=== PATIENT | male | born 1970 | race Caucasian/White ===

== ENCOUNTER 2017-05-10 09:13 | Emergency (ER) | payer OTHER ==
[2017-05-10 09:22] VITALS: BP 151/88; PULSE 113; RESP 20; TEMP 98.7
[2017-05-10] MEDS ORDERED: KETOROLAC 60 MG/2 ML VIAL IM STA (09:32)
--- NOTE | 2017-05-10 09:38 | ED ---
Upper Extremity HPI - General Chief Complaint: Extremity Injury, Upper Stated Complaint: left arm pain Time Seen by Provider: 05/10/17 09:27 Source: patient, RN notes reviewed Mode of arrival: ambulatory Limitations: no limitations - History of Present Illness Initial Comments: 47-year-old male presents emergency Department chief complaint of left shoulder injury. Patient states he was lifting something heavy he went to pick it up and he felt a pop in his left shoulder. Patient states this sharp pain. Patient states now he is unable to lift the left shoulder. Patient states he has no other symptoms with this. Patient states there is no falls or traumas. Patient states he's never had anything like this before. Patient denies any recent fever, chills, shortness of breath, chest pain, back pain, abdominal pain , nausea vomiting, numbness or tingling, dysuria or hematuria, constipation or diarrhea, headaches or visual changes, or any other current symptoms. - Related Data Home Medications Medication Instructions Recorded Confirmed No Known Home Medications [No 05/10/17 05/10/17 Known Home Medications] Allergies Allergy/AdvReac Type Severity Reaction Status Date / Time No Known Allergies Allergy Verified 05/10/17 09:22 Review of Systems ROS Statement: Those systems with pertinent positive or pertinent negative responses have been documented in the HPI. ROS Other: All systems not noted in ROS Statement are negative. Past Medical History Past Medical History: No Reported History History of Any Multi-Drug Resistant Organisms: None Reported Past Surgical History: No Surgical Hx Reported Past Psychological History: No Psychological Hx Reported Smoking Status: Never smoker Past Alcohol Use History: None Reported Past Drug Use History: None Reported General Exam - General Exam Comments Initial Comments: General: The patient is awake and alert, in no distress, and does not appear acutely ill. Neck: The neck is supple, there is no tenderness. Cardiovascular: There is a regular rate and rhythm. No murmur, rub or gallop is appreciated. Respiratory: Lungs are clear to auscultation, respirations are non-labored, breath sounds are equal. No wheezes, stridor, rales, or rhonchi. Musculoskeletal: Sensation intact with 2+ pulses throughout the left upper extremity. Full range of motion of left wrist and elbow. Patient has limited strength to left shoulder. Patient has passive range of motion with external. Patient has only about 45% abduction then with passive range of motion due to pain. Patient has no external rotation without discomfort. Patient has a positive empty can test on the left Neurological: CN II-XII intact, There are no obvious motor or sensory deficits. Coordination appears grossly intact. Speech is normal. Skin: Skin is warm and dry and no rashes or lesions are noted. Psychiatric: Normal mood and affect. Limitations: no limitations Course Vital Signs 05/10/17 09:19 Temperature 98.7 F Pulse Rate 113 H Respiratory 20 Rate Blood Pressure 151/88 O2 Sat by Pulse 97 Oximetry Procedures - Orthopedic Splinting/Casting Injury #1 Side: left Upper Extremity Injury Location: shoulder Upper Extremity Immobilizer: sling/shoulder immobilizer Medical Decision Making - Medical Decision Making 39-year-old male presents emergency Department chief complaint of left shoulder injury. This time x-rays reviewed and negative. We did discuss there is concern for rotator cuff injury. We did discuss that we would like him follow- up with orthopedics given their information. We did place patient in a sling to help with comfort. We discussed return parameters all patient's questions. He stated he understood. Plan. He will be discharged. Disposition Clinical Impression: Left shoulder strain Disposition: HOME SELF-CARE Condition: Stable Instructions: Rotator Cuff Injury (ED) Additional Instructions: Please use medication as discussed. Please follow up with family doctor if symptoms have not improved over the next two days. Please return to the emergency room if your symptoms increase or worsen or for any other concerns. Referrals: Nils Barrow MD [STAFF PHYSICIAN] - 1-2 days Time of Disposition: 09:59
--- NOTE | 2017-05-10 09:45 | XR ---
EXAMINATION TYPE: XR shoulder complete LT DATE OF EXAM: 05/10/2017 COMPARISON: NONE HISTORY: Pain TECHNIQUE: Shoulder examined in 3 views FINDINGS: The humeral head articulates with the glenoid. The acromio-clavicular junction is normal. No acute fractures or dislocations are evident. A follow up study can be performed 7-10 days from acute trauma for continued pain. IMPRESSION: 1. Normal Shoulder
== END 2017-05-10 10:09 | disposition home or self-care (01) ==
LOC: EC 09:13
DX: S46.912A Strain of unspecified muscle, fascia and tendon at shoulder and upper arm level, left arm, initial encounter (principal); X50.0XXA Overexertion from strenuous movement or load, initial encounter
CPT/HCPCS: 99283; 96372; 73030; J1885

== ENCOUNTER 2018-03-06 21:33 | Inpatient (IN) | payer OTHER ==
[2018-03-06] MEDS ORDERED: SODIUM CHLORIDE 0.9% 1,000 ML IV STA (22:07)
[2018-03-06] MEDS ORDERED: cefTRIAXone IN SWFI 2,000 MG/20 ML SYRINGE IVP STA (22:07)
[2018-03-06] MEDS ORDERED: methylPREDNISolone SOD SUCCI 125 MG/2 ML VIAL IV STA (22:07)
[2018-03-06 22:42] LABS: Basophils % (A) 0 %; Eosinophils # (A) 0.1 k/uL (0-0.7); Eosinophils % (A) 1 %; HCT 41.6 % (39.0-53.0); HGB 13.7 gm/dL (13.0-17.5); Lymphocytes # (A) 0.9 k/uL (1.0-4.8); Lymphocytes % (A) 7 %; MCH 26.9 pg (25.0-35.0); MCV 81.4 fL (80.0-100.0); Mean Platelet Volume 7.5; Monocytes # (A) 1.2 k/uL (0-1.0); Monocytes % (A) 8 %; Neutrophils # (A) 11.8 k/uL (1.3-7.7); Neutrophils % (A) 83 %; Platelet Count 276 k/uL (150-450); RBC 5.12 m/uL (4.30-5.90); WBC 14.3 k/uL (3.8-10.6)
--- NOTE | 2018-03-06 22:53 | XR ---
EXAMINATION TYPE: XR chest 2V DATE OF EXAM: 03/06/2018 COMPARISON: 06/26/2015 HISTORY: Short of breath TECHNIQUE: Frontal and lateral views of the chest are obtained. FINDINGS: Heart and mediastinum are normal. Lungs are clear. Diaphragm is normal. There are chest le ads. Bony thorax is intact. IMPRESSION: Normal chest. No change.
[2018-03-06 22:54] LABS: Creatine Kinase 845 U/L (55-170)
[2018-03-06 22:55] LABS: ALT 36 U/L (21-72); AST 56 U/L (17-59); Albumin 4.6 g/dL (3.5-5.0); Alkaline Phosphatase 71 U/L (38-126); Anion Gap 16 mmol/L; Blood Urea Nitrogen 18 mg/dL (9-20); C Reactive Protein 70.3 mg/L (<10.0); Calcium 9.6 mg/dL (8.4-10.2); Carbon Dioxide 23 mmol/L (22-30); Chloride 101 mmol/L (98-107); Glucose 106 mg/dL (74-99); Sodium 140 mmol/L (137-145); Total Bilirubin 1.4 mg/dL (0.2-1.3)
[2018-03-06 22:58] LABS: D-Dimer 0.39 mg/L FEU (<0.60); INR 1.1 (<1.2); Partial Thromboplastin Time 25.9 sec (22.0-30.0); Prothrombin Time 10.7 sec (9.0-12.0)
[2018-03-06 23:07] LABS: Troponin I <0.012 ng/mL (0.000-0.034)
[2018-03-06 23:12] LABS: Creatine Kinase MB 3.9 ng/mL (0.0-2.4)
[2018-03-06 23:34] LABS: Erythrocyte Sedimentation Rate 25 mm/hr (0-15)
--- NOTE | 2018-03-07 00:18 | ED ---
General Adult HPI - General Chief complaint: Shortness of Breath Stated complaint: Extremity pain Time Seen by Provider: 03/06/18 21:55 Source: patient Mode of arrival: wheelchair Limitations: no limitations - History of Present Illness Initial comments: 48 years old male with a history of rheumatoid arthritis comes in with complaints of sore arms and sore legs and sore feet he was off work he recently went back to work and he did a double shift and he was also supposed to take prednisone along with his methotrexate for his rheumatoid arthritis which he stopped taking few days ago now is complaining about the palpitation and the chest pain for the last 2 days he's short-winded it hurts him worse when he takes a deep breath denies any fever no chills he is not coughing up any phlegm. Denies any headaches no neck stiffness no blurred vision no slurred speech no symptoms of TIA or CVA, number pain no frequency urgency dysuria - Related Data Home Medications Medication Instructions Recorded Confirmed Methotrexate Sodium [Methotrexate] 12.5 mg PO SA 03/06/18 03/06/18 Allergies Allergy/AdvReac Type Severity Reaction Status Date / Time No Known Allergies Allergy Verified 03/06/18 21:46 Review of Systems ROS Statement: Those systems with pertinent positive or pertinent negative responses have been documented in the HPI. ROS Other: All systems not noted in ROS Statement are negative. Past Medical History Past Medical History: No Reported History History of Any Multi-Drug Resistant Organisms: None Reported Past Surgical History: No Surgical Hx Reported Past Psychological History: No Psychological Hx Reported Smoking Status: Never smoker Past Alcohol Use History: None Reported Past Drug Use History: None Reported General Exam - General Exam Comments Initial Comments: General: The patient is awake and alert, in no distress, and does not appear acutely ill. Skin: Skin is warm and dry and no rashes or lesions are noted. Eye: Pupils are equal, round and reactive to light, extra-ocular movements are intact; there is normal conjunctiva bilaterally. Ears, nose, mouth and throat: There are moist mucous membranes and no oral lesions. Neck: The neck is supple, there is no tenderness no signs of meningitis Cardiovascular: There is a regular rate and rhythm. No murmur, rub or gallop is appreciated. His significant tachycardia heart rate is 129 at the moment seemed sinus Respiratory: To auscultation bilateral, no wheezing no rhonchi no distress respiratory palomares noticed Gastrointestinal: Soft, non-distended, non-tender abdomen without masses or organomegaly noted. There is no rebound or guarding present. Bowel sounds are unremarkable. Back: There is no tenderness to palpation in the midline. There is no obvious deformity. Musculoskeletal: Rheumatoid the shoulder joints is restricted quite a bit he is not able to extend his arms at the shoulder joints internal and external rotations are quite painful and range of motion over the both ankle joints is also compromised dorsiflexion and plantar flexions or compromised and painful pulses are good no neurovascular compromise noticed her both feet his posterior came and dorsalis pedis or palpable and healthy Neurological: CN II-XII intact, Cranial nerves III through XII are intact. There are no obvious motor or sensory deficits. Coordination appears grossly intact. Speech is normal. Psychiatric: Cooperative, appropriate mood & affect, normal judgment. Limitations: no limitations Course Vital Signs 03/06/18 03/06/18 03/06/18 21:37 22:00 23:16 Temperature 97 F L Pulse Rate 130 H 125 H Respiratory 20 18 18 Rate Blood Pressure 148/73 136/82 O2 Sat by Pulse 96 97 Oximetry Amylase his labs are reviewed white count is 14.3 sed rate is 25 C-reactive protein is 70 chest x-rays unremarkable CBC compressive metabolic panel and d- dimer are unremarkable, considering is a C-reactive protein and sed rate and a symptomatic decreased range of motion at his shoulder and painful ankles put him in the hospital for some IV steroids and will continue the methotrexate he be admitted to Dr. Summers service and is quite dehydrated as a heart rate is in 120s, we did the cultures will put him on empiric antibiotics which could be discontinued once cultures are negative there was no signs of any septic joint on examination, he has not been able to give us urine sample EKG Findings - EKG Comments: EKG Findings:: EKG is sinus tachycardia ventricular rate is 126 CO interval is 126 QRS duration is 78 QT/QTc is 310/448 review of this EKG reveals sinus tach sinus tachycardia no ST elevation or ST depression noticed Medical Decision Making - Lab Data Result diagrams: 03/06/18 22:20 03/06/18 22:20 Lab Results 03/06/18 03/06/18 03/06/18 Range/Units 22:20 22:20 22:20 WBC 14.3 H (3.8-10.6) k/uL RBC 5.12 (4.30-5.90) m/uL Hgb 13.7 (13.0-17.5) gm/dL Hct 41.6 (39.0-53.0) % MCV 81.4 (80.0-100.0) fL MCH 26.9 (25.0-35.0) pg MCHC 33.0 (31.0-37.0) g/dL RDW 15.0 (11.5-15.5) % Plt Count 276 (150-450) k/uL Neutrophils % 83 % Lymphocytes % 7 % Monocytes % 8 % Eosinophils % 1 % Basophils % 0 % Neutrophils # 11.8 H (1.3-7.7) k/uL Lymphocytes # 0.9 L (1.0-4.8) k/uL Monocytes # 1.2 H (0-1.0) k/uL Eosinophils # 0.1 (0-0.7) k/uL Basophils # 0.0 (0-0.2) k/uL ESR 25 H (0-15) mm/hr PT (9.0-12.0) sec INR (<1.2) APTT (22.0-30.0) sec D-Dimer (<0.60) mg/L FEU Sodium 140 (137-145) mmol/L Potassium 4.0 (3.5-5.1) mmol/L Chloride 101 (98-107) mmol/L Carbon Dioxide 23 (22-30) mmol/L Anion Gap 16 mmol/L BUN 18 (9-20) mg/dL Creatinine 0.90 (0.66-1.25) mg/dL Est GFR (CKD-EPI)AfAm >90 (>60 ml/min/1.73 sqM) Est GFR (CKD-EPI)NonAf >90 (>60 ml/min/1.73 sqM) Glucose 106 H (74-99) mg/dL Calcium 9.6 (8.4-10.2) mg/dL Magnesium 2.0 (1.6-2.3) mg/dL Total Bilirubin 1.4 H (0.2-1.3) mg/dL AST 56 (17-59) U/L ALT 36 (21-72) U/L Alkaline Phosphatase 71 (38-126) U/L Total Creatine Kinase 845 H (55-170) U/L CK-MB (CK-2) 3.9 H* (0.0-2.4) ng/mL CK-MB (CK-2) Rel Index 0.5 Troponin I <0.012 (0.000-0.034) ng/mL C-Reactive Protein 70.3 H (<10.0) mg/L Total Protein 8.0 (6.3-8.2) g/dL Albumin 4.6 (3.5-5.0) g/dL 03/06/18 Range/Units 22:20 WBC (3.8-10.6) k/uL RBC (4.30-5.90) m/uL Hgb (13.0-17.5) gm/dL Hct (39.0-53.0) % MCV (80.0-100.0) fL MCH (25.0-35.0) pg MCHC (31.0-37.0) g/dL RDW (11.5-15.5) % Plt Count (150-450) k/uL Neutrophils % % Lymphocytes % % Monocytes % % Eosinophils % % Basophils % % Neutrophils # (1.3-7.7) k/uL Lymphocytes # (1.0-4.8) k/uL Monocytes # (0-1.0) k/uL Eosinophils # (0-0.7) k/uL Basophils # (0-0.2) k/uL ESR (0-15) mm/hr PT 10.7 (9.0-12.0) sec INR 1.1 (<1.2) APTT 25.9 (22.0-30.0) sec D-Dimer 0.39 (<0.60) mg/L FEU Sodium (137-145) mmol/L Potassium (3.5-5.1) mmol/L Chloride (98-107) mmol/L Carbon Dioxide (22-30) mmol/L Anion Gap mmol/L BUN (9-20) mg/dL Creatinine (0.66-1.25) mg/dL Est GFR (CKD-EPI)AfAm (>60 ml/min/1.73 sqM) Est GFR (CKD-EPI)NonAf (>60 ml/min/1.73 sqM) Glucose (74-99) mg/dL Calcium (8.4-10.2) mg/dL Magnesium (1.6-2.3) mg/dL Total Bilirubin (0.2-1.3) mg/dL AST (17-59) U/L ALT (21-72) U/L Alkaline Phosphatase (38-126) U/L Total Creatine Kinase (55-170) U/L CK-MB (CK-2) (0.0-2.4) ng/mL CK-MB (CK-2) Rel Index Troponin I (0.000-0.034) ng/mL C-Reactive Protein (<10.0) mg/L Total Protein (6.3-8.2) g/dL Albumin (3.5-5.0) g/dL Disposition Clinical Impression: Sinus tachycardia, Rheumatoid arthritis flare, Sepsis Disposition: ADMITTED IP TO THIS HOSP Condition: Good Referrals: Prince Chin DO [Primary Care Provider] - 1-2 days
[2018-03-07] MEDS ORDERED: IBUPROFEN 400 MG TAB PO PRN (00:19)
[2018-03-07] MEDS ORDERED: NALOXONE 0.4 MG/ML 1 ML VIAL IV PRN (00:19)
[2018-03-07] MEDS ORDERED: MORPHINE SULFATE 4 MG/0.8 ML SYRINGE (INJ) IV PRN (00:19)
[2018-03-07] MEDS ORDERED: ONDANSETRON 4 MG/2 ML VIAL IVP PRN (00:19)
[2018-03-07] MEDS ORDERED: ACETAMINOPHEN TAB 325 MG TAB PO PRN (00:19)
[2018-03-07 02:04] VITALS: BMI 27.1
[2018-03-07] MEDS: methylPREDNISolone SOD SUCCI 125 MG/2 ML VIAL IV SCH ×3 (06:05→17:21)
[2018-03-07] MEDS ORDERED: METHOTREXATE SODIUM 2.5 MG TAB PO SCH (09:00)
[2018-03-07] MEDS: SODIUM CHLORIDE 0.9% 1,000 ML IV SCH ×3 (09:05→14:50)
[2018-03-07] MEDS: FAMOTIDINE 20 MG TAB PO SCH ×2 (09:07→21:03)
--- NOTE | 2018-03-07 13:13 | P.HPIM ---
History of Present Illness This is a pleasant 48 years old male with past medical history of rheumatoid arthritis, GERD who presents last night complaining from pain and stiffness in both hands joints and both knee joints to the degree when he came to the emergency room yesterday he has to use the wheelchair which is unusual for him. 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 on a prednisone and we stopped taking that a few days ago, for a flareup in his hand and knee joints He is his methotrexate at home Patient denies history of hypertension, diabetes, on smoker, his cardiac disease history and was only in these grandfather who developed heart disease at 80s of age Review of Systems 14 point systemic review were negative except as mentioned in HPI Past Medical History Past Medical History: GERD/Reflux, Rheumatoid Arthritis (RA) History of Any Multi-Drug Resistant Organisms: None Reported Past Surgical History: No Surgical Hx Reported Past Anesthesia/Blood Transfusion Reactions: No Reported Reaction Past Psychological History: No Psychological Hx Reported Smoking Status: Never smoker Past Alcohol Use History: None Reported Past Drug Use History: None Reported - Past Family History Father Family Medical History: Hypertension Medications and Allergies Home Medications Medication Instructions Recorded Confirmed Type Methotrexate Sodium [Methotrexate] 12.5 mg PO SA 03/06/18 03/06/18 History Allergies Allergy/AdvReac Type Severity Reaction Status Date / Time No Known Allergies Allergy Verified 03/06/18 21:46 Physical Exam Vitals: Vital Signs Temp Pulse Pulse Resp BP BP Pulse Ox 03/07/18 08:00 98.1 F 88 16 134/82 96 03/07/18 04:00 98.5 F 89 16 113/57 97 03/07/18 02:00 99.9 F H 112 H 16 140/80 95 03/07/18 01:18 110 H 16 146/80 97 03/07/18 01:00 124 H 17 149/88 97 03/06/18 23:16 125 H 18 136/82 97 03/06/18 22:00 18 03/06/18 21:37 97 F L 130 H 20 148/73 96 Intake and Output 03/06/18 03/07/18 03/07/18 22:59 06:59 14:59 Other: Voiding Method Toilet Toilet Weight 85.729 kg 85.729 kg Constitutional: No acute distress, conversant, pleasant Eyes: Anicteric sclerae, moist conjunctiva, no lid-lag PERRLA ENMT: NC/AT Oropharynx clear, no erythema, exudates Neck: Supple, FROM, no masses, or JVD No carotid bruits No thyromegaly Lungs: Clear to auscultation Clear to percussion Normal respiratory effort, no accessory muscle use Cardiovascular: Heart regular in rate and rhythm, No murmurs, gallops, or rubs No peripheral edema Abdominal: Soft Nontender, no guarding, rebound or rigidity Abdomen moving with respiration Normoactive bowel sounds No hepatomegaly, No splenomegaly No palpable mass No abdominal wall hernia noted Skin: Normal temperature, tone, texture, turgor No induration No subcutaneous nodules No rash, lesions No ulcers Extremities: No digital cyanosis No clubbing Pedal pulses intact and symmetrical Radial pulses intact and symmetrical Normal gait and station No calf tenderness Psychiatric: Alert and oriented to person, place and time Appropriate affect Intact judgement Neuro: Muscles Strength 5/5 in all 4 extremities Sensation to light touch grossly present throughout Cranial nerves II-XII grossly intact No focal sensory deficits Results CBC & Chem 7: 03/06/18 22:20 03/06/18 22:20 Labs: Abnormal Lab Results - Last 24 Hours (Table) 03/06/18 03/06/18 03/06/18 Range/Units 22:20 22:20 22:20 WBC 14.3 H (3.8-10.6) k/uL Neutrophils # 11.8 H (1.3-7.7) k/uL Lymphocytes # 0.9 L (1.0-4.8) k/uL Monocytes # 1.2 H (0-1.0) k/uL ESR 25 H (0-15) mm/hr Glucose 106 H (74-99) mg/dL Total Bilirubin 1.4 H (0.2-1.3) mg/dL Total Creatine Kinase 845 H (55-170) U/L CK-MB (CK-2) 3.9 H* (0.0-2.4) ng/mL C-Reactive Protein 70.3 H (<10.0) mg/L Thrombosis Risk Factor Assmnt - Choose All That Apply Each Factor Represents 1 point: Age 41-60 years Thrombosis Risk Factor Assessment Total Risk Factor Score: 1 Thrombosis Risk Factor Assessment Level: Low Risk Assessment and Plan Assessment: Rheumatoid arthritis, acute flareup Plan: Patient had low-grade fever of 99.9 on 03/07, blood cultures are sent, patients with leukocytosis at 14 K Continue with prednisone, methotrexate, check labs CK-MB is a slightly elevated at 3.9, first troponin is negative as less than 0.012, check cardiac enzymes, echo Chest x-ray is normal, check UA, patient is on ceftriaxone already
[2018-03-07 13:48] LABS: Basophils % (A) 0 %; Eosinophils # (A) 0.2 k/uL (0-0.7); Eosinophils % (A) 1 %; HCT 40.2 % (39.0-53.0); HGB 13.2 gm/dL (13.0-17.5); Lymphocytes # (A) 0.6 k/uL (1.0-4.8); Lymphocytes % (A) 3 %; MCHC 32.9 g/dL (31.0-37.0); Mean Platelet Volume 7.4; Monocytes # (A) 0.6 k/uL (0-1.0); Monocytes % (A) 3 %; Neutrophils # (A) 16.5 k/uL (1.3-7.7); Neutrophils % (A) 92 %; Platelet Count 275 k/uL (150-450); WBC 17.9 k/uL (3.8-10.6)
[2018-03-07 13:57] LABS: ALT 28 U/L (21-72); AST 36 U/L (17-59); Alkaline Phosphatase 59 U/L (38-126); Anion Gap 13 mmol/L; Bilirubin, Delta 0.4 mg/dL (0.0-0.2); Bilirubin,Unconjugated 0.4 mg/dL (0.0-1.1); Blood Urea Nitrogen 17 mg/dL (9-20); Calcium 9.1 mg/dL (8.4-10.2); Carbon Dioxide 22 mmol/L (22-30); Chloride 106 mmol/L (98-107); Glucose 180 mg/dL (74-99); Magnesium 2.3 mg/dL (1.6-2.3); Sodium 141 mmol/L (137-145); Total Bilirubin 0.8 mg/dL (0.2-1.3); Total Protein 7.1 g/dL (6.3-8.2)
[2018-03-07 14:21] LABS: Creatine Kinase MB 2.1 ng/mL (0.0-2.4); Troponin I <0.012 ng/mL (0.000-0.034)
[2018-03-07 17:28] LABS: Appearance,Urine Clear (Clear); Bilirubin,Urine Negative (Negative); Blood,Urine Negative (Negative); Color,Urine Yellow; Glucose,Urine (UA) Trace (Negative); Ketones,Urine Negative (Negative); Leukocyte Esterase,Urine Negative (Negative); Nitrite,Urine Negative (Negative); PH, Urine 5.5 (5.0-8.0); Protein,Urine Trace (Negative); Specific Gravity,Urine 1.031 (1.001-1.035); Urobilinogen,Urine <2.0 mg/dL (<2.0)
[2018-03-07] MEDS: cefTRIAXone IN SWFI 2,000 MG/20 ML SYRINGE IVP SCH (21:03)
[2018-03-08] MEDS: methylPREDNISolone SOD SUCCI 125 MG/2 ML VIAL IV SCH ×4 (00:49→17:59)
[2018-03-08] MEDS: FAMOTIDINE 20 MG TAB PO SCH ×2 (08:54→21:48)
[2018-03-08] MEDS: SODIUM CHLORIDE 0.9% 1,000 ML IV SCH ×2 (12:58→13:00)
--- NOTE | 2018-03-08 15:54 | ECHOF ---
Referral Reason:chest pain MEASUREMENTS -------- HEIGHT: 177.8 cm WEIGHT: 85.7 kg BP: 132/76 RVIDd: 2.8 cm (< 3.3) IVSd: 1.1 cm (0.6 - 1.1) LVIDd: 4.4 cm (3.9 - 5.3) LVPWd: 1.3 cm (0.6 - 1.1) IVSs: 1.2 cm LVIDs: 3.3 cm LVPWs: 1.3 cm LAESV Index (A-L): 24.88 ml/m Ao Diam: 3.3 cm (2.0 - 3.7) AV Cusp: 2.2 cm (1.5 - 2.6) LA Diam: 3.1 cm (2.7 - 3.8) EPSS: 0.3 cm MV E Aaron: 1.02 m/s MV DecT: 226 ms MV A Aaron: 0.98 m/s MV E/A Ratio: 1.04 RAP: 5.00 mmHg RVSP: 23.18 mmHg MV EF SLOPE: 90.31 mm/s (70 - 150) MV EXCURSION: 1.59 cm (> 18.000) FINDINGS -------- Sinus rhythm. This was a technically adequate study. The left ventricular size is normal. There is mild concentric left ventricular hypertrophy. Overa ll left ventricular systolic function is normal with, an EF between 55 - 60 %. The right ventricle is normal in size and function. Normal LA size by volume 22+/-6 ml/m2. The right atrium is normal in size. The aortic valve is trileaflet, and appears structurally normal. No aortic stenosis or regurgitation. The mitral valve leaflets are mildly thickened. There is trace to mild mitral regurgitation. Mild tricuspid regurgitation present. Right ventricular systolic pressure is normal at < 35 mmHg. There is no evidence of pulmonary hypertension. The pulmonic valve is normal. The aortic root size is normal. Normal inferior vena cava with normal inspiratory collapse consistent with estimated right atrial pre ssure of 5 mmHg. The pericardium is normal. There is no pericardial effusion. CONCLUSIONS -------- 1. Sinus rhythm. 2. This was a technically adequate study. 3. The left ventricular size is normal. 4. There is mild concentric left ventricular hypertrophy. 5. Overall left ventricular systolic function is normal with, an EF between 55 - 60 %. 6. Normal LA size by volume 22+/-6 ml/m2. 7. The aortic valve is trileaflet, and appears structurally normal. No aortic stenosis or regurgitati on. 8. The mitral valve leaflets are mildly thickened. 9. There is trace to mild mitral regurgitation. 10. Mild tricuspid regurgitation present. 11. Right ventricular systolic pressure is normal at < 35 mmHg. 12. There is no evidence of pulmonary hypertension. 13. The aortic root size is normal. 14. There is no pericardial effusion. FILE CLERK: Steve Morales RDCS
--- NOTE | 2018-03-08 17:35 | P.PN ---
Subjective History of Present Illness This is a pleasant 48 years old male with past medical history of rheumatoid arthritis, GERD who presents last night complaining from pain and stiffness in both hands joints and both knee joints to the degree when he came to the emergency room yesterday he has to use the wheelchair which is unusual for him. 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 He was recently on a prednisone and we stopped taking that a few days ago, for a flareup in his hand and knee joints He is his methotrexate at home Patient denies history of hypertension, diabetes, on smoker, his cardiac disease history and was only in these grandfather who developed heart disease at 80s of age Subjective Patient is seen and examined by me at bedside no new complaints no CP/SOB, change in urine or bowel habits, no fever pt states he feels better today still stiff at the right hand, and somewhat on the knees iv site is infiltrated a little bit Objective - Vital Signs Vital signs: Vital Signs Temp 97.8 F 03/08/18 16:00 Pulse 95 03/08/18 16:00 Resp 18 03/08/18 16:00 BP 148/75 03/08/18 16:00 Pulse Ox 96 03/08/18 16:00 Intake & Output 03/07/18 03/08/18 03/08/18 18:59 06:59 18:59 Weight 85.729 kg Other: Voiding Method Toilet Toilet Toilet # Voids 1 3 - Exam Constitutional: No acute distress, conversant, pleasant Eyes: Anicteric sclerae, moist conjunctiva, no lid-lag PERRLA ENMT: NC/AT Oropharynx clear, no erythema, exudates Neck: Supple, FROM, no masses, or JVD No carotid bruits No thyromegaly Lungs: Clear to auscultation Clear to percussion Normal respiratory effort, no accessory muscle use Cardiovascular: Heart regular in rate and rhythm, No murmurs, gallops, or rubs No peripheral edema Abdominal: Soft Nontender, no guarding, rebound or rigidity Abdomen moving with respiration Normoactive bowel sounds No hepatomegaly, No splenomegaly No palpable mass No abdominal wall hernia noted Skin: Normal temperature, tone, texture, turgor No induration No subcutaneous nodules No rash, lesions No ulcers Extremities: No digital cyanosis No clubbing Pedal pulses intact and symmetrical Radial pulses intact and symmetrical Normal gait and station No calf tenderness Psychiatric: Alert and oriented to person, place and time Appropriate affect Intact judgement Neuro: Muscles Strength 5/5 in all 4 extremities Sensation to light touch grossly present throughout Cranial nerves II-XII grossly intact No focal sensory deficits - Labs CBC & Chem 7: 03/07/18 13:35 03/07/18 13:35 Labs: Abnormal Lab Results - Last 24 Hours (Table) 03/07/18 Range/Units 17:19 Urine Protein Trace H (Negative) Urine Glucose (UA) Trace H (Negative) Microbiology - Last 24 Hours (Table) 03/06/18 22:20 Blood Culture - Preliminary Blood No Growth after 24 hours Assessment and Plan Assessment: Rheumatoid arthritis, acute flareup Plan: Patient had low-grade fever of 99.9 on 03/07, blood cultures are sent, patients with leukocytosis at 14 K Continue with prednisone, methotrexate, check labs CK-MB is a slightly elevated at 3.9, first troponin is negative as less than 0.012, check cardiac enzymes, echo Chest x-ray is normal, check UA, patient is on ceftriaxone already Patients with no more fever, UA is not suggestive of infection, CXR:is normal, has high white cell count patient on steroids to, continue with ceftriaxone and call ID consult
[2018-03-08] MEDS: cefTRIAXone IN SWFI 2,000 MG/20 ML SYRINGE IVP SCH (21:48)
[2018-03-09] MEDS: methylPREDNISolone SOD SUCCI 125 MG/2 ML VIAL IV SCH ×4 (00:11→17:55)
[2018-03-09] MEDS: SODIUM CHLORIDE 0.9% 1,000 ML IV SCH ×3 (00:11→22:34)
[2018-03-09] MEDS: FAMOTIDINE 20 MG TAB PO SCH ×2 (08:18→22:34)
[2018-03-09] MEDS ORDERED: MORPHINE ORAL SOLN 10 MG/5 ML CUP PO PRN (09:15)
[2018-03-09 09:19] LABS: Basophils % (A) 0 %; Eosinophils % (A) 0 %; HGB 12.3 gm/dL (13.0-17.5); Lymphocytes # (A) 0.5 k/uL (1.0-4.8); Lymphocytes % (A) 3 %; MCHC 31.7 g/dL (31.0-37.0); MCV 85.1 fL (80.0-100.0); Mean Platelet Volume 7.3; Monocytes # (A) 0.5 k/uL (0-1.0); Monocytes % (A) 3 %; Neutrophils # (A) 13.8 k/uL (1.3-7.7); Neutrophils % (A) 93 %; Platelet Count 299 k/uL (150-450); RBC 4.58 m/uL (4.30-5.90); WBC 14.8 k/uL (3.8-10.6)
[2018-03-09 09:47] LABS: Anion Gap 12 mmol/L; Blood Urea Nitrogen 17 mg/dL (9-20); Calcium 8.7 mg/dL (8.4-10.2); Carbon Dioxide 24 mmol/L (22-30); Chloride 107 mmol/L (98-107); Glucose 201 mg/dL (74-99); Sodium 143 mmol/L (137-145)
--- NOTE | 2018-03-09 12:32 | CONS ---
CONSULTATION DATE OF SERVICE: 03/09/2018. REASON FOR CONSULTATION: Fever and leukocytosis . HISTORY OF PRESENT ILLNESS: The patient is a 48-year-old male with a past medical history significant for rheumatoid arthritis, gastroesophageal reflux disease. The patient is at home on methotrexate and recently finished a tapering course of prednisone. Coming to the ER at [facility] on 03/06/2018 with chief complaint of pain and stiffness in both hand joints and both knee joints as well as in bilateral feet. 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 The patient denies any high-grade fever, rigors and chills. The patient has to be brought into the hospital in a wheelchair, which is unusual for him. The patient on arrival to the ER did have no fever. However, subsequently noted to have a low-grade fever of 99.9 and has been afebrile since then. The patient did have elevated white count 14.3 with a repeat 17.9 on the that prompted this infectious disease consultation. However, the patient has been started on Solu-Medrol 60 q.6h as of 03/07. The patient currently denies having any headache. No URI symptoms. Denies any chest pain or shortness of breath or cough. No abdominal pain. No diarrhea. No burning or frequency of urine. The pain is mostly to the joint area, both in the hand and feet and small joints and describing it to be more of a dull aching pain 5 to 6/10, and no radiation, with no swelling and no redness. The patient denies any diarrhea and no urinary symptoms. REVIEW OF SYSTEMS: CONSTITUTIONAL: Positive for weakness and no high-grade fever. Eyes: No complaint. ENT no complaint. Respiratory no complaint. Cardiovascular no complaint. Genitourinary: No complaint. Gastrointestinal: No complaint. Musculoskeletal as per HPI. INTEGUMENTARY: no complaint. Psychological no complaint. Endocrine no complaint. Neurologic no complaint. PAST MEDICAL HISTORY: Rheumatoid arthritis, gastroesophageal reflux disease. PAST SURGICAL HISTORY: No major surgeries. SOCIAL HISTORY: Denies smoking, drinking or drug use. FAMILY HISTORY: Father history of hypertension. ALLERGIES: No known drug allergies. MEDICATION: Medications include the patient is currently on: Tylenol, Pepcid, Motrin, methotrexate, Solu-Medrol, morphine sulfate, Narcan, Zofran, Rocephin 2 g daily. EXAMINATION: Blood pressure is 146/77, the pulse is 80, temperature 97.4. He is 93% on room air. General description is a middle aged male up in the bed in no distress. No tachypnea or accessory muscles of respiration use. HEENT: Examination no pallor or scleral icterus. Oral mucosa membranes are moist. No pharyngeal erythema or thrush. Neck trachea central. No thyromegaly. Lungs unlabored breathing. Clear to auscultation anteriorly. No wheeze or crackles. Heart S1, S2. Regular rate and rhythm. ABDOMEN: Soft, no tenderness. No guarding or rigidity. Extremities are no edema of the feet. Examination of bilateral feet area. No significant swelling or redness was noticed. The same for the bilateral hands, joints with no significant swelling or redness. Neurological: Patient is awake, alert, oriented times three. Mood and affect normal. LABS: Hemoglobin 12.8, white count 14.8 with a BUN of 17, creatinine 0.82. Urine has been negative. Chest report negative for any pneumonia. DIAGNOSTIC IMPRESSION AND PLAN: Patient admitted to the hospital with pain in the feet and hands in a patient who does have a history of rheumatoid arthritis and likely representing an increase in his underlying inflammatory arthritis. Clinically doubt any infectious etiology. The elevated white count on presentation could have been related to the prednisone he has been on in outpatient setting. The patient will have a further worsening of the white count more likely because the swelling the patient was started on. The patient currently with no active source of infection with lungs remains to be clear. Chest reported to be negative. Abdomen was soft on clinical examination. UA has been negative and no evidence of any cellulitis. PLAN: 1. Recommend discontinuation of Rocephin as no clinical evidence of any bacterial infection. 2. We will continue with steroids and with Methotrexate per the admitting team. Thank you for this consultation. We will follow this patient along with you. MMODL / IJN: [id number] /
[2018-03-09] MEDS ORDERED: diphenhydrAMINE 2% CREAM 28.4 GM TUBE TOPICAL PRN (12:34)
--- NOTE | 2018-03-09 12:53 | P.PN ---
Subjective History of Present Illness This is a pleasant 48 years old male with past medical history of rheumatoid arthritis, GERD who presents last night complaining from pain and stiffness in both hands joints and both knee joints to the degree when he came to the emergency room yesterday he has to use the wheelchair which is unusual for him. 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 He was recently on a prednisone and we stopped taking that a few days ago, for a flareup in his hand and knee joints He is his methotrexate at home Patient denies history of hypertension, diabetes, on smoker, his cardiac disease history and was only in these grandfather who developed heart disease at 80s of age Subjective Patient is seen and examined by me at bedside no new complaints no CP/SOB, change in urine or bowel habits, no fever pt states he feels better today still stiff at the right hand, and somewhat on the knees iv site is infiltrated a little bit Objective - Vital Signs Vital signs: Vital Signs Temp 97.4 F L 03/09/18 07:34 Pulse 80 03/09/18 07:34 Resp 16 03/09/18 07:34 BP 140/67 03/09/18 07:34 Pulse Ox 93 L 03/09/18 07:34 Intake & Output 03/08/18 03/09/18 03/09/18 18:59 06:59 18:59 Weight 85.5 kg Other: Voiding Method Toilet Toilet Toilet # Voids 3 3 - Exam Constitutional: No acute distress, conversant, pleasant Eyes: Anicteric sclerae, moist conjunctiva, no lid-lag PERRLA ENMT: NC/AT Oropharynx clear, no erythema, exudates Neck: Supple, FROM, no masses, or JVD No carotid bruits No thyromegaly Lungs: Clear to auscultation Clear to percussion Normal respiratory effort, no accessory muscle use Cardiovascular: Heart regular in rate and rhythm, No murmurs, gallops, or rubs No peripheral edema Abdominal: Soft Nontender, no guarding, rebound or rigidity Abdomen moving with respiration Normoactive bowel sounds No hepatomegaly, No splenomegaly No palpable mass No abdominal wall hernia noted Skin: Normal temperature, tone, texture, turgor No induration No subcutaneous nodules No rash, lesions No ulcers Extremities: No digital cyanosis No clubbing Pedal pulses intact and symmetrical Radial pulses intact and symmetrical Normal gait and station No calf tenderness Psychiatric: Alert and oriented to person, place and time Appropriate affect Intact judgement Neuro: Muscles Strength 5/5 in all 4 extremities Sensation to light touch grossly present throughout Cranial nerves II-XII grossly intact No focal sensory deficits - Labs CBC & Chem 7: 03/09/18 08:54 03/09/18 08:54 Labs: Abnormal Lab Results - Last 24 Hours (Table) 03/09/18 03/09/18 Range/Units 08:54 08:54 WBC 14.8 H (3.8-10.6) k/uL Hgb 12.3 L (13.0-17.5) gm/dL Neutrophils # 13.8 H (1.3-7.7) k/uL Lymphocytes # 0.5 L (1.0-4.8) k/uL Glucose 201 H (74-99) mg/dL Microbiology - Last 24 Hours (Table) 03/06/18 22:20 Blood Culture - Preliminary Blood No Growth after 48 hours Assessment and Plan Assessment: Rheumatoid arthritis, acute flareup Plan: Patient had low-grade fever of 99.9 on 03/07, blood cultures are sent, patients with leukocytosis at 14 K Continue with prednisone, methotrexate, check labs CK-MB is a slightly elevated at 3.9, serial troponin are negative as less than 0.012, echo: Sinus rhythm, EF 55-56%, no aortic stenosis, no pericardial effusion Patients with no more fever, UA negative, CXR:is normal, has improving high white cell count patient on steroids to, continue with ceftriaxone and ID consult on the case
--- NOTE | 2018-03-09 17:34 | P.CONS ---
History of Present Illness - Reason for Consult Consult date: 03/09/18 Rheumatoid arthritis flare Requesting physician: Get E Sheet - Chief Complaint pain in knees/legs - History of Present Illness Patient is seen today as an inpatient consult. Patient is a 48-year-old male who has rheumatoid arthritis. Previously been seen in our office. Patient is methotrexate 5 tabs per week and folic acid 1 mg daily. Patient was prescribed a 20 mg two-week taper prednisone on tapering and completed a taper a few days ago according to the prednisone taper calendar that he was given on December 26. 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 Patient states that he came to the emergency room on Friday evening and felt the could barely walk-in was brought in a wheelchair. Patient received his methotrexate on Friday which is his usual day for methotrexate. According to the ER note, anneliese also felt short winded and had chest pain, cardiac workup has so far been negative. Patient also had a low-grade fever and tachycardia and has been workup for sepsis and has has seen infectious disease who recommended discontinuation of ceftriaxone. Patient was started on Solu-Medrol 60 mg IV every 6 h Echocardiogram was normal. Review of Systems Musculoskeletal: Reports as per HPI, Reports morning stiffness, Reports redness of joints Musculoskeletal: bilateral: foot pain, hand pain, hand stiffness, hand swelling , knee pain Past Medical History Past Medical History: GERD/Reflux, Rheumatoid Arthritis (RA) History of Any Multi-Drug Resistant Organisms: None Reported Past Surgical History: No Surgical Hx Reported Past Anesthesia/Blood Transfusion Reactions: No Reported Reaction Past Psychological History: No Psychological Hx Reported Smoking Status: Never smoker Past Alcohol Use History: None Reported Past Drug Use History: None Reported - Past Family History Father Family Medical History: Hypertension Medications and Allergies Home Medications Medication Instructions Recorded Confirmed Type Methotrexate Sodium [Methotrexate] 12.5 mg PO SA 03/06/18 03/06/18 History Allergies Allergy/AdvReac Type Severity Reaction Status Date / Time No Known Allergies Allergy Verified 03/06/18 21:46 Physical Exam Vitals: Vital Signs Temp Pulse Pulse Resp BP Pulse Ox 03/09/18 15:22 98.1 F 88 18 123/76 94 L 03/09/18 07:34 97.4 F L 80 16 140/67 93 L 03/08/18 20:00 97.5 F L 93 18 128/73 95 Intake and Output 03/09/18 03/09/18 03/09/18 06:59 14:59 22:59 Other: Voiding Method Toilet Toilet # Voids 3 Weight 85.5 kg On physical exam patient does have swelling and stiffness consistent with a rheumatoid arthritis flare. Patient has no apparent swelling or effusion of the knee. Patient is able to ambulate comfortably. - Cardiovascular Rhythm: regular Heart sounds: normal: S1, S2 Results CBC & Chem 7: 03/09/18 08:54 03/09/18 08:54 Labs: Abnormal Lab Results - Last 24 Hours (Table) 03/09/18 03/09/18 Range/Units 08:54 08:54 WBC 14.8 H (3.8-10.6) k/uL Hgb 12.3 L (13.0-17.5) gm/dL Neutrophils # 13.8 H (1.3-7.7) k/uL Lymphocytes # 0.5 L (1.0-4.8) k/uL Glucose 201 H (74-99) mg/dL Microbiology - Last 24 Hours (Table) 03/06/18 22:20 Blood Culture - Preliminary Blood No Growth after 48 hours Assessment and Plan (1) Leukocytosis Current Visit: Yes Status: Acute Code(s): D72.829 - ELEVATED WHITE BLOOD CELL COUNT, UNSPECIFIED SNOMED Code(s): 651372891 (2) On prednisone therapy Current Visit: Yes Status: Acute Code(s): Z79.52 - LOFT WORKER PILE DRIVING (CURRENT) USE OF SYSTEMIC STEROIDS SNOMED Code(s): 434893046 (3) Rheumatoid arthritis flare Current Visit: Yes Status: Acute Code(s): M06.9 - RHEUMATOID ARTHRITIS, UNSPECIFIED SNOMED Code(s): 763162273 Plan: Patient is seen today as an inpatient consult. Patient is a 48-year-old male who has rheumatoid arthritis. Previously been seen in our office. Patient is methotrexate 5 tabs per week and folic acid 1 mg daily. Patient was prescribed a 20 mg two-week taper prednisone on tapering and completed a taper a few days ago according to the prednisone taper calendar that he was given on December 26. 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 Patient states that he came to the emergency room on Friday evening and felt the could barely walk-in was brought in a wheelchair. Patient received his methotrexate on Friday which is his usual day for methotrexate. According to the ER note, tieshun also felt short winded and had chest pain, cardiac workup has so far been negative. Patient also had a low-grade fever and tachycardia and has been workup for sepsis and has has seen infectious disease who recommended discontinuation of ceftriaxone. Patient was started on Solu-Medrol 60 mg IV every 6 h. Echocardiogram was normal. On physical exam patient does have swelling and stiffness consistent with a rheumatoid arthritis flare. Patient has no apparent swelling or effusion of the knee. Patient is able to ambulate comfortably. Patient's most recent lab results reveal white blood cell count elevated at 14.8 , hemoglobin 12.3, hematocrit 39.0. Patient's glucose was also high of 201. Patient's leukocytosis and elevated glucoses most likely due to the prednisone and Solu-Medrol. Patient is on IV Solumedrol and should be discharged on prednisone 20 mg daily for 2 weeks until he is seen as outpatient visit for his previously scheduled follow up on March 25. Patient's presenting symptoms most likely are not related to the methotrexate as he was due for methotrexate the following day and had completed his prescribed prednisone taper. Patient did work a long 13 hour shift on his feet as a razor grinder so this could have caused swelling in the lower extremity as well as a flare of the rheumatoid arthritis. Episode similar to this happened to patient once before 9 years ago before he was on treatment for RA. Patient is also due for bloodwork at our office around March 15. Time with Patient: Greater than 30
[2018-03-10] MEDS: methylPREDNISolone SOD SUCCI 125 MG/2 ML VIAL IV SCH ×3 (00:24→11:35)
[2018-03-10] MEDS: SODIUM CHLORIDE 0.9% 1,000 ML IV SCH (06:27)
[2018-03-10 08:39] LABS: Basophils % (A) 0 %; Eosinophils % (A) 0 %; HCT 38.8 % (39.0-53.0); HGB 12.5 gm/dL (13.0-17.5); Lymphocytes # (A) 0.8 k/uL (1.0-4.8); Lymphocytes % (A) 6 %; MCH 26.8 pg (25.0-35.0); MCHC 32.3 g/dL (31.0-37.0); Mean Platelet Volume 7.6; Monocytes # (A) 0.4 k/uL (0-1.0); Monocytes % (A) 4 %; Neutrophils # (A) 11.1 k/uL (1.3-7.7); Neutrophils % (A) 90 %; Platelet Count 305 k/uL (150-450); RBC 4.68 m/uL (4.30-5.90); WBC 12.3 k/uL (3.8-10.6)
[2018-03-10 08:44] LABS: Anion Gap 12 mmol/L; Blood Urea Nitrogen 16 mg/dL (9-20); Calcium 8.5 mg/dL (8.4-10.2); Carbon Dioxide 24 mmol/L (22-30); Chloride 105 mmol/L (98-107); Glucose 164 mg/dL (74-99); Potassium 3.9 mmol/L (3.5-5.1); Sodium 141 mmol/L (137-145)
[2018-03-10] MEDS: FAMOTIDINE 20 MG TAB PO SCH (09:29)
[2018-03-10] MEDS ORDERED: predniSONE 20 MG TAB PO SCH (12:00)
--- NOTE | 2018-03-10 14:06 | PN ---
PROGRESS NOTE DATE OF SERVICE: 03/10/2018 REASON FOR FOLLOWUP: Leukocytosis. INTERVAL HISTORY: The patient is afebrile. He is currently feeling better. Breathing comfortably. Denies having any chest pain or shortness of breath, no cough. Pain to the joints is slightly improved. No diarrhea. PHYSICAL EXAMINATION: Blood pressure 124/58, pulse of 74, temperature 97.4. He is 93% on room air. General description is a middle-aged male, lying in bed in no distress. RESPIRATORY SYSTEM: Unlabored breathing, clear to auscultation anteriorly. HEART: S1, S2. Regular rate and rhythm. ABDOMEN: Soft, no tenderness. LABS: White count of 12.3 with a BUN of 16, creatinine 0.76. DIAGNOSTIC IMPRESSION AND PLAN: Patient with leukocytosis, more likely steroid effect. Clinically doubt any infectious etiology. Culture has been negative. Off antibiotic for 24 hours without any change, hence I recommend no antibiotic on discharge. Will follow as needed. MMODL / IJN: [id number] /
--- NOTE | 2018-03-10 14:44 | P.DS ---
Providers Date of admission: 03/08/18 15:32 Attending physician: Maricel Summers Consults: 03/08/18 17:43 Consult Physician Routine Consulting Provider: Yoly Mead Consult Reason/Comments: elevated white count, fever of unknown origin Do you want consulting provider notified?: Yes 03/09/18 13:09 Consult Physician Routine Consulting Provider: Tracey Newberry Consult Reason/Comments: rheumatoid arthritis flare up, pt known to her Do you want consulting provider notified?: Yes Primary care physician: [facility] Course: This is a pleasant 48 years old male with past medical history of rheumatoid arthritis, GERD who presents last night complaining from pain and stiffness in both hands joints and both knee joints to the degree when he came to the emergency room yesterday he has to use the wheelchair which is unusual for him. 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 Randle from rheumatology team evaluation is greatly appreciated, he recommends to continue with methotrexate at his usual home dose, and to continue with steroids prednisone 20 mg daily for 2 weeks, patient has a follow-up appointment with Dr. Mitchell on March 25, patient is aware of this On the day of discharge patient denies any chest pain, no dyspnea, no palpitation or dizziness Patient is found stable and can be discharged home however he needs follow up as an outpatient, recommended to the patient to follow up with PCP in one week and with Dr. Lara as a scheduled Constitutional: No acute distress, conversant, pleasant Eyes: Anicteric sclerae, moist conjunctiva, no lid-lag PERRLA ENMT: NC/AT Oropharynx clear, no erythema, exudates Neck: Supple, FROM, no masses, or JVD No carotid bruits No thyromegaly Lungs: Clear to auscultation Clear to percussion Normal respiratory effort, no accessory muscle use Cardiovascular: Heart regular in rate and rhythm, No murmurs, gallops, or rubs No peripheral edema Abdominal: Soft Nontender, no guarding, rebound or rigidity Abdomen moving with respiration Normoactive bowel sounds No hepatomegaly, No splenomegaly No palpable mass No abdominal wall hernia noted Skin: Normal temperature, tone, texture, turgor No induration No subcutaneous nodules No rash, lesions No ulcers Extremities: No digital cyanosis No clubbing Pedal pulses intact and symmetrical Radial pulses intact and symmetrical Normal gait and station No calf tenderness Psychiatric: Alert and oriented to person, place and time Appropriate affect Intact judgement Neuro: Muscles Strength 5/5 in all 4 extremities Sensation to light touch grossly present throughout Cranial nerves II-XII grossly intact No focal sensory deficits Patient Condition at Discharge: Good Plan - Discharge Summary New Discharge Prescriptions: New Acetaminophen Tab [Tylenol] 650 mg PO Q6HR PRN tab PRN Reason: Mild Pain Or Fever > 100.5 Famotidine [Pepcid] 20 mg PO BID #60 tab predniSONE 20 mg PO DAILY #20 tab Continue Methotrexate Sodium [Methotrexate] 12.5 mg PO SA Discharge Medication List Methotrexate Sodium [Methotrexate] 12.5 mg PO SA 03/06/18 [History] Acetaminophen Tab [Tylenol] 650 mg PO Q6HR PRN tab 03/10/18 [Rx] Famotidine [Pepcid] 20 mg PO BID #60 tab 03/10/18 [Rx] predniSONE 20 mg PO DAILY #20 tab 03/10/18 [Rx] Follow up Appointment(s)/Referral(s): Prince Chin DO [Primary Care Provider] - 1-2 days Activity/Diet/Wound Care/Special Instructions: Resume previous diet Activity as tolerated Discharge Disposition: HOME SELF-CARE
[2018-03-10 14:46] VITALS: BP 149/72; PULSE 84; RESP 20; TEMP 98.1
== END 2018-03-10 16:20 | disposition home or self-care (01) | DRG 547 ==
LOC: EC 21:33 → 3OBS 03-07 00:27 → OBSVTOIN 03-08 15:32 → 5MS5E 03-08 17:14
PROVIDERS: ADMIT Hospitalist; ATTEND Hospitalist
DX: M06.9 Rheumatoid arthritis, unspecified (principal); K21.9 Gastro-esophageal reflux disease without esophagitis; D72.829 Elevated white blood cell count, unspecified; Z79.899 Other long term (current) drug therapy; Z82.49 Family history of ischemic heart disease and other diseases of the circulatory system
CPT/HCPCS: 36415; 71046; 80048; 80053; 80076; 81003; 82550; 82553; 83605; 83735; 84484; 85025; 85379; 85610; 85652; 85730; 86140; 87040; 93005; 93306; 96361; 96374; 96375; 99285

== ENCOUNTER 2018-04-06 03:53 | Emergency (ER) | payer OTHER ==
--- NOTE | 2018-04-06 04:14 | ED ---
Chest Pain HPI - General Chief Complaint: Chest Pain Stated Complaint: Chest Pain Time Seen by Provider: 04/06/18 04:01 Source: patient Mode of arrival: ambulatory Limitations: no limitations - History of Present Illness Initial Comments: This patient is a 48-year-old man who presents to be evaluated for left-sided chest pain. The patient states that he had been sleeping on the couch tonight and then woke at approximately 2 AM the symptoms. He was feeling well prior to going to sleep. He indicates the left side of the chest area patient states that the pain is constant. He calls it a mild sharp pain. He states that there is one spot that if he presses on it seems to get a little worse. Otherwise he has not noted worsening or relieving factors. There were no associated symptoms. MD Complaint: chest pain Onset/Timin -: hour(s) Onset: awoke with symptoms Pain Location: left chest Pain Radiation: none Severity: mild Quality: sharp Consistency: constant Improves With: nothing Worsens With: palpation Treatments Prior to Arrival: none - Related Data Home Medications Medication Instructions Recorded Confirmed Methotrexate Sodium [Methotrexate] 12.5 mg PO SA 03/06/18 03/06/18 Previous Rx's Medication Instructions Recorded Acetaminophen Tab [Tylenol] 650 mg PO Q6HR PRN tab 03/10/18 Famotidine [Pepcid] 20 mg PO BID #60 tab 03/10/18 predniSONE 20 mg PO DAILY #20 tab 03/10/18 Famotidine [Pepcid] 20 mg PO BID #14 tablet 04/06/18 Ibuprofen [Motrin] 600 mg PO Q8HR PRN #20 tab 04/06/18 Allergies Allergy/AdvReac Type Severity Reaction Status Date / Time No Known Allergies Allergy Verified 04/06/18 03:58 Review of Systems ROS Statement: Those systems with pertinent positive or pertinent negative responses have been documented in the HPI. ROS Other: All systems not noted in ROS Statement are negative. Constitutional: Denies: fever, chills Respiratory: Denies: cough, dyspnea, wheezes Cardiovascular: Reports: chest pain. Denies: palpitations, orthopnea, edema, syncope Gastrointestinal: Denies: abdominal pain, nausea, vomiting Genitourinary: Denies: dysuria, hematuria Musculoskeletal: Denies: back pain Skin: Denies: rash Neurological: Denies: headache, weakness, numbness EKG Findings - EKG Results: EKG: interpreted by ERMD, sinus rhythm, normal axis, normal QRS, normal ST/T, no acute changes EKG shows: tachycardia (Rate approximately 110 bpm) Past Medical History Past Medical History: GERD/Reflux, Rheumatoid Arthritis (RA) History of Any Multi-Drug Resistant Organisms: None Reported Past Surgical History: No Surgical Hx Reported Past Anesthesia/Blood Transfusion Reactions: No Reported Reaction Past Psychological History: No Psychological Hx Reported Smoking Status: Never smoker Past Alcohol Use History: None Reported Past Drug Use History: None Reported - Past Family History Father Family Medical History: Hypertension General Exam Limitations: no limitations General appearance: alert, in no apparent distress Head exam: Present: atraumatic, normocephalic Eye exam: Present: normal appearance. Absent: scleral icterus, conjunctival injection Neck exam: Present: normal inspection Respiratory exam: Present: normal lung sounds bilaterally, chest wall tenderness. Absent: respiratory distress, wheezes, rales, rhonchi, stridor, accessory muscle use, decreased breath sounds, prolonged expiratory Cardiovascular Exam: Present: regular rate, normal rhythm, normal heart sounds. Absent: systolic murmur, diastolic murmur, rubs, gallop GI/Abdominal exam: Present: soft. Absent: distended, tenderness, guarding, rebound Extremities exam: Present: normal inspection, normal capillary refill. Absent: pedal edema, calf tenderness Back exam: Absent: CVA tenderness (R), CVA tenderness (L) Neurological exam: Present: alert Skin exam: Present: warm, dry, intact, normal color. Absent: rash Course Vital Signs 04/06/18 04/06/18 04/06/18 03:55 04:00 04:15 Temperature 99.4 F Pulse Rate 130 H Respiratory 18 20 Rate Blood Pressure 179/100 O2 Sat by Pulse 97 Oximetry Disposition Clinical Impression: Chest wall syndrome Disposition: HOME SELF-CARE Condition: Good Instructions: Costochondritis (ED) Prescriptions: Famotidine [Pepcid] 20 mg PO BID #14 tablet Ibuprofen [Motrin] 600 mg PO Q8HR PRN #20 tab PRN Reason: Pain Is patient prescribed a controlled substance at d/c from ED?: No Referrals: Asad Jung MD [Primary Care Provider] - 1-2 days
[2018-04-06 04:28] LABS: Anisocytosis Slight; Basophils % (A) 0 %; Eosinophils # (A) 0.1 k/uL (0-0.7); Eosinophils % (A) 1 %; HCT 46.7 % (39.0-53.0); Lymphocytes # (A) 1.1 k/uL (1.0-4.8); Lymphocytes % (A) 11 %; MCH 28.2 pg (25.0-35.0); MCHC 33.1 g/dL (31.0-37.0); MCV 85.1 fL (80.0-100.0); Mean Platelet Volume 6.4; Monocytes # (A) 0.5 k/uL (0-1.0); Monocytes % (A) 5 %; Neutrophils # (A) 8.1 k/uL (1.3-7.7); Neutrophils % (A) 83 %; Platelet Count 306 k/uL (150-450); RBC 5.49 m/uL (4.30-5.90); RDW 16.3 % (11.5-15.5); WBC 9.7 k/uL (3.8-10.6)
[2018-04-06 04:33] LABS: HGB 15.5 gm/dL (13.0-17.5)
--- NOTE | 2018-04-06 04:34 | XR ---
EXAM: XR Chest, 2 Views CLINICAL HISTORY: Chest Pain TECHNIQUE: Frontal and lateral views of the chest. COMPARISON: 03/06/18 FINDINGS: Lungs: Unremarkable. No consolidation. Pleural space: Unremarkable. No pneumothorax. Heart: Unremarkable. No cardiomegaly. Mediastinum: Unremarkable. No change from prior study IMPRESSION: Unremarkable 2 views of the chest
[2018-04-06 04:40] LABS: ALT 38 U/L (21-72); AST 29 U/L (17-59); Albumin 4.4 g/dL (3.5-5.0); Alkaline Phosphatase 66 U/L (38-126); Anion Gap 15 mmol/L; Blood Urea Nitrogen 15 mg/dL (9-20); Calcium 9.3 mg/dL (8.4-10.2); Carbon Dioxide 23 mmol/L (22-30); Chloride 104 mmol/L (98-107); Glucose 157 mg/dL (74-99); Magnesium 2.3 mg/dL (1.6-2.3); Potassium 4.3 mmol/L (3.5-5.1); Sodium 142 mmol/L (137-145); Total Bilirubin 0.5 mg/dL (0.2-1.3); Total Protein 7.1 g/dL (6.3-8.2)
[2018-04-06 04:44] LABS: Partial Thromboplastin Time 22.5 sec (22.0-30.0); Prothrombin Time 9.6 sec (9.0-12.0)
[2018-04-06 04:54] LABS: Creatine Kinase 64 U/L (55-170)
[2018-04-06 05:06] LABS: Creatine Kinase MB 0.9 ng/mL (0.0-2.4); Troponin I <0.012 ng/mL (0.000-0.034)
[2018-04-06 05:49] VITALS: BP 132/68; PULSE 76; RESP 18; TEMP 98
== END 2018-04-06 05:49 | disposition home or self-care (01) ==
LOC: EC 03:53
DX: R07.1 Chest pain on breathing (principal); R00.0 Tachycardia, unspecified; Z79.899 Other long term (current) drug therapy
CPT/HCPCS: 36415; 71046; 80053; 82550; 82553; 83735; 84484; 85025; 85610; 85730; 93005; 99285

== ENCOUNTER 2018-04-11 20:06 | Emergency (ER) | payer OTHER ==
[2018-04-11 20:17] VITALS: RESP 20; TEMP 98.2
--- NOTE | 2018-04-11 21:23 | ED ---
General Adult HPI - General Chief complaint: Extremity Problem,Nontraumatic Stated complaint: left arm/shoulder pain Time Seen by Provider: 04/11/18 20:21 Source: patient, RN notes reviewed Mode of arrival: ambulatory Limitations: no limitations - History of Present Illness Initial comments: 48-year-old male presents to the emergency department for a chief complaint of left shoulder pain 30 minutes. 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 Patient states it is painful to move his left shoulder. Patient denies any chest pain or shortness of breath. Patient has a history of rheumatoid arthritis for which she is treated with prednisone and methotrexate. Patient has also had these similar symptoms multiple times in the past and has been told he has a rotator cuff problem. Patient denies any acute injuries. Patient has no other complaints at this time including shortness of breath, chest pain, abdominal pain, nausea or vomiting, headache, or visual changes. - Related Data Home Medications Medication Instructions Recorded Confirmed Methotrexate Sodium [Methotrexate] 12.5 mg PO SA 03/06/18 03/06/18 Previous Rx's Medication Instructions Recorded Acetaminophen Tab [Tylenol] 650 mg PO Q6HR PRN tab 03/10/18 Famotidine [Pepcid] 20 mg PO BID #60 tab 03/10/18 predniSONE 20 mg PO DAILY #20 tab 03/10/18 Famotidine [Pepcid] 20 mg PO BID #14 tablet 04/06/18 Ibuprofen [Motrin] 600 mg PO Q8HR PRN #20 tab 04/06/18 Acetaminophen [Tylenol] 500 mg PO Q4-6H PRN #20 tab 04/11/18 Ibuprofen [Motrin] 600 mg PO Q8HR PRN #20 tab 04/11/18 Allergies Allergy/AdvReac Type Severity Reaction Status Date / Time No Known Allergies Allergy Verified 04/11/18 20:17 Review of Systems ROS Statement: Those systems with pertinent positive or pertinent negative responses have been documented in the HPI. ROS Other: All systems not noted in ROS Statement are negative. Past Medical History Past Medical History: GERD/Reflux, Rheumatoid Arthritis (RA) History of Any Multi-Drug Resistant Organisms: None Reported Past Surgical History: No Surgical Hx Reported Past Anesthesia/Blood Transfusion Reactions: No Reported Reaction Past Psychological History: No Psychological Hx Reported Smoking Status: Never smoker Past Alcohol Use History: None Reported Past Drug Use History: None Reported - Past Family History Father Family Medical History: Hypertension General Exam Limitations: no limitations General appearance: alert, in no apparent distress ENT exam: Present: normal exam, normal oropharynx, mucous membranes moist, TM's normal bilaterally Neck exam: Present: normal inspection. Absent: tenderness, meningismus, lymphadenopathy Respiratory exam: Present: normal lung sounds bilaterally. Absent: respiratory distress, wheezes, rales, rhonchi, stridor, chest wall tenderness, accessory muscle use, decreased breath sounds, prolonged expiratory Cardiovascular Exam: Present: regular rate, normal rhythm, normal heart sounds. Absent: systolic murmur, diastolic murmur, rubs, gallop, clicks Extremities exam: Present: tenderness (Tenderness to the left shoulder.), normal capillary refill (Refill less than 2 seconds in the left upper ext. Radial pulse 2+. Normal Peña test), other (Sensation intact in the left upper extremity.). Absent: full ROM (Patient has about 45 of flexion and abduction of the left shoulder. Patient has full range of motion in the left elbow and wrist. Patient has full range of motion in the right shoulder.), pedal edema, joint swelling (No swelling or redness noted in the left shoulder.) Skin exam: Present: warm, dry, intact, normal color. Absent: rash, cyanosis, diaphoretic Course Vital Signs 04/11/18 04/11/18 20:11 22:23 Temperature 98.2 F Pulse Rate 120 H Pulse Rate [ 115 H Sitting] Pulse Rate [ 117 H Standing] Pulse Rate [ 109 H Supine] Respiratory 20 Rate Blood Pressure 176/97 Blood Pressure 158/97 [Sitting] Blood Pressure 141/74 [Standing] Blood Pressure 151/89 [Supine] O2 Sat by Pulse 98 Oximetry EKG Findings - EKG Comments: EKG Findings:: Sinus tachycardia, ventricular rate 112, AZ interval 128, QT 326 Medical Decision Making - Medical Decision Making 48-year-old male presents to the emergency determine for chief complaint of left shoulder pain 30 minutes. 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 Patient denies any chest pain or shortness of breath. Patient states it is painful to move his shoulder. Patient has a history of rheumatoid arthritis. No pain in the right shoulder. Patient denies numbness or tingling in the left upper extremity. Patient states he has had multiple similar episodes in the left shoulder and has been told he has a rotator cuff problem. On exam patient has limited flexion and abduction of the left shoulder. He has pain with passive range of motion as well Neurovascular intact. Patient has some tenderness to the left shoulder. No redness or swelling in the left shoulder. Patient has not taken anything for pain. X-ray of the left shoulder demonstrates no acute fractures or dislocations. Because heart rate is 120 EKG was done which is sinus tachycardia. Heart rate is likely high due to pain. Heart rate did decrease to 110. Patient will be discharged home with a sling. He was educated to do range of motion exercises. He will follow up with orthopedics. He will take Motrin and Tylenol for pain. He will return to the emergency department if he has any worsening symptoms. Disposition Clinical Impression: Shoulder pain, left Disposition: HOME SELF-CARE Condition: Good Instructions: Shoulder Pain (ED) Additional Instructions: Please take Motrin and Tylenol as directed. Please return to the emergency department if you have any worsening symptoms. Otherwise follow-up with orthopedics in 1-2 days. Prescriptions: Acetaminophen [Tylenol] 500 mg PO Q4-6H PRN #20 tab PRN Reason: Pain Ibuprofen [Motrin] 600 mg PO Q8HR PRN #20 tab PRN Reason: Pain Is patient prescribed a controlled substance at d/c from ED?: No Referrals: Asad Jung MD [Primary Care Provider] - 1-2 days Adriana Garcia DO [Doctor of Osteopathic Medicine] - 1-2 days Time of Disposition: 22:35
[2018-04-11] MEDS ORDERED: IBUPROFEN 600 MG TAB PO STA (21:35)
--- NOTE | 2018-04-11 21:36 | XR ---
PROCEDURE: XR shoulder complete LT 3 views DATE AND TIME: 04/11/2018 8:48 PM REFERRING PHYSICIAN: Alfie Keller CLINICAL INDICATION: PHH, Pain TECHNIQUE: 2 AP views and a scapular Y view, with 2 of the 3 views obliqued. COMPARISON: None FINDINGS: There is no evidence of fracture or definite malalignment. The soft tissues are unremarkabl e. IMPRESSION: Negative examination.
[2018-04-11 22:24] VITALS: BP 151/89; PULSE 109
== END 2018-04-11 22:45 | disposition home or self-care (01) ==
LOC: EC 20:06
DX: M25.512 Pain in left shoulder (principal); R00.0 Tachycardia, unspecified; M06.9 Rheumatoid arthritis, unspecified; Z79.52 Long term (current) use of systemic steroids; Z79.899 Other long term (current) drug therapy; Z82.49 Family history of ischemic heart disease and other diseases of the circulatory system; Y93.G3 Activity, cooking and baking; Y92.69 Other specified industrial and construction area as the place of occurrence of the external cause; Y92.511 Restaurant or cafe as the place of occurrence of the external cause
CPT/HCPCS: 93005; 99283

== ENCOUNTER 2018-07-08 14:11 | Emergency (ER) | payer OTHER ==
[2018-07-08 14:37] VITALS: BP 148/89; PULSE 104; RESP 18; TEMP 98.8
--- NOTE | 2018-07-08 16:19 | ED ---
Extremity Problem HPI - General Chief complaint: Extremity Problem,Nontraumatic Stated complaint: Hand Pain Time Seen by Provider: 07/08/18 14:59 Source: patient Mode of arrival: ambulatory Limitations: no limitations - History of Present Illness Initial comments: Thisis a 48yo male with PMH of rheumatoid arthritis presenting today for cc of "I am having a rheumatoid arthritis flare". Pt states that two days ago he began experiencing pain and swelling in the joints of his hands b/l and decreased ROM at these joints. Pt stated that it feels like when he has had RA flare in the past. Pt get methotrexate injections weekly for which he states usually helps however he presents today for treatement of flare because he cannot work "with his hands like this". Pt follows , manager combination. Pt denies fever, chills, erythema at the joints, trauma to the fingers, or any other symptoms. - Related Data Home Medications Medication Instructions Recorded Confirmed Methotrexate Sodium [Methotrexate] 12.5 mg PO SA 03/06/18 03/06/18 Previous Rx's Medication Instructions Recorded Acetaminophen Tab [Tylenol] 650 mg PO Q6HR PRN tab 03/10/18 Famotidine [Pepcid] 20 mg PO BID #60 tab 03/10/18 predniSONE 20 mg PO DAILY #20 tab 03/10/18 Famotidine [Pepcid] 20 mg PO BID #14 tablet 04/06/18 Ibuprofen [Motrin] 600 mg PO Q8HR PRN #20 tab 04/06/18 Acetaminophen [Tylenol] 500 mg PO Q4-6H PRN #20 tab 04/11/18 Ibuprofen [Motrin] 600 mg PO Q8HR PRN #20 tab 04/11/18 predniSONE 30 mg PO DIRECTED 21 Days #63 07/08/18 tab Allergies Allergy/AdvReac Type Severity Reaction Status Date / Time No Known Allergies Allergy Verified 07/08/18 14:37 Review of Systems ROS Statement: Those systems with pertinent positive or pertinent negative responses have been documented in the HPI. ROS Other: All systems not noted in ROS Statement are negative. Constitutional: Denies: fever, chills, night sweats Eyes: Denies: eye pain ENT: Denies: ear pain, throat pain Respiratory: Denies: as per HPI, cough, dyspnea Cardiovascular: Denies: chest pain, palpitations Endocrine: Denies: fatigue Gastrointestinal: Denies: abdominal pain, nausea, vomiting Genitourinary: Denies: urgency, dysuria, frequency, hematuria Musculoskeletal: Reports: joint swelling, arthralgia. Denies: back pain Skin: Denies: rash, lesions Past Medical History Past Medical History: GERD/Reflux, Rheumatoid Arthritis (RA) History of Any Multi-Drug Resistant Organisms: None Reported Past Surgical History: No Surgical Hx Reported Past Anesthesia/Blood Transfusion Reactions: No Reported Reaction Past Psychological History: No Psychological Hx Reported Smoking Status: Never smoker Past Alcohol Use History: None Reported Past Drug Use History: None Reported - Past Family History Father Family Medical History: Hypertension General Exam - General Exam Comments Initial Comments: General: The patient is awake and alert, in no distress, and does not appear acutely ill. Eye: Pupils are equal, round and reactive to light, extra-ocular movements are intact. No nystagmus. There is normal conjunctiva bilaterally. No signs of icterus. Ears, nose, mouth and throat: There are moist mucous membranes and no oral lesions. Neck: The neck is supple, there is no tenderness or JVD. Cardiovascular: There is a regular rate and rhythm. No murmur, rub or gallop is appreciated. Respiratory: Lungs are clear to auscultation, respirations are non-labored, breath sounds are equal. No wheezes, stridor, rales, or rhonchi. Musculoskeletal: Decreased ROM at the PIP and DIP of all 5 digits of the hands b/l,pt admit to tenderness with these movements. No warmth to palpation or overlying erythema. There is swelling at the PIP and DIP joints of the digits of the hands b/l. No fusiform swelling. Strength 5/5. Sensation intact of the digits and UE equally b/l. P+radial pulses equal bilaterally 2+. Neurological: A&O x 3. CN II-XII intact, There are no obvious motor or sensory deficits. Coordination appears grossly intact. Speech is normal. Skin: Skin is warm and dry and no rashes or lesions are noted. Psychiatric: Cooperative, appropriate mood & affect, normal judgment. Limitations: no limitations Course Vital Signs 07/08/18 07/08/18 14:33 16:34 Temperature 98.8 F 98.8 F Pulse Rate 104 H 104 H Respiratory 18 18 Rate Blood Pressure 148/89 148/89 O2 Sat by Pulse 99 99 Oximetry Medical Decision Making - Medical Decision Making 48yo with RA with b/l hand RA flare. Pt manager combination was called I spoke to Dr. Newberry personally after calling her office. She stated that he should be presenting to her office for flares. I conveyed this to the patient who understood and stated that he didnt think of that. She recommended prescribing 30mg prednisone PO daily x 21 days until he gets to his next appointment on the 14 of July, she stated I do no need to include taper and that they will taper in office. She stated that pt is stable for d/c with f/u in office. I stated the importance of compliance with steroids and that there is a risk of with abrupt withdrawal. Pt verbalized understanding and repeated back the instruction. At this time I feel pt is stable for d/c with rheumatology f/u. pt d/c in stable condition after discussing case with Dr. Florence. Disposition Clinical Impression: Rheumatoid arthritis flare Disposition: HOME SELF-CARE Condition: Good Instructions: Rheumatoid Arthritis (ED) Additional Instructions: Please use medication as discussed. Please follow-up with Dr. Newberry as scheduled. Please call Dr Newberry office for any additional flares, per Dr. Newberry. Please return to emergency room if the symptoms increase or worsen or for any other concerns. Prescriptions: predniSONE 30 mg PO DIRECTED 21 Days #63 tab Is patient prescribed a controlled substance at d/c from ED?: No Referrals: Asad Jung MD [Primary Care Provider] - 1-2 days Tracey Newberry MD [STAFF PHYSICIAN] - 07/14/18 Time of Disposition: 16:18
== END 2018-07-08 16:34 | disposition home or self-care (01) ==
LOC: EC 14:11
DX: M06.9 Rheumatoid arthritis, unspecified (principal); Z79.899 Other long term (current) drug therapy
CPT/HCPCS: 99283

== ENCOUNTER 2018-09-10 15:36 | Emergency (ER) | payer OTHER ==
[2018-09-10 16:21] LABS: Anisocytosis Slight; Basophils % (A) 0 %; Eosinophils # (A) 0.3 k/uL (0-0.7); Eosinophils % (A) 3 %; HCT 46.8 % (39.0-53.0); Lymphocytes # (A) 1.9 k/uL (1.0-4.8); Lymphocytes % (A) 22 %; MCH 26.8 pg (25.0-35.0); MCV 83.9 fL (80.0-100.0); Mean Platelet Volume 6.9; Monocytes # (A) 0.5 k/uL (0-1.0); Monocytes % (A) 6 %; Neutrophils # (A) 5.6 k/uL (1.3-7.7); Neutrophils % (A) 66 %; Platelet Count 274 k/uL (150-450); RBC 5.58 m/uL (4.30-5.90); RDW 16.4 % (11.5-15.5); WBC 8.4 k/uL (3.8-10.6)
[2018-09-10 16:38] LABS: Creatine Kinase 63 U/L (55-170)
[2018-09-10 16:40] LABS: D-Dimer <0.17 mg/L FEU (<0.60); Partial Thromboplastin Time 25.1 sec (22.0-30.0); Prothrombin Time 10.2 sec (9.0-12.0)
[2018-09-10 16:42] LABS: ALT 28 U/L (21-72); AST 25 U/L (17-59); Albumin 3.9 g/dL (3.5-5.0); Alkaline Phosphatase 57 U/L (38-126); Anion Gap 10 mmol/L; Blood Urea Nitrogen 9 mg/dL (9-20); Carbon Dioxide 27 mmol/L (22-30); Chloride 103 mmol/L (98-107); Glucose 138 mg/dL (74-99); Magnesium 2.2 mg/dL (1.6-2.3); Potassium 3.6 mmol/L (3.5-5.1); Sodium 140 mmol/L (137-145); Total Bilirubin 0.4 mg/dL (0.2-1.3); Total Protein 6.9 g/dL (6.3-8.2)
[2018-09-10 16:50] LABS: Creatine Kinase MB 0.9 ng/mL (0.0-2.4); Troponin I <0.012 ng/mL (0.000-0.034)
--- NOTE | 2018-09-10 17:40 | XR ---
EXAMINATION TYPE: XR chest 2V DATE OF EXAM: 09/10/2018 COMPARISON: 04/06/2018 HISTORY: Chest pain TECHNIQUE: Frontal and lateral views of the chest are obtained. FINDINGS: Heart and mediastinum are normal. Lungs are clear. Diaphragm is normal. Bony thorax appear s intact. IMPRESSION: Normal chest. No change.
--- NOTE | 2018-09-10 18:21 | ED ---
Chest Pain HPI - General Chief Complaint: Chest Pain Stated Complaint: Chest pain Source: patient Mode of arrival: ambulatory Limitations: no limitations - History of Present Illness Initial Comments: 48-year-old male past medical history of rheumatoid arthritis presents today for chief complaint of left-sided chest pain that increases with movement of left arm. Patient states that this started this morning he states he is not sure if he slept on it wrong or not. Patient states that the pain is reproduced also with deep inspiration at the same spot where is tender to palpation of the left lateral aspect of the chest. Patient states "when my muscles is". Patient denies history of smoking and is unsure of his family history of coronary artery disease. Patient denies any dyspnea, dyspnea on exertion, fever, chills, jaw pain, upper extremity paresthesias, abdominal or epigastric pain, nausea, or, edema, hemoptysis, calf pain, recent travel, history of DVT or cancer, fever, chills. Upon arrival patient is tachycardic however repeat heart rate within normal limits blood pressure mildly elevated. - Related Data Home Medications Medication Instructions Recorded Confirmed Etanercept [Enbrel] 50 mg SQ WE 09/10/18 09/10/18 predniSONE 20 mg PO HS 09/10/18 09/10/18 Previous Rx's Medication Instructions Recorded Ibuprofen [Motrin] 600 mg PO Q8HR PRN 7 Days #21 tab 09/10/18 Allergies Allergy/AdvReac Type Severity Reaction Status Date / Time No Known Allergies Allergy Verified 09/10/18 16:55 Review of Systems ROS Statement: Those systems with pertinent positive or pertinent negative responses have been documented in the HPI. ROS Other: All systems not noted in ROS Statement are negative. Constitutional: Denies: fever, chills, night sweats Eyes: Denies: eye pain ENT: Denies: ear pain, throat pain Respiratory: Denies: cough, dyspnea, wheezes, hemoptysis, stridor Cardiovascular: Denies: chest pain, palpitations, dyspnea on exertion, edema Endocrine: Denies: fatigue Gastrointestinal: Denies: abdominal pain, nausea, vomiting, diarrhea, constipation, hematemesis, melena Genitourinary: Denies: urgency, dysuria Musculoskeletal: Reports: as per HPI (pain to palpation of the left side of chset) Skin: Denies: rash, lesions Neurological: Denies: headache, weakness, numbness, paresthesias, confusion, abnormal gait EKG Findings - EKG Comments: EKG Findings:: A 12-lead EKG was performed and shows the following: Rate is 95, and rhythm is normal sinus. There are normal QRS complexes and normal R-wave progression. ST segments have no elevation or depression, and HI segments appear normal. HI interveal 126 ms, QRS duration 74 ms, QT/QTC 340/427 Past Medical History Past Medical History: GERD/Reflux, Rheumatoid Arthritis (RA) History of Any Multi-Drug Resistant Organisms: None Reported Past Surgical History: No Surgical Hx Reported Past Anesthesia/Blood Transfusion Reactions: No Reported Reaction Past Psychological History: No Psychological Hx Reported Smoking Status: Never smoker Past Alcohol Use History: None Reported Past Drug Use History: None Reported - Past Family History Father Family Medical History: Hypertension General Exam - General Exam Comments Initial Comments: General: The patient is awake and alert, in no distress, and does not appear acutely ill. Eye: Pupils are equal, round and reactive to light, extra-ocular movements are intact. No nystagmus. There is normal conjunctiva bilaterally. No signs of icterus. Ears, nose, mouth and throat: There are moist mucous membranes and no oral lesions. Neck: The neck is supple, there is no tenderness or JVD. Cardiovascular: There is a regular rate and rhythm. No murmur, rub or gallop is appreciated. Respiratory: Lungs are clear to auscultation, respirations are non-labored, breath sounds are equal. No wheezes, stridor, rales, or rhonchi. Gastrointestinal: Soft, non-distended, non-tender abdomen without masses or organomegaly noted. There is no rebound or guarding present. No CVA tenderness. Bowel sounds are unremarkable. Musculoskeletal: Patient admits to pain on the lateral aspect of the left pectoralis muscle, the pain is increased when raising his left arm there are no palpable masses, no ecchymosis, rashes or lesions. Normal ROM, no tenderness of the left upper extremity. Strength 5/5. Sensation intact. Radial pulses equal bilaterally 2+. Neurological: A&O x 3. CN II-XII intact, There are no obvious motor or sensory deficits. Coordination appears grossly intact. Speech is normal. Skin: Skin is warm and dry and no rashes or lesions are noted. No lower extremity edema. Negative Heriberto. No pain along the deep venous systems of the lower extremities. Psychiatric: Cooperative, appropriate mood & affect, normal judgment. Limitations: no limitations Course Vital Signs 09/10/18 09/10/18 09/10/18 15:43 16:16 16:18 Temperature 98.5 F Pulse Rate 102 H 83 Respiratory 18 18 17 Rate Blood Pressure 152/91 O2 Sat by Pulse 99 Oximetry 09/10/18 09/10/18 09/10/18 16:20 16:30 16:40 Temperature Pulse Rate 93 89 80 Respiratory 16 17 18 Rate Blood Pressure 137/90 137/90 137/90 O2 Sat by Pulse 96 94 L 95 Oximetry 09/10/18 09/10/18 09/10/18 16:50 17:00 17:10 Temperature Pulse Rate 85 91 87 Respiratory 18 17 16 Rate Blood Pressure 137/90 137/90 137/90 O2 Sat by Pulse 95 95 94 L Oximetry 09/10/18 09/10/18 09/10/18 17:20 17:30 17:40 Temperature Pulse Rate 87 89 98 Respiratory 10 L 16 17 Rate Blood Pressure 137/90 143/96 139/83 O2 Sat by Pulse 96 97 95 Oximetry 09/10/18 09/10/18 09/10/18 17:42 17:50 18:00 Temperature Pulse Rate 82 90 82 Respiratory 18 20 13 Rate Blood Pressure 143/76 133/91 133/91 O2 Sat by Pulse 98 97 96 Oximetry 09/10/18 09/10/18 09/10/18 18:10 18:20 18:30 Temperature Pulse Rate 84 86 104 H Respiratory 13 16 17 Rate Blood Pressure 138/87 126/92 126/92 O2 Sat by Pulse 96 96 96 Oximetry 09/10/18 09/10/18 18:40 19:10 Temperature 98 F Pulse Rate 92 97 Respiratory 8 L 16 Rate Blood Pressure 139/110 139/91 O2 Sat by Pulse 95 98 Oximetry Chest Pain MDM - MDM Laboratory values as noted above. Chest x-ray negative. D-dimer negative, no history concerning for pulmonary embolism or deep venous thrombosis. Cardiac work up negative. EKG within normal limits. Heart Score is 1-2. Pt pain is reproducible. At this time I feel the patient's chest pain is muscular skeletal given that is reproducible and increases with elevation of the left arm. Patient will be discharged with a prescription for anti-inflammatories as well as follow up with his primary care provider for elevated blood pressure readings. Case is discussed in detail with Dr. Ferrera who agrees with impression and plan. She discharged in stable condition return parameters discussed in detail, patient verbalized understanding. Patient is agreeable discharge. - Wells Criteria Clinical Symptoms of DVT: (0) No No Alternative Diagnosis: (0) No Immobilization of Surgery in Previous 4 Weeks: (0) No Previous DVT/PE: (0) No Hemoptysis: (0) No Malignancy: (0) No - BAYRON Score Age > 65: (0) No 3 or more CAD Risk Factors: (0) No Known CAD with more than 50% Stenosis: (0) No Aspirin use within the Past 7 Days: (0) No Elevated Cardiac Markers: (0) No ST Deviation Greater than 0.5mm: (0) No Disposition Clinical Impression: Musculoskeletal chest pain Disposition: HOME SELF-CARE Condition: Good Instructions: Costochondritis (ED) Additional Instructions: Please use medication as discussed. Please follow-up with family doctor in the next 2 days.. Please return to emergency room if the symptoms increase or worsen or for any other concerns. Prescriptions: Ibuprofen [Motrin] 600 mg PO Q8HR PRN 7 Days #21 tab PRN Reason: Pain Is patient prescribed a controlled substance at d/c from ED?: No Referrals: Asad Jung MD [Primary Care Provider] - 1-2 days Time of Disposition: 18:19
[2018-09-10 19:11] VITALS: BP 139/91; PULSE 97; RESP 16; TEMP 98
== END 2018-09-10 19:11 | disposition home or self-care (01) ==
LOC: EC 15:36
DX: R07.89 Other chest pain (principal); R03.0 Elevated blood-pressure reading, without diagnosis of hypertension; M06.9 Rheumatoid arthritis, unspecified; Z79.52 Long term (current) use of systemic steroids; Z79.899 Other long term (current) drug therapy
CPT/HCPCS: 36415; 71046; 80053; 82550; 82553; 83735; 84484; 85025; 85379; 85610; 85730; 93005; 99285

== ENCOUNTER 2018-10-29 14:51 | Emergency (ER) | payer OTHER ==
[2018-10-29 15:13] VITALS: RESP 18
[2018-10-29] MEDS ORDERED: guaiFENesin-DM 600/30MG 1 EACH TAB.ER.12H PO STA (15:30)
--- NOTE | 2018-10-29 15:33 | ED ---
URI HPI - General Chief Complaint: Upper Respiratory Infection Stated Complaint: Cough blood, Fever Time Seen by Provider: 10/29/18 15:20 Source: patient Mode of arrival: ambulatory Limitations: physical limitation - History of Present Illness Initial Comments: 48-year-old male patient presents to the emergency department today for evaluation of cough. Patient states that the cough started last evening. States that he is coughing up clear sputum with streaks of blood. Patient states that he's had one coughing episode with blood present. He denies any shortness of breath or chest pain. States that he feels chilled and feverish. States he is having nasal congestion and sore throat as well. Patient was immunized for influenza. He reports a benign medical history, does not take any medications. Patient denies any recent rash, abdominal pain, nausea, vomiting, diarrhea, constipation, back pain, numbness, tingling, dizziness, weakness, hematuria, dysuria, urinary urgency, urinary frequency, headache, visual changes, or any other complaints. - Related Data Home Medications Medication Instructions Recorded Confirmed Etanercept [Enbrel] 50 mg SQ WE 09/10/18 09/10/18 predniSONE 20 mg PO HS 09/10/18 09/10/18 Previous Rx's Medication Instructions Recorded Ibuprofen [Motrin] 600 mg PO Q8HR PRN 7 Days #21 tab 09/10/18 guaiFENesin-DM 600/30MG [Mucinex 1 each PO Q12HR #10 tab.er.12h 10/29/18 Dm] Allergies Allergy/AdvReac Type Severity Reaction Status Date / Time No Known Allergies Allergy Verified 10/29/18 18:38 Review of Systems ROS Statement: Those systems with pertinent positive or pertinent negative responses have been documented in the HPI. ROS Other: All systems not noted in ROS Statement are negative. Past Medical History Past Medical History: GERD/Reflux, Rheumatoid Arthritis (RA) History of Any Multi-Drug Resistant Organisms: None Reported Past Surgical History: No Surgical Hx Reported Past Anesthesia/Blood Transfusion Reactions: No Reported Reaction Past Psychological History: No Psychological Hx Reported Smoking Status: Never smoker Past Alcohol Use History: None Reported Past Drug Use History: None Reported - Past Family History Father Family Medical History: Hypertension General Exam Limitations: physical limitation General appearance: alert, in no apparent distress, other (This is a well- developed, well-nourished male patient in no acute distress. Vital signs upon presentation are temperature 98.5F, pulse 100, respirations 18, blood pressure 153/96, pulse ox 77% on room air.) Eye exam: Present: normal appearance, PERRL, EOMI. Absent: scleral icterus, conjunctival injection, periorbital swelling ENT exam: Present: normal exam, normal oropharynx, mucous membranes moist Respiratory exam: Present: normal lung sounds bilaterally. Absent: respiratory distress, wheezes, rales, rhonchi, stridor Cardiovascular Exam: Present: regular rate, normal rhythm, normal heart sounds. Absent: systolic murmur, diastolic murmur, rubs, gallop, clicks GI/Abdominal exam: Present: soft, normal bowel sounds. Absent: distended, tenderness, guarding, rebound, rigid Neurological exam: Present: alert, oriented X3, CN II-XII intact Psychiatric exam: Present: normal affect, normal mood Skin exam: Present: warm, dry, intact, normal color. Absent: rash Course Vital Signs 10/29/18 10/29/18 15:09 18:23 Temperature 98.5 F 97.5 F L Pulse Rate 100 98 Respiratory 18 18 Rate Blood Pressure 153/96 152/93 O2 Sat by Pulse 97 98 Oximetry Medical Decision Making - Medical Decision Making 48-year-old male patient presents to the emergency department today with chief complaint of productive cough with hemoptysis earlier today. Patient states he had one episode where there is blood present. States it was streaking. Physical examination is unremarkable. Lungs are clear to auscultation with good air movement. He denied any shortness of breath. Vital signs are stable with 100% oxygen saturation. Heart rate was mildly elevated at 100 beats per minutes we did perform an d-dimer level which was negative at 0.18. Given this finding and patient's symptoms concern for pulmonary embolism is very low. He' ll be discharged home with treatment for acute viral upper respiratory infection. He is instructed to follow-up with his primary care physician for recheck in 1-2 days. Return parameters discussed in detail. He verbalizes understanding and agrees with this plan. - Lab Data Lab Results 10/29/18 10/29/18 Range/Units 15:34 16:54 D-Dimer 0.18 (<0.60) mg/L FEU Influenza Type A RNA Not Detected (Not Detectd) Influenza Type B (PCR) Not Detected (Not Detectd) - Radiology Data Radiology results: report reviewed, image reviewed Two-view x-ray of the chest is obtained. Report was reviewed in its entirety. Impression by Dr. Clayton shows no acute cardio pulmonary process. No significant change from prior chest x-ray per Disposition Clinical Impression: Acute upper respiratory infection Disposition: HOME SELF-CARE Condition: Good Instructions: Upper Respiratory Infection (ED) Additional Instructions: Increase fluids. Rest. Take medications as directed. Follow-up through primary care physician for recheck in 1-2 days. Return immediately for any new , worsening, or concerning symptoms. Over the counter medications to help with your symptoms: Cough drops (Soothe the throat and decrease cough frequency) Tylenol and Motrin (Aches, pains, and fever) Nyquil or similar store brand medication (decreases cough at night, helps with congestion) Dayquil or similar store brand medication (Decreases cough and congestion during the day) Nasal saline spray or Netipot for sinus flush (Decreases nasal congestion) Read ingredients on all medications to make sure you are not getting too much tylenol, motrin, or salicylate (aspirin). Consult a pharmacist if possible. Prescriptions: guaiFENesin-DM 600/30MG [Mucinex Dm] 1 each PO Q12HR #10 tab.er.12h Is patient prescribed a controlled substance at d/c from ED?: No Referrals: Asad Jung MD [Primary Care Provider] - 1-2 days Time of Disposition: 18:17
--- NOTE | 2018-10-29 15:51 | XR ---
EXAMINATION TYPE: XR chest 2V DATE OF EXAM: 10/29/2018 COMPARISON: Chest x-ray September 10, 2018. HISTORY: Hemoptysis and fever. TECHNIQUE: Frontal and lateral views of the chest are obtained. FINDINGS: There is no focal air space opacity, pleural effusion, or pneumothorax seen. The cardiac silhouette size is within normal limits. The osseous structures are intact. IMPRESSION: No acute cardiopulmonary process. No significant change from prior chest x-ray.
[2018-10-29 18:24] VITALS: BP 152/93; PULSE 98; TEMP 97.5
== END 2018-10-29 18:24 | disposition home or self-care (01) ==
LOC: EC 14:51
DX: J06.9 Acute upper respiratory infection, unspecified (principal); R00.0 Tachycardia, unspecified; M06.9 Rheumatoid arthritis, unspecified; Z79.52 Long term (current) use of systemic steroids; Z79.899 Other long term (current) drug therapy; Z82.49 Family history of ischemic heart disease and other diseases of the circulatory system
CPT/HCPCS: 36415; 71046; 85379; 87502; 99283

== ENCOUNTER 2018-10-29 18:28 | Emergency (ER) | payer OTHER ==
[2018-10-29 18:38] VITALS: BP 152/92; PULSE 98; RESP 18; TEMP 97.5
[2018-10-29] MEDS ORDERED: IBUPROFEN 600 MG TAB PO STA (19:05)
--- NOTE | 2018-10-29 19:05 | ED ---
General Adult HPI - General Chief complaint: Extremity Injury, Lower Stated complaint: lt leg pain Time Seen by Provider: 10/29/18 18:39 Source: patient Mode of arrival: ambulatory Limitations: no limitations - Related Data Home Medications Medication Instructions Recorded Confirmed Etanercept [Enbrel] 50 mg SQ WE 09/10/18 09/10/18 predniSONE 20 mg PO HS 09/10/18 09/10/18 Previous Rx's Medication Instructions Recorded Ibuprofen [Motrin] 600 mg PO Q8HR PRN 7 Days #21 tab 09/10/18 guaiFENesin-DM 600/30MG [Mucinex 1 each PO Q12HR #10 tab.er.12h 10/29/18 Dm] Allergies Allergy/AdvReac Type Severity Reaction Status Date / Time No Known Allergies Allergy Verified 10/29/18 18:38 Review of Systems ROS Statement: Those systems with pertinent positive or pertinent negative responses have been documented in the HPI. ROS Other: All systems not noted in ROS Statement are negative. Past Medical History Past Medical History: GERD/Reflux, Rheumatoid Arthritis (RA) History of Any Multi-Drug Resistant Organisms: None Reported Past Surgical History: No Surgical Hx Reported Past Anesthesia/Blood Transfusion Reactions: No Reported Reaction Past Psychological History: No Psychological Hx Reported Smoking Status: Never smoker Past Alcohol Use History: None Reported Past Drug Use History: None Reported - Past Family History Father Family Medical History: Hypertension General Exam Limitations: no limitations Course Vital Signs 10/29/18 18:35 Temperature 97.5 F L Pulse Rate 98 Respiratory 18 Rate Blood Pressure 152/92 O2 Sat by Pulse 98 Oximetry Disposition Clinical Impression: Muscle ache Disposition: HOME SELF-CARE Condition: Good Instructions: Muscle Strain (ED) Additional Instructions: Take medications as directed. Follow-up with your primary care physician, call your professor of languages for further evaluation. Return immediately for any new, worsening, or concerning symptoms. Is patient prescribed a controlled substance at d/c from ED?: No Referrals: Asad Jung MD [Primary Care Provider] - 1-2 days Time of Disposition: 19:05
--- NOTE | 2018-10-29 19:14 | ED ---
General Adult HPI - General Chief complaint: Extremity Injury, Lower Stated complaint: lt leg pain Time Seen by Provider: 10/29/18 18:39 Source: patient Mode of arrival: ambulatory Limitations: no limitations - History of Present Illness Initial comments: 48-year-old male patient presents the emergency department today for evaluation of bilateral posterior thigh pain. Patient states he has a history of rheumatoid arthritis and occasionally has muscle aches. Patient states he is walking out to his car he felt like his legs for many give out so he came in for evaluation. Patient was just discharged after being seen and evaluated for cough and hemoptysis diagnosed with acute bronchitis and upper respiratory infection. Patient denies any fevers or chills. Denies any injury to the legs. 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 Patient does take Enbrel for his rheumatoid arthritis, states he doesn't thinks helping him. Patient denies any recent rash, shortness breath, chest pain, abdominal pain, nausea, vomiting, diarrhea, constipation, back pain , numbness, tingling, dizziness, weakness, hematuria, dysuria, urinary urgency, urinary frequency, headache, visual changes, or any other complaints. - Related Data Home Medications Medication Instructions Recorded Confirmed Etanercept [Enbrel] 50 mg SQ WE 09/10/18 09/10/18 predniSONE 20 mg PO HS 09/10/18 09/10/18 Previous Rx's Medication Instructions Recorded Ibuprofen [Motrin] 600 mg PO Q8HR PRN 7 Days #21 tab 09/10/18 guaiFENesin-DM 600/30MG [Mucinex 1 each PO Q12HR #10 tab.er.12h 10/29/18 Dm] Allergies Allergy/AdvReac Type Severity Reaction Status Date / Time No Known Allergies Allergy Verified 10/29/18 18:38 Review of Systems ROS Statement: Those systems with pertinent positive or pertinent negative responses have been documented in the HPI. ROS Other: All systems not noted in ROS Statement are negative. Past Medical History Past Medical History: GERD/Reflux, Rheumatoid Arthritis (RA) History of Any Multi-Drug Resistant Organisms: None Reported Past Surgical History: No Surgical Hx Reported Past Anesthesia/Blood Transfusion Reactions: No Reported Reaction Past Psychological History: No Psychological Hx Reported Smoking Status: Never smoker Past Alcohol Use History: None Reported Past Drug Use History: None Reported - Past Family History Father Family Medical History: Hypertension General Exam Limitations: no limitations General appearance: alert, in no apparent distress, other (This is a well- developed, well-nourished adult male patient in no acute distress. Vital signs upon presentation DrBradley 97.5F, pulse 98, respirations 18, blood pressure 152/92, pulse ox 80% on room air.) Eye exam: Present: normal appearance, PERRL, EOMI. Absent: scleral icterus, conjunctival injection, periorbital swelling ENT exam: Present: normal exam, normal oropharynx, mucous membranes moist Respiratory exam: Present: normal lung sounds bilaterally. Absent: respiratory distress, wheezes, rales, rhonchi, stridor Cardiovascular Exam: Present: regular rate, normal rhythm, normal heart sounds. Absent: systolic murmur, diastolic murmur, rubs, gallop, clicks GI/Abdominal exam: Present: soft, normal bowel sounds. Absent: distended, tenderness, guarding, rebound, rigid Extremities exam: Present: normal inspection, full ROM, normal capillary refill , other (Skin to the lower extremities is pink, warm, and dry. Cap refills less than 3 seconds. Pedal and posttibial pulses are 2+ and equal bilaterally. No evidence of rash or lesion.). Absent: tenderness, pedal edema, joint swelling, calf tenderness Back exam: Present: normal inspection. Absent: vertebral tenderness Neurological exam: Present: alert, oriented X3, CN II-XII intact, other ( Strength of lower extremities is 5/5.) Psychiatric exam: Present: normal affect, normal mood Skin exam: Present: warm, dry, intact, normal color. Absent: rash Course Vital Signs 10/29/18 18:35 Temperature 97.5 F L Pulse Rate 98 Respiratory 18 Rate Blood Pressure 152/92 O2 Sat by Pulse 98 Oximetry Medical Decision Making - Medical Decision Making 48-year-old male patient percents to the emergency department today for evaluation of bilateral lower extremity pain. Physical examination was unremarkable. Patient was neurovascularly and neurologically intact. There is no evidence of rash or lesion. Patient is able to ambulate without difficulty. He denies any injury so x-rays were not necessary at this time. 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 Return parameters were discussed in detail. He verbalizes understanding and agrees with this plan. Disposition Clinical Impression: Muscle ache Disposition: HOME SELF-CARE Condition: Good Instructions: Muscle Strain (ED) Additional Instructions: Take medications as directed. Follow-up with your primary care physician, call your head soft sugar operator for further evaluation. Return immediately for any new, worsening, or concerning symptoms. Is patient prescribed a controlled substance at d/c from ED?: No Referrals: Asad Jung MD [Primary Care Provider] - 1-2 days Time of Disposition: 19:13
== END 2018-10-29 19:14 | disposition home or self-care (01) ==
LOC: EC 18:28
DX: M79.652 Pain in left thigh (principal); M79.651 Pain in right thigh; M06.9 Rheumatoid arthritis, unspecified; Z79.52 Long term (current) use of systemic steroids; Z79.899 Other long term (current) drug therapy
CPT/HCPCS: 99283

== ENCOUNTER 2019-01-30 09:11 | Observation (INO) | payer OTHER ==
[2019-01-30] MEDS ORDERED: ASPIRIN 81 MG PO STA (09:49)
--- NOTE | 2019-01-30 09:51 | ED ---
General Adult HPI - General Chief complaint: Chest Pain Stated complaint: Chest pain/heel pain Time Seen by Provider: 01/30/19 09:17 Source: patient Mode of arrival: wheelchair Limitations: no limitations - History of Present Illness Initial comments: Dictation was produced using [employer] dictation software. please excuse any grammatical, word or spelling errors. Chief Complaint: 49-year-old male past medical history of rheumatoid arthritis presents with heel pain and chest pain. History of Present Illness: Patient's 49-year-old male. Patient states he works long hours at the local [employer]. Patient states that after work yesterday began having some left foot pain. Patient states that he gets this pain once in a while after exertional shifts. Denies any trauma to the foot or setting injury. Patient states he went to bed. He woke up this morning and began having some dull chest pain. Patient states that the pain does radiate down the left upper extremity. Denies any associated shortness of breath. Patient states the pain is sometimes worse with deep inspiration. Denies any trauma to the chest. No history of cardiac disease. Patient takes methotrexate for his rheumatoid arthritis. Denies any radiation of pain to the back. No associated diaphoresis. The ROS documented in this emergency department record has been reviewed and confirmed by me. Those systems with pertinent positive or negative responses have been documented in the HPI. All other systems are other negative and/or noncontributory. PHYSICAL EXAM: General Impression: Alert and oriented x3, not in acute distress HEENT: Normocephalic atraumatic, extra-ocular movements intact, pupils equal and reactive to light bilaterally, mucous membranes moist. Cardiovascular: Heart regular rate and rhythm, S1&S2 audible, no murmurs, rubs or gallops Chest: Lungs clear to auscultation bilaterally, no rhonchi, no wheeze, no rales Abdomen: Bowel sounds present, abdomen soft, non-tender, non-distended, no organomegaly Musculoskeletal: Pulses present and equal in all extremities, no peripheral edema Motor: no focal deficits noted Neurological: CN II-XII grossly intact, no focal motor or sensory deficits noted Skin: Intact with no visualized rashes Psych: Normal affect and mood ED course: 49 yo male presents with atypical chest pain with typical features and left foot pain. Vital signs upon arrival shows heart rate of 102, worse vital signs within acceptable limits. Initial EKG did not show any signs of ST segment elevation IA or myocardial ischemia. However, there was findings of hyperacute T waves in the anterior precordial leads. Repeat EKG was performed several minutes later this patient in complaining of symptoms. Precordial lead hyperacute T waves were unchanged. Laboratory evaluation obtained. CBC, coag panel, metabolic panel is unremarkable. Cardiac enzymes negative. Foot x-ray is unremarkable. Patient's foot is likely secondary to strain. Chest x-ray is unremarkable. Given patient's degree of symptoms and comorbidities will place patient in observation for suture troponins. She is understandable and agreeable to plan. Patient given aspirin. EKG interpretation: Ventricular rate 95, normal sinus rhythm, MS interval 134, QS 80, QTc 447. No MS prolongation, no QTC prolongation, no ST or T-wave changes noted. Overall, this EKG is unremarkable - Related Data Home Medications Medication Instructions Recorded Confirmed Etanercept [Enbrel] 50 mg SQ WE 09/10/18 01/30/19 Methotrexate Sodium [Methotrexate] 2.5 mg PO WE 01/30/19 01/30/19 Allergies Allergy/AdvReac Type Severity Reaction Status Date / Time No Known Allergies Allergy Verified 01/30/19 11:13 Review of Systems ROS Statement: Those systems with pertinent positive or pertinent negative responses have been documented in the HPI. ROS Other: All systems not noted in ROS Statement are negative. Past Medical History Past Medical History: GERD/Reflux, Rheumatoid Arthritis (RA) History of Any Multi-Drug Resistant Organisms: None Reported Past Surgical History: No Surgical Hx Reported Past Anesthesia/Blood Transfusion Reactions: No Reported Reaction Past Psychological History: No Psychological Hx Reported Smoking Status: Never smoker Past Alcohol Use History: None Reported Past Drug Use History: None Reported - Past Family History Father Family Medical History: Hypertension General Exam Limitations: no limitations Course Vital Signs 01/30/19 01/30/19 09:14 09:29 Temperature 98.1 F Pulse Rate 102 H 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 ] Respiratory 18 Rate Blood Pressure 155/92 O2 Sat by Pulse 99 Oximetry Medical Decision Making - Lab Data Result diagrams: 01/30/19 10:00 01/30/19 10:00 Lab Results 01/30/19 01/30/19 01/30/19 Range/Units 10:00 10:00 10:00 WBC 6.7 (3.8-10.6) k/uL RBC 5.58 (4.30-5.90) m/uL Hgb 15.2 (13.0-17.5) gm/dL Hct 47.4 (39.0-53.0) % MCV 85.0 (80.0-100.0) fL MCH 27.3 (25.0-35.0) pg MCHC 32.1 (31.0-37.0) g/dL RDW 13.7 (11.5-15.5) % Plt Count 216 (150-450) k/uL Neutrophils % 63 % Lymphocytes % 20 % Monocytes % 11 % Eosinophils % 3 % Basophils % 1 % Neutrophils # 4.2 (1.3-7.7) k/uL Lymphocytes # 1.3 (1.0-4.8) k/uL Monocytes # 0.7 (0-1.0) k/uL Eosinophils # 0.2 (0-0.7) k/uL Basophils # 0.0 (0-0.2) k/uL PT 10.3 (9.0-12.0) sec INR 1.0 (<1.2) APTT 25.9 (22.0-30.0) sec Sodium 138 (137-145) mmol/L Potassium 4.0 (3.5-5.1) mmol/L Chloride 105 (98-107) mmol/L Carbon Dioxide 24 (22-30) mmol/L Anion Gap 9 mmol/L BUN 12 (9-20) mg/dL Creatinine 0.82 (0.66-1.25) mg/dL Est GFR (CKD-EPI)AfAm >90 (>60 ml/min/1.73 sqM) Est GFR (CKD-EPI)NonAf >90 (>60 ml/min/1.73 sqM) Glucose 112 H (74-99) mg/dL Calcium 9.0 (8.4-10.2) mg/dL Magnesium 2.0 (1.6-2.3) mg/dL Total Bilirubin 1.1 (0.2-1.3) mg/dL AST 32 (17-59) U/L ALT 34 (21-72) U/L Alkaline Phosphatase 72 (38-126) U/L Troponin I (0.000-0.034) ng/mL Total Protein 7.1 (6.3-8.2) g/dL Albumin 4.1 (3.5-5.0) g/dL 01/30/19 Range/Units 10:00 WBC (3.8-10.6) k/uL RBC (4.30-5.90) m/uL Hgb (13.0-17.5) gm/dL Hct (39.0-53.0) % MCV (80.0-100.0) fL MCH (25.0-35.0) pg MCHC (31.0-37.0) g/dL RDW (11.5-15.5) % Plt Count (150-450) k/uL Neutrophils % % Lymphocytes % % Monocytes % % Eosinophils % % Basophils % % Neutrophils # (1.3-7.7) k/uL Lymphocytes # (1.0-4.8) k/uL Monocytes # (0-1.0) k/uL Eosinophils # (0-0.7) k/uL Basophils # (0-0.2) k/uL PT (9.0-12.0) sec INR (<1.2) APTT (22.0-30.0) sec Sodium (137-145) mmol/L Potassium (3.5-5.1) mmol/L Chloride (98-107) mmol/L Carbon Dioxide (22-30) mmol/L Anion Gap mmol/L BUN (9-20) mg/dL Creatinine (0.66-1.25) mg/dL Est GFR (CKD-EPI)AfAm (>60 ml/min/1.73 sqM) Est GFR (CKD-EPI)NonAf (>60 ml/min/1.73 sqM) Glucose (74-99) mg/dL Calcium (8.4-10.2) mg/dL Magnesium (1.6-2.3) mg/dL Total Bilirubin (0.2-1.3) mg/dL AST (17-59) U/L ALT (21-72) U/L Alkaline Phosphatase (38-126) U/L Troponin I <0.012 (0.000-0.034) ng/mL Total Protein (6.3-8.2) g/dL Albumin (3.5-5.0) g/dL Disposition Clinical Impression: Chest pain Disposition: ADMITTED IP TO THIS HOSP Condition: Fair Referrals: Asad Jung MD [Primary Care Provider] - 1-2 days Decision Time: 12:21
[2019-01-30 10:22] LABS: Partial Thromboplastin Time 25.9 sec (22.0-30.0); Prothrombin Time 10.3 sec (9.0-12.0)
[2019-01-30 10:27] LABS: ALT 34 U/L (21-72); AST 32 U/L (17-59); Albumin 4.1 g/dL (3.5-5.0); Alkaline Phosphatase 72 U/L (38-126); Anion Gap 9 mmol/L; Blood Urea Nitrogen 12 mg/dL (9-20); Carbon Dioxide 24 mmol/L (22-30); Chloride 105 mmol/L (98-107); Glucose 112 mg/dL (74-99); Sodium 138 mmol/L (137-145); Total Bilirubin 1.1 mg/dL (0.2-1.3); Total Protein 7.1 g/dL (6.3-8.2)
[2019-01-30 10:36] LABS: Basophils % (A) 1 %; Eosinophils # (A) 0.2 k/uL (0-0.7); Eosinophils % (A) 3 %; HCT 47.4 % (39.0-53.0); HGB 15.2 gm/dL (13.0-17.5); Lymphocytes # (A) 1.3 k/uL (1.0-4.8); Lymphocytes % (A) 20 %; MCH 27.3 pg (25.0-35.0); MCHC 32.1 g/dL (31.0-37.0); Mean Platelet Volume 7.3; Monocytes # (A) 0.7 k/uL (0-1.0); Monocytes % (A) 11 %; Neutrophils # (A) 4.2 k/uL (1.3-7.7); Neutrophils % (A) 63 %; Platelet Count 216 k/uL (150-450); RBC 5.58 m/uL (4.30-5.90); RDW 13.7 % (11.5-15.5); WBC 6.7 k/uL (3.8-10.6)
--- NOTE | 2019-01-30 10:58 | XR ---
EXAMINATION TYPE: XR chest 2V DATE OF EXAM: 01/30/2019 HISTORY: Chest Pain. REFERENCE: Previous study dated 10/29/2018. FINDINGS: The lungs are clear. Pleural spaces are clear. The heart is not enlarged. IMPRESSION: NO ACTIVE INTRATHORACIC DISEASE.
--- NOTE | 2019-01-30 10:59 | XR ---
EXAMINATION TYPE: XR foot complete LT , 3 VIEWS DATE OF EXAM ORDERED: 01/30/2019 HISTORY: Pain. COMPARISON: None. FINDINGS: No fracture, dislocation or other acute osseous lesion is seen. The calcaneus appears norm al. IMPRESSION: NO ACUTE OSSEOUS LESION.
[2019-01-30] MEDS ORDERED: NITROGLYCERIN SL TABS 0.4 MG TAB SUBLINGUAL PRN (12:19)
[2019-01-30] MEDS ORDERED: NALOXONE 0.4 MG/ML 1 ML VIAL IV PRN (13:18)
[2019-01-30] MEDS ORDERED: ACETAMINOPHEN TAB 325 MG TAB PO PRN (13:18)
--- NOTE | 2019-01-30 13:24 | P.HPIM ---
History of Present Illness H&P Date: 01/30/19 Chief Complaint: Chest pain 49-year-old male with PMH of rheumatoid arthritis presents the ED for chest pain. Patient reports that he was working, nonexertional when he experience a sudden onset of left-sided chest pain. Chest pain was intermittent, lasting for a couple minutes at a time. Patient reports the pain was 6-7 out of 10 in severity. Patient described the pain as dull and squeezing in nature. The pain occasionally radiated to the left shoulder. Patient reports the pain was aggravated with deep inspiration. No changes of chest pain with movement. He denied any alleviating factors are prior incidents. He denies any headaches, lower extremity edema, nausea, vomiting, fever, chills, shortness of breath, palpitations, changes in urination or bowel habits. No changes in appetite or weight. Of note, patient does report a dry cough for an unspecified period of time. He denies any smoking cigarettes, alcohol or illicit drug use. In the ED, CBC and CMP was unremarkable. Correlation panel was negative. Initial troponin was less than 0.012, EKG showing normal sinus rhythm. Chest x-ray was negative. Patient is admitted for chest pain, rule out acute coronary syndrome, cardiology on consult. Review of Systems All systems: negative Past Medical History Past Medical History: GERD/Reflux, Rheumatoid Arthritis (RA) History of Any Multi-Drug Resistant Organisms: None Reported Past Surgical History: No Surgical Hx Reported Past Anesthesia/Blood Transfusion Reactions: No Reported Reaction Past Psychological History: No Psychological Hx Reported Smoking Status: Never smoker Past Alcohol Use History: None Reported Past Drug Use History: None Reported - Past Family History Father Family Medical History: Hypertension Medications and Allergies Home Medications Medication Instructions Recorded Confirmed Type Etanercept [Enbrel] 50 mg SQ WE 09/10/18 01/30/19 History Methotrexate Sodium [Methotrexate] 2.5 mg PO WE 01/30/19 01/30/19 History Allergies Allergy/AdvReac Type Severity Reaction Status Date / Time No Known Allergies Allergy Verified 01/30/19 11:13 Physical Exam Vitals: Vital Signs Temp Pulse Pulse Resp BP Pulse Ox 01/30/19 12:47 97.9 F 102 H 18 140/91 97 01/30/19 10:30 95 18 97 01/30/19 09:29 101 H 01/30/19 09:14 98.1 F 102 H 18 155/92 99 Intake and Output 01/29/19 01/30/19 01/30/19 22:59 06:59 14:59 Other: Weight 79.379 kg General: [non toxic], [no distress], [appears at stated age] Derm: [warm], [dry] Head: [atraumatic], [normocephalic], [symmetric] Eyes: [EOMI], [no lid lag], [anicteric sclera] Mouth: [no lip lesion], [mucus membranes moist] Cardiovascular: [S1S2 reg], [no murmur], [positive posterior tibial pulse bilateral], Lungs: [CTA bilateral], [no rhonchi, no rales] , [no accessory muscle use] Abdominal: [soft], [ nontender to palpation], [no guarding], [no appreciable organomegaly] Ext: [no gross muscle atrophy], [no edema], [no contractures] Neuro: [ CN II-XI grossly intact], [no focal neuro deficits] Psych: [Alert], [oriented], [appropriate affect] Results CBC & Chem 7: 01/30/19 10:00 01/30/19 10:00 Labs: Abnormal Lab Results - Last 24 Hours (Table) 01/30/19 Range/Units 10:00 Glucose 112 H (74-99) mg/dL Thrombosis Risk Factor Assmnt - Choose All That Apply Any of the Below Risk Factors Present?: Yes Each Factor Represents 1 point: Age 41-60 years, Obesity (BMI >25) Other Risk Factors: No Other congenital or acquired thrombophilia - If yes, enter type in comment: No Thrombosis Risk Factor Assessment Total Risk Factor Score: 2 Thrombosis Risk Factor Assessment Level: Low Risk Assessment and Plan Assessment: Assessment and Plan 1. Chest pain 2. Rheumatoid arthritis 1. Chest pain pleuritic in nature less likely to be cardiac in nature but given risk factors of RA will need to rule out ACS. Initial troponin less than 0.012, EKG showing normal sinus rhythm. Chest x-ray is negative for anything acute. Trend 2 troponin/EKG to rule out ACS. Pain management with Tylenol, Nitrostat or [place] as needed. Telemetry monitoring. Follow cardiology recommendations. 2. On a Etanercept and methotrexate at home. Will hold. Follow outpatient. Patient made for chest pain, rule out acute coronary syndrome, cardiology on consult. Likely DC 1-2 days.
[2019-01-30 13:26] VITALS: BMI 25.9
[2019-01-30] MEDS: HYDROcodone/APAP 5-325MG 1 EACH TAB PO PRN ×2 (17:06→21:35)
[2019-01-30 23:32] LABS: Cholesterol 183 mg/dL (<200); HDL Cholesterol 37 mg/dL (40-60); LDL Cholesterol,Calculated 138 mg/dL (0-99); Triglycerides 38 mg/dL (<150)
[2019-01-31 04:52] VITALS: RESP 16
[2019-01-31] MEDS ORDERED: INFLUENZA VACCINE (6 MOS+) 60 MCG/0.5 ML SYRINGE IM ONE (06:00)
[2019-01-31] MEDS ORDERED: ASPIRIN 325 MG TAB PO SCH (09:00)
--- NOTE | 2019-01-31 10:35 | P.CRDCN ---
History of Present Illness History of present illness: This is a pleasant 49 male past medical history significant for rheumatoid arthritis. He denies history of coronary artery disease, hypertension, dyslipidemia or diabetes mellitus. He is to follow-up with a track inspector for any reason. We have been asked to see him in consultation secondary to chest pain. He presented to the emergency department yesterday with pain in the left foot in the arch of his foot. He states he has this pain free frequently off-and-on he takes a number LAD home and it usually keeps his pain under control however its remorse over the previous few days. He also describes having a pain in his chest yesterday while he was driving to work when he was coughing. He states he is coughing is dry cough is not bringing up any sputum every time he would cough he gets pain in the chest. He denies exertional chest discomfort. There is no associated shortness of breath, dizziness, nausea, vomiting or diaphoresis. He also denies palpitations, PND, orthopnea or fever/chills. Pain does not radiate through to the back, down the arm, into the jaw or neck. EKG reveals sinus mechanism with no acute ST or T-wave abnormalities noted. Chest x-ray is negative for an acute cardiopulmonary process. Laboratory data reviewed, cardiac enzymes negative 3, LDL 138. He takes no daily cardiac medications. He underwent an echocardiogram in February 2018 revealed preserved left ventricular systolic function with ejection fraction 55-60%. At the time of my exam: CONSTITUTIONAL: Denies fever. Denies chills. EYES: Denies blurred vision. Denies vision changes. Denies eye pain. EARS, NOSE, MOUTH & THROAT: Denies headache. Denies sore throat. Denies ear pain. CARDIOVASCULAR: Denies chest pain. Denies shortness of breath. Denies orthopnea. Denies PND. Denies palpitations. RESPIRATORY: Denies cough. GASTROINTESTINAL: Denies abdominal pain. Denies diarrhea. Denies constipation. Denies nausea. Denies vomiting. MUSCULOSKELETAL: Complains of pleuritic pain across. INTEGUMENTARY: Denies pruitis. Denies rash. NEUROLOGIC: Denies numbness. Denies tingling. Denies weakness. PSYCHIATRIC: Denies anxiety. Denies depression. ENDOCRINE: Denies fatigue. Denies weight change. Denies polydipsia. Denies polyurina. GENITOURINARY: Denies burning, hematuria or urgency with micturation. HEMATOLOGIC: Denies history of anemia. Denies bleeding. Blood pressure 96/60 6/71 afebrile maintaining oxygen saturation on room air GENERAL: This is a 49-year-old male in no apparent distress at the time of my examination. HEENT: Head is atraumatic, normocephalic. Pupils are equal, round. Sclerae anicteric. Conjunctivae are clear. Mucous membranes of the mouth are moist. Neck is supple. There is no jugular venous distention. No carotid bruit is heard. LUNGS: Clear to auscultation no wheezes, rales or rhonchi. No chest wall tenderness is noted on palpation or with deep breathing. HEART: Regular rate and rhythm without murmurs, rubs or gallops. S1 and S2 heard. ABDOMEN: Soft, nontender. Bowel sounds are heard. No organomegaly noted. EXTREMITIES: No evidence of peripheral edema and no calf tenderness noted. VASCULAR: Radial and dorsalis pedis pulses palpated, no evidence of clubbing. NEUROLOGIC: Patient is awake, alert and oriented x3. ASSESSMENT Pleuritic chest pain with cough Rheumatoid arthritis Dyslipidemia PLAN An acute coronary event has been ruled out with no EKG evidence of ischemia negative cardiac enzymes. Initiate on atorvastatin 20 mg daily as well as recommendation for lifestyle modifications with diet and exercise. Hemodynamically stable and appropriate for discharge from a cardiac perspective. We recommend he follow-up in the office with Dr. Cruz next week for an outpatient stress test. Thank you kindly for this consultation. Nurse Practitioner note has been reviewed, I agree with a documented findings and plan of care. Patient was seen and examined. Past Medical History Past Medical History: GERD/Reflux, Rheumatoid Arthritis (RA) History of Any Multi-Drug Resistant Organisms: None Reported Past Surgical History: No Surgical Hx Reported Past Anesthesia/Blood Transfusion Reactions: No Reported Reaction Past Psychological History: No Psychological Hx Reported Smoking Status: Never smoker Past Alcohol Use History: None Reported Past Drug Use History: None Reported - Past Family History Father Family Medical History: Hypertension Mother History Unknown: Yes Medications and Allergies Home Medications Medication Instructions Recorded Confirmed Type Etanercept [Enbrel] 50 mg SQ WE 09/10/18 01/30/19 History Methotrexate Sodium [Methotrexate] 2.5 mg PO WE 01/30/19 01/30/19 History Allergies Allergy/AdvReac Type Severity Reaction Status Date / Time No Known Allergies Allergy Verified 01/30/19 11:13 Physical Exam Vitals: Vital Signs Temp Pulse Pulse Resp BP BP Pulse Ox 01/31/19 08:00 91 16 01/31/19 07:30 98.2 F 91 16 136/79 97 01/31/19 04:00 98.7 F 71 16 96/66 98 01/30/19 23:18 98.1 F 77 18 112/69 97 01/30/19 20:00 97.1 F L 79 18 119/62 96 01/30/19 15:37 80 18 01/30/19 15:35 98.2 F 80 18 126/72 98 01/30/19 13:10 98.1 F 80 16 135/86 95 01/30/19 12:47 97.9 F 102 H 18 140/91 97 01/30/19 12:19 95 01/30/19 10:30 95 18 97 01/30/19 09:29 101 H 01/30/19 09:14 98.1 F 102 H 18 155/92 99 Intake and Output 01/30/19 01/31/19 01/31/19 22:59 06:59 14:59 Intake Total 270 10 10 Balance 270 10 10 Intake: IV 10 10 10 0.9% NS FLUSH 10 10 Invasive Line 1 10 Oral 260 Other: Weight 80.5 kg Results 01/30/19 10:00 01/30/19 10:00 Cardiac Enzymes 01/30/19 01/30/19 01/30/19 Range/Units 10:00 10:00 16:07 AST 32 (17-59) U/L Troponin I <0.012 <0.012 (0.000-0.034) ng/mL 01/30/19 Range/Units 21:39 AST (17-59) U/L Troponin I <0.012 (0.000-0.034) ng/mL Coagulation 01/30/19 Range/Units 10:00 PT 10.3 (9.0-12.0) sec APTT 25.9 (22.0-30.0) sec Lipids 01/30/19 Range/Units 10:00 Triglycerides 38 (<150) mg/dL Cholesterol 183 (<200) mg/dL HDL Cholesterol 37 L (40-60) mg/dL CBC 01/30/19 Range/Units 10:00 WBC 6.7 (3.8-10.6) k/uL RBC 5.58 (4.30-5.90) m/uL Hgb 15.2 (13.0-17.5) gm/dL Hct 47.4 (39.0-53.0) % Plt Count 216 (150-450) k/uL Comprehensive Metabolic Panel 01/30/19 Range/Units 10:00 Sodium 138 (137-145) mmol/L Potassium 4.0 (3.5-5.1) mmol/L Chloride 105 (98-107) mmol/L Carbon Dioxide 24 (22-30) mmol/L BUN 12 (9-20) mg/dL Creatinine 0.82 (0.66-1.25) mg/dL Glucose 112 H (74-99) mg/dL Calcium 9.0 (8.4-10.2) mg/dL AST 32 (17-59) U/L ALT 34 (21-72) U/L Alkaline Phosphatase 72 (38-126) U/L Total Protein 7.1 (6.3-8.2) g/dL Albumin 4.1 (3.5-5.0) g/dL Current Medications Generic Name Dose Route Start Last Admin Trade Name Freq PRN Reason Stop Dose Admin Acetaminophen 650 mg 01/30/19 13:18 Tylenol Tab PO Q6HR PRN Mild Pain or Fever > 100.5 Hydrocodone Bitart/Acetaminophen 1 each 01/30/19 13:18 01/30/19 21:35 [place] 5-325 PO 1 each Q4HR PRN Administration Moderate Pain Aspirin 325 mg 01/31/19 09:00 01/31/19 07:40 Aspirin PO 325 mg DAILY SHARAN Administration Naloxone HCl 0.2 mg 01/30/19 13:18 Narcan IV Q2M PRN Opioid Reversal Nitroglycerin 0.4 mg 01/30/19 12:19 Nitrostat SUBLINGUAL Q5M PRN Chest Pain Intake and Output 01/30/19 01/31/19 01/31/19 22:59 06:59 14:59 Intake Total 270 10 10 Balance 270 10 10 Intake: IV 10 10 10 0.9% NS FLUSH 10 10 Invasive Line 1 10 Oral 260 Other: Weight 80.5 kg 01/30/19 10:00 03/23/19 10:00
[2019-01-31] MEDS ORDERED: ATORVASTATIN 20 MG TAB PO SCH (10:45)
--- NOTE | 2019-01-31 11:43 | P.DS ---
Providers Date of admission: 01/30/19 12:19 Expected date of discharge: 01/31/19 Attending physician: Millie Briscoe MD Consults: 01/30/19 12:19 Consult Physician Urgent Consulting Provider: Kendall Cruz Consult Reason/Comments: chest pain Do you want consulting provider notified?: Yes Primary care physician: Asad [facility] Course: Discharge Diagnosis: Atypical chest pain, acute coronary syndrome ruled out Hyperlipidemia Costochondritis Upper respiratory tract infection, likely viral Rheumatoid arthritis on biologic therapy Hospital Course: Patient is a 49-year-old male past medical history of acid reflux and rheumatoid arthritis who presented to the ER for chest pain. On arrival to the ER he underwent extensive evaluation. His initial vital signs showed be slightly tachycardic with a pulse of 102. Initial EKG was nonischemic. Initial troponin was negative. He was subsequently admitted for chest pain rule out. Troponin remained negative. He was seen by cardiology who felt he was appropriate for outpatient stress testing next week. His cholesterol level did show slightly elevated LDL at 138 and slightly low HDL at 37. He was prescribed Lipitor 20 mg once daily. He will see Dr. Cruz in the office next week as well as follow with Dr. noe for his upper respiratory tract infection. He did not feel as though he needed any supportive medications at this point in time and he thinks his cough is getting better. He was subsequently determined stable for discharge. Patient seen and examined at bedside. Chest pain improved, slightly reproducible still. Having a cough that is nonproductive, slight runny nose and stuffy nose. Slight sore throat. No other complaints currently. He feels overall his illness is improving. Vital signs reviewed and stable. General: non toxic, no distress, appears at stated age Derm: warm, dry Head: atraumatic, normocephalic, symmetric Eyes: EOMI, no lid lag, anicteric sclera Mouth: no lip lesion, mucus membranes moist Cardiovascular: S1S2 reg, no murmur, positive posterior tibial pulse bilateral, Lungs: CTA bilateral, no rhonchi, no rales , no accessory muscle use Abdominal: soft, nontender to palpation, no guarding, no appreciable organomegaly Ext: no gross muscle atrophy, no edema, no contractures Neuro: CN II-XI grossly intact, no focal neuro deficits Psych: Alert, oriented, appropriate affect A total of 25 minutes of time were spent preparing this complex discharge summary . Pertinent Studies: Chest x-ray-no acute process Foot x-ray-no acute process Patient Condition at Discharge: Stable Plan - Discharge Summary Discharge Rx Participant: No New Discharge Prescriptions: New Atorvastatin [Lipitor] 20 mg PO DAILY #90 tab No Action Etanercept [Enbrel] 50 mg SQ WE Methotrexate Sodium [Methotrexate] 2.5 mg PO WE Discharge Medication List Etanercept [Enbrel] 50 mg SQ WE 09/10/18 [History] Methotrexate Sodium [Methotrexate] 2.5 mg PO WE 01/30/19 [History] Atorvastatin [Lipitor] 20 mg PO DAILY #90 tab 01/31/19 [Rx] Follow up Appointment(s)/Referral(s): Kendall Cruz MD [STAFF PHYSICIAN] - 2 Weeks Asad Jung MD [Primary Care Provider] - 1-2 days
[2019-01-31 12:05] VITALS: BP 107/69; PULSE 73; TEMP 98.3
== END 2019-01-31 12:42 | disposition home or self-care (01) ==
LOC: EC 09:11 → 3SCARD 12:19 → 1SOBS 01-31 08:59
PROVIDERS: ADMIT Family Medicine; ATTEND Family Medicine
DX: R07.89 Other chest pain (principal); M94.0 Chondrocostal junction syndrome [Tietze]; J06.9 Acute upper respiratory infection, unspecified; E78.5 Hyperlipidemia, unspecified; E78.00 Pure hypercholesterolemia, unspecified; M06.9 Rheumatoid arthritis, unspecified; R00.0 Tachycardia, unspecified; K21.9 Gastro-esophageal reflux disease without esophagitis; E66.9 Obesity, unspecified; Z68.25 Body mass index [BMI] 25.0-25.9, adult; Z79.899 Other long term (current) drug therapy; Z82.49 Family history of ischemic heart disease and other diseases of the circulatory system; Z23 Encounter for immunization
CPT/HCPCS: 99285; 36415; 93005; 80061; 80053; 83735; 84484; 85025; 85610; 85730; 73630; 71046; 90686; G0378 ×2; G0008

== ENCOUNTER 2019-02-20 09:32 | Emergency (ER) | payer OTHER ==
[2019-02-20 09:38] VITALS: RESP 18
[2019-02-20] MEDS ORDERED: KETOROLAC 60 MG/2 ML VIAL IM STA (09:56)
--- NOTE | 2019-02-20 10:16 | ED ---
General Adult HPI - General Chief complaint: Chest Pain Stated complaint: Chest pain Time Seen by Provider: 02/20/19 09:35 Source: patient, RN notes reviewed Mode of arrival: wheelchair Limitations: no limitations - History of Present Illness Initial comments: This is a 49-year-old male who presents emergency Department with sharp chest pain to the left pectoralis muscle. Patient states it hurts when he stretches the muscle and it hurts for about 5 seconds at a time. Patient states his been ongoing for a few hours. Patient states pressing on the muscle also hurts. Patient states he was recently in the hospital worked up for chest pain relative to cardiac conditions. Patient states she's to follow-up with cardiology. Patient states she's had no difficulty breathing or shortness of breath per patient denies any diaphoretic episodes patient denies any nausea vomiting. Patient denies any palpitations. Patient denies any recent fever chills or cough per patient denies any calf pain or leg swelling. - Related Data Home Medications Medication Instructions Recorded Confirmed Etanercept [Enbrel Sure[place]] 50 mg SQ WE 02/20/19 02/20/19 Methotrexate 25mg/1ml 25 mg IM FR 02/20/19 02/20/19 Previous Rx's Medication Instructions Recorded Ibuprofen [Motrin] 600 mg PO Q6HR PRN #20 tab 02/20/19 Allergies Allergy/AdvReac Type Severity Reaction Status Date / Time No Known Allergies Allergy Verified 02/20/19 09:56 Review of Systems ROS Statement: Those systems with pertinent positive or pertinent negative responses have been documented in the HPI. ROS Other: All systems not noted in ROS Statement are negative. Past Medical History Past Medical History: GERD/Reflux, Rheumatoid Arthritis (RA) History of Any Multi-Drug Resistant Organisms: None Reported Past Surgical History: No Surgical Hx Reported Past Anesthesia/Blood Transfusion Reactions: No Reported Reaction Past Psychological History: No Psychological Hx Reported Smoking Status: Never smoker Past Alcohol Use History: None Reported Past Drug Use History: None Reported - Past Family History Father Family Medical History: Hypertension Mother History Unknown: Yes General Exam - General Exam Comments Initial Comments: GENERAL: Patient is well-developed and well-nourished. Patient is nontoxic and well- hydrated Patient no acute distress. ENT: Neck is soft and supple. No significant lymphadenopathy is noted. Oropharynx is clear. Moist mucous membranes. Neck has full range of motion without eliciting any pain. EYES: The sclera were anicteric and conjunctiva were pink and moist. Extraocular movements were intact and pupils were equal round and reactive to light. Eyelids were unremarkable. PULMONARY: Unlabored respirations. Good breath sounds bilaterally. No audible rales rhonchi or wheezing was noted. CARDIOVASCULAR: There is a regular rate and rhythm without any murmurs gallops or rubs. Patient has reproducible pectoralis pain on palpation. Patient has no pain if you are not palpated. ABDOMEN: Soft and nontender with normal bowel sounds. No palpable organomegaly was noted. There is no palpable pulsatile mass. SKIN: Skin is clear with no lesions or rashes and otherwise unremarkable. NEUROLOGIC: Patient is alert and oriented x3. Cranial nerves II through XII are grossly intact. Motor and sensory are also intact. Normal speech, volume and content. Symmetrical smile. MUSCULOSKELETAL: Normal extremities with adequate strength and full range of motion. No lower extremity swelling or edema. No calf tenderness. LYMPHATICS: No significant lymphadenopathy is noted PSYCHIATRIC: Normal psychiatric evaluation. Limitations: no limitations Course Vital Signs 02/20/19 02/20/19 02/20/19 09:33 10:00 11:00 Temperature 97.7 F Pulse Rate 94 87 86 Respiratory 18 17 18 Rate Blood Pressure 147/98 142/92 143/96 O2 Sat by Pulse 100 96 97 Oximetry Medical Decision Making - Medical Decision Making EKG shows normal sinus rhythm at 90 bpm MN interval is 128 QRSs 80 QT interval 348 QTC is 444. Patient's EKG shows no ST segment elevation or depression or T wave abnormalities are noted. Chest x-ray shows no acute abnormality Disposition Clinical Impression: Pectoralis muscle strain Disposition: HOME SELF-CARE Condition: Good Instructions (If sedation given, give patient instructions): Muscle Strain (ED) Prescriptions: Ibuprofen [Motrin] 600 mg PO Q6HR PRN #20 tab PRN Reason: For pain Is patient prescribed a controlled substance at d/c from ED?: No Referrals: Asad Jung MD [Primary Care Provider] - 1-2 days Time of Disposition: 11:40
--- NOTE | 2019-02-20 10:16 | XR ---
EXAMINATION TYPE: XR chest 2V DATE OF EXAM: 02/20/2019 HISTORY: Difficulty breathing . REFERENCE: Previous study dated 01/30/2019. FINDINGS: The lungs remain clear. Pleural space are clear. The heart is not enlarged. IMPRESSION: NO ACTIVE INTRATHORACIC DISEASE.
[2019-02-20 11:19] VITALS: BP 143/96; PULSE 86
[2019-02-20 12:00] VITALS: TEMP 97.9
== END 2019-02-20 11:54 | disposition home or self-care (01) ==
LOC: EC 09:32
DX: S29.011A Strain of muscle and tendon of front wall of thorax, initial encounter (principal); M06.9 Rheumatoid arthritis, unspecified; Z87.19 Personal history of other diseases of the digestive system; Z79.899 Other long term (current) drug therapy; X58.XXXA Exposure to other specified factors, initial encounter
CPT/HCPCS: 93005; 71046; 99285; 96372; J1885

== ENCOUNTER 2019-02-20 13:50 | Emergency (ER) | payer OTHER ==
[2019-02-20 13:56] VITALS: RESP 18; TEMP 98
--- NOTE | 2019-02-20 14:37 | ED ---
General Adult HPI - General Chief complaint: Recheck/Abnormal Lab/Rx Stated complaint: Coughing up blood Time Seen by Provider: 02/20/19 14:01 Source: patient Mode of arrival: ambulatory Limitations: no limitations - History of Present Illness Initial comments: Patient is a 49-year-old male presenting for hemoptysis. The patient states that he was seen here earlier in the day and after he was discharged, he went to store where he started having bright red hemoptysis. At that time, he was admitted to shortness of breath as well as chest pain which she is unable to describe. He states that he has had nausea but no vomiting or diarrhea. He denies any other infectious symptoms such as prior fevers or chills or coughing before this event. - Related Data Home Medications Medication Instructions Recorded Confirmed Etanercept [Enbrel Sureclick] 50 mg SQ WE 02/20/19 02/20/19 Methotrexate 25mg/1ml 25 mg IM FR 02/20/19 02/20/19 Previous Rx's Medication Instructions Recorded Ibuprofen [Motrin] 600 mg PO Q6HR PRN #20 tab 02/20/19 Allergies Allergy/AdvReac Type Severity Reaction Status Date / Time No Known Allergies Allergy Verified 02/20/19 18:46 Review of Systems ROS Statement: Those systems with pertinent positive or pertinent negative responses have been documented in the HPI. Constitutional: Negative for chills, fatigue and fever. HENT: Negative for congestion. Respiratory: Negative for chest tightness, shortness of breath and wheezing. Positive for cough and hemoptysis Cardiovascular: Positive for chest pain and negative for palpitations. Gastrointestinal: Negative for abdominal pain. Negative for abdominal distention, diarrhea, nausea and vomiting. Genitourinary: Negative for dysuria. Musculoskeletal: Negative for back pain, neck pain and neck stiffness. Skin: Negative for color change. Neurological: Negative for dizziness, speech difficulty, weakness and light- headedness. Psychiatric/Behavioral: Negative for agitation and confusion. Negative for anxiety ROS Other: All systems not noted in ROS Statement are negative. Past Medical History Past Medical History: GERD/Reflux, Rheumatoid Arthritis (RA) History of Any Multi-Drug Resistant Organisms: None Reported Past Surgical History: No Surgical Hx Reported Past Anesthesia/Blood Transfusion Reactions: No Reported Reaction Past Psychological History: No Psychological Hx Reported Smoking Status: Never smoker Past Alcohol Use History: None Reported Past Drug Use History: None Reported - Past Family History Father Family Medical History: Hypertension Mother History Unknown: Yes General Exam - General Exam Comments Initial Comments: Constitutional: Pt appears well-developed and well-nourished. No distress. Head: Normocephalic and atraumatic. Eyes: EOM are normal. Neck: Normal range of motion. Neck supple. Cardiovascular: Tachycardia present, regular rhythm, S1 normal, S2 normal and normal heart sounds. Exam reveals no gallop and no friction rub. No murmur heard. Pulmonary/Chest: Effort normal and breath sounds normal. No tachypnea and no bradypnea. No respiratory distress. No wheezes or rales noted. Abdominal: Soft. Bowel sounds are normal. Pt exhibits no shifting dullness, no distension, no pulsatile liver, no fluid wave, no abdominal bruit and no ascites. There is no rigidity, no rebound, no guarding, no tenderness at McBurney's point and negative Arreguin's sign. There is no tenderness. Musculoskeletal: Normal range of motion. Neurological: Pt is alert and oriented to person, place, and time. No cranial nerve deficit. Skin: Skin is warm and dry. No rash noted. Pt is not diaphoretic. No erythema. No pallor. Psychiatric: Pt has a normal mood and affect. Pt behavior is normal. Thought content normal. Limitations: no limitations Course Vital Signs 02/20/19 02/20/19 02/20/19 13:53 14:42 15:51 Temperature 98 F Pulse Rate 104 H 90 84 Respiratory 18 18 18 Rate Blood Pressure 138/72 146/94 129/91 O2 Sat by Pulse 97 95 97 Oximetry 02/20/19 02/20/19 17:00 18:24 Temperature 98 F Pulse Rate 85 75 Respiratory 18 18 Rate Blood Pressure 133/90 142/80 O2 Sat by Pulse 98 98 Oximetry EKG Findings - EKG Comments: EKG Findings:: EKG shows normal sinus rhythm with a rate of 80 bpm, VA interval 134, QRS 78, QTC 435. There are no significant ST depressions or elevations. 1 5:26 - repeat chest x-ray shows 96 bpm, VA interval 134, QRS 80, QTC 447. There are no changes in the ST segments. Medical Decision Making - Medical Decision Making Because the patient had been previously seen, CT PE study was performed and showed no evidence of pulmonary embolism. From a cardiac standpoint, EKG had no significant findings and serial troponins were negative. Because the patient had a low heart score, it was determined that he could be discharged and close follow-up. At the time of disposition, the patient had no chest pain and was comfortable with plan.Explained all labs and diagnostic test results and that we will discharge the patient home and patient is to follow up with PCP in 1-2 days and return to the ED if symptoms worsen. Pt is agreeable to plan. - Lab Data Result diagrams: 02/20/19 14:22 02/20/19 14:22 Lab Results 02/20/19 02/20/19 02/20/19 Range/Units 14:22 14:22 14:22 WBC 5.1 (3.8-10.6) k/uL RBC 5.47 (4.30-5.90) m/uL Hgb 15.3 (13.0-17.5) gm/dL Hct 47.2 (39.0-53.0) % MCV 86.2 (80.0-100.0) fL MCH 27.9 (25.0-35.0) pg MCHC 32.4 (31.0-37.0) g/dL RDW 13.6 (11.5-15.5) % Plt Count 211 (150-450) k/uL Neutrophils % 64 % Lymphocytes % 23 % Monocytes % 5 % Eosinophils % 4 % Basophils % 1 % Neutrophils # 3.3 (1.3-7.7) k/uL Lymphocytes # 1.2 (1.0-4.8) k/uL Monocytes # 0.3 (0-1.0) k/uL Eosinophils # 0.2 (0-0.7) k/uL Basophils # 0.0 (0-0.2) k/uL PT 10.4 (9.0-12.0) sec INR 1.0 (<1.2) APTT 25.6 (22.0-30.0) sec Sodium 139 (137-145) mmol/L Potassium 3.5 (3.5-5.1) mmol/L Chloride 106 (98-107) mmol/L Carbon Dioxide 25 (22-30) mmol/L Anion Gap 8 mmol/L BUN 12 (9-20) mg/dL Creatinine 0.67 (0.66-1.25) mg/dL Est GFR (CKD-EPI)AfAm >90 (>60 ml/min/1.73 sqM) Est GFR (CKD-EPI)NonAf >90 (>60 ml/min/1.73 sqM) Glucose 168 H (74-99) mg/dL Calcium 9.5 (8.4-10.2) mg/dL Magnesium 2.1 (1.6-2.3) mg/dL Total Bilirubin 0.6 (0.2-1.3) mg/dL AST 30 (17-59) U/L ALT 29 (21-72) U/L Alkaline Phosphatase 63 (38-126) U/L Troponin I (0.000-0.034) ng/mL Total Protein 7.0 (6.3-8.2) g/dL Albumin 4.1 (3.5-5.0) g/dL 02/20/19 02/20/19 Range/Units 14:22 17:15 WBC (3.8-10.6) k/uL RBC (4.30-5.90) m/uL Hgb (13.0-17.5) gm/dL Hct (39.0-53.0) % MCV (80.0-100.0) fL MCH (25.0-35.0) pg MCHC (31.0-37.0) g/dL RDW (11.5-15.5) % Plt Count (150-450) k/uL Neutrophils % % Lymphocytes % % Monocytes % % Eosinophils % % Basophils % % Neutrophils # (1.3-7.7) k/uL Lymphocytes # (1.0-4.8) k/uL Monocytes # (0-1.0) k/uL Eosinophils # (0-0.7) k/uL Basophils # (0-0.2) k/uL PT (9.0-12.0) sec INR (<1.2) APTT (22.0-30.0) sec Sodium (137-145) mmol/L Potassium (3.5-5.1) mmol/L Chloride (98-107) mmol/L Carbon Dioxide (22-30) mmol/L Anion Gap mmol/L BUN (9-20) mg/dL Creatinine (0.66-1.25) mg/dL Est GFR (CKD-EPI)AfAm (>60 ml/min/1.73 sqM) Est GFR (CKD-EPI)NonAf (>60 ml/min/1.73 sqM) Glucose (74-99) mg/dL Calcium (8.4-10.2) mg/dL Magnesium (1.6-2.3) mg/dL Total Bilirubin (0.2-1.3) mg/dL AST (17-59) U/L ALT (21-72) U/L Alkaline Phosphatase (38-126) U/L Troponin I <0.012 <0.012 (0.000-0.034) ng/mL Total Protein (6.3-8.2) g/dL Albumin (3.5-5.0) g/dL Disposition Clinical Impression: Chest pain Disposition: HOME SELF-CARE Condition: Good Instructions (If sedation given, give patient instructions): Chest Pain (ED) Is patient prescribed a controlled substance at d/c from ED?: No Referrals: Asad Jung MD [Primary Care Provider] - 1-2 days Time of Disposition: 18:09
[2019-02-20 14:38] LABS: Basophils % (A) 1 %; Eosinophils # (A) 0.2 k/uL (0-0.7); Eosinophils % (A) 4 %; HCT 47.2 % (39.0-53.0); HGB 15.3 gm/dL (13.0-17.5); Lymphocytes # (A) 1.2 k/uL (1.0-4.8); Lymphocytes % (A) 23 %; MCH 27.9 pg (25.0-35.0); MCHC 32.4 g/dL (31.0-37.0); MCV 86.2 fL (80.0-100.0); Mean Platelet Volume 6.9; Monocytes # (A) 0.3 k/uL (0-1.0); Monocytes % (A) 5 %; Neutrophils # (A) 3.3 k/uL (1.3-7.7); Neutrophils % (A) 64 %; Platelet Count 211 k/uL (150-450); RBC 5.47 m/uL (4.30-5.90); RDW 13.6 % (11.5-15.5); WBC 5.1 k/uL (3.8-10.6)
[2019-02-20 14:47] LABS: Partial Thromboplastin Time 25.6 sec (22.0-30.0); Prothrombin Time 10.4 sec (9.0-12.0)
[2019-02-20 14:49] LABS: ALT 29 U/L (21-72); AST 30 U/L (17-59); Albumin 4.1 g/dL (3.5-5.0); Alkaline Phosphatase 63 U/L (38-126); Anion Gap 8 mmol/L; Blood Urea Nitrogen 12 mg/dL (9-20); Calcium 9.5 mg/dL (8.4-10.2); Carbon Dioxide 25 mmol/L (22-30); Chloride 106 mmol/L (98-107); Glucose 168 mg/dL (74-99); Magnesium 2.1 mg/dL (1.6-2.3); Potassium 3.5 mmol/L (3.5-5.1); Sodium 139 mmol/L (137-145); Total Bilirubin 0.6 mg/dL (0.2-1.3)
--- NOTE | 2019-02-20 15:11 | CT ---
EXAMINATION TYPE: CT angio chest DATE OF EXAM: 02/20/2019 3:04 PM COMPARISON: None HISTORY: coughing up blood, sob, dizzy CT DLP: 321.3 mGycm Automated exposure control for dose reduction was used. CONTRAST: CTA scan of the thorax is performed with IV Contrast, patient injected with 100 mL of Isovue 370, pul monary embolism protocol. There are 3-D post processed images.. FINDINGS: Heart and mediastinum appear normal. There is no mediastinal adenopathy. There are no hilar masses. T here is no pericardial effusion. There is normal contrast opacification of the pulmonary arteries. There are no filling defects. There is no evidence of aortic aneurysm or dissection. The lungs are clear of infiltrate. There is no evidence of a pulmonary mass. There is no pleural effu kayleen. Upper abdominal soft tissues are unremarkable. I see no bony destructive process. Thoracic spine is intact. IMPRESSION: NEGATIVE EXAM. NO EVIDENCE OF PULMONARY EMBOLISM.
[2019-02-20] MEDS ORDERED: KETOROLAC 30 MG/ML 1 ML VIAL IVP STA (15:37)
[2019-02-20 18:25] VITALS: BP 142/80; PULSE 75
== END 2019-02-20 18:24 | disposition home or self-care (01) ==
LOC: EC 13:50
DX: R07.9 Chest pain, unspecified (principal); R00.0 Tachycardia, unspecified; R04.2 Hemoptysis; R06.02 Shortness of breath; R11.0 Nausea; M06.9 Rheumatoid arthritis, unspecified; Z79.899 Other long term (current) drug therapy; Z82.49 Family history of ischemic heart disease and other diseases of the circulatory system
CPT/HCPCS: 36415; 93005; 80053; 83735; 84484; 85025; 85610; 85730; 71275; 99284; 96374; J1885; Q9967

== ENCOUNTER 2019-02-20 18:32 | Observation (INO) | payer OTHER ==
[2019-02-20] MEDS ORDERED: NITROGLYCERIN SL TABS 0.4 MG TAB SUBLINGUAL PRN (18:58)
--- NOTE | 2019-02-20 18:58 | ED ---
Chest Pain HPI - General Chief Complaint: Chest Pain Stated Complaint: chest pain rt side Time Seen by Provider: 02/20/19 18:47 Source: patient Mode of arrival: ambulatory Limitations: no limitations - History of Present Illness Initial Comments: Patient is a 49-year-old male that has been seen here 2 times today. Patient states that he was just discharged and as he was walking out the door, he started having right-sided chest pain again. He denies any shortness breath any nausea/vomiting/diarrhea or any changes since the last visit. - Related Data Home Medications Medication Instructions Recorded Confirmed Etanercept [Enbrel Sureclick] 50 mg SQ WE 02/20/19 02/20/19 Methotrexate 25mg/1ml 25 mg IM FR 02/20/19 02/20/19 Previous Rx's Medication Instructions Recorded Ibuprofen [Motrin] 600 mg PO Q6HR PRN #20 tab 02/20/19 Allergies Allergy/AdvReac Type Severity Reaction Status Date / Time No Known Allergies Allergy Verified 02/20/19 18:46 Review of Systems ROS Statement: Those systems with pertinent positive or pertinent negative responses have been documented in the HPI. Constitutional: Negative for chills, fatigue and fever. HENT: Negative for congestion. Respiratory: Negative for chest tightness, shortness of breath and wheezing. Negative for cough Cardiovascular: Positive for chest pain and negative for palpitations. Gastrointestinal: Negative for abdominal pain. Negative for abdominal distention, diarrhea, nausea and vomiting. Genitourinary: Negative for dysuria. Musculoskeletal: Negative for back pain, neck pain and neck stiffness. Skin: Negative for color change. Neurological: Negative for dizziness, speech difficulty, weakness and light- headedness. Psychiatric/Behavioral: Negative for agitation and confusion. Negative for anxiety ROS Other: All systems not noted in ROS Statement are negative. Past Medical History Past Medical History: GERD/Reflux, Rheumatoid Arthritis (RA) History of Any Multi-Drug Resistant Organisms: None Reported Past Surgical History: No Surgical Hx Reported Past Anesthesia/Blood Transfusion Reactions: No Reported Reaction Past Psychological History: No Psychological Hx Reported Smoking Status: Never smoker Past Alcohol Use History: None Reported Past Drug Use History: None Reported - Past Family History Father Family Medical History: Hypertension Mother History Unknown: Yes General Exam - General Exam Comments Initial Comments: Constitutional: Pt appears well-developed and well-nourished. No distress. Head: Normocephalic and atraumatic. Eyes: EOM are normal. Neck: Normal range of motion. Neck supple. Cardiovascular: Normal rate, regular rhythm, S1 normal, S2 normal and normal heart sounds. Exam reveals no gallop and no friction rub. No murmur heard. Pulmonary/Chest: Effort normal and breath sounds normal. No tachypnea and no bradypnea. No respiratory distress. No wheezes or rales noted. Abdominal: Soft. Bowel sounds are normal. Pt exhibits no shifting dullness, no distension, no pulsatile liver, no fluid wave, no abdominal bruit and no ascites. There is no rigidity, no rebound, no guarding, no tenderness at McBurney's point and negative Arreguin's sign. There is no tenderness. Musculoskeletal: Normal range of motion. Neurological: Pt is alert and oriented to person, place, and time. No cranial nerve deficit. Skin: Skin is warm and dry. No rash noted. Pt is not diaphoretic. No erythema. No pallor. Psychiatric: Pt has a normal mood and affect. Pt behavior is normal. Thought content normal. Limitations: no limitations Course Vital Signs 02/20/19 18:43 Temperature 97.7 F Pulse Rate 90 Respiratory 18 Rate Blood Pressure 143/92 O2 Sat by Pulse 97 Oximetry Chest Pain MDM - MDM I was the physician seeing the patient for the last visit. 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 However, upon discharge, he walked out of the ER and started having pain in then decided come back. Because of this, repeat laboratory studies were not completed. Patient will be placed in observation for ACS rule out.Explained all labs and diagnostic test results and that we will admit patient to hospital. Pt is agreeable to plan and case has been discussed with Dr. Cruz and they agree to accept the pt. Disposition Clinical Impression: Chest pain Disposition: ADMITTED IP TO THIS HOSP Condition: Good Referrals: Asad Jung MD [Primary Care Provider] - 1-2 days Decision to Admit Reason: Admit from EC Decision Date: 02/20/19 Decision Time: 18:57
[2019-02-20] MEDS ORDERED: MELATONIN 3 MG TABLET PO PRN (20:04)
[2019-02-20] MEDS ORDERED: NALOXONE 0.4 MG/ML 1 ML VIAL IV PRN (20:04)
[2019-02-20] MEDS ORDERED: ACETAMINOPHEN TAB 325 MG TAB PO PRN (20:04)
[2019-02-20] MEDS ORDERED: KETOROLAC 30 MG/ML 1 ML VIAL IVP PRN (20:04)
[2019-02-20] MEDS ORDERED: ALBUTEROL NEBULIZED 2.5 MG/3 ML INHALATION PRN (20:06)
--- NOTE | 2019-02-20 20:07 | P.HPIM ---
History of Present Illness H&P Date: 02/20/19 Chief Complaint: Chest pain Patient is a 49-year-old male past medical history of rheumatoid arthritis, GERD, and dyslipidemia who presented to the ER with chest pain. Patient initially presented to the ER with chest pain at 10 AM which was felt to be musculoskeletal and he was discharged home. He re-presented to the ER at and was seen at approximately 2:30 PM again with chest pain. It responded to Toradol he was again sent home. On his way to the car he again started having chest pain and reports presented to the emergency room. Of note he was also hospitalized here from 01/27 for chest pain. At that point in time he had 3 negative troponins and no sign of acute coronary syndrome. He was seen by cardiology and felt that he was appropriate for outpatient stress test. He was started on Lipitor due to LDL of 138 discharged home. In the ER today he has had 2 negative sets of troponin. His EKG is nonischemic. Laboratory analysis is unremarkable. CTA of the chest revealed no acute process and no pulmonary embolism. He is being placed in observation for chest pain rule out. Patient seen and examined at bedside in the emergency department. He reports that he follow-up with Dr. Cruz after discharge from the hospital and is to have an outpatient stress test on February 28. He has been taking his Lipitor as prescribed. He reports that he has been having chest pain for the last several days. It is mostly right sided with some radiation to the left side of his chest and is sharp in nature. It occurs with walking and is better at rest. He states when it occurs it lasts approximately half an hour. One of the times he became lightheaded. It is associated with shortness of breath, no nausea, no numbness or tingling, no pain in the arms or into the jaw. He did have one episode where he felt that his heart may have been beating fast. He has not been taking anything specifically for the pain. He has been suffering from a dry cough since he was seen here at the end of January. He states it is nonproductive. He denies any runny nose, stuffy nose, headache, or changes in vision. 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 Chest pain is reproducible. He follows with Dr. Jung in the outpatient setting. Review of Systems Pertinent positives and negatives as discussed in HPI, a complete review of systems was performed and all other systems are negative. Past Medical History Past Medical History: GERD/Reflux, Rheumatoid Arthritis (RA) Last Myocardial Infarction Date:: Dyslipidemia, appears to have some mild developmental delay History of Any Multi-Drug Resistant Organisms: None Reported Past Surgical History: No Surgical Hx Reported Past Anesthesia/Blood Transfusion Reactions: No Reported Reaction Past Psychological History: No Psychological Hx Reported Smoking Status: Never smoker Past Alcohol Use History: None Reported Past Drug Use History: None Reported Additional History: Pulses his mother, no assistive devices, works at [employer] as a [employer] - Past Family History Father Family Medical History: Hypertension Mother Family Medical History: No Reported History Grandfather Additional Family Medical History / Comment(s): Heart disease Medications and Allergies Home Medications Medication Instructions Recorded Confirmed Type Etanercept [Enbrel Sureclick] 50 mg SQ WE 02/20/19 02/20/19 History Ibuprofen [Motrin] 600 mg PO Q6HR PRN #20 tab 02/20/19 02/20/19 Rx Methotrexate 25mg/1ml 25 mg IM FR 02/20/19 02/20/19 History Allergies Allergy/AdvReac Type Severity Reaction Status Date / Time No Known Allergies Allergy Verified 02/20/19 18:46 Physical Exam Osteopathic Statement: *. No significant issues noted on an osteopathic structural exam other than those noted in the History and Physical/Consult. Vitals: Vital Signs Temp Pulse Resp BP Pulse Ox 02/20/19 19:35 97.9 F 86 18 144/93 98 02/20/19 18:43 97.7 F 90 18 143/92 97 Intake and Output 02/20/19 02/20/19 02/20/19 06:59 14:59 22:59 Other: Weight 81.647 kg General: non toxic, no distress, appears at stated age, normal weight Derm: no unusual rashes/lesions no unusual ecchymoses, warm, dry Head: atraumatic, normocephalic, symmetric Eyes: EOMI, no lid lag, anicteric sclera, pupils equal round reactive to light ENT: Nose and ears atraumatic, no thrush, no pharyngeal erythema Neck: No thyromegaly, no cervical lymphadenopathy, trachea midline, supple Mouth: no lip lesion, mucus membranes moist Cardiovascular: + Tenderness to palpation of chest wall, S1S2 reg, no murmur, positive posterior tibial pulse bilateral, no edema, capillary refill less than 2 seconds Lungs: CTA bilateral, no rhonchi, no rales , no accessory muscle use Abdominal: soft, nontender to palpation, no guarding, no appreciable organomegaly, normal bowel sounds Ext: no gross muscle atrophy, muscle strength 5 out of 5 in all 4 extremities grossly, no contractures, Neuro: CN II-XI grossly intact, light touch intact all 4 extremities, finger to nose within normal limits, Psych: Alert, oriented, appropriate affect Results Comments: EKG is reviewed by myself reveals normal sinus rhythm at a rate of 88, CT 134, QRS 78, QTC 435. No significant ST-T wave changes, normal axis Thrombosis Risk Factor Assmnt - DVT/VTE Prophylaxis DVT/VTE Prophylaxis: Low risk, early ambulation encouraged Assessment and Plan Assessment: Atypical chest pain -Suspect likely musculoskeletal in origin given reproducibility. However with 3 visits to the ER in less than 12 hours was cardiology for opinion. -Needs 1 more set of troponin to have 3 negative and this will be ordered -Telemetry -Aspirin -Continue with Lipitor -Start on prednisone for possible costochondritis, continue with Toradol Suspect bronchitis -Albuterol as needed for shortness of breath -Prednisone -Likely viral in origin or reactive -CT without any signs of infiltration GERD -PPI Dyslipidemia -Statin Rheumatoid arthritis -Continue with methotrexate and Enbrel patient takes these on Friday The patient is placed in observation with an anticipated less than 2 per night stay for evaluation of chest pain. Surrogate decision-maker: mother DVT prophylaxis: early ambulation Discussed with: Patient, ED physicians Anticipated discharge date: in AM Anticipated discharge place: home A total of 45 minutes was spent on the care of this complex patient more than 50% of the time was spent in counseling and care coordination.
[2019-02-20] MEDS ORDERED: ATORVASTATIN 40 MG TAB PO SCH (21:00)
[2019-02-20] MEDS: PANTOPRAZOLE 40 MG TABLET PO SCH (21:58)
[2019-02-20] MEDS: predniSONE 20 MG TAB PO SCH (21:59)
[2019-02-21 07:29] LABS: Cholesterol 146 mg/dL (<200); HDL Cholesterol 37 mg/dL (40-60); LDL Cholesterol,Calculated 101 mg/dL (0-99); Triglycerides 42 mg/dL (<150)
--- NOTE | 2019-02-21 07:45 | CONS ---
CONSULTATION CHIEF COMPLAINT: Chest pain. HISTORY OF PRESENT ILLNESS: Guillermo is a 49-year-old gentleman with history of dyslipidemia who presented to [facility] Emergency Room complaining of right-sided chest discomfort and right inguinal hernia. Cardiology has been consulted for chest pain. His chest discomfort is sharp, atypical, and related to exertion and associated diaphoresis. It seems musculoskeletal. He had a CT of the chest that was negative for pulmonary embolism. EKG that is within normal limits. Had multiple sets of troponins that are negative. The patient apparently has already been seen by Cardiology in the past and advised to undergo an outpatient stress test on February 28. PAST MEDICAL HISTORY: Negative for hypertension and diabetes. CURRENT MEDICATIONS: Include Aricept, Lipitor, methotrexate, and ibuprofen. Past medical history is also significant for arthritis. ALLERGIES: No known drug allergies. FAMILY HISTORY: Negative for premature coronary artery disease. SOCIAL HISTORY: Negative for smoking, EtOH abuse, or drug abuse. REVIEW OF SYSTEMS: HEENT is unremarkable. Cardiac as described above. Respiratory negative. GI negative. Genitourinary negative. Allergy is negative. SKIN: Negative. MUSCULOSKELETAL: Significant for chest pain. Psychosocial negative. Endocrine: Negative. Derm: Negative. CONSTITUTIONAL: Negative. Oncological negative. Rest of the system review is not relevant. PHYSICAL EXAM: The patient is comfortable at rest. Vital signs are stable. There is no jugular venous distention. Carotid upstroke is normal. There is no bruit. Chest exam reveals good air entry bilaterally. Heart exam reveals first and second heart sounds. No gallops. No murmur. No rub. Abdomen is soft, nontender. The patient has right inguinal hernia. Exam of extremities did not reveal any edema. Peripheral pulses are palpable. Urine is negative. ASSESSMENT: 1. Chest pain atypical probably musculoskeletal. The patient is ruled out for myocardial infarction and is stable for discharge. The patient was seen by Cardiology 3 weeks ago and is to undergo an outpatient stress test and I advised him to keep that appointment. 2. Right inguinal hernia. Management per primary. 3. History of rheumatoid arthritis. 4. History of dyslipidemia. PLAN: Patient is stable for discharge. MMODL / IJN: [id number] /
[2019-02-21 08:03] VITALS: BP 133/89; PULSE 78; RESP 16; TEMP 97.7
[2019-02-21] MEDS: PANTOPRAZOLE 40 MG TABLET PO SCH (08:20)
[2019-02-21] MEDS: predniSONE 20 MG TAB PO SCH (08:20)
[2019-02-21] MEDS ORDERED: ASPIRIN 325 MG TAB PO SCH (09:00)
--- NOTE | 2019-02-21 09:24 | P.DS ---
Providers Date of admission: 02/20/19 19:01 Expected date of discharge: 02/21/19 Attending physician: Victor Manuel Cruz MD Consults: 02/20/19 18:59 Consult Physician Urgent Consulting Provider: Ihsan Dodd Consult Reason/Comments: chest pain Do you want consulting provider notified?: Yes Primary care physician: [facility] Course: Final diagnosis at discharge Atypical chest pain musculoskeletal Secondary diagnosis GERD Dyslipidemia Rheumatoid arthritis right inguinal hernia, reducible Hospital course Patient is a 49-year-old male past medical history of rheumatoid arthritis, GERD, and dyslipidemia who presented to the ER with chest pain. Patient initially presented to the ER with chest pain at 10 AM which was felt to be musculoskeletal and he was discharged home. He re-presented to the ER at and was seen at approximately 2:30 PM again with chest pain. It responded to Toradol he was again sent home. On his way to the car he again started having chest pain and reports presented to the emergency room. Of note he was also hospitalized here from 01/27 01/31 for chest pain and cleared by cardiology for discharge and plan was for outpatient stress test. During this hospital course, EKG was unremarkable , 3 negative troponins and no sign of acute coronary syndrome. He was seen by cardiology and felt that he was appropriate for outpatient stress test. CTA of the chest revealed no acute process and no pulmonary embolism. Patient seen and examined today prior to discharge, doing well, denies any chest pain or trouble breathing General: non toxic, no distress, appears at stated age, normal weight Cardiovascular: normal s1 s2 , regular rate and rhythm, no murmurs, no peripheral edema, capillary refill is immediate Lungs: CTA bilateral, no rhonchi, no rales , no accessory muscle use Abdominal: soft, nontender to palpation, no guarding, no appreciable organomegaly, normal bowel sounds, right inguinal hernia , reducible , no tenderness, no swelling, no redness no warmth to the touch, no signs of obstruction Neuro: CN II-XI grossly intact, light touch intact all 4 extremities, finger to nose within normal limits, Psych: Alert, oriented, appropriate affect follow up with PCP and with cardiology as outpatient stress test scheduled on February 28. ask PCP for referral to general surgery if interested in repairing hernia discharged in stable condition continue home meds, no new prescriptions Patient Condition at Discharge: Good Plan - Discharge Summary Discharge Rx Participant: No New Discharge Prescriptions: Continue Methotrexate 25mg/1ml 25 mg IM FR Etanercept [Enbrel Sureclick] 50 mg SQ WE Ibuprofen [Motrin] 600 mg PO Q6HR PRN #20 tab PRN Reason: For pain Atorvastatin [Lipitor] 20 mg PO DAILY Discharge Medication List Atorvastatin [Lipitor] 20 mg PO DAILY 02/20/19 [History] Etanercept [Enbrel Sureclick] 50 mg SQ WE 02/20/19 [History] Ibuprofen [Motrin] 600 mg PO Q6HR PRN #20 tab 02/20/19 [Rx] Methotrexate 25mg/1ml 25 mg IM FR 02/20/19 [History] Follow up Appointment(s)/Referral(s): Asad Jung MD [Primary Care Provider] - 1-2 days Bill Barger MD [STAFF PHYSICIAN] - 3 Weeks Patient Instructions/Handouts: Chest Pain (ED), Inguinal Hernia (ED) Discharge Disposition: HOME SELF-CARE
== END 2019-02-21 10:08 | disposition home or self-care (01) ==
LOC: EC 18:32 → 1SOBS 19:01
PROVIDERS: ADMIT Internal Medicine; ATTEND Internal Medicine
DX: R07.89 Other chest pain (principal); K21.9 Gastro-esophageal reflux disease without esophagitis; R06.02 Shortness of breath; R61 Generalized hyperhidrosis; R42 Dizziness and giddiness; R05 Cough; E78.5 Hyperlipidemia, unspecified; K40.90 Unilateral inguinal hernia, without obstruction or gangrene, not specified as recurrent; M06.9 Rheumatoid arthritis, unspecified; Z79.899 Other long term (current) drug therapy; Z82.49 Family history of ischemic heart disease and other diseases of the circulatory system
CPT/HCPCS: 99285; 94640; 94760; 80061; 84484 ×2; G0378 ×2; J7512 ×2

== ENCOUNTER 2019-03-20 13:43 | Emergency (ER) | payer OTHER ==
[2019-03-20 13:50] VITALS: RESP 18; TEMP 97.9
[2019-03-20 14:28] LABS: Basophils % (A) 1 %; Eosinophils # (A) 0.3 k/uL (0-0.7); Eosinophils % (A) 5 %; HCT 45.9 % (39.0-53.0); HGB 14.9 gm/dL (13.0-17.5); Lymphocytes # (A) 1.3 k/uL (1.0-4.8); Lymphocytes % (A) 24 %; MCH 27.8 pg (25.0-35.0); MCHC 32.4 g/dL (31.0-37.0); MCV 85.6 fL (80.0-100.0); Mean Platelet Volume 6.9; Monocytes # (A) 0.4 k/uL (0-1.0); Monocytes % (A) 9 %; Neutrophils % (A) 58 %; Platelet Count 265 k/uL (150-450); RBC 5.36 m/uL (4.30-5.90); RDW 14.2 % (11.5-15.5); WBC 5.2 k/uL (3.8-10.6)
[2019-03-20 14:40] LABS: ALT 25 U/L (21-72); AST 27 U/L (17-59); Albumin 4.1 g/dL (3.5-5.0); Alkaline Phosphatase 58 U/L (38-126); Anion Gap 7 mmol/L; Blood Urea Nitrogen 10 mg/dL (9-20); Calcium 9.1 mg/dL (8.4-10.2); Carbon Dioxide 27 mmol/L (22-30); Chloride 106 mmol/L (98-107); Glucose 105 mg/dL (74-99); Magnesium 2.1 mg/dL (1.6-2.3); Potassium 3.9 mmol/L (3.5-5.1); Sodium 140 mmol/L (137-145); Total Bilirubin 0.6 mg/dL (0.2-1.3); Total Protein 7.1 g/dL (6.3-8.2)
--- NOTE | 2019-03-20 14:41 | XR ---
EXAMINATION TYPE: XR chest 2V DATE OF EXAM: 03/20/2019 COMPARISON: 02/20/2019 HISTORY: 49-year-old male with chest pain TECHNIQUE: AP and lateral views FINDINGS: The cardiomediastinal silhouette, aorta, and pulmonary vasculature are within normal limits. Lungs an d pleural spaces are clear. IMPRESSION: No acute cardiopulmonary process.
[2019-03-20 14:45] LABS: INR 0.9 (<1.2); Partial Thromboplastin Time 26.1 sec (22.0-30.0); Prothrombin Time 10.2 sec (9.0-12.0)
[2019-03-20 15:00] LABS: D-Dimer <0.17 mg/L FEU (<0.60)
--- NOTE | 2019-03-20 16:08 | CT ---
EXAMINATION TYPE: CT abdomen pelvis w con DATE OF EXAM: 03/20/2019 COMPARISON: NONE HISTORY: 49-year-old male with hernia, Epigastric pain. TECHNIQUE: Contiguous axial scanning of the abdomen and pelvis following administration of 100 ml Iso moriah 300 IV contrast. Delayed images through the kidneys and coronal/sagittal reconstructions perform ed. CT DLP: 877.2 mGycm Automated exposure control for dose reduction was used. FINDINGS: Heart normal size without pericardial effusion. Lung bases clear without pleural effusion. A tiny hiatal hernia versus circumferential wall thickening of the distal esophagus. No focal liver lesion or biliary ductal dilatation. Portal venous system is patent. Gallbladder, adrenal glands, kidneys, spleen, hilar splenule, and pancreas appear within normal limit s. No dilated small bowel, free fluid, or free air. Mildly enlarged gastrohepatic ligament lymph node measuring 1.0 cm on axial image 21 is nonspecific. Adjacent borderline sized lower paraesophageal lymph nodes measure 7 mm. Otherwise, no mesenteric or retroperitoneal lymphadenopathy. Normal appendix. Mild to moderate scattered stool. No pericolonic inflammatory change. Bilateral fat-containing indirect inguinal hernias, moderate-sized on the right and small on the left . Bladder partially distended. Prostate gland measures 4.6 cm wide. No abnormal fluid collection in the pelvis or pelvic lymphadenopathy. Bones: Degenerative disc disease L4-L5 and L5-S1 with facet arthropathy. IMPRESSION: 1. MILD CIRCUMFERENTIAL THICKENING AT THE GE JUNCTION COULD REPRESENT A TINY HIATAL HERNIA OR MILD ES OPHAGITIS. 2. GIVEN SOME PROMINENT ADJACENT LYMPH NODES IN THE LOWER PARAESOPHAGEAL AND GASTROHEPATIC LIGAMENT R EGION MEASURING UP TO 1 CM, CONSIDER DIRECT VISUALIZATION INDICATED. 3. FAT-CONTAINING MODERATE-SIZED RIGHT INDIRECT INGUINAL HERNIA AND SMALL ON THE LEFT.
--- NOTE | 2019-03-20 16:39 | ED ---
Abdominal Pain HPI - General Chief Complaint: Abdominal Pain Stated Complaint: Abd pain Time Seen by Provider: 03/20/19 14:03 Source: patient Mode of arrival: wheelchair - History of Present Illness Initial Comments: 49-year-old male presenting today for chief complaint of "pain in my hernias". Patient states he has had chest pain in the left side of his chest for months that increases with cough or when he attempts to go from a laying to a seated position. He states he was told he had a hiatal hernia and would need surgical repair. Patient denies a change in characteristic of the pain he denies any chest pressure denies numbness tingling or loss sensation of the upper extremities he denies jaw pain denies diaphoresis or shortness of breath. He states that increases with movement. Denies dyspnea on exertion, recent hospitalization or travel, immobility or fracture, denies recent surgeries, history of DVT or pulmonary embolism, he denies premature CAD in family, DM or hypertension. Pt states he does have elevated cholesterol. Pt states he also has pain with coughing and certain movements of the right groin, he states he also has a hernia here. Pt states he has been evaluated for repair by outside provider. Pt denies constipation, melena, hematochezia, severe abdominal pain or any other symptoms. Upon arrival pt appears well. There are no signs of acute distress. - Related Data Home Medications Medication Instructions Recorded Confirmed Atorvastatin [Lipitor] 20 mg PO DAILY 02/20/19 03/20/19 Etanercept [Enbrel Sureclick] 50 mg SQ WE 02/20/19 03/20/19 Methotrexate 25mg/1ml 25 mg IM FR 02/20/19 03/20/19 Previous Rx's Medication Instructions Recorded Ibuprofen [Motrin] 600 mg PO Q6HR PRN #20 tab 02/20/19 predniSONE [Deltasone] 40 mg PO DAILY 5 Days #10 tablet 03/20/19 Allergies Allergy/AdvReac Type Severity Reaction Status Date / Time No Known Allergies Allergy Verified 03/20/19 21:34 Review of Systems ROS Statement: Those systems with pertinent positive or pertinent negative responses have been documented in the HPI. ROS Other: All systems not noted in ROS Statement are negative. Past Medical History Past Medical History: GERD/Reflux, Hyperlipidemia, Rheumatoid Arthritis (RA) Last Myocardial Infarction Date:: Dyslipidemia, appears to have some mild developmental delay History of Any Multi-Drug Resistant Organisms: None Reported Past Surgical History: No Surgical Hx Reported Past Anesthesia/Blood Transfusion Reactions: No Reported Reaction Past Psychological History: No Psychological Hx Reported Smoking Status: Never smoker Past Alcohol Use History: None Reported Past Drug Use History: None Reported - Past Family History Father Family Medical History: Hypertension Mother History Unknown: Yes Family Medical History: No Reported History Grandfather Additional Family Medical History / Comment(s): Heart disease General Exam - General Exam Comments Initial Comments: General: The patient is awake and alert, in no distress, and does not appear acutely ill. Eye: +3 mm pupils are equal, round and reactive to light, extra-ocular movements are intact. No nystagmus. There is normal conjunctiva bilaterally. No signs of icterus. Ears, nose, mouth and throat: There are moist mucous membranes and no oral lesions. Neck: The neck is supple, there is no tenderness or JVD. Cardiovascular: There is a regular rate and rhythm. No murmur, rub or gallop is appreciated. Respiratory: Lungs are clear to auscultation, respirations are non-labored, breath sounds are equal. No wheezes, stridor, rales, or rhonchi. Gastrointestinal: Soft, non-distended, non-tender abdomen without masses or organomegaly noted. There is no rebound or guarding present. No CVA tenderness. Bowel sounds are unremarkable. Musculoskeletal: Normal ROM, no tenderness. Strength 5/5. Sensation intact. Radial and DP pulses equal bilaterally 2+. Neurological: A&O x 3. CN II-XII intact, There are no obvious motor or sensory deficits. Coordination appears grossly intact. Speech is normal. Skin: Skin is warm and dry and no rashes or lesions are noted. No LE edema. 2 spell right-sided inguinal hernia. Soft, skin color. Psychiatric: Cooperative, appropriate mood & affect, normal judgment. Course Vital Signs 03/20/19 03/20/19 13:47 17:36 Temperature 97.9 F Pulse Rate 98 94 Respiratory 18 18 Rate Blood Pressure 149/83 130/80 O2 Sat by Pulse 98 97 Oximetry Medical Decision Making - Medical Decision Making 49 yo male presenting for evaluation of multiple hernias. Patient states he has pain in the left lower chest/abdomen with big coughs/or when he does a "sit up" position. Pt symptoms do no appears consistent with ACS and patient states he has had this ongoing for months. Denies exertional pain, he states it is positional. Pt has large right inguinal hernia, pt states is tender with cough, or increased abdominal pressure. It is reducible. His skin color. No evidence concerning for incarceration or circulation. CT revealed fat within hernia no bowel. Pt having normal BMs. No pain to abdomen palpation. Pt CXR, EKG, WNL. Laboratory studies reveal mildly elevated glucose. Troponin negative. At this time I feel patient pain is due to a inguinal hernia. She is to follow up primary care provider for outpatient stress testing as well as general surgery, return parameters as well as findings consistent circulation and incarceration were discussed the patient-he verbalized understanding. Patient was discharged appearing well. I discussed case with Dr Mcgrath prior to patient discharge, he reviewd laboratory studies. We recommended outpatient f/u with primary care to have CT records obtained to go over incidental findings of lymphadenopathy. - Lab Data Result diagrams: 03/20/19 14:17 03/20/19 14:17 Lab Results 03/20/19 03/20/19 03/20/19 Range/Units 14:17 14:17 14:17 WBC 5.2 (3.8-10.6) k/uL RBC 5.36 (4.30-5.90) m/uL Hgb 14.9 (13.0-17.5) gm/dL Hct 45.9 (39.0-53.0) % MCV 85.6 (80.0-100.0) fL MCH 27.8 (25.0-35.0) pg MCHC 32.4 (31.0-37.0) g/dL RDW 14.2 (11.5-15.5) % Plt Count 265 (150-450) k/uL Neutrophils % 58 % Lymphocytes % 24 % Monocytes % 9 % Eosinophils % 5 % Basophils % 1 % Neutrophils # 3.0 (1.3-7.7) k/uL Lymphocytes # 1.3 (1.0-4.8) k/uL Monocytes # 0.4 (0-1.0) k/uL Eosinophils # 0.3 (0-0.7) k/uL Basophils # 0.0 (0-0.2) k/uL PT 10.2 (9.0-12.0) sec INR 0.9 (<1.2) APTT 26.1 (22.0-30.0) sec D-Dimer <0.17 (<0.60) mg/L FEU Sodium 140 (137-145) mmol/L Potassium 3.9 (3.5-5.1) mmol/L Chloride 106 (98-107) mmol/L Carbon Dioxide 27 (22-30) mmol/L Anion Gap 7 mmol/L BUN 10 (9-20) mg/dL Creatinine 0.72 (0.66-1.25) mg/dL Est GFR (CKD-EPI)AfAm >90 (>60 ml/min/1.73 sqM) Est GFR (CKD-EPI)NonAf >90 (>60 ml/min/1.73 sqM) Glucose 105 H (74-99) mg/dL Calcium 9.1 (8.4-10.2) mg/dL Magnesium 2.1 (1.6-2.3) mg/dL Total Bilirubin 0.6 (0.2-1.3) mg/dL AST 27 (17-59) U/L ALT 25 (21-72) U/L Alkaline Phosphatase 58 (38-126) U/L Troponin I (0.000-0.034) ng/mL Total Protein 7.1 (6.3-8.2) g/dL Albumin 4.1 (3.5-5.0) g/dL 03/20/19 Range/Units 14:17 WBC (3.8-10.6) k/uL RBC (4.30-5.90) m/uL Hgb (13.0-17.5) gm/dL Hct (39.0-53.0) % MCV (80.0-100.0) fL MCH (25.0-35.0) pg MCHC (31.0-37.0) g/dL RDW (11.5-15.5) % Plt Count (150-450) k/uL Neutrophils % % Lymphocytes % % Monocytes % % Eosinophils % % Basophils % % Neutrophils # (1.3-7.7) k/uL Lymphocytes # (1.0-4.8) k/uL Monocytes # (0-1.0) k/uL Eosinophils # (0-0.7) k/uL Basophils # (0-0.2) k/uL PT (9.0-12.0) sec INR (<1.2) APTT (22.0-30.0) sec D-Dimer (<0.60) mg/L FEU Sodium (137-145) mmol/L Potassium (3.5-5.1) mmol/L Chloride (98-107) mmol/L Carbon Dioxide (22-30) mmol/L Anion Gap mmol/L BUN (9-20) mg/dL Creatinine (0.66-1.25) mg/dL Est GFR (CKD-EPI)AfAm (>60 ml/min/1.73 sqM) Est GFR (CKD-EPI)NonAf (>60 ml/min/1.73 sqM) Glucose (74-99) mg/dL Calcium (8.4-10.2) mg/dL Magnesium (1.6-2.3) mg/dL Total Bilirubin (0.2-1.3) mg/dL AST (17-59) U/L ALT (21-72) U/L Alkaline Phosphatase (38-126) U/L Troponin I <0.012 (0.000-0.034) ng/mL Total Protein (6.3-8.2) g/dL Albumin (3.5-5.0) g/dL - EKG Data EKG Comments: A 12-lead EKG was performed and shows the following: Rate is 83bpm, and rhythm is normal sinus. There are normal QRS complexes and normal R-wave progression. ST segments have no elevation or depression, and DC segments appear normal. DC interval 132 ms, QR worship 78 ms, QT/QTC 354/415 milliseconds Disposition Clinical Impression: Hiatal hernia, Inguinal hernia, Lymphadenopathy Disposition: HOME SELF-CARE Condition: Good Instructions (If sedation given, give patient instructions): Hiatal Hernia (ED), Inguinal Hernia (ED) Additional Instructions: Please use medication as discussed. Please follow-up with general surgery and primary care as discussed. Please obtain CT results to review with primary care provider, there are incidental findings of lymphadenopathy. Please return to emergency room if the symptoms increase or worsen or for any other concerns. Is patient prescribed a controlled substance at d/c from ED?: No Referrals: Asad Jung MD [Primary Care Provider] - 1-2 days Brian Weinstein MD [STAFF PHYSICIAN] - 1-2 days Time of Disposition: 16:37
[2019-03-20 17:38] VITALS: BP 130/80; PULSE 94
== END 2019-03-20 17:36 | disposition home or self-care (01) ==
LOC: EC 13:43
DX: K44.9 Diaphragmatic hernia without obstruction or gangrene (principal); K40.20 Bilateral inguinal hernia, without obstruction or gangrene, not specified as recurrent; R59.1 Generalized enlarged lymph nodes; E78.5 Hyperlipidemia, unspecified; M06.9 Rheumatoid arthritis, unspecified; Z79.899 Other long term (current) drug therapy
CPT/HCPCS: 99284 ×2; 96374; 99285; 36415; 93005; 85379; 83880; 80053; 83735; 84484; 85025; 85610; 85730; 71046; 74177; J1885; Q9967

== ENCOUNTER 2019-03-20 21:11 | Emergency (ER) | payer OTHER ==
[2019-03-20 21:20] VITALS: RESP 18; TEMP 98.3
[2019-03-20] MEDS ORDERED: KETOROLAC 30 MG/ML 1 ML VIAL IVP STA (21:21)
[2019-03-20] MEDS ORDERED: ASPIRIN 81 MG PO STA (21:21)
--- NOTE | 2019-03-20 21:38 | ED ---
Chest Pain HPI - General Chief Complaint: Chest Pain Stated Complaint: Chest pain Time Seen by Provider: 03/20/19 21:21 Source: patient Mode of arrival: ambulatory Limitations: no limitations - History of Present Illness Initial Comments: Guillermo is a 49-year-old male with past medical history of rheumatoid arthritis which causes her to costochondritis. Patient presents the emergency department this evening with exacerbation of his chronic costochondritis. Patient states he was seen and evaluated in the emergency department this morning he was expe riencing these pains at that time his troponin was negative his EKG was unremarkable. Patient states that since being discharged from hospital he's taken one Motrin with no improvement in his discomfort. Patient states whenever he presses on his chest or turns he has discomfort in his ribs. Patient denies any exertional symptoms he denies any shortness breath palpitations diaphoresis or lightheadedness. - Related Data Home Medications Medication Instructions Recorded Confirmed Atorvastatin [Lipitor] 20 mg PO DAILY 02/20/19 03/20/19 Etanercept [Enbrel Sureclick] 50 mg SQ WE 02/20/19 03/20/19 Methotrexate 25mg/1ml 25 mg IM FR 02/20/19 03/20/19 Previous Rx's Medication Instructions Recorded Ibuprofen [Motrin] 600 mg PO Q6HR PRN #20 tab 02/20/19 predniSONE [Deltasone] 40 mg PO DAILY 5 Days #10 tablet 03/20/19 Allergies Allergy/AdvReac Type Severity Reaction Status Date / Time No Known Allergies Allergy Verified 03/20/19 21:34 Review of Systems ROS Statement: Those systems with pertinent positive or pertinent negative responses have been documented in the HPI. ROS Other: All systems not noted in ROS Statement are negative. EKG Findings - EKG Comments: EKG Findings:: EKG obtained for evaluation of complaint of chest pain. EKG was obtained at 2130 rate is 81 rhythm is sinus there is normal axis there are normal intervals, ND 1:30, QRS 88, QTC is 425 there is no evidence of acute ischemia or infarction. When EKG was compared to EKG obtained earlier today there is no significant change in morphology. Past Medical History Past Medical History: GERD/Reflux, Hyperlipidemia, Rheumatoid Arthritis (RA) Last Myocardial Infarction Date:: Dyslipidemia, appears to have some mild developmental delay History of Any Multi-Drug Resistant Organisms: None Reported Past Surgical History: No Surgical Hx Reported Past Anesthesia/Blood Transfusion Reactions: No Reported Reaction Past Psychological History: No Psychological Hx Reported Smoking Status: Never smoker Past Alcohol Use History: None Reported Past Drug Use History: None Reported - Past Family History Father Family Medical History: Hypertension Mother History Unknown: Yes Family Medical History: No Reported History Grandfather Additional Family Medical History / Comment(s): Heart disease General Exam - General Exam Comments Initial Comments: Physical Exam GENERAL: Patient is well-developed and well-nourished. Patient is nontoxic and well-hydrated and is in no distress. HENT: Normocephalic, Atraumatic. EYES: PERRL, EOMI PULMONARY: Unlabored respirations. No audible rales rhonchi or wheezing was noted. CARDIOVASCULAR: There is a regular rate and rhythm without any murmurs gallops or rubs. ABDOMEN: Soft and nontender with normal bowel sounds. SKIN: Skin is clear with no lesions or rashes and otherwise unremarkable. : Deferred NEUROLOGIC: Patient is alert and oriented x3. Moving all extremities spontaneously MUSCULOSKELETAL: Normal extremities with adequate strength and full range of motion. No lower extremity swelling or edema. No calf tenderness. PSYCHIATRIC: Normal psychiatric evaluation. Limitations: no limitations Limitations: no limitations Course Vital Signs 03/20/19 03/20/19 21:18 23:20 Temperature 98.3 F Pulse Rate 87 76 Respiratory 18 18 Rate Blood Pressure 147/83 126/85 O2 Sat by Pulse 98 96 Oximetry Chest Pain MDM - MDM The patient has been seen and evaluated, history was obtained from patient and review of medical record This is a 49-year-old gentleman presenting with exacerbation of his chronic chest pain which has been worked up extensively with inpatient and outpatient valuations. Patient has been admitted twice with multiple negative troponins in addition he's had an outpatient stress test. His been determined that his chest pain is secondary to costochondritis. Patient reports he usually responds to steroids he is currently not on any steroids. Patient's EKG was unremarkable We will repeat labs treat with Toradol and steroids Repeat labs were again unremarkable, troponin remains negative Based on this evaluation there is no evidence of ACS, pericarditis, myocarditis, pulmonary embolism, pneumothorax, pneumonia, Zoster, or esophageal perforation. Historically not abrupt in onset, tearing or ripping, pulses symmetric, no evidence of aortic dissection. The patient will be discharged home with steroids Disposition Clinical Impression: Atypical chest pain Disposition: HOME SELF-CARE Condition: Stable Instructions (If sedation given, give patient instructions): Chest Pain (ED), Costochondritis (ED) Prescriptions: predniSONE [Deltasone] 40 mg PO DAILY 5 Days #10 tablet Is patient prescribed a controlled substance at d/c from ED?: No Referrals: Asad Jung MD [Primary Care Provider] - 1-2 days
[2019-03-20 21:42] LABS: Basophils # (A) 0.1 k/uL (0-0.2); Basophils % (A) 1 %; Eosinophils # (A) 0.3 k/uL (0-0.7); Eosinophils % (A) 4 %; HCT 47.9 % (39.0-53.0); HGB 15.7 gm/dL (13.0-17.5); Lymphocytes # (A) 1.9 k/uL (1.0-4.8); Lymphocytes % (A) 26 %; MCH 27.9 pg (25.0-35.0); MCHC 32.8 g/dL (31.0-37.0); MCV 85.1 fL (80.0-100.0); Mean Platelet Volume 6.7; Monocytes # (A) 0.6 k/uL (0-1.0); Monocytes % (A) 7 %; Neutrophils # (A) 4.4 k/uL (1.3-7.7); Neutrophils % (A) 59 %; Platelet Count 277 k/uL (150-450); RBC 5.63 m/uL (4.30-5.90); RDW 14.3 % (11.5-15.5); WBC 7.5 k/uL (3.8-10.6)
[2019-03-20 21:56] LABS: ALT 34 U/L (21-72); AST 27 U/L (17-59); Albumin 4.5 g/dL (3.5-5.0); Alkaline Phosphatase 75 U/L (38-126); Anion Gap 10 mmol/L; Blood Urea Nitrogen 9 mg/dL (9-20); Calcium 9.4 mg/dL (8.4-10.2); Carbon Dioxide 26 mmol/L (22-30); Chloride 104 mmol/L (98-107); Glucose 95 mg/dL (74-99); Magnesium 2.1 mg/dL (1.6-2.3); Sodium 140 mmol/L (137-145); Total Bilirubin 0.8 mg/dL (0.2-1.3); Total Protein 7.6 g/dL (6.3-8.2)
[2019-03-20 21:59] LABS: INR 0.9 (<1.2); Partial Thromboplastin Time 25.2 sec (22.0-30.0); Prothrombin Time 10.1 sec (9.0-12.0)
--- NOTE | 2019-03-20 22:39 | XR ---
EXAM: XR Chest, 2 Views CLINICAL HISTORY: : Chest Pain TECHNIQUE: Frontal and lateral views of the chest. COMPARISON: 03/20/19 FINDINGS: Lungs: Unremarkable. No consolidation. Pleural space: Unremarkable. No pneumothorax. Heart: Unremarkable. No cardiomegaly. Mediastinum: Unremarkable. Bones/joints: Unremarkable. IMPRESSION: Unremarkable 2 views of the chest
[2019-03-20 23:23] VITALS: BP 126/85; PULSE 76
== END 2019-03-20 23:23 | disposition home or self-care (01) ==
LOC: EC 21:11
DX: R07.89 Other chest pain (principal); E78.5 Hyperlipidemia, unspecified; M06.9 Rheumatoid arthritis, unspecified; Z79.899 Other long term (current) drug therapy
CPT/HCPCS: 36415; 93005; 83880; 80053; 83735; 84484; 85025; 85610; 85730; 71046; 99285; 96374; J1885

== ENCOUNTER 2019-03-21 12:54 | Emergency (ER) | payer OTHER ==
[2019-03-21 13:03] VITALS: BP 121/79; PULSE 98; RESP 16; TEMP 96.9
--- NOTE | 2019-03-21 13:18 | ED ---
General Adult HPI - General Chief complaint: Fall Stated complaint: leg pain Time Seen by Provider: 03/21/19 13:04 Source: patient, RN notes reviewed, old records reviewed Mode of arrival: ambulatory Limitations: no limitations - History of Present Illness Initial comments: 49-year-old male presenting with right posterior leg pain status post fall. Gisela bone fell while getting out of bed. Injury to the right leg. Denies head neck or back pain. Denies loss consciousness. He has been ambulating on this extremity status post injury. Pain is predominantly in the right hamstring. Worse with bending. Worse with movement. No numbness or tingling in the feet. No knee pain. No ankle pain. No hip pain. - Related Data Home Medications Medication Instructions Recorded Confirmed Atorvastatin [Lipitor] 20 mg PO DAILY 02/20/19 03/20/19 Etanercept [Enbrel Sureclick] 50 mg SQ WE 02/20/19 03/20/19 Methotrexate 25mg/1ml 25 mg IM FR 02/20/19 03/20/19 Previous Rx's Medication Instructions Recorded Ibuprofen [Motrin] 600 mg PO Q6HR PRN #20 tab 02/20/19 predniSONE [Deltasone] 40 mg PO DAILY 5 Days #10 tablet 03/20/19 Ibuprofen [Motrin] 600 mg PO Q8HR PRN #24 tab 03/21/19 Allergies Allergy/AdvReac Type Severity Reaction Status Date / Time No Known Allergies Allergy Verified 03/21/19 13:03 Review of Systems ROS Statement: Those systems with pertinent positive or pertinent negative responses have been documented in the HPI. ROS Other: All systems not noted in ROS Statement are negative. Past Medical History Past Medical History: GERD/Reflux, Hyperlipidemia, Rheumatoid Arthritis (RA) Last Myocardial Infarction Date:: Dyslipidemia, appears to have some mild developmental delay History of Any Multi-Drug Resistant Organisms: None Reported Past Surgical History: No Surgical Hx Reported Past Anesthesia/Blood Transfusion Reactions: No Reported Reaction Past Psychological History: No Psychological Hx Reported Smoking Status: Never smoker Past Alcohol Use History: None Reported Past Drug Use History: None Reported - Past Family History Father Family Medical History: Hypertension Mother History Unknown: Yes Family Medical History: No Reported History Grandfather Additional Family Medical History / Comment(s): Heart disease General Exam Limitations: no limitations General appearance: alert, in no apparent distress Head exam: Present: atraumatic, normocephalic Eye exam: Present: normal appearance, PERRL ENT exam: Present: normal exam Neck exam: Present: normal inspection. Absent: tenderness Respiratory exam: Present: normal lung sounds bilaterally. Absent: respiratory distress, wheezes Cardiovascular Exam: Present: regular rate, normal rhythm GI/Abdominal exam: Present: soft. Absent: distended, tenderness Extremities exam: Present: normal inspection, tenderness (Tenderness in the right hamstring, worse with extension at the knee, worse with flexion at the waist. Distal pulses intact, normal sensation, no external signs of trauma, no effusion at the knee or ankle, normal range of motion at the hip), normal capillary refill. Absent: full ROM Course Vital Signs 03/21/19 13:01 Temperature 96.9 F L Pulse Rate 98 Respiratory 16 Rate Blood Pressure 121/79 O2 Sat by Pulse 97 Oximetry Medical Decision Making - Medical Decision Making 49-year-old male presenting with history and physical exam consistent with right hamstring strain. Patient is ambulatory. He has worsening pain with extension at the knee and flexion at the waist. There is no alarming features on physical exam. No back pain. No other injuries reported. Patient will be prescribed anti-inflammatories, will follow-up with primary care physician. Disposition Clinical Impression: Hamstring sprain Disposition: HOME SELF-CARE Condition: Good Instructions (If sedation given, give patient instructions): Hamstring Injury (ED), Hamstring Exercises (ED) Prescriptions: Ibuprofen [Motrin] 600 mg PO Q8HR PRN #24 tab PRN Reason: Pain Is patient prescribed a controlled substance at d/c from ED?: No Referrals: Asad Jung MD [Primary Care Provider] - 1-2 days Time of Disposition: 13:18
== END 2019-03-21 14:02 | disposition home or self-care (01) ==
LOC: EC 12:54
DX: S76.311A Strain of muscle, fascia and tendon of the posterior muscle group at thigh level, right thigh, initial encounter (principal); E78.5 Hyperlipidemia, unspecified; M06.9 Rheumatoid arthritis, unspecified; Z79.899 Other long term (current) drug therapy; W06.XXXA Fall from bed, initial encounter
CPT/HCPCS: 99283

== ENCOUNTER 2019-04-18 12:21 | Emergency (ER) | payer OTHER ==
[2019-04-18 12:57] VITALS: BP 121/76; PULSE 84; RESP 18; TEMP 98.5
--- NOTE | 2019-04-18 13:11 | XR ---
EXAMINATION TYPE: XR foot complete RT , 3 VIEWS DATE OF EXAM ORDERED: 04/18/2019 HISTORY: Pain. COMPARISON: Previous study dated 09/07/2017. FINDINGS: No fracture or dislocation is seen. There are hammertoe deformities of the fourth and fift h digits. No ankle joint effusion is seen. IMPRESSION: NO ACUTE OSSEOUS LESION.
--- NOTE | 2019-04-18 13:26 | ED ---
Lower Extremity Injury HPI - General Chief Complaint: Extremity Injury, Lower Stated Complaint: rt foot pain Source: patient Mode of arrival: ambulatory Limitations: no limitations - History of Present Illness Initial Comments: 49yo male presented for right small toe pain. Patient states for 2 through weeks she has had pain when he wears his shoes. Patient states increases with walking. Denies any redness fever chills night sweats or flulike symptoms. Patient denies any swelling of the toe. Patient denies any direct trauma or injury. Remaining review of systems negative - Related Data Home Medications Medication Instructions Recorded Confirmed Atorvastatin [Lipitor] 20 mg PO DAILY 02/20/19 03/20/19 Etanercept [Enbrel Sureclick] 50 mg SQ WE 02/20/19 03/20/19 Methotrexate 25mg/1ml 25 mg IM FR 02/20/19 03/20/19 Previous Rx's Medication Instructions Recorded Ibuprofen [Motrin] 600 mg PO Q6HR PRN #20 tab 02/20/19 predniSONE [Deltasone] 40 mg PO DAILY 5 Days #10 tablet 03/20/19 Ibuprofen [Motrin] 600 mg PO Q8HR PRN #24 tab 03/21/19 Allergies Allergy/AdvReac Type Severity Reaction Status Date / Time No Known Allergies Allergy Verified 04/18/19 12:57 Review of Systems ROS Statement: Those systems with pertinent positive or pertinent negative responses have been documented in the HPI. ROS Other: All systems not noted in ROS Statement are negative. Past Medical History Past Medical History: GERD/Reflux, Hyperlipidemia, Rheumatoid Arthritis (RA) Last Myocardial Infarction Date:: Dyslipidemia, appears to have some mild developmental delay History of Any Multi-Drug Resistant Organisms: None Reported Past Surgical History: No Surgical Hx Reported Past Anesthesia/Blood Transfusion Reactions: No Reported Reaction Past Psychological History: No Psychological Hx Reported Smoking Status: Never smoker Past Alcohol Use History: None Reported Past Drug Use History: None Reported - Past Family History Father Family Medical History: Hypertension Mother History Unknown: Yes Family Medical History: No Reported History Grandfather Additional Family Medical History / Comment(s): Heart disease General Exam - General Exam Comments Initial Comments: General: The patient is awake and alert, in no distress, and does not appear acutely ill. Eye: Pupils are equal, round and reactive to light, extra-ocular movements are intact. No nystagmus. There is normal conjunctiva bilaterally. No signs of icterus. Ears, nose, mouth and throat: There are moist mucous membranes and no oral lesions. Neck: The neck is supple, there is no tenderness or JVD. Cardiovascular: There is a regular rate and rhythm. No murmur, rub or gallop is appreciated. Respiratory: Lungs are clear to auscultation, respirations are non-labored, breath sounds are equal. No wheezes, stridor, rales, or rhonchi. Musculoskeletal: Normal ROM, no tenderness. Strength 5/5. Sensation intact. Pulses equal bilaterally 2+. Neurological: A&O x 3. CN II-XII intact, There are no obvious motor or sensory deficits. Coordination appears grossly intact. Speech is normal. Skin: Skin is warm and dry and no rashes. He was noted to the right small toe, thick. There is no erythema swelling of the right small toe. Psychiatric: Cooperative, appropriate mood & affect, normal judgment. Limitations: no limitations Course Vital Signs 04/18/19 04/18/19 12:55 14:06 Temperature 98.5 F 98.5 F Pulse Rate 84 84 Respiratory 18 18 Rate Blood Pressure 121/76 121/76 O2 Sat by Pulse 99 99 Oximetry Medical Decision Making - Medical Decision Making 49yo male presenting for discomfort of the right small toe. Callus on examination. No erythema no swelling. Patient neurovascularly vastly intact Imaging studies reveal no acute osseous injury. This time feel the pain is most likely due to non-well fitting shoes and the cast as developed in the right small toe. Patient denies any constitutional symptoms at this time feel patient is stable for discharge with change of shoes and podiatry follow-up. Patient is agreeable care plan discharge. Disposition Clinical Impression: Pain in toe of right foot Disposition: HOME SELF-CARE Condition: Good Instructions (If sedation given, give patient instructions): R.I.C.E. Treatment (ED) Additional Instructions: Please change shoes as discussed. Please follow-up with family doctor in the next 2 days. Please follow-up with podiatry as discussed Please return to emergency room if the symptoms increase or worsen or for any other concerns. Is patient prescribed a controlled substance at d/c from ED?: No Referrals: Asad Jung MD [Primary Care Provider] - 1-2 days Robert Wray DPM [STAFF PHYSICIAN] - 1-2 days Time of Disposition: 13:41
== END 2019-04-18 14:06 | disposition home or self-care (01) ==
LOC: EC 12:21
DX: M79.674 Pain in right toe(s) (principal); E78.5 Hyperlipidemia, unspecified; M06.9 Rheumatoid arthritis, unspecified; Z79.899 Other long term (current) drug therapy
CPT/HCPCS: 99283

== ENCOUNTER 2019-05-29 11:01 | Emergency (ER) | payer OTHER ==
[2019-05-29 11:12] VITALS: TEMP 97.8
--- NOTE | 2019-05-29 12:23 | XR ---
EXAMINATION TYPE: XR chest 2V DATE OF EXAM: 05/29/2019 HISTORY: Pain. REFERENCE: Previous study dated 03/20/2019. FINDINGS: Clear. Pleural space are clear. The heart is not enlarged. IMPRESSION: NORMAL CHEST.
[2019-05-29] MEDS ORDERED: IPRATROPIUM-ALBUTEROL 3 ML NEB INHALATION STA (12:27)
[2019-05-29] MEDS ORDERED: predniSONE 50 MG TAB PO STA (12:27)
--- NOTE | 2019-05-29 13:23 | ED ---
General Adult HPI - General Chief complaint: Upper Respiratory Infection Stated complaint: Cough, diff breathing Time Seen by Provider: 05/29/19 11:36 Source: patient, RN notes reviewed, old records reviewed Mode of arrival: ambulatory Limitations: no limitations - History of Present Illness Initial comments: 49-year-old male patient, no pertinent past medical history presents ED chief complaint of 2 months of waxing and waning nonproductive cough. Patient denies any other complaints. Denies any chest pain, shortness of breath. Patient denies any fevers chills, nausea vomiting or diarrhea. Patient was affect cough has waxed and waned over this time period. Patient denies any other complaints at this time. Patient denies any long travel, leg pain, exogenous hormone use, hx of blood clot. Systemic: Pt denies fatigue, fever/chills, rash. Pt denies weakness, night sweats, weight loss. Neuro: Pt denies headache, visual disturbances, syncope or pre-syncope. HEENT: Pt denies ocular discharge or irritation, otalgia, rhinorrhea, pharyngitis or notable lymphadenopathy. Cardiopulmonary: Pt denies chest pain, SOB, heart palpitations, dyspnea on exertion. Abdominal/GI: Pt denies abdominal pain, n/v/d. : Pt denies dysuria, burning w/ urination, frequency/urgency. Denies new onset urinary or bowel incontinence. MSK: Pt denies myalgia, loss of strength or function in extremities. Neuro: Pt denies new onset weakness, paresthesias. - Related Data Home Medications Medication Instructions Recorded Confirmed Atorvastatin [Lipitor] 20 mg PO DAILY 02/20/19 03/20/19 Etanercept [Enbrel Sureclick] 50 mg SQ WE 02/20/19 03/20/19 Methotrexate 25mg/1ml 25 mg IM FR 02/20/19 03/20/19 Previous Rx's Medication Instructions Recorded Ibuprofen [Motrin] 600 mg PO Q6HR PRN #20 tab 02/20/19 predniSONE [Deltasone] 40 mg PO DAILY 5 Days #10 tablet 03/20/19 Ibuprofen [Motrin] 600 mg PO Q8HR PRN #24 tab 03/21/19 Albuterol Inhaler [Ventolin Hfa 1 - 2 puff INHALATION Q4-6H PRN #1 05/29/19 Inhaler] inhaler predniSONE 50 mg PO DAILY #4 tab 05/29/19 Allergies Allergy/AdvReac Type Severity Reaction Status Date / Time No Known Allergies Allergy Verified 05/29/19 11:09 Review of Systems ROS Statement: Those systems with pertinent positive or pertinent negative responses have been documented in the HPI. ROS Other: All systems not noted in ROS Statement are negative. Past Medical History Past Medical History: GERD/Reflux, Hyperlipidemia, Rheumatoid Arthritis (RA) Last Myocardial Infarction Date:: Dyslipidemia, appears to have some mild developmental delay History of Any Multi-Drug Resistant Organisms: None Reported Past Surgical History: No Surgical Hx Reported Past Anesthesia/Blood Transfusion Reactions: No Reported Reaction Past Psychological History: No Psychological Hx Reported Smoking Status: Never smoker Past Alcohol Use History: None Reported Past Drug Use History: None Reported - Past Family History Father Family Medical History: Hypertension Mother History Unknown: Yes Family Medical History: No Reported History Grandfather Additional Family Medical History / Comment(s): Heart disease General Exam - General Exam Comments Initial Comments: Constitutional: NAD, AOX3, Pt has pleasant affect. HEENT: NC/AT, trachea midline, neck supple, no lymphadenopathy. Posterior pharynx non erythematous, without exudates. External ears appear normal, without discharge. Mucous membranes moist. Eyes PERRLA, EOM intact. There is no scleral icterus. No pallor noted. Cardiopulmonary: RRR, no murmurs, rubs or gallops, no JVD noted. Lungs CTAB in anterior and posterior hutton. No peripheral edema. Abdominal exam: Abdomen soft and non-distended. Abdomen non-tender to palpation in all 4 quadrants. Bowel sounds active in LLQ. No hepatosplenomegaly. No ecchymosis Neuro: CN II-XII grossly intact. No nuchal rigidity. No raccon eyes, no sanchez sign, no hemotympanum. No cervical spinal tenderness. MSK: No posterior calf tenderness bilaterally, homans sign negative bilaterally. Posterior tibialis and radial pulse +2 bilaterally. Sensation intact in upper and lower extremities. Full active ROM in upper and lower extremities, 5/5 stregnth. Limitations: no limitations Course Vital Signs 05/29/19 05/29/19 05/29/19 11:09 12:38 12:45 Temperature 97.8 F Pulse Rate 94 104 H 98 Respiratory 18 Rate Blood Pressure 143/84 O2 Sat by Pulse 98 Oximetry Medical Decision Making - Medical Decision Making 49-year-old male patient presents to ED with 2 months waxing and waning cough. Denies any chest pain or shortness of breath. Patient vital signs stable, afebrile. Physical exam did not display any acute pathology. Chest x-ray revealed no acute process. Patient will be treated for bronchitis. Patient administered breathing treatment, prednisone. Patient discharged with albuterol inhaler and prednisone. Patient follow up with primary care provider in 1-2 days. Return if condition worsens. Case discussed with Dr. Cristina. Disposition Clinical Impression: Bronchitis Disposition: HOME SELF-CARE Condition: Stable Instructions (If sedation given, give patient instructions): Acute Bronchitis (ED) Additional Instructions: Patient to adhere to previously discussed treatment plan and will take medication(s) as directed. Patient to follow up with PCP in 1-2 days. Patient to return to ED if symptoms do not improve. Follow-up with primary care provider tomorrow. Return to ER if condiition worsens. Prescriptions: predniSONE 50 mg PO DAILY #4 tab Albuterol Inhaler [Ventolin Hfa Inhaler] 1 - 2 puff INHALATION Q4-6H PRN #1 inhaler PRN Reason: Cough Is patient prescribed a controlled substance at d/c from ED?: No Referrals: Asad Jung MD [Primary Care Provider] - 1-2 days
[2019-05-29 13:46] VITALS: BP 136/86; PULSE 86; RESP 16
== END 2019-05-29 13:45 | disposition home or self-care (01) ==
LOC: EC 11:01
DX: J40 Bronchitis, not specified as acute or chronic (principal); E78.5 Hyperlipidemia, unspecified; M06.9 Rheumatoid arthritis, unspecified; Z79.899 Other long term (current) drug therapy
CPT/HCPCS: 94640; 71046; 99285; J7512

== ENCOUNTER 2019-07-03 11:40 | Emergency (ER) | payer OTHER ==
[2019-07-03 11:44] VITALS: BP 137/89; PULSE 85; RESP 18; TEMP 97.6
[2019-07-03] MEDS ORDERED: IBUPROFEN 600 MG TAB PO STA (12:03)
--- NOTE | 2019-07-03 12:17 | XR ---
EXAMINATION TYPE: XR knee complete LT DATE OF EXAM: 07/03/2019 COMPARISON: None HISTORY: Pain TECHNIQUE: Three-view left knee FINDINGS: Joint spaces are preserved. No acute fracture or dislocation is evident. No joint effusion is evident. IMPRESSION: 1. Normal three-view left knee
--- NOTE | 2019-07-03 13:17 | ED ---
General Adult HPI - General Chief complaint: Extremity Problem,Nontraumatic Stated complaint: bilat knee pain Time Seen by Provider: 07/03/19 11:46 Source: patient, RN notes reviewed Mode of arrival: ambulatory Limitations: no limitations - History of Present Illness Initial comments: 49-year-old male presents to the emergency department for a chief complaint of left knee pain pain. States this has been ongoing for several weeks. Denies any injuries. 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 Denies any fevers or chills. Denies any history of gout. Upon review of his history he does have a history of RA. States that this feels similar. Denies being on any medications at this time for RA. States he does have a rn compliance. Patient has no other complaints at this time including shortness of breath, chest pain, abdominal pain, nausea or vomiting, headache, or visual changes. - Related Data Home Medications Medication Instructions Recorded Confirmed Methotrexate 25mg/1ml 25 mg IM FR 02/20/19 03/20/19 RX: Atorvastatin [Lipitor] 20 mg PO DAILY 02/20/19 03/20/19 RX: Etanercept [Enbrel Sureclick] 50 mg SQ WE 02/20/19 03/20/19 Previous Rx's Medication Instructions Recorded RX: Ibuprofen [Motrin] 600 mg PO Q6HR PRN #20 tab 02/20/19 RX: predniSONE [Deltasone] 40 mg PO DAILY 5 Days #10 tablet 03/20/19 Ibuprofen [Motrin] 600 mg PO Q8HR PRN #24 tab 03/21/19 RX: Albuterol Inhaler [Ventolin 1 - 2 puff INHALATION Q4-6H PRN #1 05/29/19 Hfa Inhaler] inhaler RX: predniSONE 50 mg PO DAILY #4 tab 05/29/19 RX: predniSONE 50 mg PO DAILY #5 tablet 07/03/19 Allergies Allergy/AdvReac Type Severity Reaction Status Date / Time No Known Allergies Allergy Verified 05/29/19 11:09 Review of Systems ROS Statement: Those systems with pertinent positive or pertinent negative responses have been documented in the HPI. ROS Other: All systems not noted in ROS Statement are negative. Past Medical History Past Medical History: GERD/Reflux, Hyperlipidemia, Rheumatoid Arthritis (RA) Last Myocardial Infarction Date:: Dyslipidemia, appears to have some mild developmental delay History of Any Multi-Drug Resistant Organisms: None Reported Past Surgical History: No Surgical Hx Reported Past Anesthesia/Blood Transfusion Reactions: No Reported Reaction Past Psychological History: No Psychological Hx Reported Smoking Status: Never smoker Past Alcohol Use History: None Reported Past Drug Use History: None Reported - Past Family History Father Family Medical History: Hypertension Mother History Unknown: Yes Family Medical History: No Reported History Grandfather Additional Family Medical History / Comment(s): Heart disease General Exam Limitations: no limitations General appearance: alert, in no apparent distress Head exam: Present: atraumatic, normocephalic, normal inspection Eye exam: Present: normal appearance, PERRL, EOMI. Absent: scleral icterus, conjunctival injection, periorbital swelling ENT exam: Present: normal exam, mucous membranes moist Neck exam: Present: normal inspection, full ROM. Absent: tenderness, meningismus, lymphadenopathy Respiratory exam: Present: normal lung sounds bilaterally. Absent: respiratory distress, wheezes, rales, rhonchi, stridor Cardiovascular Exam: Present: regular rate, normal rhythm, normal heart sounds. Absent: systolic murmur, diastolic murmur, rubs, gallop, clicks Extremities exam: Present: full ROM (Full range of motion of the left knee hour patient does have pain with full flexion of the left knee. Full range of motion of the right knee.), tenderness (Minimal tenderness noted to the anterior aspect of the left knee. No posterior knee tenderness. No lateral knee tenderness.), normal capillary refill (Capillary refill less than 2 seconds, DP pulse 2+ in the left lower extremity. Neurovascular status intact in the right lower extremity as well.), other (Sensation intact in the left lower extremity.). Absent: pedal edema, joint swelling (No edema or erythema present in the bilateral lower extremities.), calf tenderness (Negative roxanna sign) Neurological exam: Present: alert, oriented X3 Psychiatric exam: Present: normal affect, normal mood Course Vital Signs 07/03/19 11:41 Temperature 97.6 F Pulse Rate 85 Respiratory 18 Rate Blood Pressure 137/89 O2 Sat by Pulse 99 Oximetry Medical Decision Making - Medical Decision Making 49-year-old male with a history of rheumatoid arthritis presents for left knee pain times several weeks. Denies injury. He states he is able to walk. No fevers or chills. On exam knee appears benign. No erythema or edema. Minimal anterior knee tenderness. Full range of motion intact. X-ray shows a normal view of the left knee. At this time given history of RA patient was treated with steroids. Recommended following up with his rn compliance as soon as possible. Recommend returning here for any worsening symptoms. Disposition Clinical Impression: Knee pain, left Disposition: HOME SELF-CARE Condition: Good Instructions (If sedation given, give patient instructions): Knee Pain (ED) Additional Instructions: Take steroids as directed. Please follow-up with your rn compliance in 1-2 days. Return to the emergency department if you have any worsening symptoms, fevers, redness, or any other worsening or concerning symptoms. Prescriptions: RX: predniSONE 50 mg PO DAILY #5 tablet Is patient prescribed a controlled substance at d/c from ED?: No Referrals: Asad Jung MD [Primary Care Provider] - 1-2 days Tracey Newberry MD [STAFF PHYSICIAN] - 1-2 days Time of Disposition: 13:21
== END 2019-07-03 13:44 | disposition home or self-care (01) ==
LOC: EC 11:40
DX: M25.562 Pain in left knee (principal); M06.9 Rheumatoid arthritis, unspecified; I25.2 Old myocardial infarction; E78.5 Hyperlipidemia, unspecified; Z79.899 Other long term (current) drug therapy
CPT/HCPCS: 99283

== ENCOUNTER 2019-07-03 15:28 | Emergency (ER) | payer OTHER ==
[2019-07-03 15:36] VITALS: BP 150/89; PULSE 94; RESP 18; TEMP 97.6
[2019-07-03] MEDS ORDERED: KETOROLAC 60 MG/2 ML VIAL IM STA (16:10)
[2019-07-03] MEDS ORDERED: ORPHENADRINE 30 MG/ML 2 ML VIAL IM STA (16:10)
[2019-07-03] MEDS ORDERED: ACET/COD 300 MG/30 MG STARTER PACK 6 TAB BTL PO STA (16:30)
--- NOTE | 2019-07-03 16:30 | ED ---
General Adult HPI - General Chief complaint: Extremity Problem,Nontraumatic Stated complaint: Knee pain Time Seen by Provider: 07/03/19 15:56 Source: patient, RN notes reviewed, old records reviewed Mode of arrival: wheelchair Limitations: no limitations - History of Present Illness Initial comments: Patient is a 49 year old male presents for 2 times today for bilateral knee pain, worse on left. History of RA. PAtient denies fall or trauma. Patient has no other symptoms. Patient has full ROM. Patient has no fevers, chills, or skin changes. - Related Data Home Medications Medication Instructions Recorded Confirmed Atorvastatin [Lipitor] 20 mg PO DAILY 02/20/19 03/20/19 Etanercept [Enbrel Sureclick] 50 mg SQ WE 02/20/19 03/20/19 Methotrexate 25mg/1ml 25 mg IM FR 02/20/19 03/20/19 Previous Rx's Medication Instructions Recorded Ibuprofen [Motrin] 600 mg PO Q6HR PRN #20 tab 02/20/19 predniSONE [Deltasone] 40 mg PO DAILY 5 Days #10 tablet 03/20/19 Ibuprofen [Motrin] 600 mg PO Q8HR PRN #24 tab 03/21/19 Albuterol Inhaler [Ventolin Hfa 1 - 2 puff INHALATION Q4-6H PRN #1 05/29/19 Inhaler] inhaler predniSONE 50 mg PO DAILY #4 tab 05/29/19 predniSONE 50 mg PO DAILY #5 tablet 07/03/19 Allergies Allergy/AdvReac Type Severity Reaction Status Date / Time No Known Allergies Allergy Verified 05/29/19 11:09 Review of Systems ROS Statement: Those systems with pertinent positive or pertinent negative responses have been documented in the HPI. ROS Other: All systems not noted in ROS Statement are negative. Past Medical History Past Medical History: GERD/Reflux, Hyperlipidemia, Rheumatoid Arthritis (RA) Last Myocardial Infarction Date:: Dyslipidemia, appears to have some mild developmental delay History of Any Multi-Drug Resistant Organisms: None Reported Past Surgical History: No Surgical Hx Reported Past Anesthesia/Blood Transfusion Reactions: No Reported Reaction Past Psychological History: No Psychological Hx Reported Smoking Status: Never smoker Past Alcohol Use History: None Reported Past Drug Use History: None Reported - Past Family History Father Family Medical History: Hypertension Mother History Unknown: Yes Family Medical History: No Reported History Grandfather Additional Family Medical History / Comment(s): Heart disease General Exam - General Exam Comments Initial Comments: This is a 49 year old male, no distress. Limitations: no limitations General appearance: alert, in no apparent distress Head exam: Present: atraumatic, normocephalic, normal inspection Eye exam: Present: normal appearance, PERRL, EOMI. Absent: scleral icterus, conjunctival injection, periorbital swelling ENT exam: Present: normal exam, mucous membranes moist Neck exam: Present: normal inspection. Absent: tenderness, meningismus, lymphadenopathy Respiratory exam: Present: normal lung sounds bilaterally. Absent: respiratory distress, wheezes, rales, rhonchi, stridor Cardiovascular Exam: Present: regular rate, normal rhythm, normal heart sounds. Absent: systolic murmur, diastolic murmur, rubs, gallop, clicks GI/Abdominal exam: Present: soft, normal bowel sounds. Absent: distended, tenderness, guarding, rebound, rigid Extremities exam: Present: normal inspection, full ROM, normal capillary refill, other (Full ROM of knees, and no swelling. Normal sensationa dn capillary refill. ). Absent: tenderness, pedal edema, joint swelling, calf tenderness Back exam: Present: normal inspection Neurological exam: Present: alert, oriented X3, CN II-XII intact Course Vital Signs 07/03/19 15:34 Temperature 97.6 F Pulse Rate 94 Respiratory 18 Rate Blood Pressure 150/89 O2 Sat by Pulse 96 Oximetry Medical Decision Making - Medical Decision Making This is a 49 year old male, no distress. Patient at this time complains of knee pain, has no other symptoms or findings on exams. Patient has no swelling and full ROM of knee. Here twice in one day for complaints. Given toradol IM. Discussed that patient has arthritis in knee and to use johnny wrap and ibuprofen. Return parameters discussed. Disposition Clinical Impression: Knee pain Disposition: HOME SELF-CARE Condition: Good Instructions (If sedation given, give patient instructions): Knee Pain (ED) Additional Instructions: Patient advised to a take the anti-inflammatory medicine as prescribed and follow up with ortho. Use a short course of pain medicine as prescribed. Re turn to emergency department if any alarming signs or symptoms occur. Is patient prescribed a controlled substance at d/c from ED?: No Referrals: Asad Jung MD [Primary Care Provider] - 1-2 days Gus Luis MD [Medical Doctor] - 1-2 days Time of Disposition: 16:30
== END 2019-07-03 17:02 | disposition home or self-care (01) ==
LOC: EC 15:28
DX: M25.561 Pain in right knee (principal); M25.562 Pain in left knee; E78.5 Hyperlipidemia, unspecified; M06.9 Rheumatoid arthritis, unspecified; Z79.899 Other long term (current) drug therapy
CPT/HCPCS: 99284 ×2; 96372 ×3; 99283; 73562; J2360; J1885

== ENCOUNTER 2019-07-10 11:22 | Emergency (ER) | payer OTHER ==
[2019-07-10 11:31] VITALS: RESP 18
[2019-07-10] MEDS ORDERED: KETOROLAC 30 MG/ML 1 ML VIAL IVP STA (11:56)
--- NOTE | 2019-07-10 12:01 | ED ---
Chest Pain HPI - General Chief Complaint: Chest Pain Stated Complaint: Chest Pain&Constipated Time Seen by Provider: 07/10/19 11:30 Source: patient Mode of arrival: wheelchair Limitations: no limitations - History of Present Illness Initial Comments: The patient is a 49-year-old male who presents to the emergency department with complaint of acute on chronic chest pain. The patient reports to a history of left-sided chest pain. States his current exacerbation started last night. It is located on the left side of his chest below the nipple. It is reproducible upon palpation. Also admits to pain with deep inspiration. He denies any blunt trauma. No rash or fever. He describes it as a sharp sensation without radiation. Admits to mild shortness of breath. Denies a history of DVT or PE. No calf pain or swelling. Denies a history of blood clotting disorders. No recent travel or surgery. He does admit to a chronic cough. Reports that yesterday was mildly productive of brown and green sputum. He is unsure if it was blood. He denies chills or sick contacts. No ripping or tearing sensation to his back. Patient also reports to constipation. States he hasn't had a bowel movement in 2 days. He normally goes daily. This is uncommon for him. He did not attempt to take any medications at home for his symptoms. He does see Dr. Cruz. States that he was told this chest pain is not related to his heart, but to costochondritis from his arthritis. He did have a cardiac workup earlier this year. Patient reports that he will occasionally have recurrence of the pain. He denies any additional difficulties urinating. Denies dysuria, hematuria or difficulty voiding. Last bowel movement was normal in color and consistency. He denies any melanotic stools or hematochezia. Denies nausea or vomiting. There are no other alleviating, precipitating or modifying factors - Related Data Home Medications Medication Instructions Recorded Confirmed Etanercept [Enbrel Sureclick] 50 mg SQ MO 02/20/19 07/10/19 Methotrexate 25mg/1ml 25 mg IM WE 02/20/19 07/10/19 Atorvastatin Calcium [Lipitor] 20 mg PO DAILY 07/10/19 07/10/19 Previous Rx's Medication Instructions Recorded predniSONE 20 mg PO BID #10 tab 07/10/19 Allergies Allergy/AdvReac Type Severity Reaction Status Date / Time No Known Allergies Allergy Verified 07/10/19 11:47 Review of Systems ROS Statement: Those systems with pertinent positive or pertinent negative responses have been documented in the HPI. ROS Other: All systems not noted in ROS Statement are negative. EKG Findings - EKG Comments: EKG Findings:: EKG demonstrates a normal sinus rhythm with a ventricular rate of 90. MT interval 132. QRS 82. QTC 433. There are peaked T waves in leads V3 and V4. No acute ST segment elevations or depressions concerning for ischemic changes Past Medical History Past Medical History: GERD/Reflux, Hyperlipidemia, Rheumatoid Arthritis (RA) Last Myocardial Infarction Date:: Dyslipidemia, appears to have some mild developmental delay History of Any Multi-Drug Resistant Organisms: None Reported Past Surgical History: No Surgical Hx Reported Past Anesthesia/Blood Transfusion Reactions: No Reported Reaction Past Psychological History: No Psychological Hx Reported Smoking Status: Never smoker Past Alcohol Use History: None Reported Past Drug Use History: None Reported - Past Family History Father Family Medical History: Hypertension Mother History Unknown: Yes Family Medical History: No Reported History Grandfather Additional Family Medical History / Comment(s): Heart disease General Exam Limitations: no limitations General appearance: alert, in no apparent distress Head exam: Present: atraumatic, normocephalic, normal inspection Eye exam: Present: normal appearance, PERRL, EOMI. Absent: scleral icterus, c onjunctival injection, periorbital swelling ENT exam: Present: normal exam, mucous membranes moist Neck exam: Present: normal inspection. Absent: tenderness, meningismus, lymphadenopathy Respiratory exam: Present: normal lung sounds bilaterally. Absent: respiratory distress, wheezes, rales, rhonchi, stridor Cardiovascular Exam: Present: regular rate, normal rhythm, normal heart sounds, other (chest wall tenderness to palpation over the left chest wall. ). Absent: systolic murmur, diastolic murmur, rubs, gallop, clicks GI/Abdominal exam: Present: soft, normal bowel sounds. Absent: distended, tenderness, guarding, rebound, rigid Extremities exam: Present: normal inspection, full ROM, normal capillary refill. Absent: tenderness, pedal edema, joint swelling, calf tenderness Back exam: Present: normal inspection Neurological exam: Present: alert, oriented X3, CN II-XII intact Psychiatric exam: Present: normal affect, normal mood Skin exam: Present: warm, dry, intact, normal color. Absent: rash Course Vital Signs 07/10/19 07/10/19 07/10/19 11:29 11:49 13:25 Temperature 97.4 F L Pulse Rate 85 82 Pulse Rate [ 99 Bilateral Managing Editor ] Respiratory 18 18 18 Rate Blood Pressure 131/81 138/89 O2 Sat by Pulse 98 96 Oximetry 07/10/19 14:01 Temperature 98.1 F Pulse Rate 89 Pulse Rate [ Bilateral Managing Editor ] Respiratory 18 Rate Blood Pressure 135/89 O2 Sat by Pulse 95 Oximetry Chest Pain MDM - Differential Diagnosis Pleurisy-Other costochondritis - MDM The patient is placed in room 8. He is hooked to continuous pulse ox and cardiac monitoring. A 12-lead EKG is performed. I did recommend laboratory studies and a chest x-ray. I did review the patient's results. His d-dimer is negative. No signs of leukocytosis, anemia or thrombocytopenia. His abdominal series is remarkable for constipation. I did review the patient's record. He has had multiple inpatient and outpatient cardiac workups performed recently. The patient does report that it is consistent with his chronic pain which is reproducible on palpation. He has responded well previously to steroids in the past. The patient's will be given 20 mg to be taken twice a day for the next 5 days. I also provided the patient with a bottle of mag citrate. He is instructed to drink half the bottle. After 4 hours patient does not have a bowel movement he is to drink the other half. The patient agreed to the treatment plan. He'll be given a work note. He is to return to the emergency department for any new or worsening symptoms. The patient was discharged home in stable condition. Disposition Clinical Impression: Chest wall pain, chronic, Constipation Disposition: HOME SELF-CARE Instructions (If sedation given, give patient instructions): Costochondritis (ED) Additional Instructions: Please follow-up with your primary care doctor next week for reevaluation. Return to the emergency room for any new or worsening symptoms. Drink half the bottle of the mag citrate when you get home. If you do not have a bowel movement after 4 hours, drink the other half the bottle. Prescriptions: predniSONE 20 mg PO BID #10 tab Is patient prescribed a controlled substance at d/c from ED?: No Referrals: Asad Jung MD [Primary Care Provider] - 1-2 days Time of Disposition: 13:54
[2019-07-10 12:05] LABS: Basophils % (A) 0 %; Eosinophils # (A) 0.2 k/uL (0-0.7); Eosinophils % (A) 2 %; HCT 48.6 % (39.0-53.0); HGB 16.5 gm/dL (13.0-17.5); Lymphocytes # (A) 1.8 k/uL (1.0-4.8); Lymphocytes % (A) 17 %; MCH 29.7 pg (25.0-35.0); MCHC 33.8 g/dL (31.0-37.0); MCV 87.8 fL (80.0-100.0); Mean Platelet Volume 7.5; Monocytes # (A) 0.5 k/uL (0-1.0); Monocytes % (A) 5 %; Neutrophils # (A) 7.8 k/uL (1.3-7.7); Neutrophils % (A) 74 %; Platelet Count 218 k/uL (150-450); RBC 5.54 m/uL (4.30-5.90); RDW 15.7 % (11.5-15.5); WBC 10.6 k/uL (3.8-10.6)
[2019-07-10 12:13] LABS: ALT 45 U/L (21-72); AST 43 U/L (17-59); African American GFR (CKD) >90 (>60 ml/min/1.73 sqM); Albumin 4.7 g/dL (3.5-5.0); Alkaline Phosphatase 76 U/L (38-126); Anion Gap 10 mmol/L; Blood Urea Nitrogen 15 mg/dL (9-20); Calcium 9.7 mg/dL (8.4-10.2); Carbon Dioxide 26 mmol/L (22-30); Chloride 104 mmol/L (98-107); Glucose 125 mg/dL (74-99); Magnesium 2.1 mg/dL (1.6-2.3); Potassium 4.2 mmol/L (3.5-5.1); Sodium 140 mmol/L (137-145); Total Bilirubin 0.9 mg/dL (0.2-1.3); Total Protein 8.2 g/dL (6.3-8.2)
[2019-07-10 12:26] LABS: D-Dimer 0.18 mg/L FEU (<0.60); INR 0.9 (<1.2); Partial Thromboplastin Time 25.4 sec (22.0-30.0); Prothrombin Time 9.9 sec (9.0-12.0)
--- NOTE | 2019-07-10 12:42 | XR ---
EXAMINATION TYPE: XR abdomen acute w cxr DATE OF EXAM: 07/10/2019 COMPARISON: NONE HISTORY: 49-year-old male with pain TECHNIQUE: 4 views FINDINGS: Frontal view of the chest shows normal heart size, aorta, and pulmonary vasculature. No consolidation or pleural effusion. No evidence for free intraperitoneal air. No dilated small bowel or air-fluid levels. There is moderate overall stool burden. Stool distends the rectum up to 6.0 cm wide. No suspicious calcification seen. IMPRESSION: 1. No acute cardiopulmonary process. 2. Scattered moderate stool burden. No evidence for free air or bowel obstruction.
[2019-07-10] MEDS ORDERED: MAGNESIUM CITRATE 296 ML BOTTLE PO ONE (13:51)
[2019-07-10 14:02] VITALS: BP 135/89; PULSE 89; TEMP 98.1
== END 2019-07-10 14:01 | disposition home or self-care (01) ==
LOC: EC 11:22
DX: R07.89 Other chest pain (principal); G89.29 Other chronic pain; K59.00 Constipation, unspecified; E78.5 Hyperlipidemia, unspecified; I25.2 Old myocardial infarction; M06.9 Rheumatoid arthritis, unspecified; Z79.899 Other long term (current) drug therapy
CPT/HCPCS: 99285; 96374; 36415; 93005; 85379; 80053; 83735; 84484; 85025; 85610; 85730; 74022; J1885

== ENCOUNTER 2019-08-05 12:00 | Emergency (ER) | payer OTHER ==
[2019-08-05 12:22] VITALS: BP 138/95; PULSE 95; RESP 18; TEMP 97.8
--- NOTE | 2019-08-05 13:11 | ED ---
Lower Extremity Injury HPI - General Chief Complaint: Extremity Injury, Lower Stated Complaint: L knee injury Time Seen by Provider: 08/05/19 12:31 Source: patient, RN notes reviewed, old records reviewed Mode of arrival: wheelchair Limitations: no limitations - History of Present Illness Initial Comments: This is a 49-year-old male the ER for evaluation presents today for evaluation regards to left knee pain. Patient follows left knee give out this afternoon. Patient is able to ambulate after this injury. Patient has no significant injury. He has felt weak in his left knee he did not completely go to the ground but he describes a little bit. No prior history of similar complaint. Patient does have arthritis he thinks this may be his arthritis. No significant swelling of left lower extremity. MD Complaint: knee injury (Left) -: hour(s) Injury: Knee: Left Type of Injury: hyperextension Place: home Severity: mild Severity scale (1-10): 3 Improves With: nothing Worsens With: weight bearing Context: walking Associated Symptoms: other - Related Data Home Medications Medication Instructions Recorded Confirmed Etanercept [Enbrel Sureclick] 50 mg SQ MO 02/20/19 08/05/19 Methotrexate 25mg/1ml 25 mg IM WE 02/20/19 08/05/19 Atorvastatin Calcium [Lipitor] 20 mg PO DAILY 07/10/19 08/05/19 Folic Acid 1 mg PO DAILY 08/05/19 08/05/19 Allergies Allergy/AdvReac Type Severity Reaction Status Date / Time No Known Allergies Allergy Verified 08/05/19 12:22 Review of Systems ROS Statement: Those systems with pertinent positive or pertinent negative responses have been documented in the HPI. ROS Other: All systems not noted in ROS Statement are negative. Past Medical History Past Medical History: GERD/Reflux, Hyperlipidemia, Rheumatoid Arthritis (RA) Last Myocardial Infarction Date:: Dyslipidemia, appears to have some mild developmental delay History of Any Multi-Drug Resistant Organisms: None Reported Past Surgical History: No Surgical Hx Reported Past Anesthesia/Blood Transfusion Reactions: No Reported Reaction Past Psychological History: No Psychological Hx Reported Smoking Status: Never smoker Past Alcohol Use History: None Reported Past Drug Use History: None Reported - Past Family History Father Family Medical History: Hypertension Mother History Unknown: Yes Family Medical History: No Reported History Grandfather Additional Family Medical History / Comment(s): Heart disease General Exam Limitations: no limitations General appearance: alert, in no apparent distress Head exam: Present: atraumatic, normocephalic, normal inspection Eye exam: Present: normal appearance, EOMI. Absent: scleral icterus, conjunctival injection, periorbital swelling ENT exam: Present: normal exam, mucous membranes moist Neck exam: Present: normal inspection. Absent: tenderness, meningismus, lymphadenopathy Respiratory exam: Present: normal lung sounds bilaterally. Absent: respiratory distress, wheezes, rales, rhonchi, stridor Cardiovascular Exam: Present: regular rate, normal rhythm, normal heart sounds. Absent: systolic murmur, diastolic murmur, rubs, gallop, clicks GI/Abdominal exam: Present: soft, normal bowel sounds. Absent: distended, tenderness, guarding, rebound, rigid Extremities exam: Present: normal inspection, full ROM, normal capillary refill, other (Left knee shows no significant deformity, no significant swelling. Full range of motion, Andrew's Lachmann test anterior drawer negative). Absent: tenderness, pedal edema, joint swelling, calf tenderness Back exam: Present: normal inspection Neurological exam: Present: alert, oriented X3, CN II-XII intact Psychiatric exam: Present: normal affect, normal mood Skin exam: Present: warm, dry, intact, normal color. Absent: rash Course Vital Signs 08/05/19 12:19 Temperature 97.8 F Pulse Rate 95 Respiratory 18 Rate Blood Pressure 138/95 O2 Sat by Pulse 97 Oximetry - Reevaluation(s) Reevaluation #1: 08/05/19 13:10 Medical records reviewed Reevaluation #2: 08/05/19 13:10 Patient is able to ambulate, given knee brace Medical Decision Making - Medical Decision Making 49-year-old male the ER for evaluation of left knee giving out, patient is able to ambulate without difficulty here in the ER, patient given knee brace and can be discharged home - Radiology Data Radiology results: report reviewed (X-ray left knee is negative for acute disease), image reviewed Disposition Clinical Impression: Left knee pain Disposition: HOME SELF-CARE Condition: Good Instructions (If sedation given, give patient instructions): Knee Sprain (ED), Knee Pain (ED) Is patient prescribed a controlled substance at d/c from ED?: No Referrals: Asad Jung MD [Primary Care Provider] - 1-2 days Flaquito Patel DO [Doctor of Osteopathic Medicine] - 1-2 days
--- NOTE | 2019-08-05 13:21 | XR ---
EXAMINATION TYPE: XR knee complete LT DATE OF EXAM: 08/05/2019 COMPARISON: 07/03/2019 HISTORY: Pain TECHNIQUE: 3 view left knee FINDINGS: No acute fractures or dislocations are evident. No joint effusion is evident. Joint spaces are preserved. IMPRESSION: 1. Normal 3 view left knee. 2. Follow up exams can be performed 7-10 days from acute trauma for continued pain.
== END 2019-08-05 13:51 | disposition home or self-care (01) ==
LOC: EC 12:00
DX: M25.562 Pain in left knee (principal); E78.5 Hyperlipidemia, unspecified; M06.9 Rheumatoid arthritis, unspecified; Z79.899 Other long term (current) drug therapy; X50.9XXA Other and unspecified overexertion or strenuous movements or postures, initial encounter; Y93.01 Activity, walking, marching and hiking; Y92.009 Unspecified place in unspecified non-institutional (private) residence as the place of occurrence of the external cause
CPT/HCPCS: 99284

== ENCOUNTER 2019-08-07 20:49 | Emergency (ER) | payer OTHER ==
[2019-08-07 21:10] VITALS: BP 131/86; RESP 18; TEMP 98.7
[2019-08-07] MEDS ORDERED: MORPHINE SULFATE 2 MG/ML SYRINGE IVP STA (21:32)
[2019-08-07] MEDS ORDERED: PANTOPRAZOLE 40 MG/10 ML VIAL IVP STA (21:32)
[2019-08-07] MEDS ORDERED: SODIUM CHLORIDE 0.9% 1,000 ML IV STA (21:32)
[2019-08-07] MEDS ORDERED: IPRATROPIUM-ALBUTEROL 3 ML NEB INHALATION STA (21:33)
--- NOTE | 2019-08-07 21:37 | ED ---
Abdominal Pain HPI - General Chief Complaint: Abdominal Pain Stated Complaint: Abd pain Time Seen by Provider: 08/07/19 21:15 Source: patient, RN notes reviewed, old records reviewed Mode of arrival: ambulatory Limitations: no limitations - History of Present Illness Initial Comments: This is a 49-year-old male the ER for evaluation presents today for evaluation regards to cough. Patient has had a cough for 2 days appointment is having abdominal pain. Patient admits to epigastric abdominal pain with nausea no vomiting. Patient states she does not feel well. Patient was in ER 2 days ago for some knee pain since the pain is simply completely resolved. No other complaints no sick contacts or travel history. No current fevers MD Complaint: abdominal pain -: days(s) (2) Radiation: epigastric Migration to: epigastric Severity: moderate Severity scale (1-10): 4 Quality: aching Consistency: constant Improves With: nothing Worsens With: nothing Associated Symptoms: nausea - Related Data Home Medications Medication Instructions Recorded Confirmed Etanercept [Enbrel Sureclick] 50 mg SQ MO 02/20/19 08/07/19 Methotrexate 25mg/1ml 25 mg IM WE 02/20/19 08/07/19 Atorvastatin Calcium [Lipitor] 20 mg PO DAILY 07/10/19 08/07/19 Folic Acid 1 mg PO DAILY 08/05/19 08/07/19 Montelukast [Singulair] 10 mg PO DAILY 08/07/19 08/07/19 Allergies Allergy/AdvReac Type Severity Reaction Status Date / Time No Known Allergies Allergy Verified 08/07/19 21:28 Review of Systems ROS Statement: Those systems with pertinent positive or pertinent negative responses have been documented in the HPI. ROS Other: All systems not noted in ROS Statement are negative. Past Medical History Past Medical History: GERD/Reflux, Hyperlipidemia, Rheumatoid Arthritis (RA) Last Myocardial Infarction Date:: Dyslipidemia, appears to have some mild developmental delay History of Any Multi-Drug Resistant Organisms: None Reported Past Surgical History: No Surgical Hx Reported Past Anesthesia/Blood Transfusion Reactions: No Reported Reaction Past Psychological History: No Psychological Hx Reported Smoking Status: Never smoker Past Alcohol Use History: None Reported Past Drug Use History: None Reported - Past Family History Father Family Medical History: Hypertension Mother History Unknown: Yes Family Medical History: No Reported History Grandfather Additional Family Medical History / Comment(s): Heart disease General Exam Limitations: no limitations General appearance: alert, in no apparent distress Head exam: Present: atraumatic, normocephalic, normal inspection Eye exam: Present: normal appearance, PERRL, EOMI. Absent: scleral icterus, con junctival injection, periorbital swelling ENT exam: Present: normal exam, mucous membranes moist Neck exam: Present: normal inspection. Absent: tenderness, meningismus, lymphadenopathy Respiratory exam: Present: normal lung sounds bilaterally. Absent: respiratory distress, wheezes, rales, rhonchi, stridor Cardiovascular Exam: Present: regular rate, normal rhythm, normal heart sounds. Absent: systolic murmur, diastolic murmur, rubs, gallop, clicks GI/Abdominal exam: Present: soft, tenderness (epigastric), normal bowel sounds. Absent: distended, guarding, rebound, rigid Extremities exam: Present: normal inspection, full ROM, normal capillary refill. Absent: tenderness, pedal edema, joint swelling, calf tenderness Back exam: Present: normal inspection Neurological exam: Present: alert, oriented X3, CN II-XII intact Psychiatric exam: Present: normal affect, normal mood Skin exam: Present: warm, dry, intact, normal color. Absent: rash Course Vital Signs 08/07/19 08/07/19 08/07/19 21:09 21:26 21:44 Temperature 98.7 F Pulse Rate 92 84 Respiratory 18 18 Rate Blood Pressure 131/86 O2 Sat by Pulse 99 Oximetry 08/07/19 21:50 Temperature Pulse Rate 84 Respiratory Rate Blood Pressure O2 Sat by Pulse Oximetry - Reevaluation(s) Reevaluation #1: 08/07/19 21:37 Records reviewed Reevaluation #2: 08/07/19 22:39 Patient states symptoms are mildly improved including pain Medical Decision Making - Medical Decision Making 49-year-old male with nonspecific cough and abdominal pain. Lab work and x-rays are negative here in the ER patient can be discharged home - Lab Data Result diagrams: 08/07/19 21:46 08/07/19 21:46 Lab Results 08/07/19 08/07/19 Range/Units 21:46 21:46 WBC 7.8 (3.8-10.6) k/uL RBC 5.18 (4.30-5.90) m/uL Hgb 15.5 (13.0-17.5) gm/dL Hct 44.8 (39.0-53.0) % MCV 86.4 (80.0-100.0) fL MCH 29.9 (25.0-35.0) pg MCHC 34.7 (31.0-37.0) g/dL RDW 13.4 (11.5-15.5) % Plt Count 231 (150-450) k/uL Neutrophils % 56 % Lymphocytes % 26 % Monocytes % 9 % Eosinophils % 5 % Basophils % 1 % Neutrophils # 4.4 (1.3-7.7) k/uL Lymphocytes # 2.0 (1.0-4.8) k/uL Monocytes # 0.7 (0-1.0) k/uL Eosinophils # 0.4 (0-0.7) k/uL Basophils # 0.1 (0-0.2) k/uL Sodium 141 (137-145) mmol/L Potassium 3.8 (3.5-5.1) mmol/L Chloride 104 (98-107) mmol/L Carbon Dioxide 27 (22-30) mmol/L Anion Gap 10 mmol/L BUN 13 (9-20) mg/dL Creatinine 0.83 (0.66-1.25) mg/dL Est GFR (CKD-EPI)AfAm >90 (>60 ml/min/1.73 sqM) Est GFR (CKD-EPI)NonAf >90 (>60 ml/min/1.73 sqM) Glucose 105 H (74-99) mg/dL Calcium 9.3 (8.4-10.2) mg/dL Total Bilirubin 0.4 (0.2-1.3) mg/dL AST 29 (17-59) U/L ALT 30 (21-72) U/L Alkaline Phosphatase 56 (38-126) U/L Total Protein 7.3 (6.3-8.2) g/dL Albumin 4.2 (3.5-5.0) g/dL Amylase 83 (30-110) U/L Lipase 198 (23-300) U/L - Radiology Data Radiology results: report reviewed (X-ray abdominal series and chest x-rays negative for acute disease), image reviewed Disposition Clinical Impression: Abdominal pain, Cough Disposition: HOME SELF-CARE Condition: Good Instructions (If sedation given, give patient instructions): Abdominal Pain (ED) Is patient prescribed a controlled substance at d/c from ED?: No Referrals: Asad Jung MD [Primary Care Provider] - 1-2 days
[2019-08-07 21:46] VITALS: PULSE 84
[2019-08-07 21:56] LABS: Basophils # (A) 0.1 k/uL (0-0.2); Basophils % (A) 1 %; Eosinophils # (A) 0.4 k/uL (0-0.7); Eosinophils % (A) 5 %; HCT 44.8 % (39.0-53.0); HGB 15.5 gm/dL (13.0-17.5); Lymphocytes % (A) 26 %; MCH 29.9 pg (25.0-35.0); MCHC 34.7 g/dL (31.0-37.0); MCV 86.4 fL (80.0-100.0); Mean Platelet Volume 6.3; Monocytes # (A) 0.7 k/uL (0-1.0); Monocytes % (A) 9 %; Neutrophils # (A) 4.4 k/uL (1.3-7.7); Neutrophils % (A) 56 %; Platelet Count 231 k/uL (150-450); RBC 5.18 m/uL (4.30-5.90); RDW 13.4 % (11.5-15.5); WBC 7.8 k/uL (3.8-10.6)
[2019-08-07 22:04] LABS: ALT 30 U/L (21-72); AST 29 U/L (17-59); African American GFR (CKD) >90 (>60 ml/min/1.73 sqM); Albumin 4.2 g/dL (3.5-5.0); Alkaline Phosphatase 56 U/L (38-126); Amylase 83 U/L (30-110); Anion Gap 10 mmol/L; Blood Urea Nitrogen 13 mg/dL (9-20); Calcium 9.3 mg/dL (8.4-10.2); Carbon Dioxide 27 mmol/L (22-30); Chloride 104 mmol/L (98-107); Glucose 105 mg/dL (74-99); Potassium 3.8 mmol/L (3.5-5.1); Sodium 141 mmol/L (137-145); Total Bilirubin 0.4 mg/dL (0.2-1.3); Total Protein 7.3 g/dL (6.3-8.2)
--- NOTE | 2019-08-07 22:05 | XR ---
EXAMINATION TYPE: XR abdomen acute w cxr DATE OF EXAM: 08/07/2019 COMPARISON: 07/10/2019 HISTORY: Nausea and vomiting TECHNIQUE: Chest x-ray with supine and upright abdomen FINDINGS: Heart and mediastinum are normal. Lungs are clear. Diaphragm is normal. Bony thorax appears normal. B owel gas pattern is normal. There is no sign of intestinal obstruction or pneumoperitoneum. Fecal pat tern is normal. There are no pathologic calcifications over the kidneys. IMPRESSION: Nonacute abdomen. Normal chest. No change.
== END 2019-08-07 22:47 | disposition home or self-care (01) ==
LOC: EC 20:49
DX: R10.13 Epigastric pain (principal); R05 Cough; R11.0 Nausea; E78.5 Hyperlipidemia, unspecified; M06.9 Rheumatoid arthritis, unspecified; Z79.899 Other long term (current) drug therapy; Z87.19 Personal history of other diseases of the digestive system
CPT/HCPCS: 99284; 96374; 96375; 96361; 36415; 94640; 80053; 82150; 83690; 85025; 74022; J2270; C9113

== ENCOUNTER 2019-08-16 10:02 | Emergency (ER) | payer OTHER ==
--- NOTE | 2019-08-16 12:02 | ED ---
Lower Extremity Injury HPI - General Chief Complaint: Extremity Injury, Lower Stated Complaint: Leg pain Time Seen by Provider: 08/16/19 10:24 Source: patient Mode of arrival: ambulatory Limitations: no limitations - History of Present Illness Initial Comments: 49 male with history of hypertension presents first time for evaluation of gurgling left thigh. Patient states his left eye is gurgling denies a swelling he states there is a mild discomfort to the mid anterior thigh. Patient denies any masses redness denies any lotion edema. Denies chest pain shortness of breath he denies history of DVT pulmonary embolism denies recent surgeries denies clotting disorders, patient denies any history of cancer, hormone use. Patient is a numbness tingling off sensation of the leg patient has no other complaints. Upon arrival patient appears well ambulatory - Related Data Home Medications Medication Instructions Recorded Confirmed Etanercept [Enbrel Sureclick] 50 mg SQ MO 02/20/19 08/16/19 Methotrexate 25mg/1ml 25 mg IM WE 02/20/19 08/16/19 Atorvastatin Calcium [Lipitor] 20 mg PO DAILY 07/10/19 08/16/19 Folic Acid 1 mg PO DAILY 08/05/19 08/16/19 Montelukast [Singulair] 10 mg PO DAILY 08/07/19 08/16/19 Allergies Allergy/AdvReac Type Severity Reaction Status Date / Time No Known Allergies Allergy Verified 08/16/19 10:32 Review of Systems ROS Statement: Those systems with pertinent positive or pertinent negative responses have been documented in the HPI. ROS Other: All systems not noted in ROS Statement are negative. Past Medical History Past Medical History: GERD/Reflux, Hyperlipidemia, Rheumatoid Arthritis (RA) Last Myocardial Infarction Date:: Dyslipidemia, appears to have some mild developmental delay History of Any Multi-Drug Resistant Organisms: None Reported Past Surgical History: No Surgical Hx Reported Past Anesthesia/Blood Transfusion Reactions: No Reported Reaction Past Psychological History: No Psychological Hx Reported Smoking Status: Never smoker Past Alcohol Use History: None Reported Past Drug Use History: None Reported - Past Family History Father Family Medical History: Hypertension Mother History Unknown: Yes Family Medical History: No Reported History Grandfather Additional Family Medical History / Comment(s): Heart disease General Exam - General Exam Comments Initial Comments: General: The patient is awake and alert, in no distress, and does not appear acutely ill. Eye: Pupils are equal, round and reactive to light, extra-ocular movements are intact. No nystagmus. There is normal conjunctiva bilaterally. No signs of icterus. Ears, nose, mouth and throat: There are moist mucous membranes and no oral lesions. Neck: The neck is supple, there is no tenderness or JVD. Cardiovascular: There is a regular rate and rhythm. No murmur, rub or gallop is appreciated. Respiratory: Lungs are clear to auscultation, respirations are non-labored, breath sounds are equal. No wheezes, stridor, rales, or rhonchi. Gastrointestinal: Soft, non-distended, non-tender abdomen without masses or organomegaly noted. There is no rebound or guarding present. Musculoskeletal: Normal ROM, no tenderness. Strength 5/5. Sensation intact. DP pulses equal bilaterally 2+. Upon inspection of the lower external ears bilaterally equal no masses redness no point localized tenderness. (-) Homans b/l. No pitting edema Neurological: A&O x 3. CN II-XII intact, There are no obvious motor or sensory deficits. Coordination appears grossly intact. Speech is normal. Skin: Skin is warm and dry and no rashes or lesions are noted. Psychiatric: Cooperative, appropriate mood & affect, normal judgment. Limitations: no limitations Course Vital Signs 08/16/19 08/16/19 10:21 14:48 Temperature 97.9 F 97.7 F Pulse Rate 98 89 Respiratory 17 18 Rate Blood Pressure 144/84 144/88 O2 Sat by Pulse 98 96 Oximetry Medical Decision Making - Medical Decision Making 49-year-old male presents emergency department for chief complaint of right leg. Patient is no abnormal physical examination findings appears well d-dimer negative. Patient's abdominal pain no other complaints. Patient ambulatory. Neurovascularly intact. This time I do feel patient is stable for discharge with outpatient primary care follow-up. Patient requested work note case discussed with attending provider patient discharged appearing well. - Lab Data Lab Results 08/16/19 Range/Units 12:45 D-Dimer <0.17 (<0.60) mg/L FEU Disposition Clinical Impression: Leg pain Disposition: HOME SELF-CARE Condition: Good Instructions (If sedation given, give patient instructions): Leg Pain (ED) Additional Instructions: Please use medication as discussed. Please follow-up with family doctor in the next 2 days.. Please return to emergency room if the symptoms increase or worsen or for any other concerns. Is patient prescribed a controlled substance at d/c from ED?: No Referrals: Asad Jung MD [Primary Care Provider] - 1-2 days Time of Disposition: 14:23
[2019-08-16 14:49] VITALS: BP 144/88; PULSE 89; RESP 18; TEMP 97.7
== END 2019-08-16 14:49 | disposition home or self-care (01) ==
LOC: EC 10:02
DX: M79.605 Pain in left leg (principal); R10.9 Unspecified abdominal pain; E78.5 Hyperlipidemia, unspecified; K21.9 Gastro-esophageal reflux disease without esophagitis; M06.9 Rheumatoid arthritis, unspecified; I10 Essential (primary) hypertension; Z79.899 Other long term (current) drug therapy
CPT/HCPCS: 36415; 85379; 99283

== ENCOUNTER 2019-08-20 17:19 | Emergency (ER) | payer OTHER ==
[2019-08-20 17:49] VITALS: TEMP 98.2
[2019-08-20] MEDS ORDERED: guaiFENesin-DM 600/30MG 1 EACH TAB.ER.12H PO STA (18:13)
[2019-08-20] MEDS ORDERED: IBUPROFEN 600 MG TAB PO STA (18:13)
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
--- NOTE | 2019-08-20 18:45 | XR ---
EXAMINATION TYPE: XR chest 2V DATE OF EXAM: 08/20/2019 COMPARISON: 07/10/2019 HISTORY: Cough and congestion TECHNIQUE: Frontal and lateral views of the chest are obtained. FINDINGS: Heart and mediastinum are normal. Lungs are clear. Diaphragm is normal. Bony thorax appear s normal. IMPRESSION: Normal chest. No change.
[2019-08-20 20:26] VITALS: BP 140/78; PULSE 79; RESP 17
== END 2019-08-20 20:26 | disposition home or self-care (01) ==
LOC: EC 17:19
DX: J06.9 Acute upper respiratory infection, unspecified (principal); T22.011A Burn of unspecified degree of right forearm, initial encounter; E78.5 Hyperlipidemia, unspecified; M06.9 Rheumatoid arthritis, unspecified; Z79.899 Other long term (current) drug therapy; X08.8XXA Exposure to other specified smoke, fire and flames, initial encounter
CPT/HCPCS: 71046; 87502; 99285

== ENCOUNTER 2019-08-20 21:16 | Emergency (ER) | payer OTHER ==
[2019-08-20 21:35] VITALS: PULSE 79; TEMP 98.4
[2019-08-20] MEDS ORDERED: PANTOPRAZOLE 40 MG/10 ML VIAL IVP STA (22:09)
[2019-08-20 22:28] LABS: Basophils % (A) 1 %; Eosinophils # (A) 0.4 k/uL (0-0.7); Eosinophils % (A) 4 %; HCT 45.5 % (39.0-53.0); Lymphocytes # (A) 1.9 k/uL (1.0-4.8); Lymphocytes % (A) 22 %; MCH 29.7 pg (25.0-35.0); MCV 90.1 fL (80.0-100.0); Mean Platelet Volume 6.8; Monocytes # (A) 0.8 k/uL (0-1.0); Monocytes % (A) 9 %; Neutrophils # (A) 5.3 k/uL (1.3-7.7); Neutrophils % (A) 61 %; Platelet Count 236 k/uL (150-450); RBC 5.05 m/uL (4.30-5.90); RDW 13.7 % (11.5-15.5); WBC 8.6 k/uL (3.8-10.6)
[2019-08-20 22:35] LABS: ALT 31 U/L (21-72); AST 31 U/L (17-59); African American GFR (CKD) >90 (>60 ml/min/1.73 sqM); Albumin 4.1 g/dL (3.5-5.0); Alkaline Phosphatase 59 U/L (38-126); Anion Gap 11 mmol/L; Blood Urea Nitrogen 17 mg/dL (9-20); Calcium 9.4 mg/dL (8.4-10.2); Carbon Dioxide 23 mmol/L (22-30); Chloride 106 mmol/L (98-107); Glucose 109 mg/dL (74-99); Potassium 3.7 mmol/L (3.5-5.1); Sodium 140 mmol/L (137-145); Total Bilirubin 0.4 mg/dL (0.2-1.3); Total Protein 7.3 g/dL (6.3-8.2)
[2019-08-20 22:41] LABS: INR 0.9 (<1.2); Partial Thromboplastin Time 25.5 sec (22.0-30.0); Prothrombin Time 9.9 sec (9.0-12.0)
[2019-08-20 22:46] VITALS: BP 138/90; RESP 18
--- NOTE | 2019-08-20 22:49 | CT ---
EXAMINATION TYPE: CT abdomen pelvis w con DATE OF EXAM: 08/20/2019 COMPARISON: 03/20/2019 HISTORY: abdominal pain, coughing up blood CT DLP: 959.3 mGycm Automated exposure control for dose reduction was used. TECHNIQUE: Helical acquisition of images was performed from the lung bases through the pelvis. CONTRAST: Performed without Oral Contrast and with IV Contrast, patient injected with 100 mL of Isovue 300. FINDINGS: Lung bases are clear. There is no pleural effusion. Heart size is normal. Liver spleen stomach pancre as gallbladder appear normal. Bile ducts are not dilated. There is no adrenal mass. Kidneys show sati sfactory contrast opacification. There is no hydronephrosis. There is no retroperitoneal adenopathy. Ureters are not dilated. Bladder distends smoothly. There is no inguinal hernia. There is narrowing o f L4-5 disc space. Vertebra have normal alignment. There is no compression fracture. Bony structures appear intact. Bony pelvis is intact. The appendix appears normal. There is no mesenteric edema. There is no ascites or free air. There is no sign of a bowel obstructio n. Delayed images show normal renal contrast excretion. IMPRESSION: NEGATIVE CT SCAN OF THE ABDOMEN AND PELVIS. I DO NOT SEE A CAUSE FOR EPIGASTRIC PAIN.
--- NOTE | 2019-08-20 23:33 | ED ---
GI Bleed HPI - General Chief complaint: GI Bleed Stated complaint: Coughing blood Time Seen by Provider: 08/20/19 21:35 Source: patient Mode of arrival: ambulatory Limitations: no limitations - History of Present Illness Initial comments: Patient is a 49-year-old male with past medical history of rheumatoid arthritis who presents to the emergency room with reported vomiting blood. The patient states that today he has had streaks of blood in his vomit. States that he is coughing as well. Denies any chest pain or shortness of breath. No sick contac ts or recent travel. Denies a history of DVT or PE. No calf pain or swelling. Denies NSAID or alcohol use. Does report to left upper quadrant cramping sensation. The patient has never had an EGD or colonoscopy. No history of peptic ulcer disease. Denies diarrhea, constipation, melanotic stools or hematochezia. Denies any changes in his urination to include dysuria, hematuria or difficulty voiding. No ripping or tearing sensation to his back. Denies presyncopal sensation. No recent medication changes. He is not on any blood thinners. There are no alleviating, precipitating or modifying factors - Related Data Home Medications Medication Instructions Recorded Confirmed Etanercept [Enbrel Sureclick] 50 mg SQ MO 02/20/19 08/21/19 Methotrexate 25mg/1ml 25 mg IM WE 02/20/19 08/21/19 Atorvastatin Calcium [Lipitor] 20 mg PO DAILY 07/10/19 08/21/19 Folic Acid 1 mg PO DAILY 08/05/19 08/21/19 Omeprazole [PriLOSEC] 20 mg PO HS 08/21/19 08/21/19 Allergies Allergy/AdvReac Type Severity Reaction Status Date / Time No Known Allergies Allergy Verified 08/21/19 15:59 Review of Systems ROS Statement: Those systems with pertinent positive or pertinent negative responses have been documented in the HPI. ROS Other: All systems not noted in ROS Statement are negative. Past Medical History Past Medical History: GERD/Reflux, Hyperlipidemia, Rheumatoid Arthritis (RA) Last Myocardial Infarction Date:: Dyslipidemia, appears to have some mild developmental delay History of Any Multi-Drug Resistant Organisms: None Reported Past Surgical History: No Surgical Hx Reported Past Anesthesia/Blood Transfusion Reactions: No Reported Reaction Past Psychological History: No Psychological Hx Reported Smoking Status: Never smoker Past Alcohol Use History: None Reported Past Drug Use History: None Reported - Past Family History Father Family Medical History: Hypertension Mother History Unknown: Yes Family Medical History: No Reported History Grandfather Additional Family Medical History / Comment(s): Heart disease General Exam Limitations: no limitations General appearance: alert, in no apparent distress Head exam: Present: atraumatic, normocephalic, normal inspection Eye exam: Present: normal appearance, PERRL, EOMI. Absent: scleral icterus, conjunctival injection, periorbital swelling ENT exam: Present: normal exam, mucous membranes moist Neck exam: Present: normal inspection. Absent: tenderness, meningismus, lymphadenopathy Respiratory exam: Present: normal lung sounds bilaterally. Absent: respiratory distress, wheezes, rales, rhonchi, stridor Cardiovascular Exam: Present: regular rate, normal rhythm, normal heart sounds. Absent: systolic murmur, diastolic murmur, rubs, gallop, clicks GI/Abdominal exam: Present: soft, normal bowel sounds. Absent: distended, tenderness, guarding, rebound, rigid Extremities exam: Present: normal inspection, full ROM, normal capillary refill. Absent: tenderness, pedal edema, joint swelling, calf tenderness Back exam: Present: normal inspection Neurological exam: Present: alert, oriented X3, CN II-XII intact Psychiatric exam: Present: normal affect, normal mood Skin exam: Present: warm, dry, intact, normal color. Absent: rash Course Vital Signs 08/20/19 08/20/19 08/20/19 21:31 21:50 22:20 Temperature 98.4 F Pulse Rate 79 Respiratory 20 18 18 Rate Blood Pressure 141/87 129/109 138/90 O2 Sat by Pulse 96 96 96 Oximetry Medical Decision Making - Medical Decision Making Upon arrival the patient is placed into room 11. A thorough history and physical exam is performed. A rectal exam is performed which demonstrates no gross blood. Fecal occult is sent to lab and is negative. I did recommend laboratory studies. The patient agreed. Peripheral IV was established the patient was given a liter bolus of normal saline as well as 40 mg of Protonix. CBC shows a hemoglobin of 15. Coags are normal. CMP demonstrates no abnormalities. I did perform a CT of the patient's abdomen and pelvis which demonstrates no acute findings. I did order chest x-ray however the patient had been hospitalized earlier today and had a chest x-ray performed. It demonstrated no acute intrathoracic findings. I did reevaluate the patient and he has had no vomiting or hemoptysis at this time. The patient will be disch arged home and he needs to follow up with the GI doctor for possible endoscopy. I will start him on omeprazole 20 mg daily. The patient has any new or worsening symptoms she should return to the emergency department. The patient was in agreement with the treatment plan and is discharge in stable condition - Lab Data Result diagrams: 08/20/19 21:42 08/20/19 21:42 Lab Results 08/20/19 08/20/19 08/20/19 Range/Units 21:42 21:42 21:42 WBC 8.6 (3.8-10.6) k/uL RBC 5.05 (4.30-5.90) m/uL Hgb 15.0 (13.0-17.5) gm/dL Hct 45.5 (39.0-53.0) % MCV 90.1 (80.0-100.0) fL MCH 29.7 (25.0-35.0) pg MCHC 33.0 (31.0-37.0) g/dL RDW 13.7 (11.5-15.5) % Plt Count 236 (150-450) k/uL Neutrophils % 61 % Lymphocytes % 22 % Monocytes % 9 % Eosinophils % 4 % Basophils % 1 % Neutrophils # 5.3 (1.3-7.7) k/uL Lymphocytes # 1.9 (1.0-4.8) k/uL Monocytes # 0.8 (0-1.0) k/uL Eosinophils # 0.4 (0-0.7) k/uL Basophils # 0.0 (0-0.2) k/uL PT 9.9 (9.0-12.0) sec INR 0.9 (<1.2) APTT 25.5 (22.0-30.0) sec Sodium 140 (137-145) mmol/L Potassium 3.7 (3.5-5.1) mmol/L Chloride 106 (98-107) mmol/L Carbon Dioxide 23 (22-30) mmol/L Anion Gap 11 mmol/L BUN 17 (9-20) mg/dL Creatinine 0.80 (0.66-1.25) mg/dL Est GFR (CKD-EPI)AfAm >90 (>60 ml/min/1.73 sqM) Est GFR (CKD-EPI)NonAf >90 (>60 ml/min/1.73 sqM) Glucose 109 H (74-99) mg/dL Calcium 9.4 (8.4-10.2) mg/dL Total Bilirubin 0.4 (0.2-1.3) mg/dL AST 31 (17-59) U/L ALT 31 (21-72) U/L Alkaline Phosphatase 59 (38-126) U/L Total Protein 7.3 (6.3-8.2) g/dL Albumin 4.1 (3.5-5.0) g/dL Lipase 220 (23-300) U/L Stool Occult Blood (Negative) 08/20/19 Range/Units 21:42 WBC (3.8-10.6) k/uL RBC (4.30-5.90) m/uL Hgb (13.0-17.5) gm/dL Hct (39.0-53.0) % MCV (80.0-100.0) fL MCH (25.0-35.0) pg MCHC (31.0-37.0) g/dL RDW (11.5-15.5) % Plt Count (150-450) k/uL Neutrophils % % Lymphocytes % % Monocytes % % Eosinophils % % Basophils % % Neutrophils # (1.3-7.7) k/uL Lymphocytes # (1.0-4.8) k/uL Monocytes # (0-1.0) k/uL Eosinophils # (0-0.7) k/uL Basophils # (0-0.2) k/uL PT (9.0-12.0) sec INR (<1.2) APTT (22.0-30.0) sec Sodium (137-145) mmol/L Potassium (3.5-5.1) mmol/L Chloride (98-107) mmol/L Carbon Dioxide (22-30) mmol/L Anion Gap mmol/L BUN (9-20) mg/dL Creatinine (0.66-1.25) mg/dL Est GFR (CKD-EPI)AfAm (>60 ml/min/1.73 sqM) Est GFR (CKD-EPI)NonAf (>60 ml/min/1.73 sqM) Glucose (74-99) mg/dL Calcium (8.4-10.2) mg/dL Total Bilirubin (0.2-1.3) mg/dL AST (17-59) U/L ALT (21-72) U/L Alkaline Phosphatase (38-126) U/L Total Protein (6.3-8.2) g/dL Albumin (3.5-5.0) g/dL Lipase (23-300) U/L Stool Occult Blood Negative (Negative) Disposition Clinical Impression: Hematemesis of unknown cause Disposition: HOME SELF-CARE Condition: Stable Instructions (If sedation given, give patient instructions): Gastrointestinal Bleeding (ED) Additional Instructions: Please follow-up with the GI physician. You may need an endoscopy. Take the omeprazole as directed. Return to the emergency room for any new or worsening symptoms Is patient prescribed a controlled substance at d/c from ED?: No When asked, does pt state using other controlled substances?: No Referrals: Asad Jung MD [Primary Care Provider] - 1-2 days Polina Dodd MD [STAFF PHYSICIAN] - 1-2 days Time of Disposition: 23:32
== END 2019-08-20 23:43 | disposition home or self-care (01) ==
LOC: EC 21:16
DX: K92.0 Hematemesis (principal); K21.9 Gastro-esophageal reflux disease without esophagitis; I25.2 Old myocardial infarction; M06.9 Rheumatoid arthritis, unspecified; E78.5 Hyperlipidemia, unspecified; Z79.899 Other long term (current) drug therapy
CPT/HCPCS: 36415; 80053; 83690; 85025; 85610; 85730; 82272; 74177; 99285; 96374; C9113; Q9967

== ENCOUNTER 2019-08-21 15:50 | Emergency (ER) | payer OTHER ==
[2019-08-21 15:55] VITALS: RESP 18
--- NOTE | 2019-08-21 16:51 | XR ---
EXAMINATION TYPE: XR shoulder complete LT DATE OF EXAM: 08/21/2019 CLINICAL HISTORY: Fall, left shoulder pain TECHNIQUE: Three views of the left shoulder are obtained. COMPARISON: None. FINDINGS: No fracture. Acromioclavicular and glenohumeral joints are congruent. Joint spaces are maintained. Mi ld acromioclavicular joint degenerative changes. IMPRESSION: No acute fracture or dislocation.
--- NOTE | 2019-08-21 17:09 | ED ---
General Adult HPI - General Chief complaint: Extremity Injury, Upper Stated complaint: Shoulder injury, coughing blood Time Seen by Provider: 08/21/19 15:57 Source: patient Mode of arrival: ambulatory Limitations: no limitations - History of Present Illness Initial comments: Patient is a 49-year-old male presenting to the emergency department with chief complaint of left shoulder pain. Patient reports he rolled out of bed and injured his left shoulder. Patient reports pain along the anterior aspect of the left shoulder. Patient reports the pain is exacerbated with abduction above 90 or flexion. Patient reports the pain is exacerbated with a specific movements and alleviated at rest. Patient reports the pain is a 6 and throbbing. Patient denies any numbness or tingling. Patient states that he was in the ED last night at 2300 for hemoptysis. Patient reports he was evaluated and discharged with a GI follow-up and omeprazole. Patient reports she has obtain any of the omeprazole. Patient reports he coughed up a little bit of blood while he was at home. Patient reports she has no trouble with fluids or liquids. - Related Data Home Medications Medication Instructions Recorded Confirmed Etanercept [Enbrel Sureclick] 50 mg SQ MO 02/20/19 08/21/19 Methotrexate 25mg/1ml 25 mg IM WE 02/20/19 08/21/19 Atorvastatin Calcium [Lipitor] 20 mg PO DAILY 07/10/19 08/21/19 Folic Acid 1 mg PO DAILY 08/05/19 08/21/19 Omeprazole [PriLOSEC] 20 mg PO HS 08/21/19 08/21/19 Allergies Allergy/AdvReac Type Severity Reaction Status Date / Time No Known Allergies Allergy Verified 08/21/19 15:59 Review of Systems ROS Statement: Those systems with pertinent positive or pertinent negative responses have been documented in the HPI. ROS Other: All systems not noted in ROS Statement are negative. Past Medical History Past Medical History: GERD/Reflux, Hyperlipidemia, Rheumatoid Arthritis (RA) Last Myocardial Infarction Date:: Dyslipidemia, appears to have some mild developmental delay History of Any Multi-Drug Resistant Organisms: None Reported Past Surgical History: No Surgical Hx Reported Past Anesthesia/Blood Transfusion Reactions: No Reported Reaction Past Psychological History: No Psychological Hx Reported Smoking Status: Never smoker Past Alcohol Use History: None Reported Past Drug Use History: None Reported - Past Family History Father Family Medical History: Hypertension Mother History Unknown: Yes Family Medical History: No Reported History Grandfather Additional Family Medical History / Comment(s): Heart disease General Exam Limitations: no limitations General appearance: alert, in no apparent distress Head exam: Present: atraumatic, normocephalic, normal inspection Eye exam: Present: normal appearance Pupils: Present: normal accommodation ENT exam: Present: normal exam, mucous membranes moist, normal external ear exam Neck exam: Present: normal inspection, full ROM Respiratory exam: Present: normal lung sounds bilaterally Cardiovascular Exam: Present: regular rate, normal rhythm, normal heart sounds Extremities exam: Present: normal inspection, tenderness (Anterior shoulder tenderness.), normal capillary refill, other (+2 ulnar and radial pulses bilaterally.). Absent: full ROM (Limited range of motion above 90) Back exam: Present: normal inspection, full ROM Neurological exam: Present: alert, oriented X3 Psychiatric exam: Present: normal affect, normal mood Skin exam: Present: warm, intact, normal color Course Vital Signs 08/21/19 15:53 Temperature 97.9 F Pulse Rate 101 H Respiratory 18 Rate Blood Pressure 156/60 O2 Sat by Pulse 98 Oximetry Medical Decision Making - Medical Decision Making Patient is 49-year-old male presented emergency Department with a chief complaint of shoulder pain. Patient reports the pain started after he rolled out and fell off his bed this morning. Patient reports the pain is exacerbated with abduction above 90. There is tenderness on physical examination along the anterior aspect of the deltoid. X-rays unremarkable. I suspect the symptoms to be secondary to shoulder contusion. Patient is complaining of hemoptysis and was evaluated for yesterday. Patient was evaluated for a PE during the initial encounter and was unremarkable. Patient reports there has been no changes since yesterday. Patient reports he was prescribed omeprazole but never picked of medication. Chest x-ray was unremarkable. Patient given a single dose of omeprazole in the ED. Patient feels good is ready go home. Patient vised to follow with orthopedics regarding the shoulder pain. Strict return parameters were thoroughly discussed the patient was ascending and agreeable. Case discussed physician. Disposition Clinical Impression: Left shoulder pain Disposition: HOME SELF-CARE Condition: Stable Instructions (If sedation given, give patient instructions): Shoulder Sprain (ED) Additional Instructions: Alternate between Tylenol and ibuprofen for pain control. Please follow-up with orthopedic if symptoms do not improve. Patient emergency department if symptoms worsen. Is patient prescribed a controlled substance at d/c from ED?: No Referrals: Asad Jung MD [Primary Care Provider] - 1-2 days Prince Winter DO [Doctor of Osteopathic Medicine] - 1-2 days Time of Disposition: 18:21
[2019-08-21] MEDS ORDERED: PANTOPRAZOLE 40 MG TABLET PO STA (17:30)
--- NOTE | 2019-08-21 18:18 | XR ---
EXAMINATION TYPE: XR chest 2V DATE OF EXAM: 08/21/2019 COMPARISON: Chest radiograph 08/20/2019 HISTORY: Hemoptysis TECHNIQUE: Frontal and lateral views of the chest are obtained. FINDINGS: There is no focal air space opacity, pleural effusion, or pneumothorax seen. The cardiac silhouette size is within normal limits. The osseous structures are intact. IMPRESSION: No acute cardiopulmonary process.
[2019-08-21 18:57] VITALS: BP 130/80; PULSE 95; TEMP 97.8
== END 2019-08-21 18:50 | disposition home or self-care (01) ==
LOC: EC 15:50
DX: M25.512 Pain in left shoulder (principal); R04.2 Hemoptysis; I25.2 Old myocardial infarction; E78.5 Hyperlipidemia, unspecified; K21.9 Gastro-esophageal reflux disease without esophagitis; M06.9 Rheumatoid arthritis, unspecified; Z79.899 Other long term (current) drug therapy
CPT/HCPCS: 71046; 99283

== ENCOUNTER 2019-08-28 21:09 | Emergency (ER) | payer OTHER ==
--- NOTE | 2019-08-28 21:42 | ED ---
General Adult HPI - General Chief complaint: Extremity Injury, Upper Stated complaint: Arm pain Time Seen by Provider: 08/28/19 21:29 Source: patient Mode of arrival: ambulatory Limitations: no limitations - History of Present Illness Initial comments: Guillermo is a pleasant 49 yo male who presents to the emergency department today for evaluation of bilateral shoulder pain. Patient reports that he was picking up and moving heavy trash bags and is worried that he injured his rotator cuff. Patient reports initially pain in bilateral shoulders, pain resolves when he is not moving but is worse with raising his arms above his head. Pain is not associated with any chest pain shortness breath fevers chills nausea or vomiting. - Related Data Home Medications Medication Instructions Recorded Confirmed Methotrexate 25mg/1ml 25 mg IM WE 02/20/19 08/28/19 RX: Etanercept [Enbrel Sureclick] 50 mg SQ MO 02/20/19 08/28/19 RX: Folic Acid 1 mg PO DAILY 08/05/19 08/28/19 Montelukast [Singulair] 10 mg PO DAILY 08/28/19 08/28/19 Allergies Allergy/AdvReac Type Severity Reaction Status Date / Time No Known Allergies Allergy Verified 08/28/19 22:05 Review of Systems ROS Statement: Those systems with pertinent positive or pertinent negative responses have been documented in the HPI. ROS Other: All systems not noted in ROS Statement are negative. Past Medical History Past Medical History: GERD/Reflux, Hyperlipidemia, Rheumatoid Arthritis (RA) Last Myocardial Infarction Date:: Dyslipidemia, appears to have some mild developmental delay History of Any Multi-Drug Resistant Organisms: None Reported Past Surgical History: No Surgical Hx Reported Past Anesthesia/Blood Transfusion Reactions: No Reported Reaction Past Psychological History: No Psychological Hx Reported Smoking Status: Never smoker Past Alcohol Use History: None Reported Past Drug Use History: None Reported - Past Family History Father Family Medical History: Hypertension Mother History Unknown: Yes Family Medical History: No Reported History Grandfather Additional Family Medical History / Comment(s): Heart disease General Exam - General Exam Comments Initial Comments: Physical Exam GENERAL: Patient is well-developed and well-nourished. Patient is nontoxic and well-hydrated and is in no distress. HENT: Normocephalic, Atraumatic. EYES: PERRL, EOMI PULMONARY: Unlabored respirations CARDIOVASCULAR: RRR Warm and well perfused extremities Radial pulses present and equal bilaterally ABDOMEN: Soft and nontender with normal bowel sounds. SKIN: Skin is clear with no lesions or rashes and otherwise unremarkable. : Deferred NEUROLOGIC: Patient is alert and oriented x3. Moving all extremities spontaneously MUSCULOSKELETAL: Normal extremities with adequate strength No obvious deformity, Pain with ROM of bilateral shoulders most prominent with abduction and empty can test PSYCHIATRIC: Normal psychiatric evaluation. Limitations: no limitations Course Vital Signs 08/28/19 08/28/19 21:10 22:45 Temperature 97.9 F 97.6 F Pulse Rate 111 H 72 Respiratory 17 16 Rate Blood Pressure 161/75 133/76 O2 Sat by Pulse 96 99 Oximetry Medical Decision Making - Medical Decision Making Patient was seen and evaluated history is obtained from the patient excited patient has bilateral shoulder pain consistent with rotator cuff injury, x-rays are negative for any acute bony injury, results were discussed with the patient I advised that he will need follow-up with primary care and orthopedics likely attend physical therapy Patient reports pain is only 3 out of 10 in intensity at this time, advised to treat with Tylenol or Motrin and outpatient setting All questions pertaining to care were answered the best my ability return parameters were discussed with patient was discharged home in stable condition Disposition Clinical Impression: Strain of shoulder Disposition: HOME SELF-CARE Condition: Stable Instructions (If sedation given, give patient instructions): Rotator Cuff Injury (ED) Is patient prescribed a controlled substance at d/c from ED?: No Referrals: Asad Jung MD [Primary Care Provider] - 1-2 days [facility] [Provider Group] - 1-2 days [facility] [Provider Group] - 1-2 days
--- NOTE | 2019-08-28 21:47 | XR ---
EXAMINATION TYPE: XR shoulder complete BILAT DATE OF EXAM: 08/28/2019 COMPARISON: 08/21/2019 left shoulder HISTORY: Bilateral shoulder pain. Heavy lifting. TECHNIQUE: 3 views each shoulder. FINDINGS: I see no fracture nor dislocation. Joint spaces are normal. There are no pathologic calcifi cations. Soft tissues appear normal. IMPRESSION: Negative bilateral shoulder exam.
[2019-08-28 22:49] VITALS: BP 133/76; PULSE 72; RESP 16; TEMP 97.6
== END 2019-08-28 22:45 | disposition home or self-care (01) ==
LOC: EC 21:09
DX: S46.911A Strain of unspecified muscle, fascia and tendon at shoulder and upper arm level, right arm, initial encounter (principal); S46.912A Strain of unspecified muscle, fascia and tendon at shoulder and upper arm level, left arm, initial encounter; Z79.899 Other long term (current) drug therapy; X58.XXXA Exposure to other specified factors, initial encounter
CPT/HCPCS: 99283

== ENCOUNTER 2019-09-26 10:16 | Emergency (ER) | payer OTHER ==
[2019-09-26] MEDS ORDERED: ORPHENADRINE 30 MG/ML 2 ML VIAL IM STA (11:10)
[2019-09-26] MEDS ORDERED: KETOROLAC 60 MG/2 ML VIAL IM STA (11:10)
[2019-09-26] MEDS ORDERED: methylPREDNISolone SOD SUCCI 125 MG/2 ML VIAL IM ONE (11:11)
[2019-09-26 11:18] VITALS: TEMP 98.4
--- NOTE | 2019-09-26 11:44 | ED ---
Extremity Problem HPI - General Chief complaint: Extremity Problem,Nontraumatic Stated complaint: pain in both shoulders/numbness in arms Time Seen by Provider: 09/26/19 10:45 Source: patient, RN notes reviewed, old records reviewed Mode of arrival: ambulatory Limitations: no limitations - History of Present Illness Initial comments: Guillermo is a 49-year-old male, who presents today with numbness and tingling down bilateral upper extremities, complains of neck pain, and pain with worsening with turning. Patient reports that he is not taking anything for pain at this time. Patient reports that he has had no specific fall or trauma. Sinus happened once before. He denies any such as chest pain shortness breath or headache. Denies any visual changes. - Related Data Home Medications Medication Instructions Recorded Confirmed Etanercept [Enbrel Sureclick] 50 mg SQ FR 02/20/19 09/26/19 Methotrexate 25mg/1ml 25 mg IM WE 02/20/19 09/26/19 Folic Acid 1 mg PO DAILY 08/05/19 09/26/19 Montelukast [Singulair] 10 mg PO DAILY@1200 08/28/19 09/26/19 Cyclobenzaprine [Flexeril] 5 mg PO TID PRN 09/26/19 09/26/19 Previous Rx's Medication Instructions Recorded Ibuprofen 600 mg PO TID #20 tablet 09/26/19 Orphenadrine [Norflex] 100 mg PO Q12H #10 tablet.er 09/26/19 methylPREDNISolone Dose Pack 4 mg PO DIRECTED #21 package 09/26/19 [Medrol Dose Pack] Allergies Allergy/AdvReac Type Severity Reaction Status Date / Time No Known Allergies Allergy Verified 09/26/19 11:18 Review of Systems ROS Statement: Those systems with pertinent positive or pertinent negative responses have been documented in the HPI. ROS Other: All systems not noted in ROS Statement are negative. Past Medical History Past Medical History: GERD/Reflux, Hyperlipidemia, Rheumatoid Arthritis (RA) Last Myocardial Infarction Date:: Dyslipidemia, appears to have some mild developmental delay History of Any Multi-Drug Resistant Organisms: None Reported Past Surgical History: No Surgical Hx Reported Past Anesthesia/Blood Transfusion Reactions: No Reported Reaction Past Psychological History: No Psychological Hx Reported Smoking Status: Never smoker Past Alcohol Use History: None Reported Past Drug Use History: None Reported - Past Family History Father Family Medical History: Hypertension Mother History Unknown: Yes Family Medical History: No Reported History Grandfather Additional Family Medical History / Comment(s): Heart disease General Exam - General Exam Comments Initial Comments: This is a 49-year-old male. Alert and oriented 3. No significant distress. Limitations: no limitations General appearance: alert, in no apparent distress Head exam: Present: atraumatic, normocephalic, normal inspection Eye exam: Present: normal appearance ENT exam: Present: normal exam, mucous membranes moist Neck exam: Present: normal inspection. Absent: tenderness, meningismus, lymphadenopathy Respiratory exam: Present: normal lung sounds bilaterally. Absent: respiratory distress, wheezes, rales, rhonchi, stridor Cardiovascular Exam: Present: regular rate, normal rhythm, normal heart sounds. Absent: systolic murmur, diastolic murmur, rubs, gallop, clicks GI/Abdominal exam: Present: soft, normal bowel sounds. Absent: distended, tenderness, guarding, rebound, rigid Extremities exam: Present: normal inspection, full ROM, normal capillary refill. Absent: tenderness, pedal edema, joint swelling, calf tenderness Back exam: Present: normal inspection Neurological exam: Present: alert, oriented X3, CN II-XII intact Psychiatric exam: Present: normal affect, normal mood Course Vital Signs 09/26/19 09/26/19 09/26/19 10:26 11:15 12:00 Temperature 97.7 F 98.4 F Pulse Rate 101 H 84 Respiratory 18 18 18 Rate Blood Pressure 132/82 139/89 149/96 O2 Sat by Pulse 98 97 Oximetry 09/26/19 13:00 Temperature Pulse Rate 89 Respiratory 16 Rate Blood Pressure 151/98 O2 Sat by Pulse 97 Oximetry Medical Decision Making - Medical Decision Making 49 year old male for parethesia in both arms and neck pain. No fall or trauma. Cervical spine xray shows Compression between in C6 and C7. He has full ROM of fingers and hands and pulses are normal bilaterally. Discussed likely muscle spasm and pinched nerve and that patient can be treated with antiinflammatory medication and follow up with PCP. - Radiology Data Radiology results: report reviewed No acute osseous lesion, ddd of C6-7. Disposition Clinical Impression: Cervical paraspinal muscle spasm, Paresthesia Disposition: HOME SELF-CARE Condition: Good Instructions (If sedation given, give patient instructions): Cervical Strain (ED), Paresthesia (ED) Additional Instructions: Please use medication as discussed. Please follow up with family doctor if symptoms have not improved over the next two days. Please return to the emergency room if your symptoms increase or worsen or for any other concerns. Prescriptions: Ibuprofen 600 mg PO TID #20 tablet methylPREDNISolone Dose Pack [Medrol Dose Pack] 4 mg PO DIRECTED #21 package Orphenadrine [Norflex] 100 mg PO Q12H #10 tablet.er Is patient prescribed a controlled substance at d/c from ED?: No Referrals: Asad Jung MD [Primary Care Provider] - 1-2 days Time of Disposition: 12:39
--- NOTE | 2019-09-26 11:46 | XR ---
EXAMINATION TYPE: XR cervical spine limited , 3 VIEWS DATE OF EXAM ORDERED: 09/26/2019 HISTORY: torticollis. COMPARISON: None. FINDINGS: Vertebral body height and alignment are maintained. Prevertebral soft tissues are normal. There is mild disc space loss and hypertrophic spondylosis at C6-7. There is mild uncovertebral joint disease at this level. The pedicles are intact. IMPRESSION: 1. NO ACUTE OSSEOUS LESION. 2. DEGENERATIVE DISC DISEASE, C6-7.
[2019-09-26 13:09] VITALS: BP 151/98; PULSE 89; RESP 16
== END 2019-09-26 13:20 | disposition home or self-care (01) ==
LOC: EC 10:16
DX: M62.838 Other muscle spasm (principal); R20.2 Paresthesia of skin; R20.0 Anesthesia of skin; M53.82 Other specified dorsopathies, cervical region; M06.9 Rheumatoid arthritis, unspecified; Z79.899 Other long term (current) drug therapy
CPT/HCPCS: 72040; 99284; 96372 ×3; J2360; J2930; J1885

== ENCOUNTER 2019-10-19 13:30 | Emergency (ER) | payer OTHER ==
[2019-10-19 13:44] VITALS: TEMP 98
[2019-10-19] MEDS ORDERED: KETOROLAC 30 MG/ML 1 ML VIAL IVP STA (14:38)
[2019-10-19] MEDS ORDERED: SODIUM CHLORIDE 0.9% 1,000 ML IV STA (14:38)
[2019-10-19] MEDS ORDERED: METOCLOPRAMIDE 5 MG/ML 2 ML VIAL IVP STA (14:38)
[2019-10-19 15:06] LABS: Basophils % (A) 1 %; Eosinophils # (A) 0.4 k/uL (0-0.7); Eosinophils % (A) 5 %; HCT 44.3 % (39.0-53.0); HGB 15.1 gm/dL (13.0-17.5); Lymphocytes # (A) 1.1 k/uL (1.0-4.8); Lymphocytes % (A) 15 %; MCH 30.2 pg (25.0-35.0); MCHC 34.1 g/dL (31.0-37.0); MCV 88.6 fL (80.0-100.0); Mean Platelet Volume 7.7; Monocytes # (A) 0.4 k/uL (0-1.0); Monocytes % (A) 6 %; Neutrophils # (A) 5.3 k/uL (1.3-7.7); Neutrophils % (A) 72 %; Platelet Count 247 k/uL (150-450); RDW 12.5 % (11.5-15.5); WBC 7.4 k/uL (3.8-10.6)
[2019-10-19 15:18] LABS: ALT 36 U/L (21-72); AST 32 U/L (17-59); African American GFR (CKD) >90 (>60 ml/min/1.73 sqM); Albumin 4.4 g/dL (3.5-5.0); Alkaline Phosphatase 77 U/L (38-126); Amylase 80 U/L (30-110); Anion Gap 9 mmol/L; Blood Urea Nitrogen 12 mg/dL (9-20); Calcium 9.3 mg/dL (8.4-10.2); Carbon Dioxide 26 mmol/L (22-30); Chloride 106 mmol/L (98-107); Glucose 117 mg/dL (74-99); Non-African American GFR(CKD) >90 (>60 ml/min/1.73 sqM); Potassium 3.9 mmol/L (3.5-5.1); Sodium 141 mmol/L (137-145); Total Bilirubin 0.6 mg/dL (0.2-1.3); Total Protein 7.7 g/dL (6.3-8.2)
--- NOTE | 2019-10-19 15:32 | XR ---
EXAMINATION TYPE: XR chest 2V DATE OF EXAM: 10/19/2019 COMPARISON: 08/21/2019 TECHNIQUE: PA and lateral views submitted. HISTORY: Cough and vomiting FINDINGS: The lungs are clear and there is no pneumothorax, pleural effusion, or focal pneumonia. No overt fa ilure. Heart size normal. Mild hypertrophic change of the spine. IMPRESSION: 1. No acute process.
[2019-10-19 15:33] VITALS: BP 149/85; PULSE 79; RESP 16
--- NOTE | 2019-10-19 15:35 | XR ---
KUB HISTORY: Vomiting, cough, chest pressure, pain From a KUB submitted on [address] scan 08/20/2019 Lung bases are clear. There is no evident bowel obstruction or pneumoperitoneum. Bone mineralization is normal. Thoracic spondylosis is present. IMPRESSION: Nonspecific abdomen findings.
--- NOTE | 2019-10-19 16:10 | ED ---
General Adult HPI - General Chief complaint: Nausea/Vomiting/Diarrhea Stated complaint: unable to keep anything down/swallow Chest pressur Time Seen by Provider: 10/19/19 14:26 Source: family, RN notes reviewed Mode of arrival: ambulatory Limitations: no limitations - History of Present Illness Initial comments: 49-year-old male with a past medical history of GERD, hyperlipidemia presents to the emergency department for nausea vomiting. Patient states he has had intermittent episodes of nausea and vomiting for the past 3 days. He denies any abdominal pain or discomfort associated with this. Patient denies any chest pain or pressure despite triage note. Denies shortness of breath. Denies diarrhea. States his last bowel movement was normal last night. Denies fevers or chills. States he is passing gas normally. Denies any abdominal surge ernst.Patient has no other complaints at this time including shortness of breath, chest pain, abdominal pain, headache, or visual changes. - Related Data Home Medications Medication Instructions Recorded Confirmed Etanercept [Enbrel Sureclick] 50 mg SQ FR 02/20/19 09/26/19 Methotrexate 25mg/1ml 25 mg IM WE 02/20/19 09/26/19 Folic Acid 1 mg PO DAILY 08/05/19 09/26/19 Montelukast [Singulair] 10 mg PO DAILY@1200 08/28/19 09/26/19 Cyclobenzaprine [Flexeril] 5 mg PO TID PRN 09/26/19 09/26/19 Previous Rx's Medication Instructions Recorded Ibuprofen 600 mg PO TID #20 tablet 09/26/19 Orphenadrine [Norflex] 100 mg PO Q12H #10 tablet.er 09/26/19 methylPREDNISolone Dose Pack 4 mg PO DIRECTED #21 package 09/26/19 [Medrol Dose Pack] Ondansetron [Zofran ODT] 4 mg PO Q8HR PRN #15 tab 10/19/19 Allergies Allergy/AdvReac Type Severity Reaction Status Date / Time No Known Allergies Allergy Verified 10/19/19 13:44 Review of Systems ROS Statement: Those systems with pertinent positive or pertinent negative responses have been documented in the HPI. ROS Other: All systems not noted in ROS Statement are negative. Past Medical History Past Medical History: GERD/Reflux, Hyperlipidemia, Rheumatoid Arthritis (RA) Last Myocardial Infarction Date:: Dyslipidemia, appears to have some mild developmental delay History of Any Multi-Drug Resistant Organisms: None Reported Past Surgical History: No Surgical Hx Reported Past Anesthesia/Blood Transfusion Reactions: No Reported Reaction Past Psychological History: No Psychological Hx Reported Smoking Status: Never smoker Past Alcohol Use History: None Reported Past Drug Use History: None Reported - Past Family History Father Family Medical History: Hypertension Mother History Unknown: Yes Family Medical History: No Reported History Grandfather Additional Family Medical History / Comment(s): Heart disease General Exam Limitations: no limitations General appearance: alert, in no apparent distress Head exam: Present: atraumatic, normocephalic, normal inspection Eye exam: Present: normal appearance, PERRL, EOMI. Absent: scleral icterus, conjunctival injection, periorbital swelling ENT exam: Present: normal exam, mucous membranes moist Neck exam: Present: normal inspection, full ROM. Absent: tenderness, m eningismus, lymphadenopathy Respiratory exam: Present: normal lung sounds bilaterally. Absent: respiratory distress, wheezes, rales, rhonchi, stridor Cardiovascular Exam: Present: regular rate, normal rhythm, normal heart sounds. Absent: systolic murmur, diastolic murmur, rubs, gallop, clicks GI/Abdominal exam: Present: soft, normal bowel sounds. Absent: distended, tenderness (No tenderness whatsoever noted of the abdomen. No right upper quadrant tenderness, negative Arreguin sign.), guarding, rebound, rigid Neurological exam: Present: alert Course Vital Signs 10/19/19 10/19/19 13:41 15:31 Temperature 98.0 F Pulse Rate 99 79 Respiratory 18 16 Rate Blood Pressure 146/78 149/85 O2 Sat by Pulse 100 99 Oximetry Medical Decision Making - Medical Decision Making Vitals are stable. Patient is afebrile. Exam is benign and unremarkable. There is no abdominal tenderness. CBC CMP was obtained which did not show any pertinent abnormalities. No evidence for dehydration. Given slight cough chest x-ray was obtained which shows no acute process. XR KUB was obtained and shows a nonspecific abdomen. No evidence of bowel obstruction or pneumoperitoneum. Patient was given a liter of fluids. He was given Reglan. Patient had significant relief in symptoms. States his nausea has completely resolved. Again denying any pain on reevaluation. Patient passed a by mouth challenge both with solid foods as well as full juice box. Patient will be prescribed Zofran. He will follow up with primary care in 1-2 days or return if he has any worsening symptoms. - Lab Data Result diagrams: 10/19/19 14:57 10/19/19 14:57 Lab Results 10/19/19 10/19/19 Range/Units 14:57 14:57 WBC 7.4 (3.8-10.6) k/uL RBC 5.00 (4.30-5.90) m/uL Hgb 15.1 (13.0-17.5) gm/dL Hct 44.3 (39.0-53.0) % MCV 88.6 (80.0-100.0) fL MCH 30.2 (25.0-35.0) pg MCHC 34.1 (31.0-37.0) g/dL RDW 12.5 (11.5-15.5) % Plt Count 247 (150-450) k/uL Neutrophils % 72 % Lymphocytes % 15 % Monocytes % 6 % Eosinophils % 5 % Basophils % 1 % Neutrophils # 5.3 (1.3-7.7) k/uL Lymphocytes # 1.1 (1.0-4.8) k/uL Monocytes # 0.4 (0-1.0) k/uL Eosinophils # 0.4 (0-0.7) k/uL Basophils # 0.0 (0-0.2) k/uL Sodium 141 (137-145) mmol/L Potassium 3.9 (3.5-5.1) mmol/L Chloride 106 (98-107) mmol/L Carbon Dioxide 26 (22-30) mmol/L Anion Gap 9 mmol/L BUN 12 (9-20) mg/dL Creatinine 0.90 (0.66-1.25) mg/dL Est GFR (CKD-EPI)AfAm >90 (>60 ml/min/1.73 sqM) Est GFR (CKD-EPI)NonAf >90 (>60 ml/min/1.73 sqM) Glucose 117 H (74-99) mg/dL Calcium 9.3 (8.4-10.2) mg/dL Total Bilirubin 0.6 (0.2-1.3) mg/dL AST 32 (17-59) U/L ALT 36 (21-72) U/L Alkaline Phosphatase 77 (38-126) U/L Total Protein 7.7 (6.3-8.2) g/dL Albumin 4.4 (3.5-5.0) g/dL Amylase 80 (30-110) U/L Lipase 279 (23-300) U/L Disposition Clinical Impression: Nausea and vomiting Disposition: HOME SELF-CARE Condition: Good Instructions (If sedation given, give patient instructions): Acute Nausea and Vomiting (ED) Additional Instructions: Please take Zofran as needed for nausea. Please follow-up with primary care in 1-2 days. If you have any worsening symptoms return to the emergency department. Prescriptions: Ondansetron [Zofran ODT] 4 mg PO Q8HR PRN #15 tab PRN Reason: Nausea Is patient prescribed a controlled substance at d/c from ED?: No Referrals: Asad Jung MD [Primary Care Provider] - 1-2 days Time of Disposition: 16:10
== END 2019-10-19 16:29 | disposition home or self-care (01) ==
LOC: EC 13:30
DX: R11.2 Nausea with vomiting, unspecified (principal); R05 Cough; M06.9 Rheumatoid arthritis, unspecified; K21.9 Gastro-esophageal reflux disease without esophagitis; Z79.899 Other long term (current) drug therapy
CPT/HCPCS: 36415; 80053; 82150; 83690; 85025; 71046; 74018; 99284; 96374; 96375; 96361; J2765; J1885

== ENCOUNTER 2020-01-08 12:55 | Emergency (ER) | payer OTHER ==
[2020-01-08 12:59] VITALS: BP 157/94; PULSE 94; RESP 16; TEMP 97.8
[2020-01-08] MEDS ORDERED: KETOROLAC 60 MG/2 ML VIAL IM STA (13:05)
--- NOTE | 2020-01-08 13:05 | ED ---
Extremity Problem HPI - General Source: patient Mode of arrival: ambulatory Limitations: no limitations <Rubi Lara - Last Filed: 01/08/20 15:19> <Bree Farias - Last Filed: 01/09/20 23:25> - General Chief complaint: Extremity Problem,Nontraumatic Stated complaint: bilat knee pain Time Seen by Provider: 01/08/20 13:01 - History of Present Illness Initial comments: 40-year-old male presenting today for chief complaint of bilateral knee purposes. Patient states the skin is thick and purple on his anterior knees bilaterally. Patient denies any falls or trauma patient denies any coolness or pallor. Patient denies any other areas of discoloration. Patient states that his knees hurt chronically bilaterally. Patient denies any redness or swelling. Patient has no other complaints he states he does not think he can work with this and needs work note. Patient denies any other complaints. (Rubi Lara) - Related Data Home Medications Medication Instructions Recorded Confirmed Etanercept [Enbrel Sureclick] 50 mg SQ FR 02/20/19 01/09/20 Methotrexate 25mg/1ml 25 mg IM WE 02/20/19 01/09/20 Folic Acid 1 mg PO DAILY 08/05/19 01/09/20 Montelukast [Singulair] 10 mg PO DAILY@1200 08/28/19 01/09/20 Omeprazole 20 mg PO DAILY 01/09/20 01/09/20 Allergies Allergy/AdvReac Type Severity Reaction Status Date / Time No Known Allergies Allergy Verified 01/09/20 17:35 Review of Systems ROS Other: All systems not noted in ROS Statement are negative. <Rubi Lara - Last Filed: 01/08/20 15:19> ROS Other: All systems not noted in ROS Statement are negative. <Bree Farias - Last Filed: 01/09/20 23:25> ROS Statement: Those systems with pertinent positive or pertinent negative responses have been documented in the HPI. Past Medical History Past Medical History: GERD/Reflux, Hyperlipidemia, Rheumatoid Arthritis (RA) Last Myocardial Infarction Date:: Dyslipidemia, appears to have some mild developmental delay History of Any Multi-Drug Resistant Organisms: None Reported Past Surgical History: No Surgical Hx Reported Past Anesthesia/Blood Transfusion Reactions: No Reported Reaction Past Psychological History: No Psychological Hx Reported Smoking Status: Never smoker Past Alcohol Use History: None Reported Past Drug Use History: None Reported - Past Family History Father Family Medical History: Hypertension Mother History Unknown: Yes Family Medical History: No Reported History Grandfather Additional Family Medical History / Comment(s): Heart disease <Rubi Lara - Last Filed: 01/08/20 15:19> General Exam Limitations: no limitations <Rubi Lara Shira - Last Filed: 01/08/20 15:19> - General Exam Comments Initial Comments: General: The patient is awake and alert, in no distress, and does not appear acutely ill. Eye: +3 mm pupils are equal, round and reactive to light, extra-ocular movements are intact. No nystagmus. There is normal conjunctiva bilaterally. No signs of icterus. Cardiovascular: There is a regular rate and rhythm. No murmur, rub or gallop is appreciated. Respiratory: Lungs are clear to auscultation, respirations are non-labored, breath sounds are equal. No wheezes, stridor, rales, or rhonchi. Gastrointestinal: Soft, non-distended, non-tender abdomen without masses or organomegaly noted. There is no rebound or guarding present. Musculoskeletal: Thick dry brown skin over anterior knees b/l. No bruising, no purple discoloration, no redness. No swelling, Normal ROM. Strength 5/5. Sensation intact. DP, PT and Popliteal pulses equal bilaterally 2+. Neurological: A&O x 3. CN II-XII intact grossly, There are no obvious motor or sensory deficits. Coordination appears grossly intact. Speech is normal. Skin: Skin is warm and dry and no rashes or lesions are noted. No LE swelling, redness or masses. Psychiatric: Cooperative, appropriate mood & affect, normal judgment. (Denice Larastefan Silva) Course Vital Signs 01/08/20 12:57 Temperature 97.8 F Pulse Rate 94 Respiratory 16 Rate Blood Pressure 157/94 O2 Sat by Pulse 97 Oximetry Medical Decision Making <Rubi Lara Shira - Last Filed: 01/08/20 15:19> <Bree Farias - Last Filed: 01/09/20 23:25> - Medical Decision Making 50-year-old male presenting today for chief complaint of bilateral anterior knee per pelvis. It appears that there is some darkening of the skin and dry skin there is no evidence of purple discoloration. Patient legs do not appear cyanotic he has a great peripheral vascular exam. No swelling. Patient does appear to have dry skin. Discussed proper skin care. Patient has no signs of secondary infeciton or vascular compromise and therefore may be discharged with PCP f/u .Patient agreeable to care plan and discharge at this time. (Rubi Lara) I was available for consultation in the emergency department. The history and p hysical exam were done by the midlevel provider. I was consulted for this patients care. I reviewed the case with the midlevel provider and based on their presentation of the patient, I agree with the assessment, medical decision making and plan of care as documented. Chart was dictated using [employer] dictation software. Attempts were made to correct any dictation errors however some typographical errors may persist. (Bree Farias) Disposition Is patient prescribed a controlled substance at d/c from ED?: No Time of Disposition: 13:04 <Rubi Lara - Last Filed: 01/08/20 15:19> <Bree Farias - Last Filed: 01/09/20 23:25> Clinical Impression: Dry skin Disposition: HOME SELF-CARE Condition: Good Additional Instructions: Please use medication as discussed. Please follow-up with family doctor in the next 2 days Please use lotions as discussed. Please return to emergency room if the symptoms increase or worsen or for any other concerns. Referrals: Asad Jung MD [Primary Care Provider] - 1-2 days
== END 2020-01-08 13:20 | disposition home or self-care (01) ==
LOC: EC 12:55
DX: L98.8 Other specified disorders of the skin and subcutaneous tissue (principal); M25.562 Pain in left knee; M25.561 Pain in right knee; K21.9 Gastro-esophageal reflux disease without esophagitis; M06.9 Rheumatoid arthritis, unspecified; Z79.899 Other long term (current) drug therapy
CPT/HCPCS: 99283; 96372; J1885

== ENCOUNTER 2020-01-08 15:39 | Emergency (ER) | payer OTHER ==
[2020-01-08 15:53] VITALS: BP 137/82; PULSE 82; TEMP 97.9
--- NOTE | 2020-01-08 16:12 | ED ---
General Adult HPI - General Chief complaint: Upper Respiratory Infection Stated complaint: Cough Time Seen by Provider: 01/08/20 15:54 Source: patient, RN notes reviewed Mode of arrival: ambulatory Limitations: no limitations - History of Present Illness Initial comments: 50-year-old male with a past medical history of GERD, hyperlipidemia presents to the emergency department for a chief of a nonproductive cough. Patient states he was here earlier for knee problems however those have resolved. But when patient went home he started having a productive cough. States he is coughing up phlegm. Denies shortness of breath or chest pain. Denies congestion. Denies any hemoptysis. Denies vomiting or diarrhea. Denies fevers or chills.Patient has no other complaints at this time including shortness of breath, chest pain, abdominal pain, nausea or vomiting, headache, or visual changes. - Related Data Home Medications Medication Instructions Recorded Confirmed Etanercept [Enbrel Sureclick] 50 mg SQ FR 02/20/19 09/26/19 Methotrexate 25mg/1ml 25 mg IM WE 02/20/19 09/26/19 Folic Acid 1 mg PO DAILY 08/05/19 09/26/19 Montelukast [Singulair] 10 mg PO DAILY@1200 08/28/19 09/26/19 Cyclobenzaprine [Flexeril] 5 mg PO TID PRN 09/26/19 09/26/19 Previous Rx's Medication Instructions Recorded Ibuprofen 600 mg PO TID #20 tablet 09/26/19 Orphenadrine [Norflex] 100 mg PO Q12H #10 tablet.er 09/26/19 methylPREDNISolone Dose Pack 4 mg PO DIRECTED #21 package 09/26/19 [Medrol Dose Pack] Ondansetron [Zofran ODT] 4 mg PO Q8HR PRN #15 tab 10/19/19 Allergies Allergy/AdvReac Type Severity Reaction Status Date / Time No Known Allergies Allergy Verified 01/08/20 15:53 Review of Systems ROS Statement: Those systems with pertinent positive or pertinent negative responses have been documented in the HPI. ROS Other: All systems not noted in ROS Statement are negative. Past Medical History Past Medical History: GERD/Reflux, Hyperlipidemia, Rheumatoid Arthritis (RA) Last Myocardial Infarction Date:: Dyslipidemia, appears to have some mild developmental delay History of Any Multi-Drug Resistant Organisms: None Reported Past Surgical History: No Surgical Hx Reported Past Anesthesia/Blood Transfusion Reactions: No Reported Reaction Past Psychological History: No Psychological Hx Reported Smoking Status: Never smoker Past Alcohol Use History: None Reported Past Drug Use History: None Reported - Past Family History Father Family Medical History: Hypertension Mother History Unknown: Yes Family Medical History: No Reported History Grandfather Additional Family Medical History / Comment(s): Heart disease General Exam Limitations: no limitations General appearance: alert, in no apparent distress Head exam: Present: atraumatic, normocephalic, normal inspection Eye exam: Present: normal appearance, PERRL, EOMI. Absent: scleral icterus, conjunctival injection, periorbital swelling ENT exam: Present: normal exam, normal oropharynx, mucous membranes moist, TM's normal bilaterally, normal external ear exam Neck exam: Present: normal inspection, full ROM. Absent: tenderness, meningismus, lymphadenopathy Respiratory exam: Present: normal lung sounds bilaterally. Absent: respiratory distress, wheezes, rales, rhonchi, stridor Cardiovascular Exam: Present: regular rate, normal rhythm, normal heart sounds. Absent: systolic murmur, diastolic murmur, rubs, gallop, clicks Neurological exam: Present: alert Course Vital Signs 01/08/20 01/08/20 15:51 16:14 Temperature 97.9 F Pulse Rate 82 Respiratory 16 18 Rate Blood Pressure 137/82 O2 Sat by Pulse 98 Oximetry Medical Decision Making - Medical Decision Making 50-year-old male currently taking methotrexate for rheumatoid arthritis presents for cough 2 hours. States it is productive with phlegm. Denies fevers or shortness of breath. No chest pain. Lungs are clear to auscultation bilaterally. No wheezing or crackles. Chest x-ray shows no acute pulmonary process. Patient is afebrile and well-appearing. I discussed with patient that given he is on methotrexate he needs to follow strict return parameters including return for worsening cough or fever. He is agreeable to this. He will follow up with primary care otherwise. Disposition Clinical Impression: Cough Disposition: HOME SELF-CARE Condition: Good Instructions (If sedation given, give patient instructions): Acute Cough (ED) Additional Instructions: Please follow up with primary care in 1-2 days. If you have any worsening symptoms return to the emergency department. Is patient prescribed a controlled substance at d/c from ED?: No Referrals: Asad Jung MD [Primary Care Provider] - 1-2 days Time of Disposition: 16:12
--- NOTE | 2020-01-08 16:15 | XR ---
EXAMINATION TYPE: XR chest 2V DATE OF EXAM: 01/08/2020 COMPARISON: 10/19/2019 INDICATION: Cough TECHNIQUE: Frontal and lateral views of the chest are obtained. FINDINGS: The heart size is normal. The pulmonary vasculature is normal. The lungs are clear. Some hyperinflation flattening the diaphragms may be present. IMPRESSION: 1. No acute pulmonary process.
[2020-01-08 16:16] VITALS: RESP 18
== END 2020-01-08 16:17 | disposition home or self-care (01) ==
LOC: EC 15:39
DX: R05 Cough (principal); M06.9 Rheumatoid arthritis, unspecified; Z79.899 Other long term (current) drug therapy
CPT/HCPCS: 71046; 99283

== ENCOUNTER 2020-01-08 16:36 | Emergency (ER) | payer OTHER ==
[2020-01-08 16:40] VITALS: RESP 16
--- NOTE | 2020-01-08 16:46 | ED ---
General Adult HPI - General Chief complaint: Nausea/Vomiting/Diarrhea Stated complaint: Vomiting Blood... Time Seen by Provider: 01/08/20 16:45 Source: patient Mode of arrival: ambulatory Limitations: no limitations - History of Present Illness Initial comments: Patient presents the ED for the third time today. Patient was seen earlier today for knee skin issues, and he was just discharged from the ED after being evaluated for a cough with a negative chest x-ray. Patient states that he vomited blood immediately after leaving the hospital, so he turned around and checked back in. Patient states that this was the only time that he has vomited today. Patient denies feeling nauseated currently. Patient denies having any other symptoms or complaints currently. Patient denies trauma or injury, fever or chills, headache, focal neuro deficit, chest pain, dyspnea, dizziness/lightheadedness, abdominal pain, back pain, diarrhea or constipation, bloody or melanotic stool, dysuria/hematuria/urinary symptoms, or any other symptoms or complaints. Patient denies anticoagulant medication use. Patient is well known to the ED staff, and he has had numerous ED presentations in the past. - Related Data Home Medications Medication Instructions Recorded Confirmed Etanercept [Enbrel Sureclick] 50 mg SQ FR 02/20/19 09/26/19 Methotrexate 25mg/1ml 25 mg IM WE 02/20/19 09/26/19 Folic Acid 1 mg PO DAILY 08/05/19 09/26/19 Montelukast [Singulair] 10 mg PO DAILY@1200 08/28/19 09/26/19 Cyclobenzaprine [Flexeril] 5 mg PO TID PRN 09/26/19 09/26/19 Previous Rx's Medication Instructions Recorded Ibuprofen 600 mg PO TID #20 tablet 09/26/19 Orphenadrine [Norflex] 100 mg PO Q12H #10 tablet.er 09/26/19 methylPREDNISolone Dose Pack 4 mg PO DIRECTED #21 package 09/26/19 [Medrol Dose Pack] Ondansetron [Zofran ODT] 4 mg PO Q8HR PRN #15 tab 10/19/19 Allergies Allergy/AdvReac Type Severity Reaction Status Date / Time No Known Allergies Allergy Verified 01/08/20 16:40 Review of Systems ROS Statement: Those systems with pertinent positive or pertinent negative responses have been documented in the HPI. ROS Other: All systems not noted in ROS Statement are negative. Past Medical History Past Medical History: GERD/Reflux, Hyperlipidemia, Rheumatoid Arthritis (RA) Last Myocardial Infarction Date:: Dyslipidemia, appears to have some mild developmental delay History of Any Multi-Drug Resistant Organisms: None Reported Past Surgical History: No Surgical Hx Reported Past Anesthesia/Blood Transfusion Reactions: No Reported Reaction Past Psychological History: No Psychological Hx Reported Smoking Status: Never smoker Past Alcohol Use History: None Reported Past Drug Use History: None Reported - Past Family History Father Family Medical History: Hypertension Mother History Unknown: Yes Family Medical History: No Reported History Grandfather Additional Family Medical History / Comment(s): Heart disease General Exam Limitations: no limitations General appearance: alert, in no apparent distress Head exam: Present: atraumatic, normocephalic Eye exam: Present: normal appearance, EOMI ENT exam: Present: normal oropharynx, mucous membranes moist, other (No evidence of blood is noted in the oral cavity) Neck exam: Present: other (Trachea is in midline) Respiratory exam: Present: normal lung sounds bilaterally. Absent: respiratory distress, wheezes, rales, rhonchi Cardiovascular Exam: Present: regular rate, normal rhythm, normal heart sounds, other (Normal radial pulses bilaterally) GI/Abdominal exam: Present: soft, normal bowel sounds. Absent: distended, tenderness, guarding Extremities exam: Absent: tenderness, pedal edema Neurological exam: Present: alert, oriented X3. Absent: motor sensory deficit Psychiatric exam: Present: normal affect, normal mood Skin exam: Present: warm, dry, intact, normal color Course Vital Signs 01/08/20 16:38 Temperature 98.8 F Pulse Rate 83 Respiratory 16 Rate Blood Pressure 147/80 O2 Sat by Pulse 99 Oximetry - Reevaluation(s) Reevaluation #1: 01/08/20 17:41 Patient denies development of any new symptoms while in the ED. Patient continues to deny feeling nauseated. Patient has not had any vomiting while in the ED. Patient's abdomen remains soft and nontender on exam. Patient is aware of his test results, and he feels comfortable going home at this time. Medical Decision Making - Medical Decision Making Patient reports having a single bout of bloody emesis upon discharge from the ED earlier today. Patient's hemoglobin (15.2) and BUN (15) are within normal limits. Patient's vital signs are normal/reassuring, and patient is not tachycardic or hypotensive. Patient denies anticoagulant medication use. Patient's abdomen is soft and nontender on exam. I do not suspect that the patient has a significant GI bleed or any other emergent medical condition at this time. Patient was counseled about vomiting/hematemesis. Patient was instructed to follow up closely with his primary care provider. Patient was i nstructed to return to the ED should he develop increased or persistent vomiting, another episode of vomiting blood, a bloody or dark bowel movement, abdominal pain, fever, feeling dizzy or lightheaded, chest pain, shortness of breath, or new worsening symptoms. Patient feels comfortable with this plan. - Lab Data Result diagrams: 01/08/20 17:05 01/08/20 17:05 Lab Results 01/08/20 01/08/20 01/08/20 Range/Units 17:05 17:05 17:05 WBC 7.1 (3.8-10.6) k/uL RBC 5.26 (4.30-5.90) m/uL Hgb 15.2 (13.0-17.5) gm/dL Hct 46.1 (39.0-53.0) % MCV 87.6 (80.0-100.0) fL MCH 29.0 (25.0-35.0) pg MCHC 33.1 (31.0-37.0) g/dL RDW 13.2 (11.5-15.5) % Plt Count 263 (150-450) k/uL Neutrophils % 64 % Lymphocytes % 23 % Monocytes % 7 % Eosinophils % 3 % Basophils % 0 % Neutrophils # 4.6 (1.3-7.7) k/uL Lymphocytes # 1.7 (1.0-4.8) k/uL Monocytes # 0.5 (0-1.0) k/uL Eosinophils # 0.2 (0-0.7) k/uL Basophils # 0.0 (0-0.2) k/uL PT 10.4 (9.0-12.0) sec INR 1.0 (<1.2) APTT 24.8 (22.0-30.0) sec Sodium 138 (137-145) mmol/L Potassium 3.7 (3.5-5.1) mmol/L Chloride 104 (98-107) mmol/L Carbon Dioxide 25 (22-30) mmol/L Anion Gap 9 mmol/L BUN 15 (9-20) mg/dL Creatinine 0.76 (0.66-1.25) mg/dL Est GFR (CKD-EPI)AfAm >90 (>60 ml/min/1.73 sqM) Est GFR (CKD-EPI)NonAf >90 (>60 ml/min/1.73 sqM) Glucose 93 (74-99) mg/dL Calcium 9.2 (8.4-10.2) mg/dL Total Bilirubin 0.6 (0.2-1.3) mg/dL AST 36 (17-59) U/L ALT 22 (4-49) U/L Alkaline Phosphatase 64 (38-126) U/L Total Protein 7.5 (6.3-8.2) g/dL Albumin 4.3 (3.5-5.0) g/dL Lipase 232 (23-300) U/L Disposition Clinical Impression: Vomiting Disposition: HOME SELF-CARE Condition: Stable Instructions (If sedation given, give patient instructions): Acute Nausea and Vomiting (ED), Hematemesis (ED) Additional Instructions: Return to the ER immediately should you develop increased or persistent vomiting, another episode of vomiting blood, a bloody or dark bowel movement, abdominal pain, fever, feeling dizzy or lightheaded, chest pain, shortness of breath, or new worsening symptoms. Follow up closely with your primary care provider. Is patient prescribed a controlled substance at d/c from ED?: No Referrals: Asad Jung MD [Primary Care Provider] - 1-2 days Time of Disposition: 17:53
[2020-01-08 17:16] LABS: Basophils % (A) 0 %; Eosinophils # (A) 0.2 k/uL (0-0.7); Eosinophils % (A) 3 %; HCT 46.1 % (39.0-53.0); HGB 15.2 gm/dL (13.0-17.5); Lymphocytes # (A) 1.7 k/uL (1.0-4.8); Lymphocytes % (A) 23 %; MCHC 33.1 g/dL (31.0-37.0); MCV 87.6 fL (80.0-100.0); Mean Platelet Volume 7.2; Monocytes # (A) 0.5 k/uL (0-1.0); Monocytes % (A) 7 %; Neutrophils # (A) 4.6 k/uL (1.3-7.7); Neutrophils % (A) 64 %; Platelet Count 263 k/uL (150-450); RBC 5.26 m/uL (4.30-5.90); RDW 13.2 % (11.5-15.5); WBC 7.1 k/uL (3.8-10.6)
[2020-01-08 17:33] LABS: ALT 22 U/L (4-49); AST 36 U/L (17-59); African American GFR (CKD) >90 (>60 ml/min/1.73 sqM); Albumin 4.3 g/dL (3.5-5.0); Alkaline Phosphatase 64 U/L (38-126); Anion Gap 9 mmol/L; Blood Urea Nitrogen 15 mg/dL (9-20); Calcium 9.2 mg/dL (8.4-10.2); Carbon Dioxide 25 mmol/L (22-30); Chloride 104 mmol/L (98-107); Glucose 93 mg/dL (74-99); Non-African American GFR(CKD) >90 (>60 ml/min/1.73 sqM); Potassium 3.7 mmol/L (3.5-5.1); Sodium 138 mmol/L (137-145); Total Bilirubin 0.6 mg/dL (0.2-1.3); Total Protein 7.5 g/dL (6.3-8.2)
[2020-01-08 17:38] LABS: Partial Thromboplastin Time 24.8 sec (22.0-30.0); Prothrombin Time 10.4 sec (9.0-12.0)
[2020-01-08 18:21] VITALS: BP 151/95; PULSE 82; TEMP 98
== END 2020-01-08 18:21 | disposition home or self-care (01) ==
LOC: EC 16:36
DX: K92.0 Hematemesis (principal); R60.0 Localized edema; M06.9 Rheumatoid arthritis, unspecified; Z79.899 Other long term (current) drug therapy
CPT/HCPCS: 36415; 80053; 83690; 85025; 85610; 85730; 99284

== ENCOUNTER 2020-01-09 15:10 | Observation (INO) | payer OTHER ==
--- NOTE | 2020-01-09 16:02 | ED ---
Chest Pain HPI - General Chief Complaint: Chest Pain Stated Complaint: chest pain Time Seen by Provider: 01/09/20 15:15 Source: patient Mode of arrival: ambulatory Limitations: no limitations - History of Present Illness Initial Comments: The patient is a 50-year-old male with no past cardiac history who presents with chest pain. He states his pain started earlier today when he was walking to lunch. States that it is an exertional chest pain which starts in the right side of his chest radiates to his jaw and right arm. Has associated shortness of breath. No previous history of cardiac disease or arrhythmias. No underlying lung conditions. States he has been previously seen by cardiology. Reports show that he had an echo in 2018 which was normal. Patient denies having a history of cardiac catheterization. Denies cough, hemoptysis. Denies any fevers or chills. No nausea, vomiting or diaphoresis. Denies abdominal pain. No ripping or tearing sensation to his back. There are no alleviating, precipitating or modifying factors - Related Data Home Medications Medication Instructions Recorded Confirmed Etanercept [Enbrel Sureclick] 50 mg SQ FR 02/20/19 01/09/20 Methotrexate 25mg/1ml 25 mg IM WE 02/20/19 01/09/20 Folic Acid 1 mg PO DAILY 08/05/19 01/09/20 Montelukast [Singulair] 10 mg PO DAILY@1200 08/28/19 01/09/20 Omeprazole 20 mg PO DAILY 01/09/20 01/09/20 Previous Rx's Medication Instructions Recorded Rosuvastatin Calcium [Crestor] 20 mg PO DAILY #90 tab 01/10/20 Allergies Allergy/AdvReac Type Severity Reaction Status Date / Time No Known Allergies Allergy Verified 01/09/20 17:35 Review of Systems ROS Statement: Those systems with pertinent positive or pertinent negative responses have been documented in the HPI. ROS Other: All systems not noted in ROS Statement are negative. EKG Findings - EKG Comments: EKG Findings:: EKG demonstrates a sinus rhythm with a ventricular rate of 84. NV interval 128. QRS 76. QTC of 420. Peak T-wave in V2. No ST depression. Past Medical History Past Medical History: GERD/Reflux, Hyperlipidemia, Rheumatoid Arthritis (RA) Last Myocardial Infarction Date:: Dyslipidemia, appears to have some mild developmental delay History of Any Multi-Drug Resistant Organisms: None Reported Past Surgical History: No Surgical Hx Reported Past Anesthesia/Blood Transfusion Reactions: No Reported Reaction Past Psychological History: No Psychological Hx Reported Smoking Status: Never smoker Past Alcohol Use History: None Reported Past Drug Use History: None Reported - Past Family History Father Family Medical History: Hypertension Mother History Unknown: Yes Family Medical History: No Reported History Grandfather Additional Family Medical History / Comment(s): Heart disease General Exam Limitations: no limitations General appearance: alert, in no apparent distress Head exam: Present: atraumatic, normocephalic, normal inspection Eye exam: Present: normal appearance, PERRL, EOMI. Absent: scleral icterus, conjunctival injection, periorbital swelling ENT exam: Present: normal exam, mucous membranes moist Neck exam: Present: normal inspection. Absent: tenderness, meningismus, lympha denopathy Respiratory exam: Present: normal lung sounds bilaterally. Absent: respiratory distress, wheezes, rales, rhonchi, stridor Cardiovascular Exam: Present: regular rate, normal rhythm, normal heart sounds. Absent: systolic murmur, diastolic murmur, rubs, gallop, clicks GI/Abdominal exam: Present: soft, normal bowel sounds. Absent: distended, tenderness, guarding, rebound, rigid Extremities exam: Present: normal inspection, full ROM, normal capillary refill. Absent: tenderness, pedal edema, joint swelling, calf tenderness Back exam: Present: normal inspection Neurological exam: Present: alert, oriented X3, CN II-XII intact Psychiatric exam: Present: normal affect, normal mood Skin exam: Present: warm, dry, intact, normal color. Absent: rash Course Vital Signs 01/09/20 01/09/20 01/09/20 15:12 16:00 17:00 Temperature 97.3 F L Pulse Rate 83 82 91 Pulse Rate [ Car Driver ] Respiratory 16 20 18 Rate Blood Pressure 152/82 141/91 137/86 O2 Sat by Pulse 99 95 98 Oximetry 01/09/20 01/09/20 01/09/20 18:00 19:05 20:00 Temperature Pulse Rate 93 78 Pulse Rate [ 76 Car Driver ] Respiratory 22 18 18 Rate Blood Pressure 165/110 133/99 O2 Sat by Pulse 98 96 Oximetry 01/09/20 20:30 Temperature Pulse Rate 82 Pulse Rate [ Car Driver ] Respiratory 18 Rate Blood Pressure 134/88 O2 Sat by Pulse 96 Oximetry Chest Pain MDM - MDM Upon arrival the patient was placed into room 20. Throat exam is performed. X- rays were conducted the patient went for chest x-ray. EKG demonstrates normal sinus rhythm. Patient remains on the engine monitor and will have episodes sinus tachycardia with a heart rate of 115. Laboratory studies are essentially unremarkable. D-dimer 0.25. Troponin is less than 0.012. Chest x-ray demonstrates early bilateral perihilar acute infiltrate. I did obtain blood cultures and initiated the patient on a dose of antibiotics. I called and discussed the case with Dr. Fernández who accepted admission. I will consult cardiology and trend the patient's troponins. He is awaiting a Doppler Disposition Clinical Impression: Chest pain Disposition: ADMITTED IP TO THIS HOSP Condition: Stable Is patient prescribed a controlled substance at d/c from ED?: No Decision to Admit Reason: Admit from EC Decision Date: 01/09/20 Decision Time: 17:47
[2020-01-09 16:11] LABS: Basophils % (A) 1 %; Eosinophils # (A) 0.2 k/uL (0-0.7); Eosinophils % (A) 5 %; HGB 14.3 gm/dL (13.0-17.5); Lymphocytes # (A) 1.2 k/uL (1.0-4.8); Lymphocytes % (A) 25 %; MCH 28.5 pg (25.0-35.0); MCHC 32.6 g/dL (31.0-37.0); MCV 87.6 fL (80.0-100.0); Mean Platelet Volume 7.5; Monocytes # (A) 0.4 k/uL (0-1.0); Monocytes % (A) 8 %; Neutrophils # (A) 2.9 k/uL (1.3-7.7); Neutrophils % (A) 59 %; Platelet Count 259 k/uL (150-450); RBC 5.02 m/uL (4.30-5.90); WBC 4.9 k/uL (3.8-10.6)
[2020-01-09 16:24] LABS: D-Dimer 0.25 mg/L FEU (<0.60); INR 0.9 (<1.2); Partial Thromboplastin Time 25.5 sec (22.0-30.0); Prothrombin Time 9.9 sec (9.0-12.0)
[2020-01-09 16:26] LABS: ALT 20 U/L (4-49); AST 31 U/L (17-59); African American GFR (CKD) >90 (>60 ml/min/1.73 sqM); Albumin 4.1 g/dL (3.5-5.0); Alkaline Phosphatase 54 U/L (38-126); Anion Gap 10 mmol/L; Blood Urea Nitrogen 12 mg/dL (9-20); Calcium 8.9 mg/dL (8.4-10.2); Carbon Dioxide 23 mmol/L (22-30); Chloride 105 mmol/L (98-107); Glucose 120 mg/dL (74-99); Magnesium 2.2 mg/dL (1.6-2.3); Non-African American GFR(CKD) >90 (>60 ml/min/1.73 sqM); Potassium 3.9 mmol/L (3.5-5.1); Sodium 138 mmol/L (137-145); Total Bilirubin 0.2 mg/dL (0.2-1.3); Total Protein 7.2 g/dL (6.3-8.2)
[2020-01-09 16:34] LABS: C Reactive Protein <5.0 mg/L (<10.0)
--- NOTE | 2020-01-09 17:15 | XR ---
EXAMINATION TYPE: XR chest 2V DATE OF EXAM: 01/09/2020 COMPARISON: Chest x-ray January 08, 2020. HISTORY: Right-sided chest pain. Cough. TECHNIQUE: Frontal and lateral views of the chest are obtained. FINDINGS: Overlying EKG leads are now present. There is some developing bilateral perihilar opacities . No pleural effusion or pneumothorax bilaterally. The cardiac silhouette size is within normal limi ts. The osseous structures are intact. IMPRESSION: Cannot exclude early bilateral perihilar acute infiltrates when correlating with x-ray o ne day earlier.
[2020-01-09] MEDS ORDERED: NALOXONE 0.4 MG/ML 1 ML VIAL IV PRN ×2 (17:47→18:11)
[2020-01-09] MEDS ORDERED: AZITHROMYCIN 500 MG TAB PO STA (17:52)
[2020-01-09] MEDS ORDERED: cefTRIAXone IN SWFI 1,000 MG/10 ML SYRINGE IVP STA (17:52)
--- NOTE | 2020-01-09 18:22 | P.HPIM ---
History of Present Illness H&P Date: 01/09/20 Chief Complaint: chest pain 50-year-old male with no past cardiac history who presents with chest pain. He has history of rheumatoid arthritis on etanercept and methotrexate. He states his pain started earlier today when he was walking to lunch. States that it is an exertional chest pain which starts in the right side of his chest radiates to his jaw and right arm. Has associated shortness of breath. He was admitted multiple times last year was the same, chest pain and was found to have musculoskeletal issues/costochondritis when evaluated by cardiology. He told me that several months ago he had a stress test that was okay. Patient states that he has a stress test here but I did not see a record of it. No previous history of cardiac disease or arrhythmias. No underlying lung conditions. States he has been previously seen by cardiology. Reports show that he had an echo in 2018 which was normal. Patient denies having a history of cardiac catheterizati on. Denies cough, hemoptysis. Denies any fevers or chills. No nausea, vomiting or diaphoresis. Denies abdominal pain. Workup in the emergency department showed possible hilar infiltrates in the chest x-ray, labs were okay. His vital signs were within normal limits as well. Review of Systems Complete review of system performed, pertinent positives per HPI, otherwise negative Past Medical History Past Medical History: GERD/Reflux, Hyperlipidemia, Rheumatoid Arthritis (RA) Last Myocardial Infarction Date:: Dyslipidemia, appears to have some mild developmental delay History of Any Multi-Drug Resistant Organisms: None Reported Past Surgical History: No Surgical Hx Reported Past Anesthesia/Blood Transfusion Reactions: No Reported Reaction Past Psychological History: No Psychological Hx Reported Smoking Status: Never smoker Past Alcohol Use History: None Reported Past Drug Use History: None Reported - Past Family History Father Family Medical History: Hypertension Mother History Unknown: Yes Family Medical History: No Reported History Grandfather Additional Family Medical History / Comment(s): Heart disease Medications and Allergies Home Medications Medication Instructions Recorded Confirmed Type Etanercept [Enbrel Sureclick] 50 mg SQ FR 02/20/19 01/09/20 History Methotrexate 25mg/1ml 25 mg IM WE 02/20/19 01/09/20 History Folic Acid 1 mg PO DAILY 08/05/19 01/09/20 History Montelukast [Singulair] 10 mg PO DAILY@1200 08/28/19 01/09/20 History Omeprazole 20 mg PO DAILY 01/09/20 01/09/20 History Allergies Allergy/AdvReac Type Severity Reaction Status Date / Time No Known Allergies Allergy Verified 01/09/20 17:35 Physical Exam Vitals: Vital Signs Temp Pulse Resp BP Pulse Ox 01/09/20 17:00 91 18 137/86 98 01/09/20 16:00 82 20 141/91 95 01/09/20 15:12 97.3 F L 83 16 152/82 99 Intake and Output 01/09/20 01/09/20 01/09/20 06:59 14:59 22:59 Other: Weight 83.915 kg Constitutional: No acute distress, conversant, pleasant Eyes:Anicteric sclerae, moist conjunctiva, no lid-lag, PERRLA, ENMT: Oropharynx clear, no erythema, exudates Neck: Supple, FROM, no masses, or JVD, No carotid bruits, No thyromegaly Lungs: Clear to auscultation, Clear to percussion, Normal respiratory effort, no accessory muscle use Cardiovascular: Heart regular in rate and rhythm, No murmurs, gallops, or rubs, No peripheral edema Abdominal: Soft, Nontender, no guarding, rebound or rigidity, Normoactive bowel sounds, No hepatomegaly, No splenomegaly, No palpable mass Skin: Normal temperature, tone, texture, turgor, no induration, No subcutaneous nodules, No rash, lesions, No ulcers Extremities: No digital cyanosis, No clubbing, Pedal pulses intact and symmetrical, Radial pulses intact and symmetrical, No calf tenderness Psychiatric: Alert and oriented to person, place and time, appropriate affect, intact judgement Neuro: Muscles Strength 5/5 in all 4 extremities, Sensation to light touch grossly present throughout, Cranial nerves II-XII grossly intact, no focal sensory deficits Results CBC & Chem 7: 01/09/20 15:54 01/09/20 15:54 Labs: Abnormal Lab Results - Last 24 Hours (Table) 01/09/20 Range/Units 15:54 Glucose 120 H (74-99) mg/dL Assessment and Plan Plan: Chest pain and shortness of breath Rule out community-acquired pneumonia, rule out CAD, rule out PE Was given antibiotics in the ER CT angios the chest Consult pulmonary and cardiology Nitro and Tylenol when necessary for pain Rheumatoid arthritis GERD/Reflux, Hyperlipidemia, All stable Resume meds Patient will be admitted to observation, anticipated length of stay less than 2 midnights
[2020-01-09 19:43] VITALS: RESP 18
--- NOTE | 2020-01-09 19:50 | CT ---
EXAMINATION TYPE: CT angio chest DATE OF EXAM: 01/09/2020 COMPARISON: CTA chest February 20, 2019. Same day chest x-ray of her x-rays. HISTORY: Chest pain. CT DLP: 413.4 mGycm. Automated Exposure Control for Dose Reduction was Utilized. CONTRAST: CTA scan of the thorax is performed with IV Contrast, patient injected with 100 mL of Isovue 370, pul monary embolism protocol. MIP Images are created on CT scanner and reviewed. FINDINGS: LUNGS: Mild biapical pleural/parenchymal scarring. No suspicious groundglass opacity or focal consoli dation with particular attention to the perihilar regions. No pleural effusion or pneumothorax. MEDIASTINUM: There is satisfactory enhancement of the pulmonary artery and its branches, there is no CT evidence for pulmonary embolism. There are no greater than 1 cm hilar or mediastinal lymph nodes . No cardiomegaly or pericardial effusion is seen. OTHER: No additional significant abnormality is seen. IMPRESSION: No CT evidence for acute pulmonary embolism. No suspicious acute pulmonary process.
[2020-01-10] MEDS ORDERED: PANTOPRAZOLE 40 MG TABLET PO SCH (07:30)
[2020-01-10 08:40] LABS: Cholesterol 191 mg/dL (<200); HDL Cholesterol 30 mg/dL (40-60); LDL Cholesterol,Calculated 138 mg/dL (0-99); Triglycerides 117 mg/dL (<150)
[2020-01-10] MEDS ORDERED: FOLIC ACID 1 MG TAB PO SCH (09:00)
--- NOTE | 2020-01-10 10:06 | P.CRDCN ---
History of Present Illness History of present illness: HISTORY OF PRESENTING ILLNESS This is a pleasant 50-year-old male past medical history significant for gastroesophageal reflux disease, dyslipidemia and rheumatoid arthritis. He follows in the office with Dr. Cruz. We have been asked to see in consultation for chest pain. While he is seen and examined resting comfortably sitting up in bed in no acute distress. He describes over the previous one to 2 days and intermittent sharp and dull achy sensation in the left upper abdominal region with radiation to the right upper abdominal region at times. Associated with cough, shortness of breath, nausea, diaphoresis and mild dizziness. He denies any discomfort in the left precordial region or upper anterior chest. According the ER note he had exertional right sided chest pain with radiation to the right jaw and down the right arm. He does not describe this scenario to me. He continues to feel mild reproducible discomfort in the left upper abdominal region. He underwent stress testing in the office February 2019 where he walked for 9 minutes with no evidence of stress induced ischemia. DIAGNOSTICS EKG reveals sinus mechanism with no acute ST or T-wave changes. Chest xray cannot entirely exclude early bilateral perihilar infiltrates. CTA negative for PE with no suspicious pulmonary process. Mild biapical pleural scarring, no consolidations or pleural effusions. Laboratory reviewed, CBC unremarkable, d-dimer 0.25, sodium 138, potassium 3.9, creatinine 0.75, magnesium 2.2, cardiac enzymes negative x3, CRP less than 5, NTproBNP 21, LDL 138. He takes no daily cardiac medications. REVIEW OF SYSTEMS At the time of my exam: CONSTITUTIONAL: Denies fever or chills. CARDIOVASCULAR: Denies chest pain, shortness of breath, orthopnea, PND or palpitations. RESPIRATORY: Denies cough. GASTROINTESTINAL: Denies abdominal pain, diarrhea, constipation, nausea or vomiting. MUSCULOSKELETAL: Denies myalgias. NEUROLOGIC: Denies numbness, tingling or weakness. ENDOCRINE: Denies fatigue, weight change, polydipsia or polyurina. GENITOURINARY: Denies burning, hematuria or urgency with micturation. HEMATOLOGIC: Denies history of anemia or bleeding. PHYSICAL EXAMINATION Blood [id number] heart rate 73 afebrile and maintaining oxygen saturation on room air. CONSTITUTIONAL: No apparent distress. HEENT: Head is normocephalic. Pupils are equal, round. Sclerae anicteric. Mucous membranes of the mouth are moist. No JVD. No carotid bruit. CHEST EXAMINATION: Lungs are clear to auscultation. No chest wall tenderness is noted on palpation or with deep breathing. HEART EXAMINATION: Regular rate and rhythm. S1, S2 heard. No murmurs, gallops or rub. ABDOMEN: Soft, slightly tender upper quadrants. Positive bowel sounds. EXTREMITIES: 2+ peripheral pulses, no lower extremity edema and no calf tenderness. NEUROLOGIC EXAMINATION: Patient is awake, alert and oriented x3. ASSESSMENT Upper abdominal pain, atypical for angina. An acute event has been ruled out. Dyslipidemia Rheumatoid arthritis PLAN An acute coronary event has been ruled out. Proceed with stress echocardiogram to assess for stress induced ischemia. Initiate crestor 20 mg daily for lowering of LDL cholesterol, lifestyle modifications recommended also. Check an ultrasound of the abdomen. Follow up in the office with Dr. Cruz. Thank you kindly for this consultation. Nurse Practitioner note has been reviewed, I agree with a documented findings and plan of care. Patient was seen and examined. Past Medical History Past Medical History: GERD/Reflux, Hyperlipidemia, Rheumatoid Arthritis (RA) Last Myocardial Infarction Date:: Dyslipidemia, appears to have some mild developmental delay History of Any Multi-Drug Resistant Organisms: None Reported Past Surgical History: No Surgical Hx Reported Past Anesthesia/Blood Transfusion Reactions: No Reported Reaction Past Psychological History: No Psychological Hx Reported Smoking Status: Never smoker Past Alcohol Use History: None Reported Past Drug Use History: None Reported - Past Family History Father Family Medical History: Hypertension Mother History Unknown: Yes Family Medical History: No Reported History Grandfather Additional Family Medical History / Comment(s): Heart disease Medications and Allergies Home Medications Medication Instructions Recorded Confirmed Type Etanercept [Enbrel Sureclick] 50 mg SQ FR 02/20/19 01/09/20 History Methotrexate 25mg/1ml 25 mg IM WE 02/20/19 01/09/20 History Folic Acid 1 mg PO DAILY 08/05/19 01/09/20 History Montelukast [Singulair] 10 mg PO DAILY@1200 08/28/19 01/09/20 History Omeprazole 20 mg PO DAILY 01/09/20 01/09/20 History Rosuvastatin Calcium [Crestor] 20 mg PO DAILY #90 tab 01/10/20 Rx Allergies Allergy/AdvReac Type Severity Reaction Status Date / Time No Known Allergies Allergy Verified 01/09/20 17:35 Physical Exam Vitals: Vital Signs Temp Pulse Pulse Pulse Resp BP BP 01/10/20 07:00 97.8 F 73 18 135/80 01/10/20 04:00 97.6 F 77 18 01/10/20 03:50 68 18 01/10/20 00:00 76 18 01/09/20 23:51 98.0 F 81 18 01/09/20 22:01 98.6 F 72 18 163/93 01/09/20 20:30 82 18 134/88 01/09/20 20:00 76 18 01/09/20 19:05 78 18 133/99 01/09/20 18:00 93 22 165/110 01/09/20 17:00 91 18 137/86 01/09/20 16:00 82 20 141/91 01/09/20 15:12 97.3 F L 83 16 152/82 BP Pulse Ox 01/10/20 07:00 96 01/10/20 04:00 118/77 97 01/10/20 03:50 01/10/20 00:00 01/09/20 23:51 131/73 96 01/09/20 22:01 98 01/09/20 20:30 96 01/09/20 20:00 01/09/20 19:05 96 01/09/20 18:00 98 01/09/20 17:00 98 01/09/20 16:00 95 01/09/20 15:12 99 Intake and Output 01/09/20 01/10/20 01/10/20 22:59 06:59 14:59 Intake Total 222 Balance 222 Intake: Oral 222 Other: # Voids 2 Weight 82.8 kg Results 01/09/20 15:54 01/09/20 15:54 Cardiac Enzymes 01/09/20 01/09/20 01/09/20 Range/Units 15:54 15:54 21:26 AST 31 (17-59) U/L Troponin I <0.012 <0.012 (0.000-0.034) ng/mL 01/10/20 Range/Units 03:10 AST (17-59) U/L Troponin I <0.012 (0.000-0.034) ng/mL Coagulation 01/09/20 Range/Units 15:54 PT 9.9 (9.0-12.0) sec APTT 25.5 (22.0-30.0) sec CBC 01/09/20 Range/Units 15:54 WBC 4.9 (3.8-10.6) k/uL RBC 5.02 (4.30-5.90) m/uL Hgb 14.3 (13.0-17.5) gm/dL Hct 44.0 (39.0-53.0) % Plt Count 259 (150-450) k/uL Comprehensive Metabolic Panel 01/09/20 Range/Units 15:54 Sodium 138 (137-145) mmol/L Potassium 3.9 (3.5-5.1) mmol/L Chloride 105 (98-107) mmol/L Carbon Dioxide 23 (22-30) mmol/L BUN 12 (9-20) mg/dL Creatinine 0.75 (0.66-1.25) mg/dL Glucose 120 H (74-99) mg/dL Calcium 8.9 (8.4-10.2) mg/dL AST 31 (17-59) U/L ALT 20 (4-49) U/L Alkaline Phosphatase 54 (38-126) U/L Total Protein 7.2 (6.3-8.2) g/dL Albumin 4.1 (3.5-5.0) g/dL Current Medications Generic Name Dose Route Start Last Admin Trade Name Freq PRN Reason Stop Dose Admin Folic Acid 1 mg 01/10/20 09:00 Folic Acid PO DAILY [facility] Montelukast Sodium 10 mg 01/10/20 12:00 Singulair PO DAILY@1200 [facility] Naloxone HCl 0.2 mg 01/09/20 18:11 Narcan IV Q2M PRN Opioid Reversal Pantoprazole Sodium 40 mg 01/10/20 07:30 Protonix PO AC-BRKFST SHARAN Intake and Output 01/09/20 01/10/20 01/10/20 22:59 06:59 14:59 Intake Total 222 Balance 222 Intake: Oral 222 Other: # Voids 2 Weight 82.8 kg 01/09/20 15:54 01/09/20 15:54
--- NOTE | 2020-01-10 10:29 | US ---
EXAMINATION TYPE: US abdomen complete DATE OF EXAM: 01/10/2020 COMPARISON: CT abdomen and pelvis 08/20/2019. CLINICAL HISTORY: pain, nausea, claims to have history of gallstones. Pain EXAM MEASUREMENTS: Liver Length: 13.9 cm Gallbladder Wall: .2 cm CBD: .3 cm Spleen: 10.8 cm Right Kidney: 11.4 x 4.9 x 5.1 cm Left Kidney: 11.1 x 5.0 x 5.0 cm Pancreas: Obscured by bowel gas Liver: Increased attenuation Gallbladder: wnl Evidence for sonographic Arreguin's sign: No CBD: wnl Spleen: wnl Right Kidney: wnl Left Kidney: wnl Upper IVC: wnl Abd Aorta: wnl The visualized liver is heterogeneously hyperechoic. Findings suspected on the basis of mild diffuse fatty infiltration. The intrahepatic portion of the IVC and visualized abdominal aorta are within no rmal limits. There is no evidence of shadowing mobile cholelithiasis. Common bile duct is unremarka ble. Pancreas suboptimally seen on initial images secondary to shadowing from overlying bowel gas. Te chnologist.. The spleen is unremarkable. Kidneys are symmetric and free of hydronephrosis. No abiodun l lesions are seen. IMPRESSION: No suspicious acute findings is identified.
[2020-01-10 11:16] VITALS: BP 148/95; PULSE 84; TEMP 98.2
[2020-01-10] MEDS ORDERED: MONTELUKAST 10 MG TAB PO SCH (12:00)
--- NOTE | 2020-01-10 13:49 | P.DS ---
Providers Date of admission: 01/09/20 17:47 Expected date of discharge: 01/10/20 Attending physician: Duke Fernández MD Consults: 01/09/20 17:48 Consult Physician Urgent Consulting Provider: [facility] Consult Reason/Comments: chest pain Do you want consulting provider notified?: Yes Primary care physician: [facility] Course: 50-year-old male with no past cardiac history who presents with chest pain. He has history of rheumatoid arthritis on etanercept and methotrexate. He states his pain started earlier today when he was walking to lunch. States that it is an exertional chest pain which starts in the right side of his chest radiates to his jaw and right arm. Has associated shortness of breath. He was admitted multiple times last year was the same, chest pain and was found to have musculoskeletal issues/costochondritis when evaluated by cardiology. He told me that several months ago he had a stress test that was okay. Patient states that he has a stress test here but I did not see a record of it. No previous history of cardiac disease or arrhythmias. No underlying lung conditions. States he has been previously seen by cardiology. Reports show that he had an echo in 2018 which was normal. Patient denies having a history of cardiac catheterization. Denies cough, hemoptysis. Denies any fevers or chills. No nausea, vomiting or diaphoresis. Denies abdominal pain. Workup in the emergency department showed possible hilar infiltrates in the chest x-ray, labs were okay. His vital signs were within normal limits as well. CT angiogram of the chest did not show any PE or pulmonary infiltrates. Patient was admitted for telemetry and serial troponin. Serial troponin checks continued to be negative. This morning when I saw him he stated that he had an episode of chest pain last night. He was seen by cardiology who recommended stress echo, this was done and is came back negative for ischemia. He was cleared by cardiology for discharge. He will be discharged home in stable condition. Patient Condition at Discharge: Stable Plan - Discharge Summary Discharge Rx Participant: No New Discharge Prescriptions: New Rosuvastatin Calcium [Crestor] 20 mg PO DAILY #90 tab Continue Methotrexate 25mg/1ml 25 mg IM WE Etanercept [Enbrel Sureclick] 50 mg SQ FR Folic Acid 1 mg PO DAILY Montelukast [Singulair] 10 mg PO DAILY@1200 Omeprazole 20 mg PO DAILY Discharge Medication List Etanercept [Enbrel Sureclick] 50 mg SQ FR 02/20/19 [History] Methotrexate 25mg/1ml 25 mg IM WE 02/20/19 [History] Folic Acid 1 mg PO DAILY 08/05/19 [History] Montelukast [Singulair] 10 mg PO DAILY@1200 08/28/19 [History] Omeprazole 20 mg PO DAILY 01/09/20 [History] Rosuvastatin Calcium [Crestor] 20 mg PO DAILY #90 tab 01/10/20 [Rx] Follow up Appointment(s)/Referral(s): Kendall Cruz MD [STAFF PHYSICIAN] - 01/24/20 10:30 am (patient to follow up with JUSTIN Florentino) Asad Jung MD [Primary Care Provider] - 1-2 days Patient Instructions/Handouts: Chest Pain (DC) Discharge Disposition: HOME SELF-CARE
--- NOTE | 2020-01-10 13:52 | ECHOS ---
STRESS ECHOCARDIOGRAM DATE OF SERVICE: 01/10/2020 INDICATIONS: Chest pain. MEDICATIONS: BASELINE HEART RATE: 80 BASELINE BLOOD PRESSURE: 125/71 MAXIMUM HEART RATE: 136 MAXIMUM BLOOD PRESSURE: 149/66 85% MPHR: 144 100% MPHR: 169 METS: 8.5 MAXIMUM STAGE REACHED: II TOTAL EXERCISE TIME: 7 minutes CLINICAL INFORMATION: The patient was exercised for a total period of 7 minutes. The peak heart rate of 136 was achieved. Maximum blood pressure of 149/66 mmHg was noted. Resting EKG shows normal sinus rhythm with normal VA interval and QRS duration and normal ST-T waves. No ST-segment depression suggestive of ischemia is noted. The baseline echocardiographic images reveals normal left ventricular chamber size with normal left ventricular systolic function. In the immediate postexercise period, normal increase in the wall thickness and contractility is noted. FINAL IMPRESSION: 1. This stress echocardiographic study is negative for stress-induced ischemia. 2. EKG portion of the stress test is not suggestive of ischemia. MMODL / IJN: [id number] /
== END 2020-01-10 13:16 | disposition home or self-care (01) ==
LOC: EC 15:10 → 1SOBS 17:47
PROVIDERS: ADMIT Internal Medicine; ATTEND Internal Medicine
DX: R07.89 Other chest pain (principal); R06.02 Shortness of breath; K21.9 Gastro-esophageal reflux disease without esophagitis; E78.5 Hyperlipidemia, unspecified; M06.9 Rheumatoid arthritis, unspecified; R62.50 Unspecified lack of expected normal physiological development in childhood; Z79.51 Long term (current) use of inhaled steroids; Z79.899 Other long term (current) drug therapy; Z82.49 Family history of ischemic heart disease and other diseases of the circulatory system
CPT/HCPCS: 96374; 99285; 36415; 93005; 93351; 85379; 83880; 80061; 80053; 83735; 84484 ×2; 85025; 85610; 85730; 86140; 87040; 71046; 76700; 71275; G0378 ×2; J0696; Q9967

== ENCOUNTER 2020-01-14 22:43 | Emergency (ER) | payer OTHER ==
[2020-01-14 22:46] VITALS: TEMP 97.5
[2020-01-14] MEDS ORDERED: FAMOTIDINE 20 MG/2 ML VIAL IV STA (22:56)
[2020-01-14] MEDS ORDERED: methylPREDNISolone SOD SUCCI 125 MG/2 ML VIAL IV STA (22:56)
[2020-01-14] MEDS ORDERED: diphenhydrAMINE 50 MG/ML 1 ML VIAL IVP STA (22:56)
[2020-01-14] MEDS ORDERED: SODIUM CHLORIDE 0.9% 500 ML 500 ML IV ONE (22:56)
--- NOTE | 2020-01-14 23:02 | ED ---
Skin/Abscess/FB HPI - General Chief complaint: Skin/Abscess/Foreign Body Stated complaint: Itchy Source: patient Mode of arrival: ambulatory Limitations: no limitations - History of Present Illness Initial comments: 50-year-old male presenting today for chief complaint of itchiness all over. Patient states he developed a rash over his body as well as itchiness he states he initially began experiencing the symptoms this evening. Patient states he has no new medications aside from crestor for high cholesterol. Patient denies lip, tongue swelling. Denies peeling skin, fevers, blisters or mouth lesions, Denies sore throat or difficulty breathing or swallowing. Patient denies any new ingestion of food. Patient is on methotrexate but denies any current steroid use for RA. Patient has no other complaints and upon arrival he appears well there is no signs of distress. - Related Data Home Medications Medication Instructions Recorded Confirmed Etanercept [Enbrel Sureclick] 50 mg SQ FR 02/20/19 01/09/20 Methotrexate 25mg/1ml 25 mg IM WE 02/20/19 01/09/20 Folic Acid 1 mg PO DAILY 08/05/19 01/09/20 Montelukast [Singulair] 10 mg PO DAILY@1200 08/28/19 01/09/20 Omeprazole 20 mg PO DAILY 01/09/20 01/09/20 Previous Rx's Medication Instructions Recorded Rosuvastatin Calcium [Crestor] 20 mg PO DAILY #90 tab 01/10/20 diphenhydrAMINE [Benadryl] 25 mg PO BID PRN 7 Days #14 capsule 01/14/20 Allergies Allergy/AdvReac Type Severity Reaction Status Date / Time No Known Allergies Allergy Verified 01/15/20 13:27 Review of Systems ROS Statement: Those systems with pertinent positive or pertinent negative responses have been documented in the HPI. ROS Other: All systems not noted in ROS Statement are negative. Past Medical History Past Medical History: GERD/Reflux, Hyperlipidemia, Rheumatoid Arthritis (RA) Last Myocardial Infarction Date:: Dyslipidemia, appears to have some mild developmental delay History of Any Multi-Drug Resistant Organisms: None Reported Past Surgical History: No Surgical Hx Reported Past Anesthesia/Blood Transfusion Reactions: No Reported Reaction Past Psychological History: No Psychological Hx Reported Smoking Status: Never smoker Past Alcohol Use History: None Reported Past Drug Use History: None Reported - Past Family History Father Family Medical History: Hypertension Mother History Unknown: Yes Family Medical History: No Reported History Grandfather Additional Family Medical History / Comment(s): Heart disease General Exam - General Exam Comments Initial Comments: General: The patient is awake and alert, in no distress, and does not appear acutely ill. Eye: +3 mm pupils are equal, round and reactive to light, extra-ocular movements are intact. No nystagmus. There is normal conjunctiva bilaterally. No signs of icterus. Ears, nose, mouth and throat: There are moist mucous membranes and no oral lesions. No lip or tongue swelling. Neck: The neck is supple, there is no tenderness or JVD. Cardiovascular: There is a regular rate and rhythm. No murmur, rub or gallop is appreciated. Respiratory: Lungs are clear to auscultation, respirations are non-labored, breath sounds are equal. No wheezes, stridor, rales, or rhonchi. Musculoskeletal: Normal ROM, no tenderness. Strength 5/5. Sensation intact. Pulses equal bilaterally 2+. Neurological: A&O x 3. CN II-XII intact, There are no obvious motor or sensory deficits. Coordination appears grossly intact. Speech is normal. Skin: Skin is warm and dry. Diffuse maculopapular rash, on chest, neck abdomen, back, UE and LE. Areas of excoriation from scratching, no vesicular lesions, no lesions on palms/soles. Psychiatric: Cooperative, appropriate mood & affect, normal judgment. Limitations: no limitations Course Vital Signs 01/14/20 01/15/20 22:45 00:28 Temperature 97.5 F L Pulse Rate 100 83 Respiratory 20 16 Rate Blood Pressure 160/84 152/93 O2 Sat by Pulse 99 98 Oximetry Medical Decision Making - Medical Decision Making Rash that began today. began new medication, crestor this past week. rash it itchy maculopapular, appears consistent with drug eruption, does not appear consistent with TENS, anaphylaxis, SJS. Patient has no other associated symptoms. Instructed to discontinue medication and take benadryl. discussed case with Dr. Florence who is agreeable to care plan and discharge at this time. Disposition Clinical Impression: Rash, Drug eruption, Drug-induced pruritus Disposition: HOME SELF-CARE Condition: Good Instructions (If sedation given, give patient instructions): Adverse Drug Reaction (ED) Additional Instructions: Please use medication as discussed. Please follow-up with family doctor in the next 24-48 hours, discontinue crestor and discuss this possible allergy with electronic design engineer. Please return to emergency room if the symptoms increase or worsen or for any other concerns. Prescriptions: diphenhydrAMINE [Benadryl] 25 mg PO BID PRN 7 Days #14 capsule PRN Reason: Itching Is patient prescribed a controlled substance at d/c from ED?: No Referrals: Asad Jung MD [Primary Care Provider] - 1-2 days Time of Disposition: 23:53
[2020-01-15 00:29] VITALS: BP 152/93; PULSE 83; RESP 16
== END 2020-01-15 00:29 | disposition home or self-care (01) ==
LOC: EC 22:43
DX: L27.0 Generalized skin eruption due to drugs and medicaments taken internally (principal); T46.6X5A Adverse effect of antihyperlipidemic and antiarteriosclerotic drugs, initial encounter; L29.8 Other pruritus
CPT/HCPCS: 99282; 96374; 96375 ×2; 96361; J1200; J2930

== ENCOUNTER 2020-01-15 13:21 | Emergency (ER) | payer OTHER ==
[2020-01-15] MEDS ORDERED: diphenhydrAMINE 50 MG CAP PO STA (13:38)
[2020-01-15] MEDS ORDERED: methylPREDNISolone SOD SUCCI 125 MG/2 ML VIAL IM ONE (13:38)
--- NOTE | 2020-01-15 13:38 | ED ---
Skin/Abscess/FB HPI - General Chief complaint: Skin/Abscess/Foreign Body Stated complaint: Rash/blisters Time Seen by Provider: 01/15/20 13:29 Source: patient, RN notes reviewed Mode of arrival: ambulatory Limitations: no limitations - History of Present Illness Initial comments: This a 50-year-old male presents emergency Department chief complaint rash. Patient was seen here yesterday for same rash. Patient cannot take steroids or Benadryl as directed. Patient states that he felt that it slightly worse. No difficulty breathing or deploy swelling. He was recently started on new medications he states he does not know what they are. Patient denies any difficulty swallowing or ear pain no headache or dizziness. Patient states rashes on his chest and back. - Related Data Home Medications Medication Instructions Recorded Confirmed Etanercept [Enbrel Sureclick] 50 mg SQ FR 02/20/19 01/09/20 Methotrexate 25mg/1ml 25 mg IM WE 02/20/19 01/09/20 Folic Acid 1 mg PO DAILY 08/05/19 01/09/20 Montelukast [Singulair] 10 mg PO DAILY@1200 08/28/19 01/09/20 Omeprazole 20 mg PO DAILY 01/09/20 01/09/20 Previous Rx's Medication Instructions Recorded Rosuvastatin Calcium [Crestor] 20 mg PO DAILY #90 tab 01/10/20 diphenhydrAMINE [Benadryl] 25 mg PO BID PRN 7 Days #14 capsule 01/14/20 Allergies Allergy/AdvReac Type Severity Reaction Status Date / Time No Known Allergies Allergy Verified 01/15/20 13:27 Review of Systems ROS Statement: Those systems with pertinent positive or pertinent negative responses have been documented in the HPI. ROS Other: All systems not noted in ROS Statement are negative. Past Medical History Past Medical History: GERD/Reflux, Hyperlipidemia, Rheumatoid Arthritis (RA) Last Myocardial Infarction Date:: Dyslipidemia, appears to have some mild developmental delay History of Any Multi-Drug Resistant Organisms: None Reported Past Surgical History: No Surgical Hx Reported Past Anesthesia/Blood Transfusion Reactions: No Reported Reaction Past Psychological History: No Psychological Hx Reported Smoking Status: Never smoker Past Alcohol Use History: None Reported Past Drug Use History: None Reported - Past Family History Father Family Medical History: Hypertension Mother History Unknown: Yes Family Medical History: No Reported History Grandfather Additional Family Medical History / Comment(s): Heart disease General Exam Limitations: no limitations General appearance: alert, in no apparent distress Head exam: Present: atraumatic, normocephalic, normal inspection Eye exam: Present: normal appearance, PERRL, EOMI. Absent: scleral icterus, conjunctival injection, periorbital swelling ENT exam: Present: normal exam, normal oropharynx, mucous membranes moist, TM's normal bilaterally Neck exam: Present: normal inspection, full ROM. Absent: tenderness, meningismus, lymphadenopathy Respiratory exam: Present: normal lung sounds bilaterally. Absent: respiratory distress, wheezes, rales, rhonchi, stridor Cardiovascular Exam: Present: regular rate, normal rhythm, normal heart sounds. Absent: systolic murmur, diastolic murmur, rubs, gallop, clicks Neurological exam: Present: alert, oriented X3, CN II-XII intact Skin exam: Present: warm, dry, intact, normal color, rash (Diffuse macular rash on her on chest and back excoriations noted) Course Vital Signs 01/15/20 01/15/20 13:25 14:08 Temperature 97.5 F L 97.8 F Pulse Rate 108 H 92 Respiratory 20 16 Rate Blood Pressure 144/71 136/78 O2 Sat by Pulse 97 98 Oximetry Medical Decision Making - Medical Decision Making Patient has a diffuse rash on his torso region. This appears to be some sort of dermatitis versus ALLERGIC. We discussed possibility of pityriasis rosea. Patient will continue steroids Benadryl as directed. Patient will follow-up PCP. Disposition Clinical Impression: Dermatitis Disposition: HOME SELF-CARE Condition: Stable Instructions (If sedation given, give patient instructions): Dermatitis (ED) Additional Instructions: Please return to the Emergency Department if symptoms worsen or any other concerns. Is patient prescribed a controlled substance at d/c from ED?: No Referrals: Asad Jung MD [Primary Care Provider] - 1-2 days Time of Disposition: 13:38
[2020-01-15 14:09] VITALS: BP 136/78; PULSE 92; RESP 16; TEMP 97.8
== END 2020-01-15 14:08 | disposition home or self-care (01) ==
LOC: EC 13:21
DX: L30.9 Dermatitis, unspecified (principal); M06.9 Rheumatoid arthritis, unspecified; K21.9 Gastro-esophageal reflux disease without esophagitis; I25.2 Old myocardial infarction; Z79.899 Other long term (current) drug therapy
CPT/HCPCS: 96372; 99282; J2930

== ENCOUNTER 2020-01-20 14:19 | Emergency (ER) | payer OTHER ==
[2020-01-20 14:30] VITALS: BP 132/90; PULSE 87; RESP 16; TEMP 97.6
--- NOTE | 2020-01-20 14:57 | ED ---
ENT HPI - General Chief complaint: Dental/Oral Stated complaint: Dental Pain Time Seen by Provider: 01/20/20 14:34 Source: patient Mode of arrival: ambulatory Limitations: no limitations - History of Present Illness Initial comments: Patient is a 50-year-old male, well-known to the ER, presenting to emergency Department with complaints of an abnormality on his bottom lip and his tongue. He states he feels like they are swelling and purple in color. Patient admits to having a mild sore throat and feels like he has chills. He denies having a fever, shortness of breath, chest pain. He denies any trauma. He has no other complaints at this time. Upon arrival to the ER, his vital signs are stable. - Related Data Home Medications Medication Instructions Recorded Confirmed Etanercept [Enbrel Sureclick] 50 mg SQ FR 02/20/19 01/09/20 Methotrexate 25mg/1ml 25 mg IM WE 02/20/19 01/09/20 Folic Acid 1 mg PO DAILY 08/05/19 01/09/20 Montelukast [Singulair] 10 mg PO DAILY@1200 08/28/19 01/09/20 Omeprazole 20 mg PO DAILY 01/09/20 01/09/20 Previous Rx's Medication Instructions Recorded Rosuvastatin Calcium [Crestor] 20 mg PO DAILY #90 tab 01/10/20 diphenhydrAMINE [Benadryl] 25 mg PO BID PRN 7 Days #14 capsule 01/14/20 Allergies Allergy/AdvReac Type Severity Reaction Status Date / Time No Known Allergies Allergy Verified 01/20/20 14:28 Review of Systems ROS Statement: Those systems with pertinent positive or pertinent negative responses have been documented in the HPI. ROS Other: All systems not noted in ROS Statement are negative. Past Medical History Past Medical History: GERD/Reflux, Hyperlipidemia, Rheumatoid Arthritis (RA) Last Myocardial Infarction Date:: Dyslipidemia, appears to have some mild developmental delay History of Any Multi-Drug Resistant Organisms: None Reported Past Surgical History: No Surgical Hx Reported Past Anesthesia/Blood Transfusion Reactions: No Reported Reaction Past Psychological History: No Psychological Hx Reported Smoking Status: Never smoker Past Alcohol Use History: None Reported Past Drug Use History: None Reported - Past Family History Father Family Medical History: Hypertension Mother History Unknown: Yes Family Medical History: No Reported History Grandfather Additional Family Medical History / Comment(s): Heart disease General Exam - General Exam Comments Initial Comments: GENERAL: Well-appearing, well-nourished and in no acute distress. HEAD: Atraumatic, normocephalic. EYES: Pupils equal round and reactive to light, extraocular movements intact, sclera anicteric, conjunctiva are normal. ENT: TMs normal, nares patent, oropharynx clear without exudates. Moist mucous membranes. No abnormalities on his tongue or bottom lip. NECK: Normal range of motion, supple without lymphadenopathy or JVD. LUNGS: Breath sounds clear to auscultation bilaterally and equal. No wheezes rales or rhonchi. HEART: Regular rate and rhythm without murmurs, rubs or gallops. ABDOMEN: Soft, nontender, normoactive bowel sounds. No guarding, no rebound. No masses appreciated. : Deferred EXTREMITIES: Normal range of motion, no pitting or edema. No clubbing or cyanosis. NEUROLOGICAL: Normal speech, normal gait. PSYCH: Normal mood, normal affect. SKIN: Warm, Dry, normal turgor, no rashes or lesions noted. Limitations: no limitations Course Vital Signs 01/20/20 14:28 Temperature 97.6 F Pulse Rate 87 Respiratory 16 Rate Blood Pressure 132/90 O2 Sat by Pulse 98 Oximetry Medical Decision Making - Medical Decision Making Patient is a 50-year-old male presenting for complaints of his bottom lip and tongue abnormality. Vitals are stable. Patient is well-known to the ER. Exam is completely unremarkable. There is no abnormalities seen. Given patient's complaint, strep and influenza were obtained. There were both negative. Patient is stable for discharge. Return parameters were discussed with the patient he verbalizes understanding. - Lab Data Lab Results 01/20/20 Range/Units 14:55 Influenza Type A RNA Not Detected (Not Detectd) Influenza Type B (PCR) Not Detected (Not Detectd) Group A Strep Rapid Negative (Negative) Disposition Clinical Impression: Sore throat Disposition: HOME SELF-CARE Condition: Stable Instructions (If sedation given, give patient instructions): Normal Exam (ED) Additional Instructions: Please return to the Emergency Department if symptoms worsen or any other concerns. Is patient prescribed a controlled substance at d/c from ED?: No Referrals: Asad Jung MD [Primary Care Provider] - 1-2 days
== END 2020-01-20 15:46 | disposition home or self-care (01) ==
LOC: EC 14:19
DX: J02.9 Acute pharyngitis, unspecified (principal); K21.9 Gastro-esophageal reflux disease without esophagitis; M06.9 Rheumatoid arthritis, unspecified; I25.2 Old myocardial infarction; Z79.899 Other long term (current) drug therapy
CPT/HCPCS: 87081; 87430; 87502; 99283

== ENCOUNTER 2020-01-22 00:40 | Emergency (ER) | payer OTHER ==
[2020-01-22 00:45] VITALS: PULSE 89; RESP 18; TEMP 98.1
--- NOTE | 2020-01-22 00:56 | ED ---
General Adult HPI - General Chief complaint: Allergic Reaction Stated complaint: Itchy, swollen throat Time Seen by Provider: 01/22/20 00:49 Source: patient Mode of arrival: ambulatory Limitations: no limitations - History of Present Illness Initial comments: 50-year-old male patient presents to the emergency department today for evaluation of itching and rash to his neck. Patient states that he was taken off his Crestor about one week ago after having an ALLERGIC reaction. Patient states that today he is having some itching to his neck. States he did take benadryl around 6 hours ago. States that he laid down to sleep and woke up about 10 minutes later with a rash and itching to his neck. Patient denies any other new exposures. Denies other allergies. Denies any other medications or attempts to relieve his symptoms. Denies any shortness of breath or wheezing. Denies abdominal pain, nausea, or vomiting. Patient denies any recent rash, fever, chills, cough, chest pain, diarrhea, constipation, back pain, numbness, tingling, dizziness, weakness, hematuria, dysuria, urinary urgency, urinary frequency, headache, visual changes, or any other complaints. - Related Data Home Medications Medication Instructions Recorded Confirmed Etanercept [Enbrel Sureclick] 50 mg SQ FR 02/20/19 01/09/20 Methotrexate 25mg/1ml 25 mg IM WE 02/20/19 01/09/20 Folic Acid 1 mg PO DAILY 08/05/19 01/09/20 Montelukast [Singulair] 10 mg PO DAILY@1200 08/28/19 01/09/20 Omeprazole 20 mg PO DAILY 01/09/20 01/09/20 Previous Rx's Medication Instructions Recorded Rosuvastatin Calcium [Crestor] 20 mg PO DAILY #90 tab 01/10/20 diphenhydrAMINE [Benadryl] 25 mg PO BID PRN 7 Days #14 capsule 01/14/20 Allergies Allergy/AdvReac Type Severity Reaction Status Date / Time No Known Allergies Allergy Verified 01/22/20 00:45 Review of Systems ROS Statement: Those systems with pertinent positive or pertinent negative responses have been documented in the HPI. ROS Other: All systems not noted in ROS Statement are negative. Past Medical History Past Medical History: GERD/Reflux, Hyperlipidemia, Rheumatoid Arthritis (RA) Last Myocardial Infarction Date:: Dyslipidemia, appears to have some mild developmental delay History of Any Multi-Drug Resistant Organisms: None Reported Past Surgical History: No Surgical Hx Reported Past Anesthesia/Blood Transfusion Reactions: No Reported Reaction Past Psychological History: No Psychological Hx Reported Smoking Status: Never smoker Past Alcohol Use History: None Reported Past Drug Use History: None Reported - Past Family History Father Family Medical History: Hypertension Mother History Unknown: Yes Family Medical History: No Reported History Grandfather Additional Family Medical History / Comment(s): Heart disease General Exam Limitations: no limitations General appearance: alert, in no apparent distress, other (This is a well- developed, well-nourished adult male patient in no acute distress. Vital signs upon presentation are temperature 98.1F, pulse 89, respirations 18, blood pressure 178/116, pulse ox 96% on room air.) Eye exam: Present: normal appearance, PERRL, EOMI. Absent: scleral icterus, conjunctival injection, periorbital swelling ENT exam: Present: normal exam, normal oropharynx, mucous membranes moist Neck exam: Present: other (There are small papules to the neck. There is no surrounding erythema. These are consistent with folliculitis.). Absent: normal inspection, tenderness, meningismus, lymphadenopathy Cardiovascular Exam: Present: regular rate, normal rhythm, normal heart sounds. Absent: systolic murmur, diastolic murmur, rubs, gallop, clicks GI/Abdominal exam: Present: soft, normal bowel sounds. Absent: distended, tenderness, guarding, rebound, rigid Neurological exam: Present: alert, oriented X3, CN II-XII intact Psychiatric exam: Present: normal affect, normal mood Skin exam: Present: warm, dry, intact, normal color. Absent: rash Course Vital Signs 01/22/20 01/22/20 00:41 00:59 Temperature 98.1 F Pulse Rate 89 Respiratory 18 Rate Blood Pressure 178/116 149/91 O2 Sat by Pulse 96 Oximetry Medical Decision Making - Medical Decision Making 50-year-old male patient presents to the emergency department for evaluation for rash to his neck. Patient is concerned he may be having an ALLERGIC reaction. Physical examination did reveal erythematous pustules to the neck that are consistent with folliculitis. Patient does admit to shaving with an electric razor yesterday. He has no other concerning symptoms for ALLERGIC reaction. He is breathing without difficulty and swallowing without difficulty. Vital signs are satisfactory. He will be discharged with instructions to apply hydrocortisone cream to the neck. He is instructed to continue benadryl if it helps. He is instructed to follow up with his primary care physician for recheck in 1-2 days. Return parameters were discussed in detail. He verbalizes understanding and agrees with this plan. Disposition Clinical Impression: Folliculitis Disposition: HOME SELF-CARE Condition: Good Instructions (If sedation given, give patient instructions): Folliculitis (ED) Additional Instructions: Apply hydrocortisone cream to the bumps on your neck. Avoid itching the area as this can cause a secondary infection. Take tylenol or motrin for any discomfort. Follow up with her primary care physician for recheck in 1-2 days. Return to the emergency department immediately for any new, worsening, or concerning symptoms. Is patient prescribed a controlled substance at d/c from ED?: No Referrals: Asad Jung MD [Primary Care Provider] - 1-2 days Time of Disposition: 00:56
[2020-01-22 01:00] VITALS: BP 149/91
== END 2020-01-22 01:12 | disposition home or self-care (01) ==
LOC: EC 00:40
DX: L73.9 Follicular disorder, unspecified (principal); K21.9 Gastro-esophageal reflux disease without esophagitis; M06.9 Rheumatoid arthritis, unspecified; Z79.899 Other long term (current) drug therapy; Z92.25 Personal history of immunosuppression therapy; Z92.21 Personal history of antineoplastic chemotherapy
CPT/HCPCS: 99283

== ENCOUNTER 2020-03-06 14:51 | Emergency (ER) | payer OTHER ==
[2020-03-06 14:58] VITALS: BP 144/80; PULSE 105; RESP 18; TEMP 98.2
--- NOTE | 2020-03-06 15:56 | XR ---
EXAMINATION TYPE: XR ankle complete RT DATE OF EXAM: 03/06/2020 COMPARISON: NONE HISTORY: 50-year-old male with pain and swelling TECHNIQUE: 3 views FINDINGS: Ankle mortise is congruent with preservation of the distal tibiofibular overlap. Talar dome is intact . The anterior and posterior soft tissue swelling is noted. Slow delineation to the Achilles tendon. Subtalar joint is aligned. No acute fracture, subluxation, dislocation. IMPRESSION: Some soft tissue swelling. No acute osseous abnormality seen.
--- NOTE | 2020-03-06 16:10 | ED ---
Extremity Problem HPI - General Chief complaint: Extremity Problem,Nontraumatic Stated complaint: RT ankle injury Time Seen by Provider: 03/06/20 15:07 Source: patient Mode of arrival: ambulatory Limitations: physical limitation - History of Present Illness Initial comments: Patient is a 50-year-old male presenting to the emergency Department with compl aints of pain and swelling in his right ankle. Patient denies any injuries or trauma to the ankle. He states he noticed this yesterday. He denies any fever or chills. He denies any previous injuries or surgeries to the right ankle. He denies history of gout or infection. He He has no other complaints at this time. Upon arrival to the ER his vitals are stable. - Related Data Home Medications Medication Instructions Recorded Confirmed Etanercept [Enbrel Sureclick] 50 mg SQ FR 02/20/19 01/09/20 Methotrexate 25mg/1ml 25 mg IM WE 02/20/19 01/09/20 Folic Acid 1 mg PO DAILY 08/05/19 01/09/20 Montelukast [Singulair] 10 mg PO DAILY@1200 08/28/19 01/09/20 Omeprazole 20 mg PO DAILY 01/09/20 01/09/20 Previous Rx's Medication Instructions Recorded Rosuvastatin Calcium [Crestor] 20 mg PO DAILY #90 tab 01/10/20 diphenhydrAMINE [Benadryl] 25 mg PO BID PRN 7 Days #14 capsule 01/14/20 Cephalexin [Keflex] 500 mg PO Q6HR 7 Days #28 cap 03/06/20 Allergies Allergy/AdvReac Type Severity Reaction Status Date / Time No Known Allergies Allergy Verified 03/06/20 14:58 Review of Systems ROS Statement: Those systems with pertinent positive or pertinent negative responses have been documented in the HPI. ROS Other: All systems not noted in ROS Statement are negative. Past Medical History Past Medical History: GERD/Reflux, Hyperlipidemia, Rheumatoid Arthritis (RA) Last Myocardial Infarction Date:: Dyslipidemia, appears to have some mild developmental delay History of Any Multi-Drug Resistant Organisms: None Reported Past Surgical History: No Surgical Hx Reported Past Anesthesia/Blood Transfusion Reactions: No Reported Reaction Past Psychological History: No Psychological Hx Reported Smoking Status: Never smoker Past Alcohol Use History: None Reported Past Drug Use History: None Reported - Past Family History Father Family Medical History: Hypertension Mother History Unknown: Yes Family Medical History: No Reported History Grandfather Additional Family Medical History / Comment(s): Heart disease General Exam - General Exam Comments Initial Comments: GENERAL: Well-appearing, well-nourished and in no acute distress. HEAD: Atraumatic, normocephalic. EYES: Pupils equal round and reactive to light, extraocular movements intact, sclera anicteric, conjunctiva are normal. ENT: TMs normal, nares patent, oropharynx clear without exudates. Moist mucous membranes. NECK: Normal range of motion, supple without lymphadenopathy or JVD. LUNGS: Breath sounds clear to auscultation bilaterally and equal. No wheezes rales or rhonchi. HEART: Regular rate and rhythm without murmurs, rubs or gallops. ABDOMEN: Soft, nontender, normoactive bowel sounds. No guarding, no rebound. No masses appreciated. : Deferred EXTREMITIES: Patient has mild erythema of the lateral aspect of the right ankle. There is some mild swelling to the area as well. Patient has full ankle range of motion with pain at the end range. He is neurovascular intact. There is no open sores or cuts. NEUROLOGICAL: Normal speech, normal gait. PSYCH: Normal mood, normal affect. SKIN: Warm, Dry, normal turgor, no rashes or lesions noted. Limitations: physical limitation Course Vital Signs 03/06/20 14:56 Temperature 98.2 F Pulse Rate 105 H Respiratory 18 Rate Blood Pressure 144/80 O2 Sat by Pulse 97 Oximetry Medical Decision Making - Medical Decision Making Patient is a 50-year-old male presenting with mild redness, pain, swelling of the right ankle. He denies any injuries. X-rays reveal no acute fractures dislocations. He denies history of gout. Patient will be placed on Keflex for possible cellulitis. He will use ice to the area as well as elevation. Patient is in agreement with this plan of care. Return parameters were discussed with the patient he verbalizes understanding. He will also follow up with PCP. Disposition Clinical Impression: Right ankle swelling, Cellulitis of right ankle Disposition: HOME SELF-CARE Condition: Stable Instructions (If sedation given, give patient instructions): Cellulitis (ED) Additional Instructions: Please return to the Emergency Department if symptoms worsen or any other concerns. Take antibiotic as prescribed. Follow-up with PCP. Prescriptions: Cephalexin [Keflex] 500 mg PO Q6HR 7 Days #28 cap Is patient prescribed a controlled substance at d/c from ED?: No Referrals: Asad Jung MD [Primary Care Provider] - 1-2 days
[2020-03-06] MEDS ORDERED: IBUPROFEN 600 MG TAB PO STA (16:13)
== END 2020-03-06 16:20 | disposition home or self-care (01) ==
LOC: EC 14:51
DX: L03.115 Cellulitis of right lower limb (principal); K21.9 Gastro-esophageal reflux disease without esophagitis; M06.9 Rheumatoid arthritis, unspecified; Z79.899 Other long term (current) drug therapy
CPT/HCPCS: 99283

== ENCOUNTER 2020-08-19 14:07 | Emergency (ER) | payer OTHER ==
[2020-08-19 14:13] VITALS: PULSE 91; TEMP 98
[2020-08-19 15:11] LABS: Basophils # (A) 0.1 k/uL (0-0.2); Basophils % (A) 1 %; Eosinophils # (A) 0.2 k/uL (0-0.7); Eosinophils % (A) 3 %; HCT 48.7 % (39.0-53.0); HGB 15.9 gm/dL (13.0-17.5); Lymphocytes # (A) 1.6 k/uL (1.0-4.8); Lymphocytes % (A) 25 %; MCH 27.9 pg (25.0-35.0); MCHC 32.7 g/dL (31.0-37.0); MCV 85.1 fL (80.0-100.0); Mean Platelet Volume 7.5; Monocytes # (A) 0.6 k/uL (0-1.0); Monocytes % (A) 10 %; Neutrophils # (A) 3.7 k/uL (1.3-7.7); Neutrophils % (A) 58 %; Platelet Count 227 k/uL (150-450); RBC 5.72 m/uL (4.30-5.90); WBC 6.4 k/uL (3.8-10.6)
[2020-08-19 15:26] LABS: ALT 29 U/L (4-49); AST 35 U/L (17-59); African American GFR (CKD) >90 (>60 ml/min/1.73 sqM); Albumin 4.2 g/dL (3.5-5.0); Alkaline Phosphatase 62 U/L (38-126); Anion Gap 6 mmol/L; Blood Urea Nitrogen 10 mg/dL (9-20); Calcium 9.1 mg/dL (8.4-10.2); Carbon Dioxide 26 mmol/L (22-30); Chloride 106 mmol/L (98-107); Glucose 106 mg/dL (74-99); Magnesium 2.2 mg/dL (1.6-2.3); Non-African American GFR(CKD) >90 (>60 ml/min/1.73 sqM); Potassium 3.9 mmol/L (3.5-5.1); Sodium 138 mmol/L (137-145); Total Bilirubin 0.6 mg/dL (0.2-1.3); Total Protein 7.3 g/dL (6.3-8.2)
[2020-08-19 15:27] LABS: Partial Thromboplastin Time 25.3 sec (22.0-30.0); Prothrombin Time 10.1 sec (9.0-12.0)
--- NOTE | 2020-08-19 15:30 | XR ---
EXAMINATION TYPE: XR chest 2V DATE OF EXAM: 08/19/2020 COMPARISON: 01/09/2020 HISTORY: Chest pain TECHNIQUE: FINDINGS: Heart and mediastinum are normal. Lungs are clear. Diaphragm is normal. Bony thorax is inta ct. Pulmonary vascularity is normal. IMPRESSION: Normal chest. No adverse change.
[2020-08-19] MEDS ORDERED: KETOROLAC 15 MG/ML 1 ML VIAL IVP STA (15:51)
--- NOTE | 2020-08-19 16:02 | ED ---
Chest Pain HPI - General Chief Complaint: Chest Pain Stated Complaint: Chest Pain Time Seen by Provider: 08/19/20 14:23 Source: patient Mode of arrival: wheelchair Limitations: no limitations - History of Present Illness Initial Comments: 50-year-old male with history of rheumatoid arthritis, HTN, HLD presenting to [facility] for chief complaint of chest pain. Patient states the past 2 days he has had on and off sharp chest pain in the middle of the chest he states that it is not a pressure he denies any shortness of breath jaw or arm pain he denies any radiation to the back. He states it does somewhat hurt if you push on his anterior chest he denies exercising or specific injury to the chest. Patient denies any nausea vomiting or abdominal pain. Patient denies any shortness of breath he stated times a does increase with deep inspiration he states he has not had any hemoptysis immobilization recent injuries surgeries, travel exogenous hormone use or history of DVT or pulmonary embolism. Patient denies any lower extremity swelling or pain. Patient denies additional complaints. He appears well nontoxic on arrival - Related Data Home Medications Medication Instructions Recorded Confirmed Etanercept [Enbrel Sureclick] 50 mg SQ FR 02/20/19 01/09/20 Methotrexate 25mg/1ml 25 mg IM WE 02/20/19 01/09/20 Folic Acid 1 mg PO DAILY 08/05/19 01/09/20 Montelukast [Singulair] 10 mg PO DAILY@1200 08/28/19 01/09/20 Omeprazole 20 mg PO DAILY 01/09/20 01/09/20 Previous Rx's Medication Instructions Recorded Rosuvastatin Calcium [Crestor] 20 mg PO DAILY #90 tab 01/10/20 diphenhydrAMINE [Benadryl] 25 mg PO BID PRN 7 Days #14 capsule 01/14/20 Cephalexin [Keflex] 500 mg PO Q6HR 7 Days #28 cap 03/06/20 Allergies Allergy/AdvReac Type Severity Reaction Status Date / Time No Known Allergies Allergy Verified 08/19/20 14:13 Review of Systems ROS Statement: Those systems with pertinent positive or pertinent negative responses have been documented in the HPI. ROS Other: All systems not noted in ROS Statement are negative. EKG Findings - EKG Comments: EKG Findings:: Ventricular rate 88 bpm, SC interval 130 ms, QRS duration 86 no seconds, QT/QTC 356/430 milliseconds. This is normal sinus rhythm there is no ST elevation or depression appreciated. There is normal R-wave progression. E KG was personal reviewed and interpreted by myself as well as attending provider Past Medical History Past Medical History: GERD/Reflux, Hyperlipidemia, Rheumatoid Arthritis (RA) Last Myocardial Infarction Date:: Dyslipidemia, appears to have some mild developmental delay History of Any Multi-Drug Resistant Organisms: None Reported Past Surgical History: No Surgical Hx Reported Past Anesthesia/Blood Transfusion Reactions: No Reported Reaction Past Psychological History: No Psychological Hx Reported Smoking Status: Never smoker Past Alcohol Use History: None Reported Past Drug Use History: None Reported - Past Family History Father Family Medical History: Hypertension Mother History Unknown: Yes Family Medical History: No Reported History Grandfather Additional Family Medical History / Comment(s): Heart disease General Exam - General Exam Comments Initial Comments: General: The patient is awake and alert, in no distress, and does not appear acutely ill. Eye: Pupils are equal, round and reactive to light, extra-ocular movements are intact. No nystagmus. There is normal conjunctiva bilaterally. No signs of icterus. Ears, nose, mouth and throat: There are moist mucous membranes and no oral lesions. Neck: The neck is supple, there is no tenderness or JVD. Cardiovascular: There is a regular rate and rhythm. No murmur, rub or gallop is appreciated. Respiratory: Pain to palpation of the anterior mid chest wall,winces. Lungs are clear to auscultation, respirations are non-labored, breath sounds are equal. No wheezes, stridor, rales, or rhonchi. Gastrointestinal: Soft, non-distended, non-tender abdomen without masses or organomegaly noted. There is no rebound or guarding present. Musculoskeletal: Normal ROM, no tenderness. Strength 5/5. Sensation intact. Radial and DP pulses equal bilaterally 2+. Neurological: A&O x 3. CN II-XII intact, There are no obvious motor or sensory deficits. Coordination appears grossly intact. Speech is normal. Skin: Skin is warm and dry and no rashes or lesions are noted. No lower extremity edema, no calf pain to palpation Psychiatric: Cooperative, appropriate mood & affect, normal judgment. Limitations: no limitations Course Vital Signs 08/19/20 08/19/20 14:09 16:29 Temperature 98.0 F Pulse Rate 91 91 Respiratory 16 17 Rate Blood Pressure 152/86 144/95 O2 Sat by Pulse 99 96 Oximetry Chest Pain MDM - MDM 50-year-old male presenting today for chief complaint of chest pain, sharp in nature. reproducible on exam. no back pain no pressure. Patient appears well nontoxic. EKg no ischemic findings. pt does not appear cardiac in nature. Labs stable. Dimer (-). patient case discussed with Dr. Givens who is agreeable to impression plan. patient is agreeable and prefers discharge at this time. is to f/u with pcp in 1-2 days. Disposition Clinical Impression: Chest pain Disposition: HOME SELF-CARE Condition: Good Instructions (If sedation given, give patient instructions): Chest Pain (ED), Costochondritis (ED) Additional Instructions: Please use medication as discussed. Please follow-up with family doctor in the next 2 days. Please return to emergency room if the symptoms increase or worsen or for any other concerns. Is patient prescribed a controlled substance at d/c from ED?: No Referrals: Dee Dee Christopher NPC [Primary Care Provider] - 1-2 days Time of Disposition: 16:02
[2020-08-19 16:32] VITALS: BP 144/95; RESP 17
== END 2020-08-19 16:36 | disposition home or self-care (01) ==
LOC: EC 14:07 → SUPCPDRO 14:07 → EC 16:36
DX: R07.89 Other chest pain (principal); K21.9 Gastro-esophageal reflux disease without esophagitis; M06.9 Rheumatoid arthritis, unspecified; Z79.899 Other long term (current) drug therapy; Z86.79 Personal history of other diseases of the circulatory system
CPT/HCPCS: 99285 ×3; 96374 ×2; 36415; 93005; 85379; 80053; 83735; 84484; 85025; 85610; 85730; 71046; J1885

== ENCOUNTER 2020-08-19 17:11 | Emergency (ER) | payer OTHER ==
[2020-08-19 17:31] VITALS: BP 143/86; PULSE 91; RESP 16; TEMP 98.2
--- NOTE | 2020-08-19 18:14 | ED ---
General Adult HPI - General Chief complaint: Chest Pain Stated complaint: REVISIT CHEST PAIN Time Seen by Provider: 08/19/20 17:57 Source: patient Mode of arrival: wheelchair Limitations: no limitations - History of Present Illness Initial comments: Patient returns to the ED complaining of having sharp left-sided chest pain. Patient was just recently discharged from the ED after being evaluated for the same pain (please refer to ED PA Jane's note and EMR). Patient states that his chest pain returned about 5 minutes after being discharged from the ED. Patient describes having sharp, localized, left-sided chest pain for the past couple of weeks. Patient's ED workup from earlier this afternoon was reviewed and was noted to be fairly unremarkable, including an unremarkable chest x-ray, a negative d-dimer and a negative troponin. Patient denies trauma or injury, fever or chills, headache, focal neuro deficit, neck/arm/jaw/back pain, pleuri tic pain, leg or calf swelling or pain, dyspnea, cough or cold symptoms, palpitations, dizziness, nausea/vomiting/diaphoresis, abdominal pain, or any other symptoms or complaints. - Related Data Home Medications Medication Instructions Recorded Confirmed Etanercept [Enbrel Sureclick] 50 mg SQ FR 02/20/19 01/09/20 Methotrexate 25mg/1ml 25 mg IM WE 02/20/19 01/09/20 Folic Acid 1 mg PO DAILY 08/05/19 01/09/20 Montelukast [Singulair] 10 mg PO DAILY@1200 08/28/19 01/09/20 Omeprazole 20 mg PO DAILY 01/09/20 01/09/20 Previous Rx's Medication Instructions Recorded Rosuvastatin Calcium [Crestor] 20 mg PO DAILY #90 tab 01/10/20 diphenhydrAMINE [Benadryl] 25 mg PO BID PRN 7 Days #14 capsule 01/14/20 Cephalexin [Keflex] 500 mg PO Q6HR 7 Days #28 cap 03/06/20 Allergies Allergy/AdvReac Type Severity Reaction Status Date / Time No Known Allergies Allergy Verified 08/19/20 17:32 Review of Systems ROS Statement: Those systems with pertinent positive or pertinent negative responses have been documented in the HPI. ROS Other: All systems not noted in ROS Statement are negative. Past Medical History Past Medical History: GERD/Reflux, Hyperlipidemia, Rheumatoid Arthritis (RA) Last Myocardial Infarction Date:: Dyslipidemia, appears to have some mild developmental delay History of Any Multi-Drug Resistant Organisms: None Reported Past Surgical History: No Surgical Hx Reported Past Anesthesia/Blood Transfusion Reactions: No Reported Reaction Past Psychological History: No Psychological Hx Reported Smoking Status: Never smoker Past Alcohol Use History: None Reported Past Drug Use History: None Reported - Past Family History Father Family Medical History: Hypertension Mother History Unknown: Yes Family Medical History: No Reported History Grandfather Additional Family Medical History / Comment(s): Heart disease General Exam Limitations: no limitations General appearance: alert, in no apparent distress Head exam: Present: atraumatic, normocephalic Eye exam: Present: normal appearance, EOMI ENT exam: Present: mucous membranes moist Neck exam: Present: other (Trachea is in midline) Respiratory exam: Present: normal lung sounds bilaterally, other (Reproducible left anterior chest wall tenderness, no crepitation or deformity is appreciated). Absent: respiratory distress, wheezes, rales, rhonchi Cardiovascular Exam: Present: regular rate, normal rhythm, normal heart sounds, other (Normal radial pulses bilaterally) GI/Abdominal exam: Present: soft. Absent: distended, tenderness, guarding Extremities exam: Present: other (Negative Homans sign bilaterally). Absent: tenderness, pedal edema, calf tenderness Neurological exam: Present: alert, oriented X3. Absent: motor sensory deficit Psychiatric exam: Present: normal affect, normal mood Skin exam: Present: warm, dry, intact, normal color Course Vital Signs 08/19/20 17:30 Temperature 98.2 F Pulse Rate 91 Respiratory 16 Rate Blood Pressure 143/86 O2 Sat by Pulse 98 Oximetry - Reevaluation(s) Reevaluation #1: 08/19/20 19:44 Patient denies development of any new symptoms while in the ED. Patient remains alert and breathing comfortably with a normal room air oxygen saturation. Patient's EKG is fairly unremarkable, and his repeat troponin remains negative. Patient had a negative troponin and d-dimer done earlier this afternoon. Patient's chest x-ray from earlier this afternoon was unremarkable. I do not suspect that the patient's symptoms are from a cardiac or emergent medical condition. I suspect that the patient's pain is likely chest wall in etiology, as his pain is reproducible with palpation. Patient is aware of his test results, and he feels comfortable going home at this time. Patient was counseled about chest pain/chest wall pain, and he was clearly explained return and follow-up instructions. Patient was instructed to follow up closely with his primary care provider. EKG Findings - EKG Comments: EKG Findings:: Normal sinus rhythm, ventricular rate of 79 bpm, no ectopy, normal IA and QRS intervals, normal QT interval, normal axis, no ST or T-wave abnormality Medical Decision Making - Lab Data Lab Results 08/19/20 Range/Units 18:53 Troponin I <0.012 (0.000-0.034) ng/mL Disposition Clinical Impression: Chest pain Narrative: Suspected chest wall pain Disposition: HOME SELF-CARE Condition: Stable Instructions (If sedation given, give patient instructions): Chest Pain (ED), Costochondritis (ED) Additional Instructions: Return to the ER immediately should you develop new or worsening pain, a fever, shortness of breath, vomiting, feeling dizzy or faint, or new or worsening symptoms. Follow up closely with your primary care provider. Is patient prescribed a controlled substance at d/c from ED?: No Referrals: Dee Dee Christopher NPC [Primary Care Provider] - 1-2 days Time of Disposition: 19:48
== END 2020-08-19 20:07 | disposition home or self-care (01) ==
LOC: EC 17:11
DX: R07.9 Chest pain, unspecified (principal); K21.9 Gastro-esophageal reflux disease without esophagitis; M06.9 Rheumatoid arthritis, unspecified; Z79.899 Other long term (current) drug therapy
CPT/HCPCS: 36415; 84484; 93005; 99285

== ENCOUNTER 2020-09-25 11:31 | Emergency (ER) | payer OTHER ==
[2020-09-25 11:43] VITALS: RESP 18
[2020-09-25] MEDS ORDERED: ONDANSETRON ODT 4 MG TAB PO STA (12:15)
--- NOTE | 2020-09-25 12:16 | ED ---
ENT HPI - General Chief complaint: ENT Stated complaint: Sore throat, Vomiting Time Seen by Provider: 09/25/20 11:52 Source: patient Mode of arrival: ambulatory Limitations: no limitations - History of Present Illness Initial comments: 50yo male presenting for one episode of vomiting. Pt states that after he had one episode of vomiting he denies current nausea vomiting abdominal pain denies any fevers upper respiratory symptoms chest pain shortness of breath he denies a back flank pain or urinary symptoms patient is no additional complaints he appears well nontoxic in no acute distress on arrival - Related Data Home Medications Medication Instructions Recorded Confirmed Etanercept [Enbrel Sureclick] 50 mg SQ FR 02/20/19 09/25/20 Methotrexate 25mg/1ml 25 mg IM WE 02/20/19 09/25/20 Folic Acid 1 mg PO DAILY 08/05/19 09/25/20 Omeprazole 20 mg PO DAILY 01/09/20 09/25/20 Rosuvastatin Calcium [Crestor] 20 mg PO HS 09/25/20 09/25/20 Allergies Allergy/AdvReac Type Severity Reaction Status Date / Time No Known Allergies Allergy Verified 09/25/20 13:12 Review of Systems ROS Statement: Those systems with pertinent positive or pertinent negative responses have been documented in the HPI. ROS Other: All systems not noted in ROS Statement are negative. Past Medical History Past Medical History: GERD/Reflux, Hyperlipidemia, Rheumatoid Arthritis (RA) Last Myocardial Infarction Date:: Dyslipidemia, appears to have some mild developmental delay History of Any Multi-Drug Resistant Organisms: None Reported Past Surgical History: No Surgical Hx Reported Past Anesthesia/Blood Transfusion Reactions: No Reported Reaction Past Psychological History: No Psychological Hx Reported Smoking Status: Never smoker Past Alcohol Use History: None Reported Past Drug Use History: None Reported - Past Family History Father Family Medical History: Hypertension Mother History Unknown: Yes Family Medical History: No Reported History Grandfather Additional Family Medical History / Comment(s): Heart disease General Exam - General Exam Comments Initial Comments: General: The patient is awake and alert, in no distress, and does not appear acutely ill. Eye: Pupils are equal, round and reactive to light, extra-ocular movements are intact. No nystagmus. There is normal conjunctiva bilaterally. No signs of icterus. Ears, nose, mouth and throat: There are moist mucous membranes and no oral lesions. Neck: The neck is supple, there is no tenderness or JVD. Cardiovascular: There is a regular rate and rhythm. No murmur, rub or gallop is appreciated. Respiratory: Lungs are clear to auscultation, respirations are non-labored, breath sounds are equal. No wheezes, stridor, rales, or rhonchi. Gastrointestinal: Soft, non-distended, non-tender abdomen without masses or organomegaly noted. There is no rebound or guarding present. Musculoskeletal: Normal ROM, no tenderness. Strength 5/5. Sensation intact. Pulses equal bilaterally 2+. Neurological: A&O x 3. CN II-XII intact grossly, There are no obvious motor or sensory deficits. Coordination appears grossly intact. Speech is normal. Skin: Skin is warm and dry and no rashes or lesions are noted. Psychiatric: Cooperative, appropriate mood & affect, normal judgment. Limitations: no limitations Course Vital Signs 09/25/20 11:41 Temperature 97.2 F L Pulse Rate 89 Respiratory 18 Rate Blood Pressure 135/87 O2 Sat by Pulse 99 Oximetry Medical Decision Making - Medical Decision Making No active vomiting. no CP. Sore throat after vomiting, not before. no fevers. appears nontoxic. tolerating oral intake. no current nausea. abdomen soft nontender. pt will be discharged [facility] return parameters, work note and pcp f/u. patient agreeable. Dr. Florence agreeable to care plan. Disposition Clinical Impression: Vomiting Disposition: HOME SELF-CARE Condition: Good Instructions (If sedation given, give patient instructions): Acute Nausea and Vomiting (ED) Additional Instructions: Please use medication as discussed. Please follow-up with family doctor in the next 2 days.. Please return to emergency room if the symptoms increase or worsen or for any other concerns. Is patient prescribed a controlled substance at d/c from ED?: No Referrals: Dee Dee Christopher NPC [Primary Care Provider] - 1-2 days Time of Disposition: 12:15
[2020-09-25 13:27] VITALS: BP 137/80; PULSE 78; TEMP 97.9
== END 2020-09-25 13:27 | disposition home or self-care (01) ==
LOC: EC 11:31
DX: R11.10 Vomiting, unspecified (principal); K21.9 Gastro-esophageal reflux disease without esophagitis; E78.5 Hyperlipidemia, unspecified; M06.9 Rheumatoid arthritis, unspecified; Z79.899 Other long term (current) drug therapy; Z20.828 Contact with and (suspected) exposure to other viral communicable diseases
CPT/HCPCS: 99283; U0003

== ENCOUNTER 2020-10-27 16:00 | Emergency (ER) | payer OTHER ==
[2020-10-27 16:04] VITALS: BP 150/86; TEMP 99.5
--- NOTE | 2020-10-27 16:22 | ED ---
General Adult HPI - General Chief complaint: Eye Problems Stated complaint: Eye Pain Time Seen by Provider: 10/27/20 16:04 Source: patient, RN notes reviewed Mode of arrival: ambulatory Limitations: no limitations - History of Present Illness Initial comments: 50-year-old male with a past medical history of hyperlipidemia, developmental delay, GERD presents to the emergency room for left eyelid swelling. Patient reports he has had pain and swelling of the left eyelid since yesterday. He denies any pain in his eye itself. Denies any visual changes. She denies any pain with moving the eye. He does complain of pain with touching his eyelid. He denies fevers or chills. He is complaining of a sore throat as well. This has been ongoing for the past 3 days. He denies cough or congestion.Patient has no other complaints at this time including shortness of breath, chest pain, abdominal pain, nausea or vomiting, headache, or visual changes. - Related Data Home Medications Medication Instructions Recorded Confirmed Etanercept [Enbrel Sureclick] 50 mg SQ FR 02/20/19 10/27/20 Methotrexate 25mg/1ml 25 mg IM WE 02/20/19 10/27/20 Folic Acid 1 mg PO DAILY 08/05/19 10/27/20 Rosuvastatin Calcium [Crestor] 20 mg PO HS 09/25/20 10/27/20 Omeprazole 40 mg PO DAILY 10/27/20 10/27/20 Previous Rx's Medication Instructions Recorded Sulfamethox-Tmp 800-160Mg [Bactrim 1 tab PO Q12HR #20 tab 10/27/20 DS 800-160 mg] Allergies Allergy/AdvReac Type Severity Reaction Status Date / Time No Known Allergies Allergy Verified 10/27/20 16:57 Review of Systems ROS Statement: Those systems with pertinent positive or pertinent negative responses have been documented in the HPI. ROS Other: All systems not noted in ROS Statement are negative. Past Medical History Past Medical History: GERD/Reflux, Hyperlipidemia, Rheumatoid Arthritis (RA) Last Myocardial Infarction Date:: Dyslipidemia, appears to have some mild developmental delay History of Any Multi-Drug Resistant Organisms: None Reported Past Surgical History: No Surgical Hx Reported Past Anesthesia/Blood Transfusion Reactions: No Reported Reaction Past Psychological History: No Psychological Hx Reported Smoking Status: Never smoker Past Alcohol Use History: None Reported Past Drug Use History: None Reported - Past Family History Father Family Medical History: Hypertension Mother History Unknown: Yes Family Medical History: No Reported History Grandfather Additional Family Medical History / Comment(s): Heart disease General Exam Limitations: no limitations General appearance: alert, in no apparent distress Head exam: Present: atraumatic, normocephalic, normal inspection Eye exam: Present: PERRL, EOMI (No pain with extraocular movements.), periorbital swelling (Patient has edema and erythema noted to the left upper eyelid with external hordeolum present.). Absent: scleral icterus, conjunctival injection (No erythema or evidence of conjunctivitis.) ENT exam: Present: normal exam, mucous membranes moist Neck exam: Present: normal inspection, full ROM. Absent: tenderness, meningismus, lymphadenopathy Respiratory exam: Present: normal lung sounds bilaterally. Absent: respiratory distress, wheezes, rales, rhonchi, stridor Cardiovascular Exam: Present: regular rate, normal rhythm, normal heart sounds. Absent: systolic murmur, diastolic murmur, rubs, gallop, clicks GI/Abdominal exam: Present: soft, normal bowel sounds. Absent: distended, tenderness, guarding, rebound, rigid Neurological exam: Present: alert Course Vital Signs 10/27/20 16:01 Temperature 99.5 F Pulse Rate 111 H Respiratory 18 Rate Blood Pressure 150/86 O2 Sat by Pulse 95 Oximetry Medical Decision Making - Medical Decision Making Vitals are stable. Patient initially tachycardic likely related to anxiety. This did improve. Patient does have swelling of the left eyelid with external hordeolum noted. He does not have any pain with extraocular movements. No conjunctivitis. I discussed warm commerce's. Patient will also be covered with Bactrim as he does have a good amount of redness and erythema noted to the eyelid to cover for any preorbital cellulitis developing. I do not suspect orbital cellulitis as patient does not have pain with extraocular ocular motions, pain and swelling are localized to the upper eyelid, and patient has a hordeolum. Patient also complaining of a sore throat. Oropharynx is unremarkable. No tonsillar exudates noted bilaterally. Uvula midline I did test patient for strep and Covid which are negative. At this time patient will do warm compresses and take Bactrim. He likely has a viral pharyngitis in add ition to hordeolum. He will follow up with his doctor. He will return here for any worsening symptoms. - Lab Data Lab Results 10/27/20 10/27/20 Range/Units 16:30 16:30 Coronavirus (PCR) Not Detected (Not Detectd) Group A Strep Rapid Negative (Negative) Disposition Clinical Impression: Pharyngitis, Hordeolum Disposition: HOME SELF-CARE Condition: Good Instructions (If sedation given, give patient instructions): [place] (ED) Additional Instructions: Please apply warm compresses to the eye. Take Bactrim as directed. If you start to develop any worsening symptoms return to the emergency room. Otherwise follow-up with your primary care doctor. Prescriptions: Sulfamethox-Tmp 800-160Mg [Bactrim DS 800-160 mg] 1 tab PO Q12HR #20 tab Is patient prescribed a controlled substance at d/c from ED?: No Referrals: Dee Dee Christopher NPC [Primary Care Provider] - 1-2 days Time of Disposition: 17:06
[2020-10-27 17:03] VITALS: PULSE 99; RESP 16
[2020-10-27] MEDS ORDERED: SULFAMETHOX-TMP 800-160MG 1 EACH TAB PO STA (17:07)
== END 2020-10-27 17:21 | disposition home or self-care (01) ==
LOC: EC 16:00
DX: H00.014 Hordeolum externum left upper eyelid (principal); J02.9 Acute pharyngitis, unspecified; I25.2 Old myocardial infarction; E78.5 Hyperlipidemia, unspecified; K21.9 Gastro-esophageal reflux disease without esophagitis; M06.9 Rheumatoid arthritis, unspecified; Z79.899 Other long term (current) drug therapy
CPT/HCPCS: 87081; 87430; 87635; 99283

== ENCOUNTER 2021-02-11 02:38 | Emergency (ER) | payer OTHER ==
[2021-02-11 02:48] VITALS: BP 142/90; PULSE 120; RESP 18; TEMP 99.2
[2021-02-11] MEDS ORDERED: ACET/COD 300 MG/30 MG STARTER PACK 6 TAB BTL PO STA (02:53)
[2021-02-11] MEDS ORDERED: KETOROLAC 15 MG/ML 1 ML VIAL IM STA (02:53)
--- NOTE | 2021-02-11 02:55 | ED ---
Extremity Problem HPI - General Chief complaint: Extremity Problem,Nontraumatic Stated complaint: Leg pain Time Seen by Provider: 02/11/21 02:50 Source: patient Mode of arrival: wheelchair Limitations: physical limitation - History of Present Illness Initial comments: 51-year-old male presenting to the ER today for chief complaint of bilateral knee pain. 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 Newberry. Patient states the past 2 days his knees have been bugging him bilaterally he states it feels like when he sat previous flares of his rheumatoid arthritis denies falls or trauma he denies redness or swelling. Patient denies any calf pain or swelling he denies any chest pain shortness of breath he denies any inability to weight-bear or ambulate. Patient denies any coolness or pallor of the extremities. Patient denies abdominal pain. Remaining review of systems negative upon arrival patient appears well nontoxic distress--during the history taking patient was addressing work note - Related Data Home Medications Medication Instructions Recorded Confirmed Etanercept [Enbrel Sureclick] 50 mg SQ FR 02/20/19 10/27/20 Methotrexate 25mg/1ml 25 mg IM WE 02/20/19 10/27/20 Folic Acid 1 mg PO DAILY 08/05/19 10/27/20 Rosuvastatin Calcium [Crestor] 20 mg PO HS 09/25/20 10/27/20 Omeprazole 40 mg PO DAILY 10/27/20 10/27/20 Previous Rx's Medication Instructions Recorded Clindamycin [Cleocin] 450 mg PO Q8H 7 Days #63 cap 10/27/20 predniSONE 50 mg PO DAILY 4 Days #4 tab 02/11/21 Allergies Allergy/AdvReac Type Severity Reaction Status Date / Time No Known Allergies Allergy Verified 02/11/21 02:44 Review of Systems ROS Statement: Those systems with pertinent positive or pertinent negative responses have been documented in the HPI. ROS Other: All systems not noted in ROS Statement are negative. Past Medical History Past Medical History: GERD/Reflux, Hyperlipidemia, Rheumatoid Arthritis (RA) Last Myocardial Infarction Date:: Dyslipidemia, appears to have some mild developmental delay History of Any Multi-Drug Resistant Organisms: None Reported Past Surgical History: No Surgical Hx Reported Past Anesthesia/Blood Transfusion Reactions: No Reported Reaction Past Psychological History: No Psychological Hx Reported Smoking Status: Never smoker Past Alcohol Use History: None Reported Past Drug Use History: None Reported - Past Family History Father Family Medical History: Hypertension Mother History Unknown: Yes Family Medical History: No Reported History Grandfather Additional Family Medical History / Comment(s): Heart disease General Exam - General Exam Comments Initial Comments: General: The patient is awake and alert, in no distress, and does not appear acutely ill. Eye: Pupils are equal, round and reactive to light, extra-ocular movements are intact. No nystagmus. There is normal conjunctiva bilaterally. No signs of icterus. . Cardiovascular: There is a regular rate and rhythm. No murmur, rub or gallop is appreciated. Respiratory: Lungs are clear to auscultation, respirations are non-labored, breath sounds are equal. No wheezes, stridor, rales, or rhonchi. Musculoskeletal: There is some scarring over the anterior knees bilaterally. There is no redness swelling or warmth. Patient is able to fully range at the knees bilaterally. As well as weight-bear. Normal ROM, no tenderness. Strength 5/5 of the knees and ankles bilaterally. Sensation intact. DP, Posterior tibial and rdial pulses equal bilaterally 2+. Neurological: A&O x 3. CN II-XII intact, There are no obvious motor or sensory deficits. Coordination appears grossly intact. Speech is normal. Skin: Skin is warm and dry and no rashes or lesions are noted. No LE edema, no calf pain or swelling. Psychiatric: Cooperative, appropriate mood & affect, normal judgment. Limitations: physical limitation Course Vital Signs 02/11/21 02:44 Temperature 99.2 F Pulse Rate 120 H Respiratory 18 Rate Blood Pressure 142/90 O2 Sat by Pulse 96 Oximetry Medical Decision Making - Medical Decision Making 51yo male well known to this ER presenting for cc of b/l knee pain. hx RA. no trauma/falls. no findings clinicalyl suggestive of septic arthritis. no eye symptoms. no penile discharge or dysuria. pt treated symptomatically and will be discharge with pcp/rheumatology f/u. initiated on abx and instructed to take tylenol with steroids no nsaids eith risk of PUD. Disposition Clinical Impression: Bilateral knee pain, History of rheumatoid arthritis Disposition: HOME SELF-CARE Condition: Good Instructions (If sedation given, give patient instructions): Rheumatoid Arthritis (ED) Additional Instructions: Please use medication as discussed. Please follow-up with family doctor in the next 2 days, recommend follow-up with your toll gate tender. Please return to emergency room if the symptoms increase or worsen or for any other concerns. Prescriptions: predniSONE 50 mg PO DAILY 4 Days #4 tab Is patient prescribed a controlled substance at d/c from ED?: No Referrals: Dee Dee Christopher NPC [Primary Care Provider] - 1-2 days Tracey Newberry MD [STAFF PHYSICIAN] - 1-2 days Time of Disposition: 02:54
== END 2021-02-11 03:13 | disposition home or self-care (01) ==
LOC: EC 02:38
DX: M25.561 Pain in right knee (principal); M25.562 Pain in left knee; M06.9 Rheumatoid arthritis, unspecified; K21.9 Gastro-esophageal reflux disease without esophagitis; E78.5 Hyperlipidemia, unspecified; Z79.899 Other long term (current) drug therapy
CPT/HCPCS: 99283; 96372; J1885

== ENCOUNTER 2021-04-15 10:31 | Emergency (ER) | payer OTHER ==
[2021-04-15 10:36] VITALS: BP 165/94; PULSE 85; RESP 20; TEMP 98.1
--- NOTE | 2021-04-15 12:24 | ED ---
Extremity Problem HPI - General Chief complaint: Extremity Problem,Nontraumatic Stated complaint: Leg pain/lumps Time Seen by Provider: 04/15/21 11:23 Source: patient, RN notes reviewed Mode of arrival: ambulatory Limitations: no limitations - History of Present Illness Initial comments: 51-year-old male presents emergency Department with chief complaint left calf pain. Patient states started last night worse this morning. States it hurts to touch. He was some bruising and there is concerned that he may have a blood clot because he had COVID-19 vaccine 3 weeks ago. Patient denies any history of DVT or PE no chest pain or shortness of breath no other complaints. - Related Data Home Medications Medication Instructions Recorded Confirmed Etanercept [Enbrel Sureclick] 50 mg SQ FR 02/20/19 10/27/20 Methotrexate 25mg/1ml 25 mg IM WE 02/20/19 10/27/20 Folic Acid 1 mg PO DAILY 08/05/19 10/27/20 Rosuvastatin Calcium [Crestor] 20 mg PO HS 09/25/20 10/27/20 Omeprazole 40 mg PO DAILY 10/27/20 10/27/20 Previous Rx's Medication Instructions Recorded Clindamycin [Cleocin] 450 mg PO Q8H 7 Days #63 cap 10/27/20 predniSONE 50 mg PO DAILY 4 Days #4 tab 02/11/21 Ibuprofen [Motrin] 600 mg PO Q8HR PRN #20 tab 04/15/21 Allergies Allergy/AdvReac Type Severity Reaction Status Date / Time No Known Allergies Allergy Verified 04/15/21 10:36 Review of Systems ROS Statement: Those systems with pertinent positive or pertinent negative responses have been documented in the HPI. ROS Other: All systems not noted in ROS Statement are negative. Past Medical History Past Medical History: GERD/Reflux, Hyperlipidemia, Rheumatoid Arthritis (RA) Last Myocardial Infarction Date:: Dyslipidemia, appears to have some mild developmental delay History of Any Multi-Drug Resistant Organisms: None Reported Past Surgical History: No Surgical Hx Reported Past Anesthesia/Blood Transfusion Reactions: No Reported Reaction Past Psychological History: No Psychological Hx Reported Smoking Status: Never smoker Past Alcohol Use History: None Reported Past Drug Use History: None Reported - Past Family History Father Family Medical History: Hypertension Mother History Unknown: Yes Family Medical History: No Reported History Grandfather Additional Family Medical History / Comment(s): Heart disease General Exam Limitations: no limitations General appearance: alert, in no apparent distress Head exam: Present: atraumatic, normocephalic, normal inspection Eye exam: Present: normal appearance, PERRL, EOMI. Absent: scleral icterus, conjunctival injection, periorbital swelling Respiratory exam: Present: normal lung sounds bilaterally. Absent: respiratory distress, wheezes, rales, rhonchi, stridor Cardiovascular Exam: Present: regular rate, normal rhythm, normal heart sounds. Absent: systolic murmur, diastolic murmur, rubs, gallop, clicks Extremities exam: Present: other (Left There is noted ecchymotic areas, tenderness with palpation, neurovascular intact with equal pedal pulses equal color equal warmth) Skin exam: Present: warm, dry, intact, normal color. Absent: rash Course Vital Signs 04/15/21 10:33 Temperature 98.1 F Pulse Rate 85 Respiratory 20 Rate Blood Pressure 165/94 O2 Sat by Pulse 98 Oximetry Medical Decision Making - Medical Decision Making 51-year-old presented for left calf pain. Ultrasound was negative for DVT. Patient will be discharged stable condition. Patient may have underlying injury versus strain of his left calf Disposition Clinical Impression: Pain of left calf, Strain of left calf muscle Disposition: HOME SELF-CARE Condition: Stable Instructions (If sedation given, give patient instructions): Muscle Strain (ED) Additional Instructions: Please return to the Emergency Department if symptoms worsen or any other concerns. Prescriptions: Ibuprofen [Motrin] 600 mg PO Q8HR PRN #20 tab PRN Reason: Pain Is patient prescribed a controlled substance at d/c from ED?: No Referrals: Kamar Shell MD [Primary Care Provider] - 1-2 days Time of Disposition: 12:44
--- NOTE | 2021-04-15 13:00 | US ---
EXAMINATION TYPE: US venous doppler duplex LE LT DATE OF EXAM: 04/15/2021 12:48 PM COMPARISON: NONE CLINICAL HISTORY: pain. SIDE PERFORMED: TECHNIQUE: The lower extremity deep venous system is examined utilizing real time linear array sonog zoe with graded compression, doppler sonography and color-flow sonography. VESSELS IMAGED: Common Femoral Vein Deep Femoral Vein Greater Saphenous Vein * Femoral Vein Popliteal Vein Small Saphenous Vein * Proximal Calf Veins (* superficial vessels) Left Leg: Negative for DVT Negative for superficial clot at area of concern. IMPRESSION: Grayscale, color doppler, spectral doppler imaging performed of the deep veins of the lo wer extremities. There is normal flow, compressibility, vascular waveforms.
== END 2021-04-15 13:08 | disposition home or self-care (01) ==
LOC: EC 10:31
DX: S86.912A Strain of unspecified muscle(s) and tendon(s) at lower leg level, left leg, initial encounter (principal); K21.9 Gastro-esophageal reflux disease without esophagitis; E78.5 Hyperlipidemia, unspecified; M06.9 Rheumatoid arthritis, unspecified; I25.2 Old myocardial infarction; X58.XXXA Exposure to other specified factors, initial encounter
CPT/HCPCS: 99284

== ENCOUNTER 2021-04-22 07:55 | Emergency (ER) | payer OTHER ==
[2021-04-22 08:06] VITALS: RESP 18; TEMP 98.1
[2021-04-22] MEDS ORDERED: DEXTROSE 5% IN WATER 250 ML with AMIODARONE 300 MG IV ONE (08:31)
[2021-04-22] MEDS ORDERED: ONDANSETRON 4 MG/2 ML VIAL IVP STA (08:32)
[2021-04-22] MEDS ORDERED: ONDANSETRON ODT 4 MG TAB PO STA (08:33)
--- NOTE | 2021-04-22 08:36 | ED ---
General Adult HPI - General Chief complaint: Recheck/Abnormal Lab/Rx Stated complaint: loss of taste Time Seen by Provider: 04/22/21 08:00 Source: patient, RN notes reviewed, old records reviewed Mode of arrival: ambulatory Limitations: no limitations - History of Present Illness Initial comments: This is a 51-year-old male who presents emergency department stating that last night he vomited twice and vomited one time this morning. Patient states he also feels like he can taste his food very well. Patient states he did discolored vaccine last month. Patient denies any cough patient denies fever chills per patient denies abdominal pain patient denies chest pain difficulty breathing. Patient denies any congestion. Patient denies any diarrhea. Patient states he just was a little bit nauseous now and he wanted to be checked for COVID because his taste seems to have changed. Patient denies headache patient denies numbness weakness. - Related Data Home Medications Medication Instructions Recorded Confirmed Etanercept [Enbrel Sureclick] 50 mg SQ FR 02/20/19 10/27/20 Methotrexate 25mg/1ml 25 mg IM WE 02/20/19 10/27/20 Folic Acid 1 mg PO DAILY 08/05/19 10/27/20 Rosuvastatin Calcium [Crestor] 20 mg PO HS 09/25/20 10/27/20 Omeprazole 40 mg PO DAILY 10/27/20 10/27/20 Previous Rx's Medication Instructions Recorded Clindamycin [Cleocin] 450 mg PO Q8H 7 Days #63 cap 10/27/20 predniSONE 50 mg PO DAILY 4 Days #4 tab 02/11/21 Ibuprofen [Motrin] 600 mg PO Q8HR PRN #20 tab 04/15/21 Allergies Allergy/AdvReac Type Severity Reaction Status Date / Time No Known Allergies Allergy Verified 04/22/21 08:06 Review of Systems ROS Statement: Those systems with pertinent positive or pertinent negative responses have been documented in the HPI. ROS Other: All systems not noted in ROS Statement are negative. Past Medical History Past Medical History: GERD/Reflux, Hyperlipidemia, Rheumatoid Arthritis (RA) Last Myocardial Infarction Date:: Dyslipidemia, appears to have some mild developmental delay History of Any Multi-Drug Resistant Organisms: None Reported Past Surgical History: No Surgical Hx Reported Past Anesthesia/Blood Transfusion Reactions: No Reported Reaction Past Psychological History: No Psychological Hx Reported Smoking Status: Never smoker Past Alcohol Use History: None Reported Past Drug Use History: None Reported - Past Family History Father Family Medical History: Hypertension Mother History Unknown: Yes Family Medical History: No Reported History Grandfather Additional Family Medical History / Comment(s): Heart disease General Exam - General Exam Comments Initial Comments: GENERAL: Patient is well-developed and well-nourished. Patient is nontoxic and well- hydrated and is in no acute distress. ENT: Neck is soft and supple. No significant lymphadenopathy is noted. Oropharynx is clear. Moist mucous membranes. Neck has full range of motion without eliciting any pain. EYES: The sclera were anicteric and conjunctiva were pink and moist. Extraocular movements were intact and pupils were equal round and reactive to light. Eyelids were unremarkable. PULMONARY: Unlabored respirations. Good breath sounds bilaterally. No audible rales rhonchi or wheezing was noted. CARDIOVASCULAR: There is a regular rate and rhythm without any murmurs gallops or rubs. ABDOMEN: Soft and nontender with normal bowel sounds. SKIN: Skin is clear with no lesions or rashes and otherwise unremarkable. NEUROLOGIC: Patient is alert and oriented x3. Cranial nerves II through XII are grossly intact. Motor and sensory are also intact. Normal speech, volume and content. Symmetrical smile. MUSCULOSKELETAL: Normal extremities with adequate strength and full range of motion. No lower extremity swelling or edema. No calf tenderness. LYMPHATICS: No significant lymphadenopathy is noted PSYCHIATRIC: Normal psychiatric evaluation. Limitations: no limitations Course Vital Signs 04/22/21 08:02 Temperature 98.1 F Pulse Rate 80 Respiratory 18 Rate Blood Pressure 157/92 O2 Sat by Pulse 97 Oximetry Medical Decision Making - Medical Decision Making Patient is given Zofran by mouth. Patient was feeling better and was no longer nauseated. - Lab Data Lab Results 04/22/21 04/22/21 Range/Units 08:13 08:38 Urine Color Yellow Urine Appearance Clear (Clear) Urine pH 6.5 (5.0-8.0) Ur Specific [place] 1.022 (1.001-1.035) Urine Protein Negative (Negative) Urine Glucose (UA) Negative (Negative) Urine Ketones Negative (Negative) Urine Blood Negative (Negative) Urine Nitrite Negative (Negative) Urine Bilirubin Negative (Negative) Urine Urobilinogen <2.0 (<2.0) mg/dL Ur Leukocyte Esterase Negative (Negative) Coronavirus (PCR) Not Detected (Not Detectd) Disposition Clinical Impression: Acute vomiting, Abnormal sense of taste Disposition: HOME SELF-CARE Condition: Good Is patient prescribed a controlled substance at d/c from ED?: No Referrals: Kamar Shell MD [REFERRING] - 1-2 days Time of Disposition: 08:51
[2021-04-22 08:49] LABS: Appearance,Urine Clear (Clear); Bilirubin,Urine Negative (Negative); Blood,Urine Negative (Negative); Color,Urine Yellow; Glucose,Urine (UA) Negative (Negative); Ketones,Urine Negative (Negative); Leukocyte Esterase,Urine Negative (Negative); Nitrite,Urine Negative (Negative); PH, Urine 6.5 (5.0-8.0); Protein,Urine Negative (Negative); Specific Gravity,Urine 1.022 (1.001-1.035); Urobilinogen,Urine <2.0 mg/dL (<2.0)
[2021-04-22] MEDS ORDERED: ONDANSETRON 4 MG ODT STARTER PACK 2 TAB BTL PO STA (08:52)
[2021-04-22 09:40] VITALS: BP 142/84; PULSE 84
== END 2021-04-22 09:25 | disposition home or self-care (01) ==
LOC: EC 07:55
DX: R43.9 Unspecified disturbances of smell and taste (principal); R11.10 Vomiting, unspecified; Z20.822 Contact with and (suspected) exposure to COVID-19; E78.5 Hyperlipidemia, unspecified; K21.9 Gastro-esophageal reflux disease without esophagitis; I25.2 Old myocardial infarction; M06.9 Rheumatoid arthritis, unspecified
CPT/HCPCS: 81003; 87635; 99284; S0119

== ENCOUNTER 2021-05-21 09:56 | Emergency (ER) | payer OTHER ==
[2021-05-21 10:02] VITALS: RESP 18; TEMP 98
[2021-05-21] MEDS ORDERED: LIDOCAINE 1%-EPI 1:100,000 20 ML VIAL SQ STA (10:23)
[2021-05-21] MEDS ORDERED: DIPH,PERTUS(ACELL)TETVAC-LF 0.5 ML VIAL IM ONE (10:23)
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
[2021-05-21 12:38] VITALS: BP 148/92; PULSE 85
== END 2021-05-21 12:37 | disposition home or self-care (01) ==
LOC: EC 09:56
DX: S01.01XA Laceration without foreign body of scalp, initial encounter (principal); Z23 Encounter for immunization; E78.5 Hyperlipidemia, unspecified; K21.9 Gastro-esophageal reflux disease without esophagitis; M06.9 Rheumatoid arthritis, unspecified; I25.2 Old myocardial infarction; W55.32XA Struck by other hoof stock, initial encounter; Y92.410 Unspecified street and highway as the place of occurrence of the external cause
CPT/HCPCS: 12002; 70450; 72125; 90471; 90715; 99284

== ENCOUNTER 2021-05-26 08:13 | Inpatient (IN) | payer OTHER ==
[2021-05-26] MEDS ORDERED: METOCLOPRAMIDE 5 MG/ML 2 ML VIAL IVP STA (08:45)
[2021-05-26] MEDS ORDERED: MECLIZINE 12.5 MG TAB PO STA (08:45)
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
[2021-05-26 09:18] LABS: Basophils # (A) 0.1 k/uL (0-0.2); Basophils % (A) 1 %; Eosinophils # (A) 0.3 k/uL (0-0.7); Eosinophils % (A) 5 %; HCT 44.5 % (39.0-53.0); HGB 15.4 gm/dL (13.0-17.5); Lymphocytes # (A) 1.5 k/uL (1.0-4.8); Lymphocytes % (A) 26 %; MCH 28.9 pg (25.0-35.0); MCHC 34.6 g/dL (31.0-37.0); MCV 83.3 fL (80.0-100.0); Monocytes # (A) 0.4 k/uL (0-1.0); Monocytes % (A) 7 %; Neutrophils # (A) 3.5 k/uL (1.3-7.7); Neutrophils % (A) 59 %; Platelet Count 251 k/uL (150-450); RBC 5.34 m/uL (4.30-5.90); RDW 14.1 % (11.5-15.5); WBC 5.9 k/uL (3.8-10.6)
[2021-05-26 09:28] LABS: ALT 20 U/L (4-49); AST 31 U/L (17-59); African American GFR (CKD) >90 (>60 ml/min/1.73 sqM); Albumin 4.2 g/dL (3.5-5.0); Alkaline Phosphatase 66 U/L (38-126); Anion Gap 10 mmol/L; Blood Urea Nitrogen 13 mg/dL (9-20); Calcium 9.2 mg/dL (8.4-10.2); Carbon Dioxide 26 mmol/L (22-30); Chloride 105 mmol/L (98-107); Glucose 120 mg/dL (74-99); Non-African American GFR(CKD) >90 (>60 ml/min/1.73 sqM); Potassium 3.6 mmol/L (3.5-5.1); Sodium 141 mmol/L (137-145); Total Bilirubin 0.4 mg/dL (0.2-1.3); Total Protein 7.4 g/dL (6.3-8.2)
[2021-05-26 09:31] LABS: INR 0.9 (<1.2); Partial Thromboplastin Time 25.3 sec (22.0-30.0); Prothrombin Time 9.9 sec (9.0-12.0)
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
[2021-05-26] MEDS ORDERED: SCOPOLAMINE 1.5MG/72HR PATCH TRANSDERM STA (10:40)
[2021-05-26] MEDS ORDERED: DIAZEPAM 5 MG/ML 2 ML INJ IVP STA (10:41)
[2021-05-26] MEDS ORDERED: NALOXONE 0.4 MG/ML 1 ML VIAL IV PRN (12:09)
[2021-05-26] MEDS ORDERED: LORazepam 2 MG/ML INJ IV PRN (12:09)
[2021-05-26] MEDS ORDERED: MECLIZINE 25 MG TAB PO PRN (12:11)
[2021-05-26] MEDS ORDERED: ACETAMINOPHEN TAB 325 MG TAB PO PRN (13:30)
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
[2021-05-26] MEDS ORDERED: METHOTREXATE IM SCH (17:45)
[2021-05-26] MEDS: METOCLOPRAMIDE 5 MG/ML 2 ML VIAL IVP SCH ×2 (17:54→23:57)
[2021-05-26] MEDS: diazePAM 5 MG TAB PO PRN (17:54)
[2021-05-27] MEDS: diazePAM 5 MG TAB PO PRN (00:01)
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
[2021-05-27] MEDS: METOCLOPRAMIDE 5 MG/ML 2 ML VIAL IVP SCH ×3 (08:58→17:43)
[2021-05-27] MEDS: FOLIC ACID 1 MG TAB PO SCH (08:59)
[2021-05-27] MEDS: PANTOPRAZOLE 40 MG TABLET PO SCH (08:59)
[2021-05-27] MEDS: ENOXAPARIN 40 MG/0.4 ML SYRINGE SQ SCH (08:59)
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
[2021-05-28] MEDS: METOCLOPRAMIDE 5 MG/ML 2 ML VIAL IVP SCH ×4 (00:27→14:29)
[2021-05-28 01:33] VITALS: RESP 16
[2021-05-28] MEDS: ENOXAPARIN 40 MG/0.4 ML SYRINGE SQ SCH (07:53)
[2021-05-28] MEDS: FOLIC ACID 1 MG TAB PO SCH (07:53)
[2021-05-28] MEDS: PANTOPRAZOLE 40 MG TABLET PO SCH (07:53)
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
[2021-05-29] MEDS: METOCLOPRAMIDE 5 MG/ML 2 ML VIAL IVP SCH ×2 (00:19→05:44)
[2021-05-29 02:06] VITALS: TEMP 97.6
[2021-05-29 07:49] VITALS: BP 123/80
[2021-05-29] MEDS: ENOXAPARIN 40 MG/0.4 ML SYRINGE SQ SCH (07:59)
[2021-05-29] MEDS: PANTOPRAZOLE 40 MG TABLET PO SCH (07:59)
[2021-05-29] MEDS: FOLIC ACID 1 MG TAB PO SCH (07:59)
[2021-05-29 08:41] VITALS: PULSE 86
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
== END 2021-05-29 10:52 | disposition home or self-care (01) | DRG 103 ==
LOC: EC 08:13 → 6NMEDSUR 12:09 → OBSVTOIN 05-29 09:30
PROVIDERS: ADMIT Internal Medicine; ATTEND Internal Medicine
DX: F07.81 Postconcussional syndrome (principal); K21.9 Gastro-esophageal reflux disease without esophagitis; E78.5 Hyperlipidemia, unspecified; I25.2 Old myocardial infarction; M06.9 Rheumatoid arthritis, unspecified; J32.2 Chronic ethmoidal sinusitis; J32.0 Chronic maxillary sinusitis; S06.0X1D Concussion with loss of consciousness of 30 minutes or less, subsequent encounter; V40 Car occupant injured in collision with pedestrian or animal; Z82.49 Family history of ischemic heart disease and other diseases of the circulatory system
CPT/HCPCS: 36415; 70450; 70496; 70498; 70551; 80053; 85025; 85610; 85730; 93005; 94760; 96374; 96375; 99285

== ENCOUNTER → 2021-07-13 | Outpatient (CLI) | payer OTHER | END | disposition home or self-care (01) | LOC: LABWHC1 15:22 | PROVIDERS: ATTEND Internal Medicine | DX: Z20.822 Contact with and (suspected) exposure to COVID-19 (principal); J02.9 Acute pharyngitis, unspecified | CPT/HCPCS: U0003; C9803 ==

== ENCOUNTER → 2021-11-08 | Outpatient (CLI) | payer OTHER | END | disposition home or self-care (01) | LOC: LABWHC1 11:00 | PROVIDERS: ATTEND Internal Medicine | DX: Z20.822 Contact with and (suspected) exposure to COVID-19 (principal); R05.9 Cough, unspecified | CPT/HCPCS: U0003; C9803; U0005 ==

== ENCOUNTER 2022-01-19 11:11 | Emergency (ER) | payer OTHER ==
[2022-01-19 11:15] VITALS: BP 142/95; RESP 16; TEMP 97.1
--- NOTE | 2022-01-19 11:18 | ED ---
URI HPI - General Chief Complaint: Upper Respiratory Infection Stated Complaint: pain all over Time Seen by Provider: 01/19/22 11:16 Source: patient Mode of arrival: ambulatory Limitations: no limitations - History of Present Illness Initial Comments: Patient is a 52-year-old male who presents to the emergency department with a chief complaint of generalized weakness and sore throat x 1 week. Patient reports that he has not had the energy to stand up. He also reports generalized body aches and does mention it feels similar to his rheumatoid arthritis. 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 Patient states he developed a wet cough with green phlegm yesterday as well as chills and headache. He states that he had burning with urination one time yesterday. He reports he does feel a little short of breath right now. He has no history of pulmonary disease including asthma. He is COVID-19 vaccinated and boosted. Patient has no other concerns at this time including fever, hoarse voice, chest pain, dizziness, abdominal pain, nausea, vomiting, diarrhea, and bilateral leg pain. Of note, patient was seen at [facility] emergency department on 12/30/21 for sore throat and cough where rapid strep and covid-19 test were negative. Patient reports his sore throat has not fully gotten better. - Related Data Home Medications Medication Instructions Recorded Confirmed Etanercept [Enbrel Sureclick] 50 mg SQ WE 02/20/19 12/22/21 Methotrexate 25mg/1ml 25 mg IM FR 02/20/19 12/22/21 Folic Acid 1 mg PO DAILY 08/05/19 12/22/21 Omeprazole 40 mg PO DAILY 10/27/20 12/22/21 Previous Rx's Medication Instructions Recorded Meclizine [Antivert] 25 mg PO TID #20 tab 12/22/21 Allergies Allergy/AdvReac Type Severity Reaction Status Date / Time No Known Allergies Allergy Verified 01/19/22 11:15 Review of Systems ROS Statement: Those systems with pertinent positive or pertinent negative responses have been documented in the HPI. ROS Other: All systems not noted in ROS Statement are negative. Past Medical History Past Medical History: GERD/Reflux, Hyperlipidemia, Rheumatoid Arthritis (RA) Last Myocardial Infarction Date:: Dyslipidemia, appears to have some mild developmental delay History of Any Multi-Drug Resistant Organisms: None Reported Past Surgical History: No Surgical Hx Reported Past Anesthesia/Blood Transfusion Reactions: No Reported Reaction Past Psychological History: No Psychological Hx Reported Smoking Status: Never smoker Past Alcohol Use History: None Reported Past Drug Use History: None Reported - Past Family History Father Family Medical History: Hypertension Mother History Unknown: Yes Family Medical History: No Reported History Grandfather Additional Family Medical History / Comment(s): Heart disease General Exam Limitations: no limitations General appearance: alert, in no apparent distress Head exam: Present: atraumatic, normocephalic, normal inspection Eye exam: Present: normal appearance, PERRL, EOMI. Absent: scleral icterus, conjunctival injection, periorbital swelling ENT exam: Present: normal oropharynx (No redness, swelling, or erythema), mucous membranes moist Neck exam: Present: normal inspection. Absent: tenderness Respiratory exam: Present: normal lung sounds bilaterally. Absent: respiratory distress, wheezes, rales, rhonchi, stridor Cardiovascular Exam: Present: regular rate, normal rhythm, normal heart sounds. Absent: systolic murmur, diastolic murmur, rubs, gallop, clicks GI/Abdominal exam: Present: soft, normal bowel sounds. Absent: distended, tenderness, guarding, rebound, rigid Extremities exam: Present: normal inspection, normal capillary refill. Absent: pedal edema, calf tenderness Neurological exam: Present: alert, oriented X3, CN II-XII intact Psychiatric exam: Present: normal affect, normal mood Skin exam: Present: warm, dry, intact, normal color. Absent: rash Course Vital Signs 01/19/22 01/19/22 11:12 13:58 Temperature 97.1 F L Pulse Rate 81 76 Respiratory 16 16 Rate Blood Pressure 142/95 O2 Sat by Pulse 99 98 Oximetry Medical Decision Making - Medical Decision Making This is a 52-year-old male who presents with generalized weakness and sore throat x 1 week. Thorough history and examination were performed. Patient is afebrile. Oxygen is 99% on room air. Pharynx is normal-appearing without tonsillar swelling, exudate, or erythema. Laboratory studies are unremarkable. D-dimer is within normal limits. Strep throat, influenza A/B, and covid-19 are not detected. Chest xray was obtained and reveals no acute cardiopulmonary process. Urinalysis does not indicate infection. Results discussed with patient. Patient and I discussed that a prolonged sore throat can be indicative of other conditions such as acid reflux or cancer and further evaluation is extremely important. Patient states he takes Prilosec da agueda for acid reflex but continues to have heartburn. Acid reflux education was provided. I did offer patient acid reflux medication in the emergency department or a prescription for home and he declines medication at this time. Patient reports he will continue to take his Prilosec at home and will see his primary care provider for further evaluation and management of GERD. Return parameters discussed. Patient verbalizes understanding and is agreeable to plan. Dr. Farias is my attending. - Lab Data Result diagrams: 01/19/22 11:49 01/19/22 11:49 Lab Results 01/19/22 01/19/22 01/19/22 Range/Units 11:27 11:49 11:49 WBC 6.4 (3.8-10.6) k/uL RBC 4.94 (4.30-5.90) m/uL Hgb 15.0 (13.0-17.5) gm/dL Hct 43.7 (39.0-53.0) % MCV 88.5 (80.0-100.0) fL MCH 30.3 (25.0-35.0) pg MCHC 34.3 (31.0-37.0) g/dL RDW 12.6 (11.5-15.5) % Plt Count 220 (150-450) k/uL MPV 7.6 Neutrophils % 67 % Lymphocytes % 19 % Monocytes % 8 % Eosinophils % 3 % Basophils % 2 % Neutrophils # 4.3 (1.3-7.7) k/uL Lymphocytes # 1.2 (1.0-4.8) k/uL Monocytes # 0.5 (0-1.0) k/uL Eosinophils # 0.2 (0-0.7) k/uL Basophils # 0.1 (0-0.2) k/uL D-Dimer 0.24 (<0.60) mg/L FEU Sodium (137-145) mmol/L Potassium (3.5-5.1) mmol/L Chloride (98-107) mmol/L Carbon Dioxide (22-30) mmol/L Anion Gap mmol/L BUN (9-20) mg/dL Creatinine (0.66-1.25) mg/dL Est GFR (CKD-EPI)AfAm (>60 ml/min/1.73 sqM) Est GFR (CKD-EPI)NonAf (>60 ml/min/1.73 sqM) Glucose (74-99) mg/dL Calcium (8.4-10.2) mg/dL Total Bilirubin (0.2-1.3) mg/dL AST (17-59) U/L ALT (4-49) U/L Alkaline Phosphatase (38-126) U/L Total Protein (6.3-8.2) g/dL Albumin (3.5-5.0) g/dL Urine Color Urine Appearance (Clear) Urine pH (5.0-8.0) Ur Specific [place] (1.001-1.035) Urine Protein (Negative) Urine Glucose (UA) (Negative) Urine Ketones (Negative) Urine Blood (Negative) Urine Nitrite (Negative) Urine Bilirubin (Negative) Urine Urobilinogen (<2.0) mg/dL Ur Leukocyte Esterase (Negative) Influenza Type A (PCR) Not Detected (Not Detectd) Influenza Type B (PCR) Not Detected (Not Detectd) RSV (PCR) Not Detected (Not Detectd) SARS-CoV-2 (PCR) Not Detected (Not Detectd) Group A Strep Rapid (Negative) 01/19/22 01/19/22 01/19/22 Range/Units 11:49 11:49 12:53 WBC (3.8-10.6) k/uL RBC (4.30-5.90) m/uL Hgb (13.0-17.5) gm/dL Hct (39.0-53.0) % MCV (80.0-100.0) fL MCH (25.0-35.0) pg MCHC (31.0-37.0) g/dL RDW (11.5-15.5) % Plt Count (150-450) k/uL MPV Neutrophils % % Lymphocytes % % Monocytes % % Eosinophils % % Basophils % % Neutrophils # (1.3-7.7) k/uL Lymphocytes # (1.0-4.8) k/uL Monocytes # (0-1.0) k/uL Eosinophils # (0-0.7) k/uL Basophils # (0-0.2) k/uL D-Dimer (<0.60) mg/L FEU Sodium 137 (137-145) mmol/L Potassium 4.2 (3.5-5.1) mmol/L Chloride 108 H (98-107) mmol/L Carbon Dioxide 23 (22-30) mmol/L Anion Gap 6 mmol/L BUN 13 (9-20) mg/dL Creatinine 0.73 (0.66-1.25) mg/dL Est GFR (CKD-EPI)AfAm >90 (>60 ml/min/1.73 sqM) Est GFR (CKD-EPI)NonAf >90 (>60 ml/min/1.73 sqM) Glucose 100 H (74-99) mg/dL Calcium 8.5 (8.4-10.2) mg/dL Total Bilirubin 0.8 (0.2-1.3) mg/dL AST 29 (17-59) U/L ALT 21 (4-49) U/L Alkaline Phosphatase 64 (38-126) U/L Total Protein 7.3 (6.3-8.2) g/dL Albumin 4.0 (3.5-5.0) g/dL Urine Color Yellow Urine Appearance Clear (Clear) Urine pH 5.5 (5.0-8.0) Ur Specific [place] 1.017 (1.001-1.035) Urine Protein Negative (Negative) Urine Glucose (UA) Negative (Negative) Urine Ketones Negative (Negative) Urine Blood Negative (Negative) Urine Nitrite Negative (Negative) Urine Bilirubin Negative (Negative) Urine Urobilinogen <2.0 (<2.0) mg/dL Ur Leukocyte Esterase Negative (Negative) Influenza Type A (PCR) (Not Detectd) Influenza Type B (PCR) (Not Detectd) RSV (PCR) (Not Detectd) SARS-CoV-2 (PCR) (Not Detectd) Group A Strep Rapid Negative (Negative) Disposition Clinical Impression: Sore throat Disposition: HOME SELF-CARE Condition: Good Instructions (If sedation given, give patient instructions): Upper Respiratory Infection (ED) Additional Instructions: Please follow-up with your primary care provider for prolonged sore throat as you may need better management of your acid reflux/GERD. Continue to take your previously prescribed Prilosec at home. Follow-up with the cashier manager for evaluation and management of generalized joint pain.. You may take Tylenol or Motrin as needed for joint pain and sore throat. Is patient prescribed a controlled substance at d/c from ED?: No Referrals: Kamar Shell MD [Primary Care Provider] - 1-2 days Time of Disposition: 13:53
[2022-01-19] MEDS ORDERED: KETOROLAC 15 MG/ML 1 ML VIAL IVP STA (11:30)
--- NOTE | 2022-01-19 11:41 | XR ---
EXAMINATION TYPE: XR chest 2V DATE OF EXAM: 01/19/2022 COMPARISON: 12/30/2021 HISTORY: Cough and shortness of breath TECHNIQUE: Frontal and lateral views of the chest are obtained. FINDINGS: There is no focal air space opacity, pleural effusion, or pneumothorax seen. The cardiac silhouette size is within normal limits. The osseous structures are intact. IMPRESSION: No acute cardiopulmonary process.
[2022-01-19 11:52] LABS: Basophils # (A) 0.1 k/uL (0-0.2); Basophils % (A) 2 %; Eosinophils # (A) 0.2 k/uL (0-0.7); Eosinophils % (A) 3 %; HCT 43.7 % (39.0-53.0); Lymphocytes # (A) 1.2 k/uL (1.0-4.8); Lymphocytes % (A) 19 %; MCH 30.3 pg (25.0-35.0); MCHC 34.3 g/dL (31.0-37.0); MCV 88.5 fL (80.0-100.0); Mean Platelet Volume 7.6; Monocytes # (A) 0.5 k/uL (0-1.0); Monocytes % (A) 8 %; Neutrophils # (A) 4.3 k/uL (1.3-7.7); Neutrophils % (A) 67 %; Platelet Count 220 k/uL (150-450); RBC 4.94 m/uL (4.30-5.90); RDW 12.6 % (11.5-15.5); WBC 6.4 k/uL (3.8-10.6)
[2022-01-19 12:03] LABS: ALT 21 U/L (4-49); AST 29 U/L (17-59); African American GFR (CKD) >90 (>60 ml/min/1.73 sqM); Alkaline Phosphatase 64 U/L (38-126); Anion Gap 6 mmol/L; Blood Urea Nitrogen 13 mg/dL (9-20); Calcium 8.5 mg/dL (8.4-10.2); Carbon Dioxide 23 mmol/L (22-30); Chloride 108 mmol/L (98-107); Glucose 100 mg/dL (74-99); Non-African American GFR(CKD) >90 (>60 ml/min/1.73 sqM); Potassium 4.2 mmol/L (3.5-5.1); Sodium 137 mmol/L (137-145); Total Bilirubin 0.8 mg/dL (0.2-1.3); Total Protein 7.3 g/dL (6.3-8.2)
[2022-01-19 12:07] LABS: Influenza A Not Detected (Not Detectd); Influenza B Not Detected (Not Detectd)
[2022-01-19 13:23] LABS: Appearance,Urine Clear (Clear); Bilirubin,Urine Negative (Negative); Blood,Urine Negative (Negative); Color,Urine Yellow; Glucose,Urine (UA) Negative (Negative); Ketones,Urine Negative (Negative); Leukocyte Esterase,Urine Negative (Negative); Nitrite,Urine Negative (Negative); PH, Urine 5.5 (5.0-8.0); Protein,Urine Negative (Negative); Specific Gravity,Urine 1.017 (1.001-1.035); Urobilinogen,Urine <2.0 mg/dL (<2.0)
[2022-01-19 13:59] VITALS: PULSE 76
== END 2022-01-19 13:58 | disposition home or self-care (01) ==
LOC: EC 11:11
DX: J02.9 Acute pharyngitis, unspecified (principal); K21.9 Gastro-esophageal reflux disease without esophagitis; E78.5 Hyperlipidemia, unspecified; M06.9 Rheumatoid arthritis, unspecified; Z20.822 Contact with and (suspected) exposure to COVID-19
CPT/HCPCS: 99285; 96374; 36415; 85379; 80053; 85025; 81003; 87081; 87430; 87636; 71046; J1885

== ENCOUNTER 2022-02-18 17:07 | Emergency (ER) | payer OTHER ==
[2022-02-18 17:17] VITALS: TEMP 98.1
[2022-02-18] MEDS ORDERED: KETOROLAC 15 MG/ML 1 ML VIAL IM STA (17:54)
--- NOTE | 2022-02-18 18:03 | ED ---
Extremity Problem HPI - General Chief complaint: Extremity Problem,Nontraumatic Stated complaint: Bilateral Leg Pain and numbness Time Seen by Provider: 02/18/22 17:31 Source: patient, RN notes reviewed, old records reviewed Mode of arrival: ambulatory Limitations: no limitations - History of Present Illness Initial comments: Patient is a 52-year-old male, with history of rheumatoid arthritis, presenting to the emergency Department with complaints of bilateral knee pain that started yesterday. He states he does get intermittent joint pain along with his rheumatoid arthritis. This pain feels similar to that. He denies any falls or trauma, no known injuries. He states the pain is mostly above his knee caps, on both sides. He does not have any Tylenol at home for the pain. He does follow closely with his radiology specialist. Patient denies any fevers or chills, no numbness and tingling to his extremities, no swelling, no redness. He has no f urther complaints. - Related Data Home Medications Medication Instructions Recorded Confirmed Etanercept [Enbrel Sureclick] 50 mg SQ WE 02/20/19 12/22/21 Methotrexate 25mg/1ml 25 mg IM FR 02/20/19 12/22/21 Folic Acid 1 mg PO DAILY 08/05/19 12/22/21 Omeprazole 40 mg PO DAILY 10/27/20 12/22/21 Previous Rx's Medication Instructions Recorded Meclizine [Antivert] 25 mg PO TID #20 tab 12/22/21 Acetaminophen Tab [Tylenol Tab] 500 mg PO Q4H #30 tablet 02/18/22 predniSONE [Deltasone] 20 mg PO BID 5 Days #10 tab 02/18/22 Allergies Allergy/AdvReac Type Severity Reaction Status Date / Time No Known Allergies Allergy Verified 02/18/22 17:14 Review of Systems ROS Statement: Those systems with pertinent positive or pertinent negative responses have been documented in the HPI. ROS Other: All systems not noted in ROS Statement are negative. Past Medical History Past Medical History: GERD/Reflux, Hyperlipidemia, Rheumatoid Arthritis (RA) Last Myocardial Infarction Date:: Dyslipidemia, appears to have some mild developmental delay History of Any Multi-Drug Resistant Organisms: None Reported Past Surgical History: No Surgical Hx Reported Past Anesthesia/Blood Transfusion Reactions: No Reported Reaction Past Psychological History: No Psychological Hx Reported Smoking Status: Never smoker Past Alcohol Use History: None Reported Past Drug Use History: None Reported - Past Family History Father Family Medical History: Hypertension Mother History Unknown: Yes Family Medical History: No Reported History Grandfather Additional Family Medical History / Comment(s): Heart disease General Exam - General Exam Comments Initial Comments: GENERAL: Patient is well-developed and well-nourished. Patient is nontoxic and in no acute distress. HEAD: Atraumatic, normocephalic. EYES: Pupils equal round and reactive to light, extraocular movements intact, sclera anicteric, conjunctiva are normal. Eyelids were unremarkable. ENT: Moist mucous membranes. NECK: Normal range of motion, supple without lymphadenopathy or JVD. LUNGS: Unlabored respirations. Breath sounds clear to auscultation bilaterally and equal. No wheezes rales or rhonchi. HEART: Regular rate and rhythm without murmurs, rubs or gallops. MUSCULOSKELETAL: Patient has pain with palpation bilateral knees, just superior to the knee. There is no swelling, no erythema, no deformity. He is able to have full active range of motion although painful at the end range. He has normal gait. He has equal sensation bilaterally lower extremities, he is neurovascular intact. No clubbing or cyanosis. NEUROLOGICAL: Patient is alert and oriented x 3. Motor and sensory are also intact. Normal speech, normal gait. PSYCH: Normal mood, normal affect. SKIN: Warm, Dry, normal turgor, no rashes or lesions noted. Limitations: no limitations Course Vital Signs 02/18/22 17:15 Temperature 98.1 F Pulse Rate 93 Respiratory 16 Rate Blood Pressure 130/79 O2 Sat by Pulse 98 Oximetry Medical Decision Making - Medical Decision Making Patient is a 52-year-old male history of rheumatoid arthritis here for bilateral knee pain that started yesterday. It is consistent with his normal arthritic pain. A 70 Tylenol at home to take for the pain. No falls or trauma. No acute findings on exam, he is ambulatory. Patient will be given a shot of Toradol here for pain. I will give him a course of steroids and a prescription for Tylenol. He can follow up with his PCP and/or radiology specialist. Return parameters were discussed. Patient is agreeable to this plan of care. Disposition Clinical Impression: Bilateral knee pain Disposition: HOME SELF-CARE Condition: Stable Instructions (If sedation given, give patient instructions): Knee Pain (ED) Additional Instructions: Please return to the Emergency Department if symptoms worsen or any other concerns. Trial of steroids to decrease inflammation. Recommend Tylenol for discomfort. May try heat and/or ice the area as well. Follow-up with your PCP and/or radiology specialist. Prescriptions: predniSONE [Deltasone] 20 mg PO BID 5 Days #10 tab Acetaminophen Tab [Tylenol Tab] 500 mg PO Q4H #30 tablet Is patient prescribed a controlled substance at d/c from ED?: No Referrals: Kamar Shell MD [Primary Care Provider] - 1-2 days Time of Disposition: 18:02
[2022-02-18 18:14] VITALS: BP 129/85; PULSE 84; RESP 18
== END 2022-02-18 18:14 | disposition home or self-care (01) ==
LOC: EC 17:07
DX: M25.561 Pain in right knee (principal); M25.562 Pain in left knee; E78.5 Hyperlipidemia, unspecified; K21.9 Gastro-esophageal reflux disease without esophagitis; M06.9 Rheumatoid arthritis, unspecified; Z79.899 Other long term (current) drug therapy
CPT/HCPCS: 99283; 96372; J1885

== ENCOUNTER 2022-02-24 10:28 | Emergency (ER) | payer OTHER ==
[2022-02-24] MEDS ORDERED: ONDANSETRON 4 MG/2 ML VIAL IVP STA (10:40)
[2022-02-24] MEDS ORDERED: DICYCLOMINE 10 MG/ML 2 ML AMP IM STA (10:41)
[2022-02-24] MEDS ORDERED: FAMOTIDINE 20 MG/2 ML VIAL IV STA (10:41)
--- NOTE | 2022-02-24 10:44 | ED ---
General Adult HPI - General Chief complaint: Abdominal Pain Stated complaint: Abd Pain/Coughing up blood Time Seen by Provider: 02/24/22 10:34 Source: patient, RN notes reviewed Mode of arrival: ambulatory Limitations: no limitations - History of Present Illness Initial comments: Patient is a pleasant 52-year-old male presenting to the emergency Department with abdominal discomfort. Onset of symptoms was yesterday. Symptoms are slowly progressed since that time. Discomfort is mostly right upper abdomen. No modifying factors. Patient has been coughing quite a bit recently. Patient states sometimes he does cough up blood when he coughs a lot the past. Patient states today he did cough up blood also. No dyspnea. No fever. Patient did have colonoscopy 1 week ago. - Related Data Home Medications Medication Instructions Recorded Confirmed Etanercept [Enbrel Sureclick] 50 mg SQ WE 02/20/19 02/24/22 Methotrexate 25mg/1ml 25 mg IM FR 02/20/19 02/24/22 Folic Acid 1 mg PO DAILY 08/05/19 02/24/22 Omeprazole 40 mg PO DAILY 10/27/20 02/24/22 Acetaminophen Tab [Tylenol Tab] 500 mg PO Q4H PRN 02/24/22 02/24/22 Previous Rx's Medication Instructions Recorded predniSONE [Deltasone] 20 mg PO BID 5 Days #10 tab 02/18/22 Allergies Allergy/AdvReac Type Severity Reaction Status Date / Time No Known Allergies Allergy Verified 02/24/22 12:21 Review of Systems ROS Statement: Those systems with pertinent positive or pertinent negative responses have been documented in the HPI. ROS Other: All systems not noted in ROS Statement are negative. Constitutional: Denies: fever, chills Eyes: Denies: eye pain ENT: Denies: ear pain Respiratory: Reports: as per HPI, cough. Denies: dyspnea Cardiovascular: Denies: chest pain Endocrine: Denies: fatigue Gastrointestinal: Reports: as per HPI, abdominal pain, nausea. Denies: vomiting Genitourinary: Denies: dysuria Musculoskeletal: Denies: back pain Skin: Denies: rash Neurological: Denies: weakness Past Medical History Past Medical History: GERD/Reflux, Hyperlipidemia, Rheumatoid Arthritis (RA) Last Myocardial Infarction Date:: Dyslipidemia, appears to have some mild developmental delay History of Any Multi-Drug Resistant Organisms: None Reported Past Surgical History: No Surgical Hx Reported Past Anesthesia/Blood Transfusion Reactions: No Reported Reaction Past Psychological History: No Psychological Hx Reported Smoking Status: Never smoker Past Alcohol Use History: None Reported Past Drug Use History: None Reported - Past Family History Father Family Medical History: Hypertension Mother History Unknown: Yes Family Medical History: No Reported History Grandfather Additional Family Medical History / Comment(s): Heart disease General Exam Limitations: no limitations General appearance: alert, in no apparent distress Head exam: Present: normocephalic Eye exam: Present: normal appearance Neck exam: Present: normal inspection Respiratory exam: Present: normal lung sounds bilaterally. Absent: chest wall tenderness Cardiovascular Exam: Present: regular rate, normal rhythm Expanded Peripheral pulses: 2+: Radial (R), Radial (L), Posterior Tibialis (R), Posterior Tibialis (L), Dorsalis Pedis (R), Dorsalis Pedis (L) GI/Abdominal exam: Present: soft, tenderness (Mild tenderness right upper quadrant/epigastric), normal bowel sounds. Absent: distended, guarding, rebound, rigid, pulsatile mass Extremities exam: Present: normal inspection Neurological exam: Present: alert Psychiatric exam: Present: normal affect, normal mood Skin exam: Present: normal color Course Vital Signs 02/24/22 02/24/22 10:32 11:29 Temperature 98.8 F Pulse Rate 96 74 Respiratory 20 18 Rate Blood Pressure 154/99 122/75 O2 Sat by Pulse 99 98 Oximetry Medical Decision Making - Medical Decision Making Patient reevaluated and resting comfortably in bed. Patient can better. Patient updated on results and need for follow-up. Patient refuses nausea medication for home. - Lab Data Result diagrams: 02/24/22 10:53 02/24/22 10:53 Lab Results 02/24/22 02/24/22 02/24/22 Range/Units 10:53 10:53 10:53 WBC 7.4 (3.8-10.6) k/uL RBC 5.57 (4.30-5.90) m/uL Hgb 16.6 (13.0-17.5) gm/dL Hct 49.3 (39.0-53.0) % MCV 88.5 (80.0-100.0) fL MCH 29.8 (25.0-35.0) pg MCHC 33.7 (31.0-37.0) g/dL RDW 13.2 (11.5-15.5) % Plt Count 237 (150-450) k/uL MPV 7.5 Neutrophils % 63 % Lymphocytes % 22 % Monocytes % 8 % Eosinophils % 2 % Basophils % 0 % Neutrophils # 4.7 (1.3-7.7) k/uL Lymphocytes # 1.6 (1.0-4.8) k/uL Monocytes # 0.6 (0-1.0) k/uL Eosinophils # 0.2 (0-0.7) k/uL Basophils # 0.0 (0-0.2) k/uL PT 10.3 (9.0-12.0) sec INR 0.9 (<1.2) APTT 26.3 (22.0-30.0) sec D-Dimer 0.24 (<0.60) mg/L FEU Sodium (137-145) mmol/L Potassium (3.5-5.1) mmol/L Chloride (98-107) mmol/L Carbon Dioxide (22-30) mmol/L Anion Gap mmol/L BUN (9-20) mg/dL Creatinine (0.66-1.25) mg/dL Est GFR (CKD-EPI)AfAm (>60 ml/min/1.73 sqM) Est GFR (CKD-EPI)NonAf (>60 ml/min/1.73 sqM) Glucose (74-99) mg/dL Calcium (8.4-10.2) mg/dL Total Bilirubin (0.2-1.3) mg/dL AST (17-59) U/L ALT (4-49) U/L Alkaline Phosphatase (38-126) U/L Total Protein (6.3-8.2) g/dL Albumin (3.5-5.0) g/dL Amylase (30-110) U/L Lipase (23-300) U/L Urine Color Yellow Urine Appearance Clear (Clear) Urine pH 5.0 (5.0-8.0) Ur Specific [place] 1.028 (1.001-1.035) Urine Protein Negative (Negative) Urine Glucose (UA) Negative (Negative) Urine Ketones Negative (Negative) Urine Blood Negative (Negative) Urine Nitrite Negative (Negative) Urine Bilirubin Negative (Negative) Urine Urobilinogen <2.0 (<2.0) mg/dL Ur Leukocyte Esterase Negative (Negative) 02/24/22 Range/Units 10:53 WBC (3.8-10.6) k/uL RBC (4.30-5.90) m/uL Hgb (13.0-17.5) gm/dL Hct (39.0-53.0) % MCV (80.0-100.0) fL MCH (25.0-35.0) pg MCHC (31.0-37.0) g/dL RDW (11.5-15.5) % Plt Count (150-450) k/uL MPV Neutrophils % % Lymphocytes % % Monocytes % % Eosinophils % % Basophils % % Neutrophils # (1.3-7.7) k/uL Lymphocytes # (1.0-4.8) k/uL Monocytes # (0-1.0) k/uL Eosinophils # (0-0.7) k/uL Basophils # (0-0.2) k/uL PT (9.0-12.0) sec INR (<1.2) APTT (22.0-30.0) sec D-Dimer (<0.60) mg/L FEU Sodium 140 (137-145) mmol/L Potassium 4.3 (3.5-5.1) mmol/L Chloride 106 (98-107) mmol/L Carbon Dioxide 25 (22-30) mmol/L Anion Gap 9 mmol/L BUN 15 (9-20) mg/dL Creatinine 0.82 (0.66-1.25) mg/dL Est GFR (CKD-EPI)AfAm >90 (>60 ml/min/1.73 sqM) Est GFR (CKD-EPI)NonAf >90 (>60 ml/min/1.73 sqM) Glucose 103 H (74-99) mg/dL Calcium 9.1 (8.4-10.2) mg/dL Total Bilirubin 0.6 (0.2-1.3) mg/dL AST 33 (17-59) U/L ALT 23 (4-49) U/L Alkaline Phosphatase 69 (38-126) U/L Total Protein 8.1 (6.3-8.2) g/dL Albumin 4.4 (3.5-5.0) g/dL Amylase 70 (30-110) U/L Lipase 198 (23-300) U/L Urine Color Urine Appearance (Clear) Urine pH (5.0-8.0) Ur Specific [place] (1.001-1.035) Urine Protein (Negative) Urine Glucose (UA) (Negative) Urine Ketones (Negative) Urine Blood (Negative) Urine Nitrite (Negative) Urine Bilirubin (Negative) Urine Urobilinogen (<2.0) mg/dL Ur Leukocyte Esterase (Negative) - Radiology Data Radiology results: report reviewed (Computed tomography scan of the abdomen pelvis shows no acute process), image reviewed (Chest x-ray shows no acute process) Disposition Clinical Impression: Cough, Abdominal pain Disposition: HOME SELF-CARE Condition: Stable Instructions (If sedation given, give patient instructions): Abdominal Pain (ED) Additional Instructions: Please do follow-up to primary care physician in the next couple days for recheck. Return for difficulty in breathing, increased coughing of blood, increased abdominal pain, fevers, uncontrolled vomiting, worsening or changing symptoms or other concerns. Is patient prescribed a controlled substance at d/c from ED?: No Referrals: Kamar Shell MD [Primary Care Provider] - 1-2 days Time of Disposition: 12:28
[2022-02-24 11:10] LABS: Appearance,Urine Clear (Clear); Bilirubin,Urine Negative (Negative); Blood,Urine Negative (Negative); Color,Urine Yellow; Glucose,Urine (UA) Negative (Negative); Ketones,Urine Negative (Negative); Leukocyte Esterase,Urine Negative (Negative); Nitrite,Urine Negative (Negative); Protein,Urine Negative (Negative); Specific Gravity,Urine 1.028 (1.001-1.035); Urobilinogen,Urine <2.0 mg/dL (<2.0)
[2022-02-24 11:16] LABS: Basophils % (A) 0 %; Eosinophils # (A) 0.2 k/uL (0-0.7); Eosinophils % (A) 2 %; HCT 49.3 % (39.0-53.0); HGB 16.6 gm/dL (13.0-17.5); Lymphocytes # (A) 1.6 k/uL (1.0-4.8); Lymphocytes % (A) 22 %; MCH 29.8 pg (25.0-35.0); MCHC 33.7 g/dL (31.0-37.0); MCV 88.5 fL (80.0-100.0); Mean Platelet Volume 7.5; Monocytes # (A) 0.6 k/uL (0-1.0); Monocytes % (A) 8 %; Neutrophils # (A) 4.7 k/uL (1.3-7.7); Neutrophils % (A) 63 %; Platelet Count 237 k/uL (150-450); RBC 5.57 m/uL (4.30-5.90); RDW 13.2 % (11.5-15.5); WBC 7.4 k/uL (3.8-10.6)
[2022-02-24 11:23] LABS: INR 0.9 (<1.2); Partial Thromboplastin Time 26.3 sec (22.0-30.0); Prothrombin Time 10.3 sec (9.0-12.0)
[2022-02-24 11:26] LABS: ALT 23 U/L (4-49); AST 33 U/L (17-59); African American GFR (CKD) >90 (>60 ml/min/1.73 sqM); Albumin 4.4 g/dL (3.5-5.0); Alkaline Phosphatase 69 U/L (38-126); Amylase 70 U/L (30-110); Anion Gap 9 mmol/L; Blood Urea Nitrogen 15 mg/dL (9-20); Calcium 9.1 mg/dL (8.4-10.2); Carbon Dioxide 25 mmol/L (22-30); Chloride 106 mmol/L (98-107); Glucose 103 mg/dL (74-99); Lipase 198 U/L (23-300); Non-African American GFR(CKD) >90 (>60 ml/min/1.73 sqM); Potassium 4.3 mmol/L (3.5-5.1); Sodium 140 mmol/L (137-145); Total Bilirubin 0.6 mg/dL (0.2-1.3); Total Protein 8.1 g/dL (6.3-8.2)
[2022-02-24 11:30] VITALS: RESP 18
--- NOTE | 2022-02-24 12:21 | XR ---
EXAMINATION TYPE: XR chest 2V DATE OF EXAM: 02/24/2022 COMPARISON: 01/19/2022 HISTORY: Shortness of breath TECHNIQUE: Frontal and lateral views of the chest are obtained. FINDINGS: Scattered senescent parenchymal changes noted. Hyperinflation compatible with COPD. No evidence for infiltrate. No evidence for atelectasis. Heart size is stable. Mediastinal structures are stable and grossly unremarkable. No evidence for hilar prominence. Degenerative changes dorsal spine. IMPRESSION: 1. No evidence for acute pulmonary disease.
--- NOTE | 2022-02-24 12:22 | CT ---
EXAMINATION TYPE: CT abdomen pelvis w con DATE OF EXAM: 02/24/2022 COMPARISON: 08/20/2019 HISTORY: Abdominal pain with hemoptysis CT DLP: 995.3 mGycm CONTRAST: CT scan of the abdomen and pelvis is performed without Oral Contrast and with IV Contrast, patient in jected with 100 ml mL of Isovue 300. FINDINGS: LUNG BASES-: No visible nodule. No infiltrate. LIVER/GB: No calcified gallstones. There is mild hepatic steatosis noted. No space occupying hepat ic lesion. Biliary tree is of normal caliber. PANCREAS: No inflammation. No distinct mass. SPLEEN: No splenic enlargement. No lesion seen. ADRENALS: No nodule. No thickening. KIDNEYS/BLADDER: No hydronephrosis. No nephrolithiasis. No distinct renal mass. Urinary bladder g rossly unremarkable. BOWEL: Normal appendix. Normal bowel caliber. No inflammation. GENITAL ORGANS: No gross abnormality. LYMPH NODES: No greater than 1cm abdominal or pelvic lymph nodes are appreciated. AORTA: No significant abnormality. OSSEOUS STRUCTURES: No significant abnormality is seen. OTHER: Bilateral fat-containing inguinal hernias. IMPRESSION: 1. No significant abnormality to account for the patient's symptoms.
[2022-02-24 12:36] VITALS: BP 128/87; PULSE 76; TEMP 97.9
== END 2022-02-24 12:36 | disposition home or self-care (01) ==
LOC: EC 10:28
DX: R10.11 Right upper quadrant pain (principal); R05.9 Cough, unspecified; E78.5 Hyperlipidemia, unspecified; K21.9 Gastro-esophageal reflux disease without esophagitis; M06.9 Rheumatoid arthritis, unspecified; Z79.899 Other long term (current) drug therapy
CPT/HCPCS: 36415; 85379; 80053; 82150; 83690; 85025; 85610; 85730; 81003; 71046; 74177; 99284; 96374; 96375; 96372; J0500; J2405; Q9967

== ENCOUNTER 2022-02-24 16:26 | Emergency (ER) | payer OTHER ==
[2022-02-24 16:30] VITALS: BP 160/95; PULSE 67; RESP 20; TEMP 98.6
--- NOTE | 2022-02-24 19:12 | ED ---
General Adult HPI - General Chief complaint: Upper Respiratory Infection Stated complaint: Revisit/Chest Pain/Cough Time Seen by Provider: 02/24/22 16:30 Source: patient Mode of arrival: ambulatory Limitations: no limitations - History of Present Illness Initial comments: 52-year-old male past history of hyperlipidemia, rheumatoid arthritis presents emergency Department with report of a cough. Patient had been seen in the emergency department earlier today. He was complaining of a cough and abdominal pain. Laboratory studies were conducted and the patient for chest x-ray as well as a CT of his abdomen and pelvis. All testing was negative the patient was discharged home. He reports he went home he continues to have a cough. States it is productive with yellow sputum. Denies fevers. No chest pain. No previous history of cardiac disease. No underlying lung conditions. Patient was not swabbed earlier today however denies any sick contacts. No other alleviating, precipitating or modifying factors - Related Data Home Medications Medication Instructions Recorded Confirmed Etanercept [Enbrel Sureclick] 50 mg SQ WE 02/20/19 02/24/22 Methotrexate 25mg/1ml 25 mg IM FR 02/20/19 02/24/22 Folic Acid 1 mg PO DAILY 08/05/19 02/24/22 Omeprazole 40 mg PO DAILY 10/27/20 02/24/22 Acetaminophen Tab [Tylenol Tab] 500 mg PO Q4H PRN 02/24/22 02/24/22 Previous Rx's Medication Instructions Recorded predniSONE [Deltasone] 20 mg PO BID 5 Days #10 tab 02/18/22 Albuterol Inhaler [Ventolin Hfa 1 puff INHALATION RT-QID #8 gm 02/24/22 Inhaler] guaiFENesin-Coden 100-10MG/5ML 10 ml PO Q6H PRN 3 Days #120 ml 02/24/22 [Robitussin AC] predniSONE [Deltasone] 20 mg PO BID #10 tab 02/24/22 Allergies Allergy/AdvReac Type Severity Reaction Status Date / Time No Known Allergies Allergy Verified 02/24/22 16:30 Review of Systems ROS Statement: Those systems with pertinent positive or pertinent negative responses have been documented in the HPI. ROS Other: All systems not noted in ROS Statement are negative. Past Medical History Past Medical History: GERD/Reflux, Hyperlipidemia, Rheumatoid Arthritis (RA) Last Myocardial Infarction Date:: Dyslipidemia, appears to have some mild developmental delay History of Any Multi-Drug Resistant Organisms: None Reported Past Surgical History: No Surgical Hx Reported Past Anesthesia/Blood Transfusion Reactions: No Reported Reaction Past Psychological History: No Psychological Hx Reported Smoking Status: Never smoker Past Alcohol Use History: None Reported Past Drug Use History: None Reported - Past Family History Father Family Medical History: Hypertension Mother History Unknown: Yes Family Medical History: No Reported History Grandfather Additional Family Medical History / Comment(s): Heart disease General Exam Limitations: no limitations General appearance: alert, in no apparent distress Head exam: Present: atraumatic, normocephalic, normal inspection Eye exam: Present: normal appearance, PERRL, EOMI. Absent: scleral icterus, conjunctival injection, periorbital swelling ENT exam: Present: normal exam, mucous membranes moist Neck exam: Present: normal inspection. Absent: tenderness, meningismus, lymphadenopathy Respiratory exam: Present: normal lung sounds bilaterally. Absent: respiratory distress, wheezes, rales, rhonchi, stridor Cardiovascular Exam: Present: regular rate, normal rhythm, normal heart sounds. Absent: systolic murmur, diastolic murmur, rubs, gallop, clicks GI/Abdominal exam: Present: soft, normal bowel sounds. Absent: distended, tenderness, guarding, rebound, rigid Extremities exam: Present: normal inspection, full ROM, normal capillary refill. Absent: tenderness, pedal edema, joint swelling, calf tenderness Back exam: Present: normal inspection Neurological exam: Present: alert, oriented X3, CN II-XII intact Psychiatric exam: Present: normal affect, normal mood Skin exam: Present: warm, dry, intact, normal color. Absent: rash Course Vital Signs 02/24/22 16:28 Temperature 98.6 F Pulse Rate 67 Respiratory 20 Rate Blood Pressure 160/95 O2 Sat by Pulse 99 Oximetry Medical Decision Making - Medical Decision Making Upon arrival patient was placed in room 9. A thorough history and physical exam was performed. I did review the patient's encounter from earlier today. All testing was negative. Patient is swabbed for Covid, RSV and influenza all of which are negative. I did discuss treatment options. Patient will be given a prescription for prednisone, albuterol inhaler and codeine cough syrup. Instructed take the medications as directed. Do not work or drive while taking the cough syrup. Follow-up with her primary care doctor in 2-4 days and return for any new or worsening symptoms. Patient agreed and treatment plan and was discharged in stable condition - Lab Data Lab Results 02/24/22 02/24/22 Range/Units 17:28 17:28 Coronavirus (PCR) Not Detected (Not Detectd) Influenza Type A RNA Not Detected (Not Detectd) Influenza Type B (PCR) Not Detected (Not Detectd) Disposition Clinical Impression: Cough Disposition: HOME SELF-CARE Condition: Stable Instructions (If sedation given, give patient instructions): Upper Respiratory Infection (ED) Additional Instructions: Please follow-up with your primary care doctor in 2 to 4 days. Return for any new or worsening symptoms Prescriptions: predniSONE [Deltasone] 20 mg PO BID #10 tab guaiFENesin-Coden 100-10MG/5ML [Robitussin AC] 10 ml PO Q6H PRN 3 Days #120 ml PRN Reason: Cough Albuterol Inhaler [Ventolin Hfa Inhaler] 1 puff INHALATION RT-QID #8 gm Is patient prescribed a controlled substance at d/c from ED?: Yes When asked, does pt state using other controlled substances?: No If prescribed controlled substance>3 days was MAPS reviewed?: Prescribed <3 Days Referrals: Kamar Shell MD [Primary Care Provider] - 1-2 days Time of Disposition: 19:12
== END 2022-02-24 19:52 | disposition home or self-care (01) ==
LOC: EC 16:26
DX: R05.9 Cough, unspecified (principal); I10 Essential (primary) hypertension; K21.9 Gastro-esophageal reflux disease without esophagitis; I25.2 Old myocardial infarction; Z79.1 Long term (current) use of non-steroidal anti-inflammatories (NSAID); Z20.822 Contact with and (suspected) exposure to COVID-19
CPT/HCPCS: 87502; 87635; 99284

== ENCOUNTER 2022-03-24 10:10 | Emergency (ER) | payer OTHER ==
[2022-03-24] MEDS ORDERED: SODIUM CHLORIDE 0.9% 500 ML 500 ML IV STA (10:29)
[2022-03-24] MEDS ORDERED: ONDANSETRON 4 MG/2 ML VIAL IVP STA (10:29)
[2022-03-24] MEDS ORDERED: IBUPROFEN 600 MG TAB PO STA (10:30)
[2022-03-24 10:55] LABS: Basophils % (A) 1 %; Eosinophils # (A) 0.2 k/uL (0-0.7); Eosinophils % (A) 3 %; HCT 45.9 % (39.0-53.0); HGB 15.3 gm/dL (13.0-17.5); Lymphocytes # (A) 1.1 k/uL (1.0-4.8); Lymphocytes % (A) 21 %; MCH 29.9 pg (25.0-35.0); MCHC 33.4 g/dL (31.0-37.0); MCV 89.3 fL (80.0-100.0); Mean Platelet Volume 7.1; Monocytes # (A) 0.4 k/uL (0-1.0); Monocytes % (A) 7 %; Neutrophils # (A) 3.4 k/uL (1.3-7.7); Neutrophils % (A) 65 %; Platelet Count 249 k/uL (150-450); RBC 5.14 m/uL (4.30-5.90); RDW 12.9 % (11.5-15.5); WBC 5.3 k/uL (3.8-10.6)
[2022-03-24 11:05] LABS: ALT 20 U/L (4-49); AST 31 U/L (17-59); African American GFR (CKD) >90 (>60 ml/min/1.73 sqM); Albumin 4.4 g/dL (3.5-5.0); Alkaline Phosphatase 60 U/L (38-126); Anion Gap 9 mmol/L; Blood Urea Nitrogen 11 mg/dL (9-20); Calcium 8.9 mg/dL (8.4-10.2); Carbon Dioxide 22 mmol/L (22-30); Chloride 107 mmol/L (98-107); Glucose 124 mg/dL (74-99); Non-African American GFR(CKD) >90 (>60 ml/min/1.73 sqM); Sodium 138 mmol/L (137-145); Total Bilirubin 0.6 mg/dL (0.2-1.3); Total Protein 7.4 g/dL (6.3-8.2)
--- NOTE | 2022-03-24 11:25 | ED ---
General Adult HPI - General Chief complaint: Abdominal Pain Stated complaint: Leg/stomach pains Time Seen by Provider: 03/24/22 10:16 Source: patient, RN notes reviewed, old records reviewed Mode of arrival: wheelchair Limitations: no limitations - History of Present Illness Initial comments: Patient is a 52-year-old male with history of GERD, rheumatoid arthritis, presenting to emergency Department with complaints of abdominal discomfort, nausea, diarrhea, body aches that all started yesterday. He states his symptoms worsen today so he came in for evaluation. He denies any specific area pain, generalized body aches, generalized abdominal discomfort. He has vomited couple times this morning. Denies any fevers, no shortness of breath or chest pain. Does admit to mild cough. He is up-to-date with his cold and flu vaccines. Patient's been having regular bowel movements. He has no further complaints. His vitals are stable upon arrival. - Related Data Home Medications Medication Instructions Recorded Confirmed Etanercept [Enbrel Sureclick] 50 mg SQ WE 02/20/19 02/24/22 Methotrexate 25mg/1ml 25 mg IM FR 02/20/19 02/24/22 Folic Acid 1 mg PO DAILY 08/05/19 02/24/22 Omeprazole 40 mg PO DAILY 10/27/20 02/24/22 Acetaminophen Tab [Tylenol Tab] 500 mg PO Q4H PRN 02/24/22 02/24/22 Previous Rx's Medication Instructions Recorded predniSONE [Deltasone] 20 mg PO BID 5 Days #10 tab 02/18/22 Albuterol Inhaler [Ventolin Hfa 1 puff INHALATION RT-QID #8 gm 02/24/22 Inhaler] guaiFENesin-Coden 100-10MG/5ML 10 ml PO Q6H PRN 3 Days #120 ml 02/24/22 [Robitussin AC] predniSONE [Deltasone] 20 mg PO BID #10 tab 02/24/22 Ondansetron Odt [Zofran Odt] 4 mg PO Q8HR PRN #10 tab 03/24/22 Allergies Allergy/AdvReac Type Severity Reaction Status Date / Time No Known Allergies Allergy Verified 03/24/22 10:14 Review of Systems ROS Statement: Those systems with pertinent positive or pertinent negative responses have been documented in the HPI. ROS Other: All systems not noted in ROS Statement are negative. Past Medical History Past Medical History: GERD/Reflux, Hyperlipidemia, Rheumatoid Arthritis (RA) Last Myocardial Infarction Date:: Dyslipidemia, appears to have some mild developmental delay History of Any Multi-Drug Resistant Organisms: None Reported Past Surgical History: No Surgical Hx Reported Past Anesthesia/Blood Transfusion Reactions: No Reported Reaction Past Psychological History: No Psychological Hx Reported Smoking Status: Never smoker Past Alcohol Use History: None Reported Past Drug Use History: None Reported - Past Family History Father Family Medical History: Hypertension Mother History Unknown: Yes Family Medical History: No Reported History Grandfather Additional Family Medical History / Comment(s): Heart disease General Exam - General Exam Comments Initial Comments: GENERAL: Patient is well-developed and well-nourished. Patient is nontoxic and in no acute distress. HEAD: Atraumatic, normocephalic. EYES: Pupils equal round and reactive to light, extraocular movements intact, sclera anicteric, conjunctiva are normal. Eyelids were unremarkable. ENT: Nares patent, oropharynx clear without exudates. Moist mucous membranes. NECK: Normal range of motion, supple without lymphadenopathy or JVD. LUNGS: Unlabored respirations. Breath sounds clear to auscultation bilaterally and equal. No wheezes rales or rhonchi. HEART: Regular rate and rhythm without murmurs, rubs or gallops. ABDOMEN: Soft, nontender, normoactive bowel sounds. No guarding, no rebound. No masses appreciated. MUSCULOSKELETAL: Normal extremities with adequate strength and normal range of motion, no pitting or edema. No clubbing or cyanosis. NEUROLOGICAL: Patient is alert and oriented x 3. Symmetrical smile. Normal speech, normal gait. PSYCH: Normal mood, normal affect. SKIN: Warm, Dry, normal turgor, no rashes or lesions noted. Limitations: no limitations Course Vital Signs 03/24/22 10:11 Temperature 97.6 F Pulse Rate 82 Respiratory 16 Rate Blood Pressure 127/78 O2 Sat by Pulse 97 Oximetry Medical Decision Making - Medical Decision Making Patient is a 52-year-old male here with generalized abdominal pain, bodyaches, nausea, cough. Symptoms started yesterday. His vitals are stable upon arrival. Exam revealing no acute findings. Laboratory studies are normal, swab for influenza covid are negative. Patient feels improvement with Zofran and fluids. This is most likely viral nature, recommended Tylenol for any discomfort, I will send him home with Zofran for additional nausea. He is agreeable with this plan and he is stable for discharge. Return parameters discussed. - Lab Data Result diagrams: 03/24/22 10:39 03/24/22 10:39 Lab Results 03/24/22 03/24/22 03/24/22 Range/Units 10:39 10:39 10:39 WBC 5.3 (3.8-10.6) k/uL RBC 5.14 (4.30-5.90) m/uL Hgb 15.3 (13.0-17.5) gm/dL Hct 45.9 (39.0-53.0) % MCV 89.3 (80.0-100.0) fL MCH 29.9 (25.0-35.0) pg MCHC 33.4 (31.0-37.0) g/dL RDW 12.9 (11.5-15.5) % Plt Count 249 (150-450) k/uL MPV 7.1 Neutrophils % 65 % Lymphocytes % 21 % Monocytes % 7 % Eosinophils % 3 % Basophils % 1 % Neutrophils # 3.4 (1.3-7.7) k/uL Lymphocytes # 1.1 (1.0-4.8) k/uL Monocytes # 0.4 (0-1.0) k/uL Eosinophils # 0.2 (0-0.7) k/uL Basophils # 0.0 (0-0.2) k/uL Sodium 138 (137-145) mmol/L Potassium 4.0 (3.5-5.1) mmol/L Chloride 107 (98-107) mmol/L Carbon Dioxide 22 (22-30) mmol/L Anion Gap 9 mmol/L BUN 11 (9-20) mg/dL Creatinine 0.71 (0.66-1.25) mg/dL Est GFR (CKD-EPI)AfAm >90 (>60 ml/min/1.73 sqM) Est GFR (CKD-EPI)NonAf >90 (>60 ml/min/1.73 sqM) Glucose 124 H (74-99) mg/dL Calcium 8.9 (8.4-10.2) mg/dL Total Bilirubin 0.6 (0.2-1.3) mg/dL AST 31 (17-59) U/L ALT 20 (4-49) U/L Alkaline Phosphatase 60 (38-126) U/L Total Protein 7.4 (6.3-8.2) g/dL Albumin 4.4 (3.5-5.0) g/dL Coronavirus (PCR) (Not Detectd) Influenza Type A RNA Not Detected (Not Detectd) Influenza Type B (PCR) Not Detected (Not Detectd) 03/24/22 Range/Units 10:39 WBC (3.8-10.6) k/uL RBC (4.30-5.90) m/uL Hgb (13.0-17.5) gm/dL Hct (39.0-53.0) % MCV (80.0-100.0) fL MCH (25.0-35.0) pg MCHC (31.0-37.0) g/dL RDW (11.5-15.5) % Plt Count (150-450) k/uL MPV Neutrophils % % Lymphocytes % % Monocytes % % Eosinophils % % Basophils % % Neutrophils # (1.3-7.7) k/uL Lymphocytes # (1.0-4.8) k/uL Monocytes # (0-1.0) k/uL Eosinophils # (0-0.7) k/uL Basophils # (0-0.2) k/uL Sodium (137-145) mmol/L Potassium (3.5-5.1) mmol/L Chloride (98-107) mmol/L Carbon Dioxide (22-30) mmol/L Anion Gap mmol/L BUN (9-20) mg/dL Creatinine (0.66-1.25) mg/dL Est GFR (CKD-EPI)AfAm (>60 ml/min/1.73 sqM) Est GFR (CKD-EPI)NonAf (>60 ml/min/1.73 sqM) Glucose (74-99) mg/dL Calcium (8.4-10.2) mg/dL Total Bilirubin (0.2-1.3) mg/dL AST (17-59) U/L ALT (4-49) U/L Alkaline Phosphatase (38-126) U/L Total Protein (6.3-8.2) g/dL Albumin (3.5-5.0) g/dL Coronavirus (PCR) Not Detected (Not Detectd) Influenza Type A RNA (Not Detectd) Influenza Type B (PCR) (Not Detectd) Disposition Clinical Impression: Viral illness, Nausea & vomiting Disposition: HOME SELF-CARE Condition: Stable Instructions (If sedation given, give patient instructions): Viral Syndrome (ED) Additional Instructions: Please return to the Emergency Department if symptoms worsen or any other concerns. Recommend to increase your fluids at home, take Tylenol for any discomfort. Zofran for any additional nausea. Follow-up with your primary care. Prescriptions: Ondansetron Odt [Zofran Odt] 4 mg PO Q8HR PRN #10 tab PRN Reason: Nausea Is patient prescribed a controlled substance at d/c from ED?: No Referrals: Kamar Shell MD [Primary Care Provider] - 1-2 days Time of Disposition: 11:24
[2022-03-24 11:43] VITALS: BP 141/86; PULSE 84; RESP 18; TEMP 97.8
== END 2022-03-24 11:40 | disposition home or self-care (01) ==
LOC: EC 10:10
DX: B34.9 Viral infection, unspecified (principal); R10.84 Generalized abdominal pain; I10 Essential (primary) hypertension; I25.2 Old myocardial infarction; K21.9 Gastro-esophageal reflux disease without esophagitis; Z20.822 Contact with and (suspected) exposure to COVID-19; Z79.899 Other long term (current) drug therapy
CPT/HCPCS: 36415; 80053; 85025; 87502; 87635; 99284; 96374; J2405

== ENCOUNTER 2022-03-24 14:40 | Emergency (ER) | payer OTHER ==
[2022-03-24 15:02] VITALS: RESP 16
[2022-03-24] MEDS ORDERED: METOCLOPRAMIDE 5 MG/ML 2 ML VIAL IM STA (17:54)
--- NOTE | 2022-03-24 17:56 | ED ---
General Adult HPI - General Chief complaint: Nausea/Vomiting/Diarrhea Stated complaint: Vomiting Time Seen by Provider: 03/24/22 17:32 Source: patient, RN notes reviewed, old records reviewed Mode of arrival: ambulatory Limitations: no limitations - History of Present Illness Initial comments: Patient is a pleasant 52-year-old male presenting to the emergency department with concerns for vomiting. Patient states he was in the emergency department earlier but that was for different stuff. Patient states she left emergency department and ate 2 hot dogs and then vomited. Patient states he still feels a little bit nauseated however not as bad. No pain. No history of chronic similar symptoms. - Related Data Home Medications Medication Instructions Recorded Confirmed Etanercept [Enbrel Sureclick] 50 mg SQ WE 02/20/19 02/24/22 Methotrexate 25mg/1ml 25 mg IM FR 02/20/19 02/24/22 Folic Acid 1 mg PO DAILY 08/05/19 02/24/22 Omeprazole 40 mg PO DAILY 10/27/20 02/24/22 Acetaminophen Tab [Tylenol Tab] 500 mg PO Q4H PRN 02/24/22 02/24/22 Previous Rx's Medication Instructions Recorded predniSONE [Deltasone] 20 mg PO BID 5 Days #10 tab 02/18/22 Albuterol Inhaler [Ventolin Hfa 1 puff INHALATION RT-QID #8 gm 02/24/22 Inhaler] guaiFENesin-Coden 100-10MG/5ML 10 ml PO Q6H PRN 3 Days #120 ml 02/24/22 [Robitussin AC] predniSONE [Deltasone] 20 mg PO BID #10 tab 02/24/22 Ondansetron Odt [Zofran Odt] 4 mg PO Q8HR PRN #10 tab 03/24/22 Allergies Allergy/AdvReac Type Severity Reaction Status Date / Time No Known Allergies Allergy Verified 03/24/22 15:02 Review of Systems ROS Statement: Those systems with pertinent positive or pertinent negative responses have been documented in the HPI. ROS Other: All systems not noted in ROS Statement are negative. Constitutional: Denies: fever Eyes: Denies: eye pain ENT: Denies: ear pain Respiratory: Denies: cough Cardiovascular: Denies: chest pain Endocrine: Denies: fatigue Gastrointestinal: Reports: as per HPI, nausea, vomiting. Denies: abdominal pain Genitourinary: Denies: dysuria Musculoskeletal: Denies: back pain Skin: Denies: rash Neurological: Denies: weakness Past Medical History Past Medical History: GERD/Reflux, Hyperlipidemia, Rheumatoid Arthritis (RA) Last Myocardial Infarction Date:: Dyslipidemia, appears to have some mild developmental delay History of Any Multi-Drug Resistant Organisms: None Reported Past Surgical History: No Surgical Hx Reported Past Anesthesia/Blood Transfusion Reactions: No Reported Reaction Past Psychological History: No Psychological Hx Reported Smoking Status: Never smoker Past Alcohol Use History: None Reported Past Drug Use History: None Reported - Past Family History Father Family Medical History: Hypertension Mother History Unknown: Yes Family Medical History: No Reported History Grandfather Additional Family Medical History / Comment(s): Heart disease General Exam Limitations: no limitations General appearance: alert, in no apparent distress Head exam: Present: normocephalic Eye exam: Present: normal appearance Neck exam: Present: normal inspection Respiratory exam: Present: normal lung sounds bilaterally Cardiovascular Exam: Present: regular rate, normal rhythm GI/Abdominal exam: Present: soft. Absent: distended, tenderness, guarding, rebound, rigid, pulsatile mass Extremities exam: Present: normal inspection Neurological exam: Present: alert Psychiatric exam: Present: normal affect, normal mood Skin exam: Present: normal color Course Vital Signs 03/24/22 15:00 Temperature 98 F Pulse Rate 91 Respiratory 16 Rate Blood Pressure 136/87 O2 Sat by Pulse 98 Oximetry Medical Decision Making - Medical Decision Making Patient reevaluated and resting comfortably in bed. Patient is tolerating oral intake and would like to try to be discharged again. Patient updated on results and need for follow-up. Discussion regarding avoiding hot dogs and similar foods in the near future. - Lab Data Result diagrams: 03/24/22 19:00 03/24/22 19:00 Lab Results 03/24/22 03/24/22 03/24/22 Range/Units 19:00 19:00 19:00 WBC 7.1 (3.8-10.6) k/uL RBC 5.13 (4.30-5.90) m/uL Hgb 15.0 (13.0-17.5) gm/dL Hct 46.2 (39.0-53.0) % MCV 90.2 (80.0-100.0) fL MCH 29.3 (25.0-35.0) pg MCHC 32.5 (31.0-37.0) g/dL RDW 12.3 (11.5-15.5) % Plt Count 242 (150-450) k/uL MPV 7.3 Neutrophils % 59 % Lymphocytes % 26 % Monocytes % 8 % Eosinophils % 4 % Basophils % 1 % Neutrophils # 4.2 (1.3-7.7) k/uL Lymphocytes # 1.8 (1.0-4.8) k/uL Monocytes # 0.6 (0-1.0) k/uL Eosinophils # 0.3 (0-0.7) k/uL Basophils # 0.1 (0-0.2) k/uL PT 10.6 (9.0-12.0) sec INR 1.0 (<1.2) APTT 26.7 (22.0-30.0) sec Sodium 138 (137-145) mmol/L Potassium 3.8 (3.5-5.1) mmol/L Chloride 102 (98-107) mmol/L Carbon Dioxide 29 (22-30) mmol/L Anion Gap 7 mmol/L BUN 11 (9-20) mg/dL Creatinine 0.96 (0.66-1.25) mg/dL Est GFR (CKD-EPI)AfAm >90 (>60 ml/min/1.73 sqM) Est GFR (CKD-EPI)NonAf >90 (>60 ml/min/1.73 sqM) Glucose 102 H (74-99) mg/dL Calcium 8.6 (8.4-10.2) mg/dL Total Bilirubin 0.8 (0.2-1.3) mg/dL AST 28 (17-59) U/L ALT 18 (4-49) U/L Alkaline Phosphatase 61 (38-126) U/L Total Protein 7.3 (6.3-8.2) g/dL Albumin 4.1 (3.5-5.0) g/dL Amylase 64 (30-110) U/L Lipase 152 (23-300) U/L Urine Color Urine Appearance (Clear) Urine pH (5.0-8.0) Ur Specific [place] (1.001-1.035) Urine Protein (Negative) Urine Glucose (UA) (Negative) Urine Ketones (Negative) Urine Blood (Negative) Urine Nitrite (Negative) Urine Bilirubin (Negative) Urine Urobilinogen (<2.0) mg/dL Ur Leukocyte Esterase (Negative) 03/24/22 Range/Units 19:44 WBC (3.8-10.6) k/uL RBC (4.30-5.90) m/uL Hgb (13.0-17.5) gm/dL Hct (39.0-53.0) % MCV (80.0-100.0) fL MCH (25.0-35.0) pg MCHC (31.0-37.0) g/dL RDW (11.5-15.5) % Plt Count (150-450) k/uL MPV Neutrophils % % Lymphocytes % % Monocytes % % Eosinophils % % Basophils % % Neutrophils # (1.3-7.7) k/uL Lymphocytes # (1.0-4.8) k/uL Monocytes # (0-1.0) k/uL Eosinophils # (0-0.7) k/uL Basophils # (0-0.2) k/uL PT (9.0-12.0) sec INR (<1.2) APTT (22.0-30.0) sec Sodium (137-145) mmol/L Potassium (3.5-5.1) mmol/L Chloride (98-107) mmol/L Carbon Dioxide (22-30) mmol/L Anion Gap mmol/L BUN (9-20) mg/dL Creatinine (0.66-1.25) mg/dL Est GFR (CKD-EPI)AfAm (>60 ml/min/1.73 sqM) Est GFR (CKD-EPI)NonAf (>60 ml/min/1.73 sqM) Glucose (74-99) mg/dL Calcium (8.4-10.2) mg/dL Total Bilirubin (0.2-1.3) mg/dL AST (17-59) U/L ALT (4-49) U/L Alkaline Phosphatase (38-126) U/L Total Protein (6.3-8.2) g/dL Albumin (3.5-5.0) g/dL Amylase (30-110) U/L Lipase (23-300) U/L Urine Color Yellow Urine Appearance Clear (Clear) Urine pH 5.5 (5.0-8.0) Ur Specific [place] 1.012 (1.001-1.035) Urine Protein Negative (Negative) Urine Glucose (UA) Negative (Negative) Urine Ketones Negative (Negative) Urine Blood Negative (Negative) Urine Nitrite Negative (Negative) Urine Bilirubin Negative (Negative) Urine Urobilinogen <2.0 (<2.0) mg/dL Ur Leukocyte Esterase Negative (Negative) - Radiology Data Radiology results: image reviewed (Chest and abdominal x-rays show no acute process) Disposition Clinical Impression: Nausea & vomiting Disposition: HOME SELF-CARE Condition: Stable Instructions (If sedation given, give patient instructions): Acute Nausea and Vomiting (ED) Additional Instructions: Please follow-up with primary care physician in the next one to 2 days for recheck. Return for continued vomiting, pain, fevers, worsening or changing symptoms or other concerns. Is patient prescribed a controlled substance at d/c from ED?: No Referrals: Kamar Shell MD [Primary Care Provider] - 1-2 days Time of Disposition: 20:15
[2022-03-24] MEDS ORDERED: SODIUM CHLORIDE 0.9% 1,000 ML IV STA (18:50)
[2022-03-24] MEDS ORDERED: ONDANSETRON 4 MG/2 ML VIAL IVP STA (18:50)
[2022-03-24 19:07] LABS: Basophils # (A) 0.1 k/uL (0-0.2); Basophils % (A) 1 %; Eosinophils # (A) 0.3 k/uL (0-0.7); Eosinophils % (A) 4 %; HCT 46.2 % (39.0-53.0); Lymphocytes # (A) 1.8 k/uL (1.0-4.8); Lymphocytes % (A) 26 %; MCH 29.3 pg (25.0-35.0); MCHC 32.5 g/dL (31.0-37.0); MCV 90.2 fL (80.0-100.0); Mean Platelet Volume 7.3; Monocytes # (A) 0.6 k/uL (0-1.0); Monocytes % (A) 8 %; Neutrophils # (A) 4.2 k/uL (1.3-7.7); Neutrophils % (A) 59 %; Platelet Count 242 k/uL (150-450); RBC 5.13 m/uL (4.30-5.90); RDW 12.3 % (11.5-15.5); WBC 7.1 k/uL (3.8-10.6)
[2022-03-24 19:15] LABS: ALT 18 U/L (4-49); AST 28 U/L (17-59); African American GFR (CKD) >90 (>60 ml/min/1.73 sqM); Albumin 4.1 g/dL (3.5-5.0); Alkaline Phosphatase 61 U/L (38-126); Amylase 64 U/L (30-110); Anion Gap 7 mmol/L; Blood Urea Nitrogen 11 mg/dL (9-20); Calcium 8.6 mg/dL (8.4-10.2); Carbon Dioxide 29 mmol/L (22-30); Chloride 102 mmol/L (98-107); Glucose 102 mg/dL (74-99); Lipase 152 U/L (23-300); Non-African American GFR(CKD) >90 (>60 ml/min/1.73 sqM); Partial Thromboplastin Time 26.7 sec (22.0-30.0); Potassium 3.8 mmol/L (3.5-5.1); Prothrombin Time 10.6 sec (9.0-12.0); Sodium 138 mmol/L (137-145); Total Bilirubin 0.8 mg/dL (0.2-1.3); Total Protein 7.3 g/dL (6.3-8.2)
--- NOTE | 2022-03-24 19:24 | XR ---
EXAMINATION TYPE: XR chest 2V DATE OF EXAM: 03/24/2022 COMPARISON: 02/24/2022 HISTORY: Abdominal pain TECHNIQUE: 2 views FINDINGS: Heart is normal. Lungs are clear. Diaphragm is normal. Bony thorax appears normal. IMPRESSION: Normal chest. No change.
--- NOTE | 2022-03-24 19:27 | XR ---
EXAMINATION TYPE: XR KUB DATE OF EXAM: 03/24/2022 COMPARISON: 08/07/2019 HISTORY: Pain TECHNIQUE: 2 views upright FINDINGS: There is no sign of intestinal obstruction or pneumoperitoneum. Fecal pattern is fairly nor mal. No evidence of a mass. Lung bases are clear. There are no pathologic calcifications over the kid neys. IMPRESSION: Nonacute abdomen. No adverse change.
[2022-03-24 20:04] LABS: Appearance,Urine Clear (Clear); Bilirubin,Urine Negative (Negative); Blood,Urine Negative (Negative); Color,Urine Yellow; Glucose,Urine (UA) Negative (Negative); Ketones,Urine Negative (Negative); Leukocyte Esterase,Urine Negative (Negative); Nitrite,Urine Negative (Negative); PH, Urine 5.5 (5.0-8.0); Protein,Urine Negative (Negative); Specific Gravity,Urine 1.012 (1.001-1.035); Urobilinogen,Urine <2.0 mg/dL (<2.0)
[2022-03-24 20:30] VITALS: BP 140/78; PULSE 64; TEMP 98.6
== END 2022-03-24 20:30 | disposition home or self-care (01) ==
LOC: EC 14:40
DX: R11.2 Nausea with vomiting, unspecified (principal); I25.2 Old myocardial infarction; K21.9 Gastro-esophageal reflux disease without esophagitis; Z79.83 Long term (current) use of bisphosphonates
CPT/HCPCS: 99284; 96374; 96372; 96361; 36415; 80053; 82150; 83690; 85025; 85610; 85730; 81003; 71046; 74018; J2765; J2405

== ENCOUNTER 2022-05-01 08:11 | Emergency (ER) | payer OTHER ==
[2022-05-01 08:42] VITALS: BP 150/81; PULSE 94; RESP 18; TEMP 98.4
--- NOTE | 2022-05-01 11:31 | ED ---
Extremity Problem HPI - General Chief complaint: Extremity Problem,Nontraumatic Stated complaint: leg pain Time Seen by Provider: 05/01/22 11:00 Source: patient Mode of arrival: ambulatory Limitations: no limitations - History of Present Illness Initial comments: Patient is a 52 year old male who presents for evaluation of degroot pain. Patient states he walked several miles yesterday and his shins were sore after. Denies injury. Patient has not taken any pain medication or utilize any other pain relieving remedies. No other concerns. - Related Data Home Medications Medication Instructions Recorded Confirmed Etanercept [Enbrel Sureclick] 50 mg SQ WE 02/20/19 02/24/22 Methotrexate 25mg/1ml 25 mg IM FR 02/20/19 02/24/22 Folic Acid 1 mg PO DAILY 08/05/19 02/24/22 Omeprazole 40 mg PO DAILY 10/27/20 02/24/22 Acetaminophen Tab [Tylenol Tab] 500 mg PO Q4H PRN 02/24/22 02/24/22 Previous Rx's Medication Instructions Recorded predniSONE [Deltasone] 20 mg PO BID 5 Days #10 tab 02/18/22 Albuterol Inhaler [Ventolin Hfa 1 puff INHALATION RT-QID #8 gm 02/24/22 Inhaler] guaiFENesin-Coden 100-10MG/5ML 10 ml PO Q6H PRN 3 Days #120 ml 02/24/22 [Robitussin AC] predniSONE [Deltasone] 20 mg PO BID #10 tab 02/24/22 Ondansetron Odt [Zofran Odt] 4 mg PO Q8HR PRN #10 tab 03/24/22 Allergies Allergy/AdvReac Type Severity Reaction Status Date / Time No Known Allergies Allergy Verified 05/01/22 08:42 Review of Systems ROS Statement: Those systems with pertinent positive or pertinent negative responses have been documented in the HPI. ROS Other: All systems not noted in ROS Statement are negative. Past Medical History Past Medical History: GERD/Reflux, Hyperlipidemia, Rheumatoid Arthritis (RA) Last Myocardial Infarction Date:: Dyslipidemia, appears to have some mild developmental delay History of Any Multi-Drug Resistant Organisms: None Reported Past Surgical History: No Surgical Hx Reported Past Anesthesia/Blood Transfusion Reactions: No Reported Reaction Past Psychological History: No Psychological Hx Reported Smoking Status: Never smoker Past Alcohol Use History: None Reported Past Drug Use History: None Reported - Past Family History Father Family Medical History: Hypertension Mother History Unknown: Yes Family Medical History: No Reported History Grandfather Additional Family Medical History / Comment(s): Heart disease General Exam Limitations: no limitations General appearance: alert, in no apparent distress Respiratory exam: Present: normal lung sounds bilaterally. Absent: respiratory distress, wheezes, rales, rhonchi, stridor Cardiovascular Exam: Present: regular rate, normal rhythm, normal heart sounds. Absent: systolic murmur, diastolic murmur, rubs, gallop, clicks Extremities exam: Present: other (Mild tenderness with palpation of the bilateral shins) Neurological exam: Present: alert, oriented X3, CN II-XII intact Psychiatric exam: Present: normal affect, normal mood Course Vital Signs 05/01/22 08:39 Temperature 98.4 F Pulse Rate 94 Respiratory 18 Rate Blood Pressure 150/81 O2 Sat by Pulse 97 Oximetry Medical Decision Making - Medical Decision Making This is a 52-year-old male who presents for evaluation of degroot splint pain. Thorough history and examination were performed. Full range of motion. Neurovascularly intact. Patient and I discussed degroot splints in detail. Patient will be discharged with instruction on symptomatic management. He verbalizes understanding and is agreeable to this plan. Dr. Farias is my attending. Disposition Clinical Impression: Pain in the shins Disposition: HOME SELF-CARE Condition: Good Instructions (If sedation given, give patient instructions): Degroot Splints (ED) Additional Instructions: Take an anti-inflammatory such as ibuprofen for pain. Rest the legs and avoid long distance walks on cement or other hard surfaces. Use of ice packs/warm compress on the shins the aid pain as well. Follow-up with primary care provider in one to 2 days. Return to the emergency department if you experience new, concerning, or worsening symptoms Is patient prescribed a controlled substance at d/c from ED?: No Referrals: Kamar Shell MD [Primary Care Provider] - 1-2 days Time of Disposition: 11:31
== END 2022-05-01 12:06 | disposition home or self-care (01) ==
LOC: EC 08:11
DX: M79.661 Pain in right lower leg (principal); M79.662 Pain in left lower leg; E78.5 Hyperlipidemia, unspecified; K21.9 Gastro-esophageal reflux disease without esophagitis
CPT/HCPCS: 99283

== ENCOUNTER 2022-05-04 10:03 | Emergency (ER) | payer OTHER ==
[2022-05-04 10:15] VITALS: BP 132/89; PULSE 68; RESP 16; TEMP 98.6
[2022-05-04] MEDS ORDERED: ONDANSETRON 4 MG/2 ML VIAL IVP STA (11:04)
[2022-05-04] MEDS ORDERED: SODIUM CHLORIDE 0.9% 1,000 ML IV STA (11:04)
--- NOTE | 2022-05-04 11:09 | ED ---
General Adult HPI - General Chief complaint: Nausea/Vomiting/Diarrhea Stated complaint: Abd pain/vomiting Time Seen by Provider: 05/04/22 11:00 Source: patient, RN notes reviewed Mode of arrival: ambulatory Limitations: no limitations - History of Present Illness Initial comments: Patient is a 52-year-old male presents emergency room with complaints of severe nausea and vomiting that began today. He reports emesis 4 times today without any diarrhea. He is complaining of diffuse abdominal pain without any specific quadrant tenderness. He denies any blood or mucus in his stool. He denies any blood in his emesis. He denies any coffee-ground emesis. He denies any weight loss, cough, shortness of breath, or chest pain. He denies any influenza or COVID exposure. He reports some mild fevers and chills. He does have a past medical history significant for rheumatoid arthritis and is on Enbrel along with methotrexate. He has an additional past medical history of GERD and hyperlipidemia. - Related Data Home Medications Medication Instructions Recorded Confirmed Etanercept [Enbrel Sureclick] 50 mg SQ WE 02/20/19 02/24/22 Methotrexate 25mg/1ml 25 mg IM FR 02/20/19 02/24/22 Folic Acid 1 mg PO DAILY 08/05/19 02/24/22 Omeprazole 40 mg PO DAILY 10/27/20 02/24/22 Acetaminophen Tab [Tylenol Tab] 500 mg PO Q4H PRN 02/24/22 02/24/22 Previous Rx's Medication Instructions Recorded predniSONE [Deltasone] 20 mg PO BID 5 Days #10 tab 02/18/22 Albuterol Inhaler [Ventolin Hfa 1 puff INHALATION RT-QID #8 gm 02/24/22 Inhaler] guaiFENesin-Coden 100-10MG/5ML 10 ml PO Q6H PRN 3 Days #120 ml 02/24/22 [Robitussin AC] predniSONE [Deltasone] 20 mg PO BID #10 tab 02/24/22 Ondansetron Odt [Zofran Odt] 4 mg PO Q8HR PRN #10 tab 03/24/22 Ondansetron Odt [Zofran Odt] 8 mg PO Q8HR PRN 10 Days #30 tab 05/04/22 Allergies Allergy/AdvReac Type Severity Reaction Status Date / Time No Known Allergies Allergy Verified 05/04/22 10:15 Review of Systems ROS Statement: Those systems with pertinent positive or pertinent negative responses have been documented in the HPI. ROS Other: All systems not noted in ROS Statement are negative. Past Medical History Past Medical History: GERD/Reflux, Hyperlipidemia, Rheumatoid Arthritis (RA) Last Myocardial Infarction Date:: Dyslipidemia, appears to have some mild developmental delay History of Any Multi-Drug Resistant Organisms: None Reported Past Surgical History: No Surgical Hx Reported Past Anesthesia/Blood Transfusion Reactions: No Reported Reaction Past Psychological History: No Psychological Hx Reported Smoking Status: Never smoker Past Alcohol Use History: None Reported Past Drug Use History: None Reported - Past Family History Father Family Medical History: Hypertension Mother History Unknown: Yes Family Medical History: No Reported History Grandfather Additional Family Medical History / Comment(s): Heart disease General Exam Limitations: no limitations General appearance: alert, in no apparent distress Head exam: Present: atraumatic, normocephalic, normal inspection Eye exam: Present: normal appearance, PERRL, EOMI. Absent: scleral icterus, conjunctival injection, periorbital swelling ENT exam: Present: normal exam, mucous membranes moist Neck exam: Present: normal inspection. Absent: tenderness, meningismus, lymphadenopathy Respiratory exam: Present: normal lung sounds bilaterally. Absent: respiratory distress, wheezes, rales, rhonchi, stridor Cardiovascular Exam: Present: regular rate, normal rhythm, normal heart sounds. Absent: systolic murmur, diastolic murmur, rubs, gallop, clicks GI/Abdominal exam: Present: soft, distended, normal bowel sounds. Absent: organomegaly, mass Rectal exam: Present: deferred Extremities exam: Present: normal inspection. Absent: pedal edema, joint swelling Back exam: Present: normal inspection Neurological exam: Present: alert, oriented X3, CN II-XII intact Psychiatric exam: Present: normal affect, normal mood Skin exam: Present: warm, dry, intact, normal color. Absent: rash Course Vital Signs 05/04/22 10:12 Temperature 98.6 F Pulse Rate 68 Respiratory 16 Rate Blood Pressure 132/89 O2 Sat by Pulse 98 Oximetry Medical Decision Making - Medical Decision Making Due to high risk immune-compromised state will check CBC, CMP, amylase, lipase, influenza swab, covert swab, urinalysis and ultrasound of the abdomen. Will give IV fluids along with Zofran and monitor. CBC and chemistry panel unremarkable. Influenza and coated swab negative. Ultr asound of the abdomen redemonstrates fatty liver otherwise negative. He responded well to Zofran and IV fluids. Will discharge home with oral Zofran to utilize as needed. Encouraged good hydration Case discussed with Dr. Ferrera. - Lab Data Result diagrams: 05/04/22 11:24 05/04/22 11:24 Lab Results 05/04/22 05/04/22 05/04/22 Range/Units 11:24 11:24 11:24 WBC 6.5 (3.8-10.6) k/uL RBC 4.81 (4.30-5.90) m/uL Hgb 14.2 (13.0-17.5) gm/dL Hct 43.0 (39.0-53.0) % MCV 89.5 (80.0-100.0) fL MCH 29.4 (25.0-35.0) pg MCHC 32.9 (31.0-37.0) g/dL RDW 12.5 (11.5-15.5) % Plt Count 245 (150-450) k/uL MPV 7.5 Sodium (137-145) mmol/L Potassium (3.5-5.1) mmol/L Chloride (98-107) mmol/L Carbon Dioxide (22-30) mmol/L Anion Gap mmol/L BUN (9-20) mg/dL Creatinine (0.66-1.25) mg/dL Est GFR (CKD-EPI)AfAm (>60 ml/min/1.73 sqM) Est GFR (CKD-EPI)NonAf (>60 ml/min/1.73 sqM) Glucose (74-99) mg/dL Calcium (8.4-10.2) mg/dL Total Bilirubin (0.2-1.3) mg/dL AST (17-59) U/L ALT (4-49) U/L Alkaline Phosphatase (38-126) U/L Total Protein (6.3-8.2) g/dL Albumin (3.5-5.0) g/dL Amylase (30-110) U/L Lipase (23-300) U/L Coronavirus (PCR) Not Detected (Not Detectd) Influenza Type A RNA Not Detected (Not Detectd) Influenza Type B (PCR) Not Detected (Not Detectd) 05/04/22 Range/Units 11:24 WBC (3.8-10.6) k/uL RBC (4.30-5.90) m/uL Hgb (13.0-17.5) gm/dL Hct (39.0-53.0) % MCV (80.0-100.0) fL MCH (25.0-35.0) pg MCHC (31.0-37.0) g/dL RDW (11.5-15.5) % Plt Count (150-450) k/uL MPV Sodium 138 (137-145) mmol/L Potassium 3.9 (3.5-5.1) mmol/L Chloride 103 (98-107) mmol/L Carbon Dioxide 28 (22-30) mmol/L Anion Gap 7 mmol/L BUN 14 (9-20) mg/dL Creatinine 0.81 (0.66-1.25) mg/dL Est GFR (CKD-EPI)AfAm >90 (>60 ml/min/1.73 sqM) Est GFR (CKD-EPI)NonAf >90 (>60 ml/min/1.73 sqM) Glucose 105 H (74-99) mg/dL Calcium 8.7 (8.4-10.2) mg/dL Total Bilirubin 0.5 (0.2-1.3) mg/dL AST 29 (17-59) U/L ALT 18 (4-49) U/L Alkaline Phosphatase 68 (38-126) U/L Total Protein 7.1 (6.3-8.2) g/dL Albumin 4.1 (3.5-5.0) g/dL Amylase 63 (30-110) U/L Lipase 178 (23-300) U/L Coronavirus (PCR) (Not Detectd) Influenza Type A RNA (Not Detectd) Influenza Type B (PCR) (Not Detectd) - Radiology Data Radiology results: report reviewed, image reviewed Ultrasound abdomen complete showed hepatic heterogenicity which may reflect hepatic fatty infiltrations. Otherwise unremarkable study. Disposition Clinical Impression: Gastroenteritis Disposition: HOME SELF-CARE Condition: Good Instructions (If sedation given, give patient instructions): Acute Nausea and Vomiting (ED) Additional Instructions: Utilize Zofran as needed for nausea. Stay well-hydrated, drink plenty of water. Please return to the Emergency Department if symptoms worsen or any other concerns. Prescriptions: Ondansetron Odt [Zofran Odt] 8 mg PO Q8HR PRN 10 Days #30 tab PRN Reason: Nausea Is patient prescribed a controlled substance at d/c from ED?: No Referrals: Kamar Shell MD [Primary Care Provider] - 1-2 days Time of Disposition: 12:46
[2022-05-04 11:35] LABS: HGB 14.2 gm/dL (13.0-17.5); MCH 29.4 pg (25.0-35.0); MCHC 32.9 g/dL (31.0-37.0); MCV 89.5 fL (80.0-100.0); Mean Platelet Volume 7.5; Platelet Count 245 k/uL (150-450); RBC 4.81 m/uL (4.30-5.90); RDW 12.5 % (11.5-15.5); WBC 6.5 k/uL (3.8-10.6)
[2022-05-04 11:43] LABS: ALT 18 U/L (4-49); AST 29 U/L (17-59); African American GFR (CKD) >90 (>60 ml/min/1.73 sqM); Albumin 4.1 g/dL (3.5-5.0); Alkaline Phosphatase 68 U/L (38-126); Amylase 63 U/L (30-110); Anion Gap 7 mmol/L; Blood Urea Nitrogen 14 mg/dL (9-20); Calcium 8.7 mg/dL (8.4-10.2); Carbon Dioxide 28 mmol/L (22-30); Chloride 103 mmol/L (98-107); Glucose 105 mg/dL (74-99); Lipase 178 U/L (23-300); Non-African American GFR(CKD) >90 (>60 ml/min/1.73 sqM); Potassium 3.9 mmol/L (3.5-5.1); Sodium 138 mmol/L (137-145); Total Bilirubin 0.5 mg/dL (0.2-1.3); Total Protein 7.1 g/dL (6.3-8.2)
--- NOTE | 2022-05-04 12:19 | US ---
EXAMINATION TYPE: US abdomen complete DATE OF EXAM: 05/04/2022 COMPARISON: NONE CLINICAL HISTORY: nausea, vomiting, and abdominal pain. Abd pain x 1 day EXAM MEASUREMENTS: Liver Length: 13.4 cm Gallbladder Wall: 1.9 cm CBD: 0.4 cm Spleen: 10.1 cm Right Kidney: 10.8 x 6.5 x 6.0 cm Left Kidney: 12.3 x 5.9 x 4.9 cm Pancreas: Obscured by bowel gas Liver: heterogeneous Gallbladder: wnl Evidence for sonographic Arreguin's sign: No CBD: wnl Spleen: wnl Right Kidney: wnl Left Kidney: wnl Upper IVC: wnl Abd Aorta: wnl The intrahepatic portion of the IVC and proximal abdominal aorta are within normal limits. There is no evidence of cholelithiasis. Common bile duct is unremarkable. The visualized portions of the madrigal creas are homogenous. The spleen is unremarkable. Kidneys are symmetric and free of hydronephrosis. No renal lesions are seen. IMPRESSION: Hepatic heterogeneity may reflect fatty hepatic infiltration. Otherwise unremarkable stud y.
== END 2022-05-04 13:51 | disposition home or self-care (01) ==
LOC: EC 10:03
DX: K52.9 Noninfective gastroenteritis and colitis, unspecified (principal); K21.9 Gastro-esophageal reflux disease without esophagitis; E78.5 Hyperlipidemia, unspecified; I25.2 Old myocardial infarction; Z20.822 Contact with and (suspected) exposure to COVID-19
CPT/HCPCS: 36415; 80053; 82150; 83690; 85027; 87502; 87635; 76700; 99284; 96374; 96361; J2405

== ENCOUNTER 2022-05-05 10:32 | Emergency (ER) | payer OTHER ==
[2022-05-05 10:36] VITALS: RESP 18
[2022-05-05] MEDS ORDERED: PANTOPRAZOLE 40 MG/10 ML VIAL IVP STA (11:09)
[2022-05-05] MEDS ORDERED: ONDANSETRON 4 MG/2 ML VIAL IVP STA (11:09)
[2022-05-05] MEDS ORDERED: diphenhydrAMINE 50 MG/ML 1 ML VIAL IVP STA (11:09)
[2022-05-05] MEDS ORDERED: SODIUM CHLORIDE 0.9% 1,000 ML IV STA (11:09)
[2022-05-05] MEDS ORDERED: MAG HYDROX/AL HYDROX/SIMETH 30 ML, HYOSCYAMINE ELIXIR 10 ML, LIDOCAINE VISCOUS 2% 10 ML PO STA ×3 (11:11)
--- NOTE | 2022-05-05 11:27 | ED ---
General Adult HPI - General Chief complaint: Nausea/Vomiting/Diarrhea Stated complaint: Revisit/vomiting Time Seen by Provider: 05/05/22 10:41 Source: patient, RN notes reviewed, old records reviewed Mode of arrival: ambulatory Limitations: no limitations - History of Present Illness Initial comments: Patient is a 52-year-old male with past medical history remarkable for GERD, hyperlipidemia, rheumatoid arthritis who re-presents today for continued nausea and vomiting. Patient was seen yesterday for similar symptoms. Ultrasound as well as laboratory studies were unremarkable. Was sent home after tolerating oral intake, however states that he has not been able to tolerate any oral intake overnight. Presents for reevaluation. Denies chest pain, shortness breath. Endorses epigastric abdominal pain. Denies urinary symptoms. Denies constipation. Denies diarrhea. Prescription emesis is nonbilious and nonbloody. Denies any fevers, chills, sick contacts. No respiratory complaints. No chest pain. Presents for further evaluation at this time. - Related Data Home Medications Medication Instructions Recorded Confirmed Etanercept [Enbrel Sureclick] 50 mg SQ WE 02/20/19 02/24/22 Methotrexate 25mg/1ml 25 mg IM FR 02/20/19 02/24/22 Folic Acid 1 mg PO DAILY 08/05/19 02/24/22 Omeprazole 40 mg PO DAILY 10/27/20 02/24/22 Acetaminophen Tab [Tylenol Tab] 500 mg PO Q4H PRN 02/24/22 02/24/22 Previous Rx's Medication Instructions Recorded predniSONE [Deltasone] 20 mg PO BID 5 Days #10 tab 02/18/22 Albuterol Inhaler [Ventolin Hfa 1 puff INHALATION RT-QID #8 gm 02/24/22 Inhaler] guaiFENesin-Coden 100-10MG/5ML 10 ml PO Q6H PRN 3 Days #120 ml 02/24/22 [Robitussin AC] predniSONE [Deltasone] 20 mg PO BID #10 tab 02/24/22 Ondansetron Odt [Zofran Odt] 4 mg PO Q8HR PRN #10 tab 03/24/22 Ondansetron Odt [Zofran Odt] 8 mg PO Q8HR PRN 10 Days #30 tab 05/04/22 Famotidine 20 mg PO DAILY 7 Days #7 tablet 05/05/22 Mag Hydrox/Al Hydrox/Simeth 30 ml PO BID PRN #300 ml 05/05/22 [Maalox] Allergies Allergy/AdvReac Type Severity Reaction Status Date / Time No Known Allergies Allergy Verified 05/05/22 10:33 Review of Systems ROS Statement: Those systems with pertinent positive or pertinent negative responses have been documented in the HPI. Review of Systems: CONST: Denies fever EYES: Denies blurry vision ENT: Denies nasal congestion C/V: Denies Chest pain RESP: Denies shortness of breath GI: Endorses abdominal pain : Denies dysuria SKIN: Denies rash. MSK: Denies joint pain. NEURO: Denies headache ROS Other: All systems not noted in ROS Statement are negative. Past Medical History Past Medical History: GERD/Reflux, Hyperlipidemia, Rheumatoid Arthritis (RA) Last Myocardial Infarction Date:: Dyslipidemia, appears to have some mild developmental delay History of Any Multi-Drug Resistant Organisms: None Reported Past Surgical History: No Surgical Hx Reported Past Anesthesia/Blood Transfusion Reactions: No Reported Reaction Past Psychological History: No Psychological Hx Reported Smoking Status: Never smoker Past Alcohol Use History: None Reported Past Drug Use History: None Reported - Past Family History Father Family Medical History: Hypertension Mother History Unknown: Yes Family Medical History: No Reported History Grandfather Additional Family Medical History / Comment(s): Heart disease General Exam - General Exam Comments Initial Comments: General: Appears in no acute distress. HEAD: Normal with no signs of head trauma. EYES: PERRLA, EOMI, conjunctiva normal, no discharge. ENT: Hearing grossly intact, normal oropharynx. Moist mucous membranes. RESPIRATORY: Clear breath sounds bilaterally. No wheezes, rales, or rhonchi. C/V: Regular rate and rhythm. S1 and S2 auscultated, no edema, peripheral pulses 2+ and intact throughout ABD: Abdomen is soft, nondistended. There is epigastric abdominal discomfort on palpation. No guarding. No peritoneal signs. No rebound tenderness. No CVA tenderness on percussion. EXT: Normal range of motion, no obvious deformity SKIN: No rashes or lesions observed on exposed skin. NEURO: Alert and oriented 4. No focal deficits. Limitations: no limitations Course Vital Signs 05/05/22 05/05/22 10:34 13:24 Temperature 98.5 F 97.9 F Pulse Rate 71 76 Respiratory 18 18 Rate Blood Pressure 128/77 144/93 O2 Sat by Pulse 97 97 Oximetry Medical Decision Making - Medical Decision Making Abdomen the patient's presentation and physical exam, cannot rule out intra- abdominal process for the patient. Laboratory studies yesterday were unremar kable including a unremarkable gallbladder ultrasound as well. Due to the continued symptoms and distress, we'll obtain CT abdomen and pelvis in addition to repeat laboratory studies. He was in agreement this plan. Will be symptomatically treated as well. Patient's laboratory studies are all unremarkable, including an undetectable troponin. EKG showed no signs of acute ischemia. CT abdomen and pelvis revealed mild fluid distention of small bowel with mild wall thickening reflecti ng nonspecific enteritis. Reevaluation come patient is tolerating oral intake. I updated him on the results of his imaging and labs. Recommended it is okay for him to be discharged home with follow up with his PCP. He was in agreement with this plan. He expressed understanding of the findings. I will provide the patient with a prescription for Maalox, famotidine. I instructed the patient to follow up with their PCP in the next 3 days. I explained that the patient should return to the emergency department if they experience any worsening symptoms. Strict return precautions were discussed with the patient. The patient expressed understanding of these instructions. I answered all questions that the patient had. The patient was discharged home in good condition with their prescriptions and follow up information. - Lab Data Result diagrams: 05/05/22 11:23 05/05/22 11:23 Lab Results 05/05/22 05/05/22 05/05/22 Range/Units 11:23 11:23 11:23 WBC 4.9 (3.8-10.6) k/uL RBC 4.66 (4.30-5.90) m/uL Hgb 14.1 (13.0-17.5) gm/dL Hct 41.8 (39.0-53.0) % MCV 89.8 (80.0-100.0) fL MCH 30.2 (25.0-35.0) pg MCHC 33.7 (31.0-37.0) g/dL RDW 12.3 (11.5-15.5) % Plt Count 236 (150-450) k/uL MPV 7.4 Neutrophils % 56 % Lymphocytes % 29 % Monocytes % 8 % Eosinophils % 5 % Basophils % 1 % Neutrophils # 2.7 (1.3-7.7) k/uL Lymphocytes # 1.4 (1.0-4.8) k/uL Monocytes # 0.4 (0-1.0) k/uL Eosinophils # 0.2 (0-0.7) k/uL Basophils # 0.0 (0-0.2) k/uL PT 10.2 (9.0-12.0) sec INR 0.9 (<1.2) APTT 26.5 (22.0-30.0) sec Sodium 138 (137-145) mmol/L Potassium 4.0 (3.5-5.1) mmol/L Chloride 107 (98-107) mmol/L Carbon Dioxide 26 (22-30) mmol/L Anion Gap 5 mmol/L BUN 15 (9-20) mg/dL Creatinine 0.78 (0.66-1.25) mg/dL Est GFR (CKD-EPI)AfAm >90 (>60 ml/min/1.73 sqM) Est GFR (CKD-EPI)NonAf >90 (>60 ml/min/1.73 sqM) Glucose 112 H (74-99) mg/dL Calcium 8.5 (8.4-10.2) mg/dL Total Bilirubin 0.3 (0.2-1.3) mg/dL AST 26 (17-59) U/L ALT 17 (4-49) U/L Alkaline Phosphatase 65 (38-126) U/L Troponin I (0.000-0.034) ng/mL Total Protein 6.7 (6.3-8.2) g/dL Albumin 3.9 (3.5-5.0) g/dL Amylase 65 (30-110) U/L Lipase 255 (23-300) U/L 05/05/22 Range/Units 11:23 WBC (3.8-10.6) k/uL RBC (4.30-5.90) m/uL Hgb (13.0-17.5) gm/dL Hct (39.0-53.0) % MCV (80.0-100.0) fL MCH (25.0-35.0) pg MCHC (31.0-37.0) g/dL RDW (11.5-15.5) % Plt Count (150-450) k/uL MPV Neutrophils % % Lymphocytes % % Monocytes % % Eosinophils % % Basophils % % Neutrophils # (1.3-7.7) k/uL Lymphocytes # (1.0-4.8) k/uL Monocytes # (0-1.0) k/uL Eosinophils # (0-0.7) k/uL Basophils # (0-0.2) k/uL PT (9.0-12.0) sec INR (<1.2) APTT (22.0-30.0) sec Sodium (137-145) mmol/L Potassium (3.5-5.1) mmol/L Chloride (98-107) mmol/L Carbon Dioxide (22-30) mmol/L Anion Gap mmol/L BUN (9-20) mg/dL Creatinine (0.66-1.25) mg/dL Est GFR (CKD-EPI)AfAm (>60 ml/min/1.73 sqM) Est GFR (CKD-EPI)NonAf (>60 ml/min/1.73 sqM) Glucose (74-99) mg/dL Calcium (8.4-10.2) mg/dL Total Bilirubin (0.2-1.3) mg/dL AST (17-59) U/L ALT (4-49) U/L Alkaline Phosphatase (38-126) U/L Troponin I <0.012 (0.000-0.034) ng/mL Total Protein (6.3-8.2) g/dL Albumin (3.5-5.0) g/dL Amylase (30-110) U/L Lipase (23-300) U/L - EKG Data -: EKG Interpreted by Me EKG Comments: 12-lead Electrocardiogram Interpretation Note EKG was reviewed and interpreted by myself. 12-lead ECG performed at 1125 is interpreted by me as revealing normal sinus rhythm at a rate of 71 beats per minute. [place] is normal. [place] interval is 144 ms, QRS duration is 87 ms, QTc is 411 ms.. There were no ST or T wave abnormalities to suggest myocardial ischemia or injury. R wave progression across the precordium was satisfactory. By my interpretation this EKG is non-diagnostic for acute ischemia. Disposition Clinical Impression: Nausea and vomiting Disposition: HOME SELF-CARE Condition: Good Instructions (If sedation given, give patient instructions): Acute Nausea and Vomiting (ED) Prescriptions: Famotidine 20 mg PO DAILY 7 Days #7 tablet Mag Hydrox/Al Hydrox/Simeth [Maalox] 30 ml PO BID PRN #300 ml PRN Reason: Dyspepsia Is patient prescribed a controlled substance at d/c from ED?: No Referrals: Kamar Shell MD [Primary Care Provider] - 1-2 days Time of Disposition: 12:55
[2022-05-05 11:29] LABS: Basophils % (A) 1 %; Eosinophils # (A) 0.2 k/uL (0-0.7); Eosinophils % (A) 5 %; HCT 41.8 % (39.0-53.0); HGB 14.1 gm/dL (13.0-17.5); Lymphocytes # (A) 1.4 k/uL (1.0-4.8); Lymphocytes % (A) 29 %; MCH 30.2 pg (25.0-35.0); MCHC 33.7 g/dL (31.0-37.0); MCV 89.8 fL (80.0-100.0); Mean Platelet Volume 7.4; Monocytes # (A) 0.4 k/uL (0-1.0); Monocytes % (A) 8 %; Neutrophils # (A) 2.7 k/uL (1.3-7.7); Neutrophils % (A) 56 %; Platelet Count 236 k/uL (150-450); RBC 4.66 m/uL (4.30-5.90); RDW 12.3 % (11.5-15.5); WBC 4.9 k/uL (3.8-10.6)
[2022-05-05 11:39] LABS: ALT 17 U/L (4-49); AST 26 U/L (17-59); African American GFR (CKD) >90 (>60 ml/min/1.73 sqM); Albumin 3.9 g/dL (3.5-5.0); Alkaline Phosphatase 65 U/L (38-126); Amylase 65 U/L (30-110); Anion Gap 5 mmol/L; Blood Urea Nitrogen 15 mg/dL (9-20); Calcium 8.5 mg/dL (8.4-10.2); Carbon Dioxide 26 mmol/L (22-30); Chloride 107 mmol/L (98-107); Glucose 112 mg/dL (74-99); Lipase 255 U/L (23-300); Non-African American GFR(CKD) >90 (>60 ml/min/1.73 sqM); Sodium 138 mmol/L (137-145); Total Bilirubin 0.3 mg/dL (0.2-1.3); Total Protein 6.7 g/dL (6.3-8.2)
[2022-05-05 11:50] LABS: INR 0.9 (<1.2); Partial Thromboplastin Time 26.5 sec (22.0-30.0); Prothrombin Time 10.2 sec (9.0-12.0)
--- NOTE | 2022-05-05 12:16 | CT ---
EXAMINATION TYPE: CT abdomen pelvis w con DATE OF EXAM: 05/05/2022 COMPARISON: 02/24/2022 HISTORY: Vomiting. CT DLP: 1016 mGycm CONTRAST: CT scan of the abdomen and pelvis is performed without Oral Contrast and with IV Contrast, patient in jected with 100ml mL of Isovue 300. FINDINGS: LUNG BASES-: No visible nodule. No infiltrate. LIVER/GB: No calcified gallstones. No space occupying hepatic lesion. Biliary tree is of normal ca liber. PANCREAS: No inflammation. No distinct mass. SPLEEN: No splenic enlargement. No lesion seen. ADRENALS: No nodule. No thickening. KIDNEYS/BLADDER: No hydronephrosis. No nephrolithiasis. No distinct renal mass. Urinary bladder g rossly unremarkable. BOWEL: Normal appendix. Mild fluid distention of small bowel wall thickening may reflect nonspecific enteritis. Large bowel is of normal caliber. No evidence for free air or abscess. GENITAL ORGANS: No gross abnormality. LYMPH NODES: No greater than 1cm abdominal or pelvic lymph nodes are appreciated. AORTA: No significant abnormality. OSSEOUS STRUCTURES: No significant abnormality is seen. OTHER: Fat-containing inguinal hernias noted. IMPRESSION: 1. Mild fluid distention of small bowel with mild wall thickening may reflect nonspecific enteritis.
[2022-05-05 13:26] VITALS: BP 144/93; PULSE 76; TEMP 97.9
== END 2022-05-05 13:40 | disposition home or self-care (01) ==
LOC: EC 10:32
DX: R11.2 Nausea with vomiting, unspecified (principal); E78.5 Hyperlipidemia, unspecified; K21.9 Gastro-esophageal reflux disease without esophagitis; Z79.83 Long term (current) use of bisphosphonates
CPT/HCPCS: 80053; 36415; 82150; 83690; 84484; 85025; 85610; 85730; 74177; 96374; 96375; 96361; 99284; J1200; J2405; C9113; Q9967; 93005

== ENCOUNTER 2022-05-11 09:52 | Emergency (ER) | payer OTHER ==
[2022-05-11 09:58] VITALS: TEMP 98.6
[2022-05-11] MEDS ORDERED: ONDANSETRON 4 MG/2 ML VIAL IVP STA (10:06)
[2022-05-11] MEDS ORDERED: SODIUM CHLORIDE 0.9% 1,000 ML IV ONE (10:07)
[2022-05-11] MEDS ORDERED: DIPHENOX-ATROP 2.5-0.025 MG 1 EACH TAB PO STA (10:07)
[2022-05-11 10:23] LABS: Basophils # (A) 0.1 k/uL (0-0.2); Basophils % (A) 1 %; Eosinophils # (A) 0.2 k/uL (0-0.7); Eosinophils % (A) 4 %; HCT 45.6 % (39.0-53.0); Lymphocytes # (A) 1.2 k/uL (1.0-4.8); Lymphocytes % (A) 23 %; MCHC 32.9 g/dL (31.0-37.0); MCV 88.2 fL (80.0-100.0); Mean Platelet Volume 7.4; Monocytes # (A) 0.5 k/uL (0-1.0); Monocytes % (A) 9 %; Neutrophils # (A) 3.2 k/uL (1.3-7.7); Neutrophils % (A) 61 %; Platelet Count 249 k/uL (150-450); RBC 5.18 m/uL (4.30-5.90); RDW 12.3 % (11.5-15.5); WBC 5.2 k/uL (3.8-10.6)
--- NOTE | 2022-05-11 10:30 | ED ---
General Adult HPI - General Chief complaint: Chest Pain Stated complaint: chest pain, bilat leg pain Time Seen by Provider: 05/11/22 09:55 Source: patient, RN notes reviewed, old records reviewed Mode of arrival: wheelchair Limitations: no limitations - History of Present Illness Initial comments: This is a 52-year-old male presents emergency department stating that last night at about 10:00 he started having vomiting and diarrhea. Patient states con tinued throughout the whole night. Patient states he has developed a burning sensation in his chest particularly when he vomits. Patient states it's much better when he is not vomiting. Patient denies any shortness of breath difficulty breathing. Patient states he gets his Chest pain all the time. Patient states right now chest pains no recent years as it was when he was vomiting. Patient told nursing his legs hurt when I asked him if his legs hurt he denies any leg pain or swelling. Patient denies any calf pain. Patient denies any abdominal pain. Patient denies being around anyone else sick. Patient denies any fever chills. - Related Data Home Medications Medication Instructions Recorded Confirmed Etanercept [Enbrel Sureclick] 50 mg SQ WE 02/20/19 02/24/22 Methotrexate 25mg/1ml 25 mg IM FR 02/20/19 02/24/22 Folic Acid 1 mg PO DAILY 08/05/19 02/24/22 Omeprazole 40 mg PO DAILY 10/27/20 02/24/22 Acetaminophen Tab [Tylenol Tab] 500 mg PO Q4H PRN 02/24/22 02/24/22 Previous Rx's Medication Instructions Recorded predniSONE [Deltasone] 20 mg PO BID 5 Days #10 tab 02/18/22 Albuterol Inhaler [Ventolin Hfa 1 puff INHALATION RT-QID #8 gm 02/24/22 Inhaler] guaiFENesin-Coden 100-10MG/5ML 10 ml PO Q6H PRN 3 Days #120 ml 02/24/22 [Robitussin AC] predniSONE [Deltasone] 20 mg PO BID #10 tab 02/24/22 Ondansetron Odt [Zofran Odt] 4 mg PO Q8HR PRN #10 tab 03/24/22 Ondansetron Odt [Zofran Odt] 8 mg PO Q8HR PRN 10 Days #30 tab 05/04/22 Famotidine 20 mg PO DAILY 7 Days #7 tablet 05/05/22 Mag Hydrox/Al Hydrox/Simeth 30 ml PO BID PRN #300 ml 05/05/22 [Maalox] Allergies Allergy/AdvReac Type Severity Reaction Status Date / Time No Known Allergies Allergy Verified 05/11/22 09:58 Review of Systems ROS Statement: Those systems with pertinent positive or pertinent negative responses have been documented in the HPI. ROS Other: All systems not noted in ROS Statement are negative. Past Medical History Past Medical History: GERD/Reflux, Hyperlipidemia, Rheumatoid Arthritis (RA) Last Myocardial Infarction Date:: Dyslipidemia, appears to have some mild developmental delay History of Any Multi-Drug Resistant Organisms: None Reported Past Surgical History: No Surgical Hx Reported Past Anesthesia/Blood Transfusion Reactions: No Reported Reaction Past Psychological History: No Psychological Hx Reported Smoking Status: Never smoker Past Alcohol Use History: None Reported Past Drug Use History: None Reported - Past Family History Father Family Medical History: Hypertension Mother History Unknown: Yes Family Medical History: No Reported History Grandfather Additional Family Medical History / Comment(s): Heart disease General Exam - General Exam Comments Initial Comments: GENERAL: Patient is well-developed and well-nourished. Patient is nontoxic and well- hydrated and is in distress. ENT: Neck is soft and supple. No significant lymphadenopathy is noted. Oropharynx is clear. Moist mucous membranes. Neck has full range of motion without eliciting any pain. EYES: The sclera were anicteric and conjunctiva were pink and moist. Extraocular movements were intact and pupils were equal round and reactive to light. E yelids were unremarkable. PULMONARY: Unlabored respirations. Good breath sounds bilaterally. No audible rales rhonchi or wheezing was noted. CARDIOVASCULAR: There is a regular rate and rhythm without any murmurs gallops or rubs. ABDOMEN: Soft and nontender with normal bowel sounds. No palpable organomegaly was noted. There is no palpable pulsatile mass. SKIN: Skin is clear with no lesions or rashes and otherwise unremarkable. NEUROLOGIC: Patient is alert and oriented x3. Cranial nerves II through XII are grossly intact. Motor and sensory are also intact. Normal speech, volume and content. Symmetrical smile. MUSCULOSKELETAL: Normal extremities with adequate strength and full range of motion. No lower extremity swelling or edema. No calf tenderness. LYMPHATICS: No significant lymphadenopathy is noted PSYCHIATRIC: Normal psychiatric evaluation. 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 Patient's EKG shows no ST segment elevation or depression. Chest x-ray shows no acute abnormality. I went back into reevaluate the patient he no longer had any burning sensation in his chest he had no nausea vomiting or any diarrhea since she's been in the emergency department. - Lab Data Result diagrams: 05/11/22 10:15 05/11/22 10:15 Lab Results 05/11/22 05/11/22 05/11/22 Range/Units 10:15 10:15 10:15 WBC 5.2 (3.8-10.6) k/uL RBC 5.18 (4.30-5.90) m/uL Hgb 15.0 (13.0-17.5) gm/dL Hct 45.6 (39.0-53.0) % MCV 88.2 (80.0-100.0) fL MCH 29.0 (25.0-35.0) pg MCHC 32.9 (31.0-37.0) g/dL RDW 12.3 (11.5-15.5) % Plt Count 249 (150-450) k/uL MPV 7.4 Neutrophils % 61 % Lymphocytes % 23 % Monocytes % 9 % Eosinophils % 4 % Basophils % 1 % Neutrophils # 3.2 (1.3-7.7) k/uL Lymphocytes # 1.2 (1.0-4.8) k/uL Monocytes # 0.5 (0-1.0) k/uL Eosinophils # 0.2 (0-0.7) k/uL Basophils # 0.1 (0-0.2) k/uL PT 10.5 (9.0-12.0) sec INR 1.0 (<1.2) APTT 26.2 (22.0-30.0) sec Sodium 137 (137-145) mmol/L Potassium 3.8 (3.5-5.1) mmol/L Chloride 103 (98-107) mmol/L Carbon Dioxide 24 (22-30) mmol/L Anion Gap 10 mmol/L BUN 14 (9-20) mg/dL Creatinine 0.76 (0.66-1.25) mg/dL Est GFR (CKD-EPI)AfAm >90 (>60 ml/min/1.73 sqM) Est GFR (CKD-EPI)NonAf >90 (>60 ml/min/1.73 sqM) Glucose 115 H (74-99) mg/dL Calcium 8.8 (8.4-10.2) mg/dL Magnesium 2.1 (1.6-2.3) mg/dL Total Bilirubin 0.7 (0.2-1.3) mg/dL AST 28 (17-59) U/L ALT 20 (4-49) U/L Alkaline Phosphatase 71 (38-126) U/L Troponin I (0.000-0.034) ng/mL Total Protein 7.7 (6.3-8.2) g/dL Albumin 4.4 (3.5-5.0) g/dL 05/11/22 Range/Units 10:15 WBC (3.8-10.6) k/uL RBC (4.30-5.90) m/uL Hgb (13.0-17.5) gm/dL Hct (39.0-53.0) % MCV (80.0-100.0) fL MCH (25.0-35.0) pg MCHC (31.0-37.0) g/dL RDW (11.5-15.5) % Plt Count (150-450) k/uL MPV Neutrophils % % Lymphocytes % % Monocytes % % Eosinophils % % Basophils % % Neutrophils # (1.3-7.7) k/uL Lymphocytes # (1.0-4.8) k/uL Monocytes # (0-1.0) k/uL Eosinophils # (0-0.7) k/uL Basophils # (0-0.2) k/uL PT (9.0-12.0) sec INR (<1.2) APTT (22.0-30.0) sec Sodium (137-145) mmol/L Potassium (3.5-5.1) mmol/L Chloride (98-107) mmol/L Carbon Dioxide (22-30) mmol/L Anion Gap mmol/L BUN (9-20) mg/dL Creatinine (0.66-1.25) mg/dL Est GFR (CKD-EPI)AfAm (>60 ml/min/1.73 sqM) Est GFR (CKD-EPI)NonAf (>60 ml/min/1.73 sqM) Glucose (74-99) mg/dL Calcium (8.4-10.2) mg/dL Magnesium (1.6-2.3) mg/dL Total Bilirubin (0.2-1.3) mg/dL AST (17-59) U/L ALT (4-49) U/L Alkaline Phosphatase (38-126) U/L Troponin I <0.012 (0.000-0.034) ng/mL Total Protein (6.3-8.2) g/dL Albumin (3.5-5.0) g/dL Disposition Clinical Impression: Gastroenteritis Disposition: HOME SELF-CARE Condition: Good Instructions (If sedation given, give patient instructions): Gastroenteritis (ED) Is patient prescribed a controlled substance at d/c from ED?: No Referrals: Kamar Shell MD [Primary Care Provider] - 1-2 days Time of Disposition: 11:41
--- NOTE | 2022-05-11 10:30 | XR ---
EXAMINATION TYPE: XR chest 2V DATE OF EXAM: 05/11/2022 10:20 AM COMPARISON: Chest radiographs from 03/24/2022 TECHNIQUE: XR chest 2V Frontal and lateral views of the chest. CLINICAL INDICATION:Male, 52 years old with history of Chest Pain; FINDINGS: Lungs/Pleura: There is no evidence of pleural effusion, focal consolidation, or pneumothorax. Pulmonary vascularity: Unremarkable. Heart/mediastinum: Cardiomediastinal silhouette is unremarkable. Musculoskeletal: No acute osseous pathology. IMPRESSION: No acute cardiopulmonary disease/process.
[2022-05-11 10:40] LABS: Partial Thromboplastin Time 26.2 sec (22.0-30.0); Prothrombin Time 10.5 sec (9.0-12.0)
[2022-05-11 10:42] LABS: ALT 20 U/L (4-49); AST 28 U/L (17-59); African American GFR (CKD) >90 (>60 ml/min/1.73 sqM); Albumin 4.4 g/dL (3.5-5.0); Alkaline Phosphatase 71 U/L (38-126); Anion Gap 10 mmol/L; Blood Urea Nitrogen 14 mg/dL (9-20); Calcium 8.8 mg/dL (8.4-10.2); Carbon Dioxide 24 mmol/L (22-30); Chloride 103 mmol/L (98-107); Glucose 115 mg/dL (74-99); Magnesium 2.1 mg/dL (1.6-2.3); Non-African American GFR(CKD) >90 (>60 ml/min/1.73 sqM); Potassium 3.8 mmol/L (3.5-5.1); Sodium 137 mmol/L (137-145); Total Bilirubin 0.7 mg/dL (0.2-1.3); Total Protein 7.7 g/dL (6.3-8.2)
[2022-05-11 10:43] VITALS: BP 138/85; PULSE 84; RESP 16
[2022-05-11] MEDS ORDERED: ONDANSETRON 4 MG ODT STARTER PACK 2 TAB BTL PO STA (11:41)
== END 2022-05-11 13:27 | disposition home or self-care (01) ==
LOC: EC 09:52
DX: K52.9 Noninfective gastroenteritis and colitis, unspecified (principal); K21.9 Gastro-esophageal reflux disease without esophagitis; E78.5 Hyperlipidemia, unspecified; I25.2 Old myocardial infarction; Z79.83 Long term (current) use of bisphosphonates
CPT/HCPCS: 36415; 80053; 83735; 84484; 85025; 85610; 85730; 71046; 99285; 96374; 96361; J2405

== ENCOUNTER 2022-05-12 08:25 | Emergency (ER) | payer OTHER ==
[2022-05-12 08:29] VITALS: BP 132/80; PULSE 79; RESP 16; TEMP 98.3
[2022-05-12] MEDS ORDERED: ONDANSETRON 4 MG/2 ML VIAL IM STA (08:58)
[2022-05-12] MEDS ORDERED: DIPHENOX-ATROP 2.5-0.025 MG 1 EACH TAB PO STA (08:59)
[2022-05-12] MEDS ORDERED: DIPHENOX-ATROP STARTER PACK 8 TAB BTL PO STA (09:04)
--- NOTE | 2022-05-12 09:04 | ED ---
General Adult HPI - General Chief complaint: Nausea/Vomiting/Diarrhea Stated complaint: vomiting Time Seen by Provider: 05/12/22 08:30 Source: patient, RN notes reviewed, old records reviewed Mode of arrival: ambulatory Limitations: no limitations - History of Present Illness Initial comments: This is a 52-year-old male who presents emergency Department stating that he was here yesterday for gastroenteritis. Patient states last night he threw up one more time and he's been having just a little bit of diarrhea so he came back in to be reevaluated. Patient told triage he was having abdominal pain. He states he hasn't had any abdominal pain since he left yesterday. Patient denies any fever chills per patient denies any dysuria hematuria urinary frequency. Patient denies any back pain. Patient denies any chest pain difficulty breathing or shortness of breath. Patient states he didn't have any medications for diarrhea and that the main reason he came back. - Related Data Home Medications Medication Instructions Recorded Confirmed Etanercept [Enbrel Sureclick] 50 mg SQ WE 02/20/19 02/24/22 Methotrexate 25mg/1ml 25 mg IM FR 02/20/19 02/24/22 Folic Acid 1 mg PO DAILY 08/05/19 02/24/22 Omeprazole 40 mg PO DAILY 10/27/20 02/24/22 Acetaminophen Tab [Tylenol Tab] 500 mg PO Q4H PRN 02/24/22 02/24/22 Previous Rx's Medication Instructions Recorded predniSONE [Deltasone] 20 mg PO BID 5 Days #10 tab 02/18/22 Albuterol Inhaler [Ventolin Hfa 1 puff INHALATION RT-QID #8 gm 02/24/22 Inhaler] guaiFENesin-Coden 100-10MG/5ML 10 ml PO Q6H PRN 3 Days #120 ml 02/24/22 [Robitussin AC] predniSONE [Deltasone] 20 mg PO BID #10 tab 02/24/22 Ondansetron Odt [Zofran Odt] 4 mg PO Q8HR PRN #10 tab 03/24/22 Ondansetron Odt [Zofran Odt] 8 mg PO Q8HR PRN 10 Days #30 tab 05/04/22 Famotidine 20 mg PO DAILY 7 Days #7 tablet 05/05/22 Mag Hydrox/Al Hydrox/Simeth 30 ml PO BID PRN #300 ml 05/05/22 [Maalox] Allergies Allergy/AdvReac Type Severity Reaction Status Date / Time No Known Allergies Allergy Verified 05/12/22 08:29 Review of Systems ROS Statement: Those systems with pertinent positive or pertinent negative responses have been documented in the HPI. ROS Other: All systems not noted in ROS Statement are negative. Past Medical History Past Medical History: GERD/Reflux, Hyperlipidemia, Rheumatoid Arthritis (RA) Last Myocardial Infarction Date:: Dyslipidemia, appears to have some mild developmental delay History of Any Multi-Drug Resistant Organisms: None Reported Past Surgical History: No Surgical Hx Reported Past Anesthesia/Blood Transfusion Reactions: No Reported Reaction Past Psychological History: No Psychological Hx Reported Smoking Status: Never smoker Past Alcohol Use History: None Reported Past Drug Use History: None Reported - Past Family History Father Family Medical History: Hypertension Mother History Unknown: Yes Family Medical History: No Reported History Grandfather Additional Family Medical History / Comment(s): Heart disease General Exam - General Exam Comments Initial Comments: GENERAL: Patient is well-developed and well-nourished. Patient is nontoxic and well- hydrated and is in no acute distress. Patient was able to laugh with me when I was talking to him and interviewing. ENT: Neck is soft and supple. No significant lymphadenopathy is noted. Oropharynx is clear. Moist mucous membranes. Neck has full range of motion without eliciting any pain. EYES: The sclera were anicteric and conjunctiva were pink and moist. Extraocular movements were intact and pupils were equal round and reactive to light. Eyelids were unremarkable. PULMONARY: Unlabored respirations. Good breath sounds bilaterally. No audible rales rhonchi or wheezing was noted. CARDIOVASCULAR: There is a regular rate and rhythm without any murmurs gallops or rubs. ABDOMEN: Soft and nontender with normal bowel sounds. Actually no area of tenderness even with significantly deep palpation SKIN: Skin is clear with no lesions or rashes and otherwise unremarkable. NEUROLOGIC: Patient is alert and oriented x3. Cranial nerves II through XII are grossly intact. Motor and sensory are also intact. Normal speech, volume and content. Symmetrical smile. MUSCULOSKELETAL: Normal extremities with adequate strength and full range of motion. LYMPHATICS: No significant lymphadenopathy is noted PSYCHIATRIC: Normal psychiatric evaluation. Limitations: no limitations Course Vital Signs 05/12/22 08:26 Temperature 98.3 F Pulse Rate 79 Respiratory 16 Rate Blood Pressure 132/80 O2 Sat by Pulse 96 Oximetry Disposition Clinical Impression: Gastroenteritis Disposition: HOME SELF-CARE Condition: Good Instructions (If sedation given, give patient instructions): Gastroenteritis (ED) Is patient prescribed a controlled substance at d/c from ED?: No Referrals: Kamar Shell MD [Primary Care Provider] - 1-2 days Time of Disposition: 09:04
== END 2022-05-12 09:23 | disposition home or self-care (01) ==
LOC: EC 08:25
DX: K52.9 Noninfective gastroenteritis and colitis, unspecified (principal); J44.9 Chronic obstructive pulmonary disease, unspecified; E78.5 Hyperlipidemia, unspecified
CPT/HCPCS: 99283; 96372; J2405

== ENCOUNTER 2022-05-18 11:53 | Emergency (ER) | payer OTHER ==
[2022-05-18 12:16] VITALS: TEMP 97
[2022-05-18] MEDS ORDERED: methocarbamoL 500 MG TAB PO STA (12:38)
[2022-05-18] MEDS ORDERED: ACETAMINOPHEN TAB 500 MG TAB PO STA (12:38)
[2022-05-18] MEDS ORDERED: KETOROLAC 15 MG/ML 1 ML VIAL IM STA (12:38)
--- NOTE | 2022-05-18 12:57 | ED ---
General Adult HPI - General Chief complaint: Neck Pain/Injury Stated complaint: Neck pain Time Seen by Provider: 05/18/22 12:25 Source: patient, RN notes reviewed, old records reviewed Mode of arrival: ambulatory Limitations: no limitations - History of Present Illness Initial comments: Patient is a 52-year-old male with past medical history remarkable for 5-6 days of bilateral neck pain. States is worse with movement of his neck. Describes as a tightness, aching sensation located in bilateral next with radiation into the muscles on the back of his skull, as well as into the muscles on the side of his neck. Denies any known trauma or injury. Denies any known neck problems previously. Does endorse some anesthesias and bilateral fingertips. States he feels somewhat more weak on the right occasionally, however currently is experiencing this. Denies any other symptoms at this time including saddle anesthesias, difficulty with urination or bowel movements, lower extremity weakness. No trauma. No other acute complaint at this time. Would like a Covid test is family members have tested positive last week for Covid. He is asymptomatic, denying fevers, chills, cough. - Related Data Home Medications Medication Instructions Recorded Confirmed Etanercept [Enbrel Sureclick] 50 mg SQ WE 02/20/19 02/24/22 Methotrexate 25mg/1ml 25 mg IM FR 02/20/19 02/24/22 Folic Acid 1 mg PO DAILY 08/05/19 02/24/22 Omeprazole 40 mg PO DAILY 10/27/20 02/24/22 Acetaminophen Tab [Tylenol Tab] 500 mg PO Q4H PRN 02/24/22 02/24/22 Previous Rx's Medication Instructions Recorded predniSONE [Deltasone] 20 mg PO BID 5 Days #10 tab 02/18/22 Albuterol Inhaler [Ventolin Hfa 1 puff INHALATION RT-QID #8 gm 02/24/22 Inhaler] guaiFENesin-Coden 100-10MG/5ML 10 ml PO Q6H PRN 3 Days #120 ml 02/24/22 [Robitussin AC] predniSONE [Deltasone] 20 mg PO BID #10 tab 02/24/22 Ondansetron Odt [Zofran Odt] 4 mg PO Q8HR PRN #10 tab 03/24/22 Ondansetron Odt [Zofran Odt] 8 mg PO Q8HR PRN 10 Days #30 tab 05/04/22 Famotidine 20 mg PO DAILY 7 Days #7 tablet 05/05/22 Mag Hydrox/Al Hydrox/Simeth 30 ml PO BID PRN #300 ml 05/05/22 [Maalox] methocarbamoL [Robaxin-750] 1,500 mg PO TID PRN 7 Days #21 tab 05/18/22 Allergies Allergy/AdvReac Type Severity Reaction Status Date / Time No Known Allergies Allergy Verified 05/18/22 12:14 Review of Systems ROS Statement: Those systems with pertinent positive or pertinent negative responses have been documented in the HPI. Review of Systems: CONST: Denies fever EYES: Denies blurry vision ENT: Denies nasal congestion C/V: Denies Chest pain RESP: Denies shortness of breath GI: Denies abdominal pain : Denies dysuria SKIN: Denies rash. MSK: Endorse's neck pain NEURO: Denies headache ROS Other: All systems not noted in ROS Statement are negative. Past Medical History Past Medical History: GERD/Reflux, Hyperlipidemia, Rheumatoid Arthritis (RA) Last Myocardial Infarction Date:: Dyslipidemia, appears to have some mild developmental delay History of Any Multi-Drug Resistant Organisms: None Reported Past Surgical History: No Surgical Hx Reported Past Anesthesia/Blood Transfusion Reactions: No Reported Reaction Past Psychological History: No Psychological Hx Reported Smoking Status: Never smoker Past Alcohol Use History: None Reported Past Drug Use History: None Reported - Past Family History Father Family Medical History: Hypertension Mother History Unknown: Yes Family Medical History: No Reported History Grandfather Additional Family Medical History / Comment(s): Heart disease General Exam - General Exam Comments Initial Comments: General: Appears in no acute distress. HEAD: Normal with no signs of head trauma. EYES: PERRLA, EOMI, conjunctiva normal, no discharge. Pupils are 3 mm and equal bilaterally. ENT: Hearing grossly intact, normal oropharynx. Trachea is midline. No stridor auscultated. RESPIRATORY: Clear breath sounds bilaterally. C/V: Regular rate and rhythm. Peripheral pulses 2+ and intact throughout. ABD: Abdomen is nondistended. EXT: Normal range of motion, no obvious deformity. No midline cervical spine tenderness to palpation but does have extensive paraspinal muscle tenderness to palpation in the bilateral neck. Radiates from the shoulders along the trapezius muscle up into the base of the skull. Worse with movement. No midline thoracic or lumbar spine tenderness palpation. No step-offs or deformities. SKIN: No rashes or lesions observed on exposed skin. NEURO: Alert and oriented 4. No focal sensory strength deficits. Limitations: no limitations Course Vital Signs 05/18/22 05/18/22 12:15 15:22 Temperature 97 F L Pulse Rate 89 77 Respiratory 16 18 Rate Blood Pressure 131/78 126/78 O2 Sat by Pulse 98 99 Oximetry Medical Decision Making - Medical Decision Making Based on the patient's presentation and physical exam, I'm concerned for muscle strain of the patient's neck, seems to be a bilateral trapezius muscle strain. He is concerned regarding his neck pain as he did have some paresthesias and bilateral fingertips and somewhat weak on the right arm which is not reproducible today and he is not having today. I did offer him a CT of his cervical spine which he accepted. He also requested Covid swab which will be provided. He'll be symptomatically treated with medications. Patient was in agreement with this plan. Patient has no findings that are acute and cervical spine CT. No significant change from prior CTs. He does have a history of some disc space narrowing and spurring at the C6-C7 level. On reevaluation, patient is feeling improved. I discussed the findings with him. I believe it is safe for her to be discharged home with follow-up with his primary care provider. He was in agreement this plan. Covid swab was negative and I informed him. I will provide the patient with a prescription for Robaxin. I instructed the patient to follow up with their PCP in the next 1-3 days. . I explained that the patient should return to the emergency department if they experience any worsening symptoms. Strict return precautions were discussed with the patient. The patient expressed understanding of these instructions. I answered all questions that the patient had. The patient was discharged home in good condition with their prescriptions and follow up information. - Lab Data Lab Results 05/18/22 Range/Units 12:43 Coronavirus (PCR) Not Detected (Not Detectd) Disposition Clinical Impression: Neck strain, Encounter for laboratory testing for COVID-19 virus Disposition: HOME SELF-CARE Condition: Good Instructions (If sedation given, give patient instructions): Cervical Strain (ED) Prescriptions: methocarbamoL [Robaxin-750] 1,500 mg PO TID PRN 7 Days #21 tab PRN Reason: Pain Is patient prescribed a controlled substance at d/c from ED?: No Referrals: Kamar Shell MD [Primary Care Provider] - 1-2 days Time of Disposition: 14:20
--- NOTE | 2022-05-18 14:19 | CT ---
EXAMINATION TYPE: CT cervical spine wo con DATE OF EXAM: 05/18/2022 COMPARISON: CT cervical spine May 21, 2021 HISTORY: neck pain, no trauma CT DLP: 459 mGycm. Automated Exposure Control for Dose Reduction was Utilized. TECHNIQUE: CT scan of the cervical spine is obtained without contrast, axial images are obtained, sa gittal and coronal reformatted images are also reviewed. FINDINGS: Cervical spine is visualized in its entirety from C1 through upper thoracic levels, demonst rates satisfactory alignment without evidence of acute fracture or dislocation. Prevertebral soft ti ssue appears within normal limits. The C1-C2 articulation is within normal limits on the coronal justina ges. Vertebral body heights are maintained. Persistent mild to moderate disc space narrowing and spur ring at C6-C7 level. Posterior spur disc complex effaces the anterior thecal sac at this level on sag ittal and axial images similar to prior. Review of axial images shows no significant new spinal canal stenosis or neural foraminal narrowing a t any cervical level. Thyroid gland is felt within normal limits. Visualized lung apices show no pneu mothorax. IMPRESSION: As above. No significant change from prior CT. MRI noted more sensitive in evaluating chr onic pain.
[2022-05-18 15:23] VITALS: BP 126/78; PULSE 77; RESP 18
== END 2022-05-18 15:24 | disposition home or self-care (01) ==
LOC: EC 11:53
DX: S16.1XXA Strain of muscle, fascia and tendon at neck level, initial encounter (principal); E78.5 Hyperlipidemia, unspecified; I25.2 Old myocardial infarction; Z20.822 Contact with and (suspected) exposure to COVID-19; X58.XXXA Exposure to other specified factors, initial encounter
CPT/HCPCS: 87635; 72125; 99284; 96372; J1885

== ENCOUNTER 2022-06-02 08:20 | Emergency (ER) | payer OTHER ==
--- NOTE | 2022-06-02 08:59 | XR ---
EXAMINATION TYPE: XR chest 2V DATE OF EXAM: 06/02/2022 8:55 AM COMPARISON: Chest radiographs from 05/11/2022. TECHNIQUE: XR chest 2V Portable AP radiograph of the chest. CLINICAL INDICATION:Male, 52 years old with history of cough; FINDINGS: Lungs/Pleura: There is no evidence of pleural effusion, focal consolidation, or pneumothorax. Pulmonary vascularity: Unremarkable. Heart/mediastinum: Cardiomediastinal silhouette is unremarkable. Musculoskeletal: No acute osseous pathology. IMPRESSION: No acute cardiopulmonary disease/process. No significant change from prior exam.
--- NOTE | 2022-06-02 09:04 | ED ---
URI HPI - General Chief Complaint: Upper Respiratory Infection Stated Complaint: cough Time Seen by Provider: 06/02/22 08:32 Source: patient, RN notes reviewed Mode of arrival: ambulatory Limitations: no limitations - History of Present Illness Initial Comments: 52-year-old male present to the emergency Department with chief complaint of a cough. Patient states he has a dry cough sometimes productive that started yesterday. Patient does admit to nasal congestion, states he feels fatigued, body aches. No reported fever. Denies any GI symptoms he does state that hurts to cough present shortness of exertion no leg pain leg swelling no sick contacts. - Related Data Home Medications Medication Instructions Recorded Confirmed Etanercept [Enbrel Sureclick] 50 mg SQ WE 02/20/19 02/24/22 Methotrexate 25mg/1ml 25 mg IM FR 02/20/19 02/24/22 Folic Acid 1 mg PO DAILY 08/05/19 02/24/22 Omeprazole 40 mg PO DAILY 10/27/20 02/24/22 Acetaminophen Tab [Tylenol Tab] 500 mg PO Q4H PRN 02/24/22 02/24/22 Previous Rx's Medication Instructions Recorded predniSONE [Deltasone] 20 mg PO BID 5 Days #10 tab 02/18/22 Albuterol Inhaler [Ventolin Hfa 1 puff INHALATION RT-QID #8 gm 02/24/22 Inhaler] guaiFENesin-Coden 100-10MG/5ML 10 ml PO Q6H PRN 3 Days #120 ml 02/24/22 [Robitussin AC] predniSONE [Deltasone] 20 mg PO BID #10 tab 02/24/22 Ondansetron Odt [Zofran Odt] 4 mg PO Q8HR PRN #10 tab 03/24/22 Ondansetron Odt [Zofran Odt] 8 mg PO Q8HR PRN 10 Days #30 tab 05/04/22 Famotidine 20 mg PO DAILY 7 Days #7 tablet 05/05/22 Mag Hydrox/Al Hydrox/Simeth 30 ml PO BID PRN #300 ml 05/05/22 [Maalox] methocarbamoL [Robaxin-750] 1,500 mg PO TID PRN 7 Days #21 tab 05/18/22 Allergies Allergy/AdvReac Type Severity Reaction Status Date / Time No Known Allergies Allergy Verified 06/02/22 08:36 Review of Systems ROS Statement: Those systems with pertinent positive or pertinent negative responses have been documented in the HPI. ROS Other: All systems not noted in ROS Statement are negative. Past Medical History Past Medical History: GERD/Reflux, Hyperlipidemia, Rheumatoid Arthritis (RA) Last Myocardial Infarction Date:: Dyslipidemia, appears to have some mild developmental delay History of Any Multi-Drug Resistant Organisms: None Reported Past Surgical History: No Surgical Hx Reported Past Anesthesia/Blood Transfusion Reactions: No Reported Reaction Past Psychological History: No Psychological Hx Reported Smoking Status: Never smoker Past Alcohol Use History: None Reported Past Drug Use History: None Reported - Past Family History Father Family Medical History: Hypertension Mother History Unknown: Yes Family Medical History: No Reported History Grandfather Additional Family Medical History / Comment(s): Heart disease General Exam Limitations: no limitations General appearance: alert, in no apparent distress Head exam: Present: atraumatic, normocephalic, normal inspection Eye exam: Present: normal appearance, PERRL, EOMI. Absent: scleral icterus, conjunctival injection, periorbital swelling ENT exam: Present: normal exam, normal oropharynx, mucous membranes moist, TM's normal bilaterally Neck exam: Present: normal inspection, full ROM. Absent: tenderness, meningismus, lymphadenopathy Respiratory exam: Present: normal lung sounds bilaterally. Absent: respiratory distress, wheezes, rales, rhonchi, stridor Cardiovascular Exam: Present: regular rate, normal rhythm, normal heart sounds. Absent: systolic murmur, diastolic murmur, rubs, gallop, clicks GI/Abdominal exam: Present: soft, normal bowel sounds. Absent: distended, tenderness, guarding, rebound, rigid Course Vital Signs 06/02/22 08:34 Temperature 97.8 F Pulse Rate 81 Respiratory 15 Rate Blood Pressure 133/81 O2 Sat by Pulse 99 Oximetry Medical Decision Making - Medical Decision Making 51-year-old male presented for a cough. Patient has negative COVID-19, x-ray unremarkable symptoms started last 24 hours most likely is a viral upper respiratory. Patient we discharged stable condition return parameters discussed. - Lab Data Lab Results 06/02/22 Range/Units 09:06 Coronavirus (PCR) Not Detected (Not Detectd) Disposition Clinical Impression: Acute upper respiratory infection Disposition: HOME SELF-CARE Condition: Stable Instructions (If sedation given, give patient instructions): Upper Respiratory Infection (ED) Additional Instructions: Please return to the Emergency Department if symptoms worsen or any other c oncerns. Is patient prescribed a controlled substance at d/c from ED?: No Referrals: Kamar Shell MD [Primary Care Provider] - 1-2 days Time of Disposition: 09:39
[2022-06-02 09:56] VITALS: BP 115/77; PULSE 77; RESP 18; TEMP 98.6
== END 2022-06-02 09:54 | disposition home or self-care (01) ==
LOC: EC 08:20
DX: J06.9 Acute upper respiratory infection, unspecified (principal); K21.9 Gastro-esophageal reflux disease without esophagitis; Z79.83 Long term (current) use of bisphosphonates; E78.5 Hyperlipidemia, unspecified; Z20.822 Contact with and (suspected) exposure to COVID-19
CPT/HCPCS: 71046; 87635; 99284

== ENCOUNTER 2022-06-09 13:02 | Emergency (ER) | payer OTHER ==
[2022-06-09 13:08] VITALS: RESP 18; TEMP 97.7
[2022-06-09] MEDS ORDERED: MORPHINE SULFATE 4 MG/ML SYRINGE IV STA (13:51)
[2022-06-09] MEDS ORDERED: SODIUM CHLORIDE 0.9% 1,000 ML IV STA (13:51)
[2022-06-09] MEDS ORDERED: METOCLOPRAMIDE 5 MG/ML 2 ML VIAL IVP STA (13:51)
[2022-06-09 14:20] LABS: Basophils % (A) 0 %; Eosinophils # (A) 0.2 k/uL (0-0.7); Eosinophils % (A) 3 %; HCT 46.6 % (39.0-53.0); HGB 15.2 gm/dL (13.0-17.5); Lymphocytes # (A) 1.8 k/uL (1.0-4.8); Lymphocytes % (A) 23 %; MCH 28.6 pg (25.0-35.0); MCHC 32.6 g/dL (31.0-37.0); MCV 87.9 fL (80.0-100.0); Mean Platelet Volume 7.4; Monocytes # (A) 0.7 k/uL (0-1.0); Monocytes % (A) 8 %; Neutrophils # (A) 5.2 k/uL (1.3-7.7); Neutrophils % (A) 64 %; Platelet Count 231 k/uL (150-450); RDW 12.6 % (11.5-15.5)
[2022-06-09 14:21] LABS: Appearance,Urine Clear (Clear); Bilirubin,Urine Negative (Negative); Blood,Urine Negative (Negative); Color,Urine Light Yellow; Glucose,Urine (UA) Negative (Negative); Ketones,Urine Negative (Negative); Leukocyte Esterase,Urine Negative (Negative); Nitrite,Urine Negative (Negative); PH, Urine 6.5 (5.0-8.0); Protein,Urine Negative (Negative); Specific Gravity,Urine 1.012 (1.001-1.035); Urobilinogen,Urine <2.0 mg/dL (<2.0)
[2022-06-09 14:32] LABS: INR 0.9 (<1.2); Partial Thromboplastin Time 25.6 sec (22.0-30.0); Prothrombin Time 10.3 sec (9.0-12.0)
[2022-06-09 14:41] LABS: ALT 21 U/L (4-49); AST 29 U/L (17-59); African American GFR (CKD) >90 (>60 ml/min/1.73 sqM); Albumin 3.9 g/dL (3.5-5.0); Alkaline Phosphatase 58 U/L (38-126); Amylase 67 U/L (30-110); Anion Gap 8 mmol/L; Blood Urea Nitrogen 14 mg/dL (9-20); Carbon Dioxide 25 mmol/L (22-30); Chloride 104 mmol/L (98-107); Glucose 97 mg/dL (74-99); Lipase 177 U/L (23-300); Non-African American GFR(CKD) >90 (>60 ml/min/1.73 sqM); Potassium 3.9 mmol/L (3.5-5.1); Sodium 137 mmol/L (137-145); Total Bilirubin 0.5 mg/dL (0.2-1.3); Total Protein 7.1 g/dL (6.3-8.2)
--- NOTE | 2022-06-09 14:53 | ED ---
Abdominal Pain HPI - General Chief Complaint: Abdominal Pain Stated Complaint: abd pain Time Seen by Provider: 06/09/22 13:44 Source: patient Mode of arrival: wheelchair Limitations: no limitations - History of Present Illness Initial Comments: Patient is a 52-year-old male with history of rheumatoid arthritis presenting with chief complaint of abdominal pain. Patient states that the pain began around midnight last night. It was an intense sharp pain located in the bilateral lower quadrants. Patient states that the pain waxes and wanes. Patient states he was able to go back to sleep, however when he woke up the pain was still persistent. Patient states that this morning he also began experiencing some chest pain associated with the sharp abdominal pain. He admits to some dysuria. He denies any diarrhea, hematochezia, melena, shortness of breath, palpitations, weakness, vomiting, hematemesis, cough, URI-like symptoms, fever, chills, hematuria, urgency, frequency. - Related Data Home Medications Medication Instructions Recorded Confirmed Etanercept [Enbrel Sureclick] 50 mg SQ WE 02/20/19 02/24/22 Methotrexate 25mg/1ml 25 mg IM FR 02/20/19 02/24/22 Folic Acid 1 mg PO DAILY 08/05/19 02/24/22 Omeprazole 40 mg PO DAILY 10/27/20 02/24/22 Acetaminophen Tab [Tylenol Tab] 500 mg PO Q4H PRN 02/24/22 02/24/22 Previous Rx's Medication Instructions Recorded predniSONE [Deltasone] 20 mg PO BID 5 Days #10 tab 02/18/22 Albuterol Inhaler [Ventolin Hfa 1 puff INHALATION RT-QID #8 gm 02/24/22 Inhaler] guaiFENesin-Coden 100-10MG/5ML 10 ml PO Q6H PRN 3 Days #120 ml 02/24/22 [Robitussin AC] predniSONE [Deltasone] 20 mg PO BID #10 tab 02/24/22 Ondansetron Odt [Zofran Odt] 4 mg PO Q8HR PRN #10 tab 03/24/22 Ondansetron Odt [Zofran Odt] 8 mg PO Q8HR PRN 10 Days #30 tab 05/04/22 Famotidine 20 mg PO DAILY 7 Days #7 tablet 05/05/22 Mag Hydrox/Al Hydrox/Simeth 30 ml PO BID PRN #300 ml 05/05/22 [Maalox] methocarbamoL [Robaxin-750] 1,500 mg PO TID PRN 7 Days #21 tab 05/18/22 Allergies Allergy/AdvReac Type Severity Reaction Status Date / Time No Known Allergies Allergy Verified 06/09/22 13:08 Review of Systems ROS Statement: Those systems with pertinent positive or pertinent negative responses have been documented in the HPI. ROS Other: All systems not noted in ROS Statement are negative. Past Medical History Past Medical History: GERD/Reflux, Hyperlipidemia, Rheumatoid Arthritis (RA) Last Myocardial Infarction Date:: Dyslipidemia, appears to have some mild deve lopmental delay History of Any Multi-Drug Resistant Organisms: None Reported Past Surgical History: No Surgical Hx Reported Past Anesthesia/Blood Transfusion Reactions: No Reported Reaction Past Psychological History: No Psychological Hx Reported Smoking Status: Never smoker Past Alcohol Use History: None Reported Past Drug Use History: None Reported - Past Family History Father Family Medical History: Hypertension Mother History Unknown: Yes Family Medical History: No Reported History Grandfather Additional Family Medical History / Comment(s): Heart disease General Exam Limitations: no limitations General appearance: alert, in no apparent distress Head exam: Present: atraumatic, normocephalic, normal inspection Eye exam: Present: normal appearance, EOMI. Absent: scleral icterus, periorbital swelling Neck exam: Present: normal inspection Respiratory exam: Present: normal lung sounds bilaterally. Absent: respiratory distress, wheezes, rales, rhonchi, stridor Cardiovascular Exam: Present: regular rate, normal rhythm, normal heart sounds. Absent: systolic murmur, diastolic murmur, rubs, gallop, clicks GI/Abdominal exam: Present: soft, tenderness, normal bowel sounds. Absent: distended, guarding, rebound, rigid Neurological exam: Present: alert, oriented X3, CN II-XII intact Psychiatric exam: Present: normal affect, normal mood Skin exam: Present: warm, dry, intact, normal color. Absent: rash Course Vital Signs 06/09/22 06/09/22 13:05 16:08 Temperature 97.7 F Pulse Rate 94 88 Respiratory 18 18 Rate Blood Pressure 146/95 142/92 O2 Sat by Pulse 98 95 Oximetry Medical Decision Making - Medical Decision Making Patient is a 52-year-old male presenting with chief complaint of abdominal pain. Located in the bilateral lower quadrants, sharp pain, waxes and wanes. He admits to some associated dysuria and chest pain. On examination there is ten derness in the bilateral lower quadrants on palpation, no guarding or rebound. No CVA tenderness. Lab work is grossly negative. CT suggests possible gastroenteritis, but otherwise negative. On reassessment patient reports improvement in pain and nausea. He appears stable for discharge with outpatient follow-up at this time. Follow-up with PCP in one to 2 days. Report back to ER if any new or worsening symptoms. Discussed return parameters answered all questions. Patient conveyed verbal understanding and agreed to the plan. I discussed this case with my attending Dr. Pillai. - Lab Data Result diagrams: 06/09/22 13:59 06/09/22 13:59 Lab Results 06/09/22 06/09/22 06/09/22 Range/Units 13:59 13:59 13:59 WBC 8.0 (3.8-10.6) k/uL RBC 5.30 (4.30-5.90) m/uL Hgb 15.2 (13.0-17.5) gm/dL Hct 46.6 (39.0-53.0) % MCV 87.9 (80.0-100.0) fL MCH 28.6 (25.0-35.0) pg MCHC 32.6 (31.0-37.0) g/dL RDW 12.6 (11.5-15.5) % Plt Count 231 (150-450) k/uL MPV 7.4 Neutrophils % 64 % Lymphocytes % 23 % Monocytes % 8 % Eosinophils % 3 % Basophils % 0 % Neutrophils # 5.2 (1.3-7.7) k/uL Lymphocytes # 1.8 (1.0-4.8) k/uL Monocytes # 0.7 (0-1.0) k/uL Eosinophils # 0.2 (0-0.7) k/uL Basophils # 0.0 (0-0.2) k/uL PT 10.3 (9.0-12.0) sec INR 0.9 (<1.2) APTT 25.6 (22.0-30.0) sec Sodium (137-145) mmol/L Potassium (3.5-5.1) mmol/L Chloride (98-107) mmol/L Carbon Dioxide (22-30) mmol/L Anion Gap mmol/L BUN (9-20) mg/dL Creatinine (0.66-1.25) mg/dL Est GFR (CKD-EPI)AfAm (>60 ml/min/1.73 sqM) Est GFR (CKD-EPI)NonAf (>60 ml/min/1.73 sqM) Glucose (74-99) mg/dL Plasma Lactic Acid [place] (0.7-2.0) mmol/L Calcium (8.4-10.2) mg/dL Total Bilirubin (0.2-1.3) mg/dL AST (17-59) U/L ALT (4-49) U/L Alkaline Phosphatase (38-126) U/L Troponin I (0.000-0.034) ng/mL Total Protein (6.3-8.2) g/dL Albumin (3.5-5.0) g/dL Amylase (30-110) U/L Lipase (23-300) U/L Urine Color Light Yellow Urine Appearance Clear (Clear) Urine pH 6.5 (5.0-8.0) Ur Specific [place] 1.012 (1.001-1.035) Urine Protein Negative (Negative) Urine Glucose (UA) Negative (Negative) Urine Ketones Negative (Negative) Urine Blood Negative (Negative) Urine Nitrite Negative (Negative) Urine Bilirubin Negative (Negative) Urine Urobilinogen <2.0 (<2.0) mg/dL Ur Leukocyte Esterase Negative (Negative) 06/09/22 06/09/22 06/09/22 Range/Units 13:59 13:59 14:30 WBC (3.8-10.6) k/uL RBC (4.30-5.90) m/uL Hgb (13.0-17.5) gm/dL Hct (39.0-53.0) % MCV (80.0-100.0) fL MCH (25.0-35.0) pg MCHC (31.0-37.0) g/dL RDW (11.5-15.5) % Plt Count (150-450) k/uL MPV Neutrophils % % Lymphocytes % % Monocytes % % Eosinophils % % Basophils % % Neutrophils # (1.3-7.7) k/uL Lymphocytes # (1.0-4.8) k/uL Monocytes # (0-1.0) k/uL Eosinophils # (0-0.7) k/uL Basophils # (0-0.2) k/uL PT (9.0-12.0) sec INR (<1.2) APTT (22.0-30.0) sec Sodium 137 (137-145) mmol/L Potassium 3.9 (3.5-5.1) mmol/L Chloride 104 (98-107) mmol/L Carbon Dioxide 25 (22-30) mmol/L Anion Gap 8 mmol/L BUN 14 (9-20) mg/dL Creatinine 0.70 (0.66-1.25) mg/dL Est GFR (CKD-EPI)AfAm >90 (>60 ml/min/1.73 sqM) Est GFR (CKD-EPI)NonAf >90 (>60 ml/min/1.73 sqM) Glucose 97 (74-99) mg/dL Plasma Lactic Acid [place] 1.0 (0.7-2.0) mmol/L Calcium 9.0 (8.4-10.2) mg/dL Total Bilirubin 0.5 (0.2-1.3) mg/dL AST 29 (17-59) U/L ALT 21 (4-49) U/L Alkaline Phosphatase 58 (38-126) U/L Troponin I <0.012 (0.000-0.034) ng/mL Total Protein 7.1 (6.3-8.2) g/dL Albumin 3.9 (3.5-5.0) g/dL Amylase 67 (30-110) U/L Lipase 177 (23-300) U/L Urine Color Urine Appearance (Clear) Urine pH (5.0-8.0) Ur Specific [place] (1.001-1.035) Urine Protein (Negative) Urine Glucose (UA) (Negative) Urine Ketones (Negative) Urine Blood (Negative) Urine Nitrite (Negative) Urine Bilirubin (Negative) Urine Urobilinogen (<2.0) mg/dL Ur Leukocyte Esterase (Negative) Disposition Clinical Impression: Abdominal pain Disposition: HOME SELF-CARE Condition: Good Instructions (If sedation given, give patient instructions): Abdominal Pain (ED) Additional Instructions: Follow-up with PCP in one to 2 days. Report back to ER with any new or worsening symptoms. Stay well-hydrated. Plenty of rest. Is patient prescribed a controlled substance at d/c from ED?: No Referrals: Kamar Shell MD [Primary Care Provider] - 1-2 days Time of Disposition: 16:34
--- NOTE | 2022-06-09 15:53 | CT ---
EXAMINATION TYPE: CT abdomen pelvis w con DATE OF EXAM: 06/09/2022 COMPARISON: 05/05/2022 HISTORY: Abdominal pain, acute, non-localized CT DLP: 1091.3 mGycm Automated exposure control for dose reduction was used. CONTRAST: Performed with IV Contrast, patient injected with 100 mL of Isovue 300. Images obtained from the diaphragm to the floor the pelvis with IV contrast. Lung bases are clear of infiltrate. No pleural effusion. Heart size is normal. No pericardial effusio n. Liver spleen and stomach pancreas gallbladder appear intact. The bile ducts are not dilated. There is no adrenal mass. Kidneys show satisfactory contrast opacification. There is no hydronephrosis. De layed images show normal renal excretion. There is no retroperitoneal adenopathy. Appendix appears no rmal. The ureters are not dilated. Bladder distends smoothly. There is bilateral fat-containing ingui nal hernias. There is no free fluid in the pelvis. No pelvic mass. There is no mesenteric edema. No ascites or free air. No sign of a bowel obstruction. There is some m inimal wall thickening or prominence of the proximal jejunum. The lumbar spine is intact. There is na rrowing at L4-5 disc space with spur formation. No compression fracture. There is a mild spinal steno sis at L4-5 due to spur formation and facet arthropathy. IMPRESSION: Jejunal loops show borderline wall thickening that could be some minimal gastroenteritis and not sign ificantly different than old exam.
[2022-06-09 16:10] VITALS: BP 142/92; PULSE 88
== END 2022-06-09 16:57 | disposition home or self-care (01) ==
LOC: EC 13:02
DX: R10.31 Right lower quadrant pain (principal); R10.32 Left lower quadrant pain; R07.9 Chest pain, unspecified; R30.0 Dysuria; K21.9 Gastro-esophageal reflux disease without esophagitis; I25.2 Old myocardial infarction; Z79.899 Other long term (current) drug therapy
CPT/HCPCS: 36415; 93005; 80053; 82150; 83605; 83690; 84484; 85025; 85610; 85730; 81003; 74177; 99285; 96374; 96375; 96361; J2270; J2765; Q9967

== ENCOUNTER 2023-02-23 21:23 | Emergency (ER) | payer OTHER ==
[2023-02-23 21:30] VITALS: TEMP 97.8
--- NOTE | 2023-02-23 21:42 | ED ---
Chest Pain HPI - General Chief Complaint: Chest Pain Stated Complaint: Chest Pain & Migraine Time Seen by Provider: 02/23/23 21:37 Source: patient, RN notes reviewed, old records reviewed Mode of arrival: ambulatory Limitations: no limitations - History of Present Illness Initial Comments: This is a 53-year-old male here today. Patient is no medical history takes no medications. Does take Motrin Tylenol for headaches and pain has been without improvement here with his headache currently. Multiple complaints patient initially complaints of chest pain he states is resolved upon arrival his main complaint now is headache. States he gets a history of migraine headaches in the sublingual area maybe 3 days he states he comes and goes without significant changes. No provocation factors, no relieving factors. Patient has no recent fevers or trauma. Patient states no shortness of breath and regards to chest pain. Patient's chest pain is anterior left sided with resolution upon arrival. Again patient states both episodes of recurrent lasting for a short amount of time and resolve on their own MD Complaint: chest pain -: hour(s) Onset: during rest, during exertion Pain Location: substernal, left chest Pain Radiation: LUE Severity: moderate Severity scale (1-10): 4 Quality: tightness Consistency: constant, intermittent Worsens With: nothing Treatments Prior to Arrival: none - Related Data Home Medications Medication Instructions Recorded Confirmed Etanercept [Enbrel Sureclick] 50 mg SQ TH 02/20/19 02/23/23 Methotrexate 25mg/1ml 12.5 mg IM SA 02/20/19 02/23/23 Folic Acid 1 mg PO DAILY 08/05/19 02/23/23 Omeprazole 40 mg PO DAILY 10/27/20 02/23/23 Allergies Allergy/AdvReac Type Severity Reaction Status Date / Time No Known Allergies Allergy Verified 02/23/23 21:56 Review of Systems ROS Statement: Those systems with pertinent positive or pertinent negative responses have been documented in the HPI. ROS Other: All systems not noted in ROS Statement are negative. EKG Findings - EKG Comments: EKG Findings:: EKG is sinus 82 LA 132 QRS 86 QTc 421 Past Medical History Past Medical History: GERD/Reflux, Hyperlipidemia, Rheumatoid Arthritis (RA) Last Myocardial Infarction Date:: Dyslipidemia, appears to have some mild developmental delay History of Any Multi-Drug Resistant Organisms: None Reported Past Surgical History: No Surgical Hx Reported Past Anesthesia/Blood Transfusion Reactions: No Reported Reaction Past Psychological History: No Psychological Hx Reported Smoking Status: Never smoker Past Alcohol Use History: None Reported Past Drug Use History: None Reported - Past Family History Father Family Medical History: Hypertension Mother History Unknown: Yes Family Medical History: No Reported History Grandfather Additional Family Medical History / Comment(s): Heart disease General Exam Limitations: no limitations General appearance: alert, in no apparent distress Head exam: Present: atraumatic, normocephalic, normal inspection Eye exam: Present: normal appearance, PERRL, EOMI. Absent: scleral icterus, conjunctival injection, periorbital swelling ENT exam: Present: normal exam, mucous membranes moist Neck exam: Present: normal inspection. Absent: tenderness, meningismus, lymphadenopathy Respiratory exam: Present: normal lung sounds bilaterally. Absent: respiratory distress, wheezes, rales, rhonchi, stridor Cardiovascular Exam: Present: regular rate, normal rhythm, normal heart sounds. Absent: systolic murmur, diastolic murmur, rubs, gallop, clicks GI/Abdominal exam: Present: soft, normal bowel sounds. Absent: distended, tenderness, guarding, rebound, rigid Extremities exam: Present: normal inspection, full ROM, normal capillary refill. Absent: tenderness, pedal edema, joint swelling, calf tenderness Back exam: Present: normal inspection Neurological exam: Present: alert, oriented X3, CN II-XII intact Psychiatric exam: Present: normal affect, normal mood Skin exam: Present: warm, dry, intact, normal color. Absent: rash Course Vital Signs 02/23/23 02/23/23 21:26 21:37 Temperature 97.8 F Pulse Rate 85 Pulse Rate [ 77 Regulatory Affairs Analyst ] Respiratory 16 Rate Blood Pressure 182/97 O2 Sat by Pulse 98 Oximetry - Reevaluation(s) Reevaluation #1: 02/23/23 21:42 Medical records reviewed Reevaluation #2: 02/23/23 21:42 Patient does have recurrent chest pain Reevaluation #3: 02/23/23 23:25 Patient symptoms improved here in the ER headache resolved, no recurrent chest pain. Patient prefers discharged home Reevaluation #4: 02/23/23 21:43 Was pt. sent in by a medical professional or institution? @ -no Did you speak to anyone other than the patient for history? @ -no Did you review nursing and triage notes? @ -agree Were old charts reviewed? @ -no Differential Diagnosis? @ -chest pain EKG interpreted by me (3pts min.)? @ -yes X-rays interpreted by me (1pt min.)? @ -yes CT interpreted by me (1pt min.)? @ -no U/S interpreted by me (1pt. min.)? @ -no What testing was considered but not performed? (CT, X-rays, U/S, labs)? Why? @ -no What meds were considered but not given? Why? @ -no Did you discuss the management of the patient with other professionals? @ -no Did you reconcile home meds? @ -yes Was smoking cessation discussed for >3mins.? @ -no Was critical care preformed (if so, how long)? @ -yes Were there social determinants of health that impacted care today? How? (Homelessness, low income, unemployed, alcoholism, drug addiction, transportation, low edu. Level, literacy, decrease access to med. care, prison, rehab)? @ -no Was there de-escalation of care discussed even if they declined? (Discuss DNR or withdrawal of care, Hospice)? @ -no What co-morbidities impacted this encounter? (DM, HTN, Smoking, COPD, CAD, Cancer, CVA, Hep., AIDS, mental health diagnosis, sleep apnea, morbid obesity)? @ -no Was patient admitted / discharged? @ -dc Undiagnosed new problem with uncertain prognosis? @ -no Drug Therapy requiring intensive monitoring for toxicity (Heparin, Nitro, Insulin, Cardizem)? @ -no Were any procedures done? @ -no Diagnosis/symptom? @ -cp Acute, or Chronic, or Acute on Chronic? @ -acute Uncomplicated (without systemic symptoms) or Complicated (systemic symptoms)? @ -uncomplicates Side effects of treatment? @ -no Exacerbation, Progression, or Severe Exacerbation] @ -no Poses a threat to life or bodily function? @ -yes 6 Reevaluation #5: 02/23/23 21:43 Differential Chest Pain: Stable Angina, Unstable Angina, STEMI, NSTEMI Aortic Dissection, Pneumothorax, Musculoskeletal, Esophageal Spasm GERD, Cholecystitis, Pancreatitis, Zoster, this is not meant to be an all-inclusive list. Chest Pain MDM - MDM 53 male D to the emergency department [facility] with 2 separate complaints, and initial complaint is chest pain lasting about 5 minutes at a time with resolution. Patient's chest pain seems resolved spontaneously no history of cardiac disease EKG and troponin are negative here in the ER patient feels well and is now on further cardiac evaluation. Patient also suffered from recurrent headaches he does get migraine headaches this is similar to prior migraine headaches not improved with Motrin and Tylenol home headache is improved here in the ER Be discharged Disposition Clinical Impression: Chest pain, Migraine headache Disposition: HOME SELF-CARE Condition: Good Instructions (If sedation given, give patient instructions): Chest Pain (ED), Migraine Headache (ED) Is patient prescribed a controlled substance at d/c from ED?: No Referrals: Kamar Shell MD [Primary Care Provider] - 1-2 days Time of Disposition: 23:35
[2023-02-23 22:13] LABS: Partial Thromboplastin Time 24.9 sec (22.0-30.0); Prothrombin Time 10.6 sec (9.0-12.0)
--- NOTE | 2023-02-23 22:14 | XR ---
EXAMINATION TYPE: XR chest 1V portable DATE OF EXAM: 02/23/2023 10:10 PM COMPARISON: Chest radiographs from 06/02/2022 TECHNIQUE: XR chest 1V portable Portable AP radiograph of the chest. CLINICAL INDICATION:Male, 53 years old with history of chest pain; FINDINGS: Lungs/Pleura: There is no evidence of pleural effusion, focal consolidation, or pneumothorax. Pulmonary vascularity: Unremarkable. Heart/mediastinum: Cardiomediastinal silhouette is unremarkable. Musculoskeletal: No acute osseous pathology. IMPRESSION: No acute cardiopulmonary disease/process.
[2023-02-23 22:22] LABS: ALT 28 U/L (4-49); AST 28 U/L (17-59); African American GFR (CKD) >90 (>60 ml/min/1.73 sqM); Albumin 4.3 g/dL (3.5-5.0); Alkaline Phosphatase 61 U/L (38-126); Anion Gap 8 mmol/L; Blood Urea Nitrogen 12 mg/dL (9-20); Calcium 8.8 mg/dL (8.4-10.2); Carbon Dioxide 21 mmol/L (22-30); Chloride 109 mmol/L (98-107); Glucose 129 mg/dL (74-99); Lipase 157 U/L (23-300); Non-African American GFR(CKD) >90 (>60 ml/min/1.73 sqM); Potassium 3.8 mmol/L (3.5-5.1); Sodium 138 mmol/L (137-145); Total Bilirubin 0.6 mg/dL (0.2-1.3); Total Protein 7.8 g/dL (6.3-8.2)
[2023-02-23 22:25] LABS: Basophils % (A) 0 %; Eosinophils % (A) 0 %; HCT 46.1 % (39.0-53.0); HGB 15.4 gm/dL (13.0-17.5); Lymphocytes # (A) 0.5 k/uL (1.0-4.8); Lymphocytes % (A) 7 %; MCH 28.5 pg (25.0-35.0); MCHC 33.5 g/dL (31.0-37.0); MCV 85.2 fL (80.0-100.0); Mean Platelet Volume 7.5; Monocytes # (A) 0.1 k/uL (0-1.0); Monocytes % (A) 2 %; Neutrophils # (A) 5.9 k/uL (1.3-7.7); Neutrophils % (A) 90 %; Platelet Count 194 k/uL (150-450); RBC 5.41 m/uL (4.30-5.90); RDW 13.1 % (11.5-15.5); WBC 6.5 k/uL (3.8-10.6)
[2023-02-23] MEDS ORDERED: diphenhydrAMINE 50 MG/ML 1 ML VIAL IVP STA (22:26)
[2023-02-23] MEDS ORDERED: PROCHLORPERAZINE INJ 10 MG/2 ML VIAL IVP STA (22:26)
[2023-02-23] MEDS ORDERED: KETOROLAC 15 MG/ML 1 ML VIAL IVP STA (22:26)
[2023-02-23 23:39] VITALS: BP 139/75; PULSE 75; RESP 18
== END 2023-02-23 23:52 | disposition home or self-care (01) ==
LOC: EC 21:23
DX: R07.89 Other chest pain (principal); G43.909 Migraine, unspecified, not intractable, without status migrainosus; I25.2 Old myocardial infarction; K21.9 Gastro-esophageal reflux disease without esophagitis; Z79.899 Other long term (current) drug therapy
CPT/HCPCS: 36415; 93005; 83880; 80053; 83690; 83735; 84484; 85025; 85610; 85730; 71045; 99285; 96374; 96375 ×2; J1200; J0780; J1885

== ENCOUNTER 2023-05-24 11:03 | Emergency (ER) | payer OTHER ==
[2023-05-24] MEDS ORDERED: diphenhydrAMINE 50 MG/ML 1 ML VIAL IVP STA (11:40)
[2023-05-24] MEDS ORDERED: ONDANSETRON 4 MG/2 ML VIAL IVP STA (11:40)
[2023-05-24] MEDS ORDERED: KETOROLAC 15 MG/ML 1 ML VIAL IVP STA (11:40)
[2023-05-24] MEDS ORDERED: SODIUM CHLORIDE 0.9% 1,000 ML IV STA (11:40)
--- NOTE | 2023-05-24 11:43 | ED ---
General Adult HPI - General Chief complaint: Headache Stated complaint: Medication/injection reaction Time Seen by Provider: 05/24/23 11:26 Source: patient Mode of arrival: ambulatory Limitations: no limitations - History of Present Illness Initial comments: Dictation was produced using [employer] dictation software. please excuse any grammatical, word or spelling errors. Chief Complaint: 53-year-old male presents emergency department headache diarrhea and abdominal cramping History of Present Illness: 53-year-old male who has past medical history of rheumatoid arthritis. Takes methotrexate. Will pass 7 days he's been having headache, nausea and diarrhea. Patient states that his headache is bifrontal feels that his usual headaches except as some is much more severe. He has had imaging of his brain in the past on be unremarkable. Patient has a numb seemed paresthesias to arms or legs. Denies any ataxia. Patient states that headache is severe. Denies thunderclap nature. States that insidious in onset. The ROS documented in this emergency department record has been reviewed and confirmed by me. Those systems with pertinent positive or negative responses have been documented in the HPI. All other systems are other negative and/or noncontributory. - Related Data Home Medications Medication Instructions Recorded Confirmed Etanercept [Enbrel Sureclick] 50 mg SQ TH 02/20/19 02/23/23 Methotrexate 25mg/1ml 12.5 mg IM SA 02/20/19 02/23/23 Folic Acid 1 mg PO DAILY 08/05/19 02/23/23 Omeprazole 40 mg PO DAILY 10/27/20 02/23/23 Allergies Allergy/AdvReac Type Severity Reaction Status Date / Time No Known Allergies Allergy Verified 05/24/23 11:20 Review of Systems ROS Statement: Those systems with pertinent positive or pertinent negative responses have been documented in the HPI. ROS Other: All systems not noted in ROS Statement are negative. Past Medical History Past Medical History: GERD/Reflux, Hyperlipidemia, Rheumatoid Arthritis (RA) Last Myocardial Infarction Date:: Dyslipidemia, appears to have some mild developmental delay History of Any Multi-Drug Resistant Organisms: None Reported Past Surgical History: No Surgical Hx Reported Past Anesthesia/Blood Transfusion Reactions: No Reported Reaction Past Psychological History: No Psychological Hx Reported Smoking Status: Never smoker Past Alcohol Use History: None Reported Past Drug Use History: None Reported - Past Family History Father Family Medical History: Hypertension Mother History Unknown: Yes Family Medical History: No Reported History Grandfather Additional Family Medical History / Comment(s): Heart disease General Exam - General Exam Comments Initial Comments: PHYSICAL EXAM: General Impression: Alert and oriented x3, not in acute distress HEENT: Normocephalic atraumatic, extra-ocular movements intact, pupils equal and reactive to light bilaterally, mucous membranes moist. Cardiovascular: Heart regular rate and rhythm Chest: Able to complete full sentences, no retractions, no tachypnea Abdomen: abdomen soft, non-tender, non-distended, no organomegaly Musculoskeletal: Pulses present and equal in all extremities, no peripheral edema Motor: no focal deficits noted Neurological: CN II-XII grossly intact, no focal motor or sensory deficits noted Skin: Intact with no visualized rashes Psych: Normal affect and mood Limitations: no limitations Course Vital Signs 05/24/23 05/24/23 11:17 13:00 Temperature 98.6 F Pulse Rate 78 80 Respiratory 16 22 Rate Blood Pressure 145/77 151/87 O2 Sat by Pulse 97 97 Oximetry EKG Findings - EKG Comments: EKG Findings:: My EKG interpretation: Ventricular rate 69, sinus rhythm,. 133, QR Overall, this EKG is unremarkable Medical Decision Making - Medical Decision Making Was pt. sent in by a medical professional or institution ([facility], ALIGNMENT MECHANIC, urgent care, hospital, or long-term...) When possible be specific @ -No Did you speak to anyone other than the patient for history (EMS, parent, family, police, friend...)? What history was obtained from this source @ -No Did you review nursing and triage notes (agree or disagree)? Why? @ -I reviewed and agree with nursing and triage notes Were old charts reviewed (outside hosp., previous admission, EMS record, old EKG, old radiological studies, urgent care reports/EKG's, long-term records)? Report findings @ -Previous CTs and MRIs were reviewed Differential Diagnosis (chest pain, altered mental status, abdominal pain women, abdominal pain men, vaginal bleeding, musculoskeletal, weakness, fever, dyspnea, syncope, headache, dizziness, GI bleed, back pain, seizure, CVA, palpatations, mental health)? @ -Differential Headache: Migraine, tension, cluster, carbon monoxide, central venous thrombosis, pension karma temporal arteritis, acute closure glaucoma, intercranial hemorrhage, mastoiditis, sinusitis, head injury, this is not meant to be an all-inclusive list. EKG interpreted by me (3pts min.). @ -None done X-rays interpreted by me (1pt min.). @ -None done CT interpreted by me (1pt min.). @ -Computed tomography scan of the brain shows no acute processes. U/S interpreted by me (1pt. min.). @ -None done What testing was considered but not performed or refused? (CT, X-rays, U/S, labs)? Why? @ -None What meds were considered but not given or refused? Why? @ -None Did you discuss the management of the patient with other professionals (dustin wright i.e. , PA, ALIGNMENT MECHANIC, lab, RT, psych nurse, social media senior associate, shake splitter, teacher, property utilization officer, case mgr)? Give summary @ -No Was smoking cessation discussed for >3mins.? @ -No Was critical care preformed (if so, how long)? @ -No Were there social determinants of health that impacted care today? How? (Homelessness, low income, unemployed, alcoholism, drug addiction, transportati on, low edu. Level, literacy, decrease access to med. care, shelter, rehab)? @ -No Was there de-escalation of care discussed even if they declined (Discuss DNR or withdrawal of care, Hospice)? DNR status @ -No What co-morbidities impacted this encounter? (DM, HTN, Smoking, COPD, CAD, Cancer, CVA, ARF, Chemo, Hep., AIDS, mental health diagnosis, sleep apnea, morbid obesity)? @ -None Was patient admitted / discharged? Hospital course, mention meds given and route, prescriptions, significant lab abnormalities, going to OR and other pertinent info. @ -53-year-old male presents emergency Department with headache. Patient has no high-risk features. Vital signs stable. Neurologic exam is unremarkable. Patient given headache cocktail. Labs and imaging were obtained showing no acute processes. Patient reports resolution of his symptoms. Patient be discharged by follow-up with primary care doctor. Undiagnosed new problem with uncertain prognosis? @ -No Drug Therapy requiring intensive monitoring for toxicity (Heparin, Nitro, Insulin, Cardizem)? @ -No Were any procedures done? @ -No Diagnosis/symptom? Acute, or Chronic, or Acute on Chronic? Uncomplicated (without systemic symptoms) or Complicated (systemic symptoms)? @ -1. Headache Side effects of treatment? @ -No Exacerbation, Progression, or Severe Exacerbation? @ -No Poses a threat to life or bodily function? How? (Chest pain, [place], [place], pneumonia, PE, COPD, DKA, ARF, appy, cholecystitis, CVA, Diverticulitis, Homicidal, Suicidal, threat to staff... and all critical care pts) @ -No - Lab Data Result diagrams: 05/24/23 11:48 05/24/23 11:48 Lab Results 05/24/23 05/24/23 Range/Units 11:48 11:48 WBC 5.6 (3.8-10.6) k/uL RBC 5.56 (4.30-5.90) m/uL Hgb 16.4 (13.0-17.5) gm/dL Hct 49.0 (39.0-53.0) % MCV 88.3 (80.0-100.0) fL MCH 29.4 (25.0-35.0) pg MCHC 33.4 (31.0-37.0) g/dL RDW 13.1 (11.5-15.5) % Plt Count 224 (150-450) k/uL MPV 7.6 Neutrophils % 59 % Lymphocytes % 28 % Monocytes % 7 % Eosinophils % 3 % Basophils % 1 % Neutrophils # 3.3 (1.3-7.7) k/uL Lymphocytes # 1.6 (1.0-4.8) k/uL Monocytes # 0.4 (0-1.0) k/uL Eosinophils # 0.2 (0-0.7) k/uL Basophils # 0.0 (0-0.2) k/uL Sodium 138 (137-145) mmol/L Potassium 4.2 (3.5-5.1) mmol/L Chloride 105 (98-107) mmol/L Carbon Dioxide 23 (22-30) mmol/L Anion Gap 10 mmol/L BUN 13 (9-20) mg/dL Creatinine 0.78 (0.66-1.25) mg/dL Est GFR (CKD-EPI)AfAm >90 (>60 ml/min/1.73 sqM) Est GFR (CKD-EPI)NonAf >90 (>60 ml/min/1.73 sqM) Glucose 126 H (74-99) mg/dL Calcium 8.7 (8.4-10.2) mg/dL Disposition Clinical Impression: Headache Disposition: HOME SELF-CARE Condition: Good Instructions (If sedation given, give patient instructions): Acute Headache (ED) Is patient prescribed a controlled substance at d/c from ED?: No Referrals: Kamar Shell MD [Primary Care Provider] - 1-2 days Time of Disposition: 13:58
[2023-05-24 12:15] LABS: Basophils % (A) 1 %; Eosinophils # (A) 0.2 k/uL (0-0.7); Eosinophils % (A) 3 %; HGB 16.4 gm/dL (13.0-17.5); Lymphocytes # (A) 1.6 k/uL (1.0-4.8); Lymphocytes % (A) 28 %; MCH 29.4 pg (25.0-35.0); MCHC 33.4 g/dL (31.0-37.0); MCV 88.3 fL (80.0-100.0); Mean Platelet Volume 7.6; Monocytes # (A) 0.4 k/uL (0-1.0); Monocytes % (A) 7 %; Neutrophils # (A) 3.3 k/uL (1.3-7.7); Neutrophils % (A) 59 %; Platelet Count 224 k/uL (150-450); RBC 5.56 m/uL (4.30-5.90); RDW 13.1 % (11.5-15.5); WBC 5.6 k/uL (3.8-10.6)
[2023-05-24 12:23] LABS: African American GFR (CKD) >90 (>60 ml/min/1.73 sqM); Anion Gap 10 mmol/L; Blood Urea Nitrogen 13 mg/dL (9-20); Calcium 8.7 mg/dL (8.4-10.2); Carbon Dioxide 23 mmol/L (22-30); Chloride 105 mmol/L (98-107); Glucose 126 mg/dL (74-99); Non-African American GFR(CKD) >90 (>60 ml/min/1.73 sqM); Potassium 4.2 mmol/L (3.5-5.1); Sodium 138 mmol/L (137-145)
--- NOTE | 2023-05-24 13:06 | CT ---
EXAMINATION TYPE: CT brain wo con DATE OF EXAM: 05/24/2023 COMPARISON: 12/22/2021 HISTORY: 53-year-old male with headache TECHNIQUE: Examination was done in axial plane without intravenous contrast. Coronal and sagittal r econstructions performed. CT DLP: 1247.5 mGycm Automated exposure control for dose reduction was used. FINDINGS: There is no evidence of acute intracranial hemorrhage, acute ischemic changes, mass, mass-effect, or extra-axial fluid collection. There is no effacement of cerebral sulci or basal subarachnoid cister ns. There is no hydrocephalus. There is no midline shift. Bryant-white matter distinction is preserv ed. Benign basal ganglionic calcifications. Moderate mucosal thickening ethmoid air cells. Mild mucosal thickening scattered throughout the maxil nikhil and sphenoid sinuses. Also within the frontal sinuses. Mastoid air cells are pneumatized. Orbits and globes are intact. IMPRESSION: No acute intracranial abnormality seen. Mild chronic pansinus disease, moderate in the ethmoid air ce lls.
[2023-05-24 14:38] VITALS: BP 144/81; PULSE 73; RESP 18; TEMP 98
== END 2023-05-24 14:38 | disposition home or self-care (01) ==
LOC: EC 11:03
DX: R51.9 Headache, unspecified (principal); E78.5 Hyperlipidemia, unspecified; I25.2 Old myocardial infarction; K21.9 Gastro-esophageal reflux disease without esophagitis; Z79.899 Other long term (current) drug therapy
CPT/HCPCS: 36415; 93005; 80048; 85025; 70450; 99284; 96374; 96375 ×2; 96361; J1200; J2405; J1885